=== PATIENT | male | born 1955 | race Hispanic/Latino ===

== ENCOUNTER 2018-07-16 19:56 | Inpatient (IN) | payer OTHER ==
[2018-07-16 19:57] VITALS: BMI 22.8
[2018-07-16 22:39] LABS: BASO # 0.1 K/uL (0.0-0.2); BASO % 0.5 % (0.0-2.0); EOS % 0.1 % (0.0-4.0); LYMPH # 1.5 K/uL (1.0-4.3); LYMPH % 8.7 % (20.0-40.0); MEAN CORPUSCULAR HEMOGLOBIN 27.9 pg (27.0-31.0); MEAN CORPUSCULAR HGB CONC 32.5 g/dL (33.0-37.0); MEAN PLATELET VOLUME 6.1 fl (7.2-11.7); MONO # 1.6 K/uL (0.0-0.8); MONO % 9.3 % (0.0-10.0); NEUT # 13.8 K/uL (1.8-7.0); NEUT % 81.4 % (50.0-75.0); NRBC % 0.1 % (0.0-0.0); RBC 4.09 Mil/uL (4.40-5.90); RED CELL DISTRIBUTION WIDTH 14.2 % (11.5-14.5)
[2018-07-16 22:42] LABS: ALB/GLOB RATIO 1.2 (1.0-2.1); ALBUMIN 3.6 g/dL (3.5-5.0); ALT/SGPT 87 U/L (21-72); AST/SGOT 50 U/L (17-59); BLOOD UREA NITROGEN 16 mg/dl (9-20); CALCIUM 8.9 mg/dL (8.4-10.2); GFR NON-AFRICAN AMERICAN > 60
[2018-07-16 22:46] LABS: WHITE BLOOD COUNT 16.9 K/uL (4.8-10.8)
[2018-07-16 22:47] LABS: HEMOGLOBIN 11.4 g/dL (12.0-18.0); MEAN CELL VOLUME 85.9 fl (80.0-94.0)
[2018-07-16 22:54] LABS: B-TYPE NATRIURETIC PEPTIDE 747 pg/ml (0-900)
--- NOTE | 2018-07-16 22:54 | ED PDOC ---
HPI: SOB/CHF/COPD Time Seen by Provider: 07/16/18 21:00 Chief Complaint (Nursing): Shortness Of Breath Chief Complaint (Provider): Shortness Of Breath History Per: Patient History/Exam Limitations: no limitations Additional Complaint(s): 62 year old male with a past medical history of HTN, GI bleed, alcohol abuse, and pleural effusion presents to the emergency department complaining of shortness of breath and abdominal swelling. Patient states that last Tuesday morning he woke up and thought he was having a heart attack. He called 911 and went to [facility] [place]. They did a catheter, EKG and echocardiogram on him and ruled out any cardiac issue. They found fluid in the thoracic cavity and was diagnosed with severe PNA. Around 1 L of fluid was drained form abdomen. Patient was put on antibiotics and was given a x7 day strip. He took his last pill yesterday but was not able to take it today. He tries to eat food but is unable to. He states he did have a fever when he was admitted but not now. Today, mahesh ent was at [facility] when he called 911 for shortness of breath and abdominal swelling. He denies any cough. PMD: Ramón Ennis Past Medical History Reviewed: Historical Data, Nursing Documentation, Vital Signs Vital Signs: Last Vital Signs Temp 99.1 F 07/16/18 20:08 Pulse 108 H 07/16/18 21:46 Resp 20 07/16/18 21:46 BP 125/80 07/16/18 21:46 Pulse Ox 95 07/16/18 21:46 - Medical History PMH: Anemia, HTN Denies: HIV, Chronic Kidney Disease, TIA - Surgical History Surgical History: Appendectomy, Endoscopy - Family History Family History: States: Unknown Family Hx - Social History Current smoker - smoking cessation education provided: No Ex-Smoker (has not smoked in the last 12 months): Yes Alcohol: None - Immunization History Hx Tetanus Toxoid Vaccination: No Hx Influenza Vaccination: Yes Hx Pneumococcal Vaccination: Yes - Home Medications Home Medications: Ambulatory Orders Medication Instructions Recorded Pantoprazole [Protonix EC Tab] 1 tab PO DAILY 07/23/17 amLODIPine [Norvasc] 1 tab PO DAILY 07/23/17 Losartan [Cozaar] 100 mg PO DAILY 07/08/18 levoFLOXacin [Levaquin] 500 mg PO DAILY #7 tab 07/14/18 Furosemide [Lasix] 20 mg PO DAILY #30 tablet 07/15/18 - Allergies Allergies/Adverse Reactions: Allergies Allergy/AdvReac Type Severity Reaction Status Date / Time No Known Allergies Allergy Verified 07/08/18 07:55 Review of Systems ROS Statement: Except As Marked, All Systems Reviewed And Found Negative Constitutional: Negative for: Fever Respiratory: Positive for: Shortness of Breath. Negative for: Cough Gastrointestinal: Positive for: Other (abdominal swelling) Physical Exam - Reviewed Nursing Documentation Reviewed: Yes Vital Signs Reviewed: Yes - Physical Exam Appears: Positive for: Non-toxic, No Acute Distress Head Exam: Positive for: ATRAUMATIC, NORMOCEPHALIC Skin: Positive for: Normal Color, Warm, Dry Eye Exam: Positive for: Normal appearance, EOMI, PERRL ENT: Positive for: Normal ENT Inspection Cardiovascular/Chest: Positive for: Regular Rate, Rhythm. Negative for: Murmur Respiratory: Positive for: Normal Breath Sounds, Other (tachypnic ). Negative for: Respiratory Distress Gastrointestinal/Abdominal: Positive for: Normal Exam, Soft. Negative for: Tenderness Extremity: Positive for: Pedal Edema (2+ bilaterally swelling on lower extremities ) Neurological/Psych: Positive for: Alert, Oriented - Laboratory Results Result Diagrams: 07/16/18 22:23 07/16/18 22:23 Lab Results: Total Bilirubin 0.5 mg/dl (0.2-1.3) 07/16/18 22:23 AST 50 U/L (17-59) 07/16/18 22:23 ALT 87 U/L (21-72) H D 07/16/18 22:23 Alkaline Phosphatase 102 U/L (38-126) 07/16/18 22:23 Total Protein 6.7 G/DL (6.3-8.2) 07/16/18 22:23 Albumin 3.6 g/dL (3.5-5.0) 07/16/18 22:23 Globulin 3.1 gm/dL (2.2-3.9) 07/16/18 22:23 Albumin/Globulin Ratio 1.2 (1.0-2.1) 07/16/18 22:23 - ECG O2 Sat by Pulse Oximetry: 95 (RA) Pulse Ox Interpretation: Normal Medical Decision Making Medical Decision Making: Time: 2222 Plan: --EKG --BMP --BNP --Troponin I --CBC with differential --Chest xray 2 views Time: 2246 --Alerted Dr. Dubose, who will admit to telemetry. --Looked at patient's xray today and it looks like worsened left pleural effusion with low sodium levels. 00:50 CT Chest FINDINGS: Mild right pleural effusion. Moderate left pleural effusion. Passive atelectatic airspace disease of the lower lobes. Mildly enlarged unenhanced main pulmonary artery and right and left pulmonary arteries. Normal bilateral peripheral pulmonary arteries. Normal thoracic aorta and visualized great vessels. There is no demonstrated aortic aneurysm. Moderately enlarged heart and small pericardial effusion. Mildly enlarged lymph nodes in the mediastinum and ed[place] with the largest measuring 1.3 cm. Normal visualized trachea and bronchi. Normal chest wall structures. Mild diffuse spondylosis. Normal visualized upper abdomen. IMPRESSION: Mild right pleural effusion. Moderate left pleural effusion. Passive atelectatic airspace disease in the lower lobes. Moderate cardiomegaly. Mild pericardial effusion. pt aware of results of xray and need for CT chest. pt agree w plan for admission. Delfin shay aware and agreeable to admisson Scribe Attestation: Documented by Bandar Zamora, acting as a scribe forSumi Lang MD. Provider Scribe Attestation: All medical record entries made by the Scribe were at my direction and personally dictated by me. I have reviewed the chart and agree that the record accurately reflects my personal performance of the history, physical exam, medical decision making, and the department course for this patient. I have also personally directed, reviewed, and agree with the discharge instructions and disposition Disposition - Clinical Impression Clinical Impression: Pleural effusion associated with pulmonary infection - Patient ED Disposition Is Patient to be Admitted: Yes Counseled Patient/Family Regarding: Studies Performed, Diagnosis - Disposition Disposition Time: 00:55 Condition: STABLE
[2018-07-17] MEDS ORDERED: Azithromycin 500 MG in Sodium Chloride 0.9% 250 ML IVPB STA (01:51)
[2018-07-17] MEDS ORDERED: Sodium Chloride 0.9% 1,000 ML IV STA (01:55)
[2018-07-17 06:26] LABS: BASO # 0.1 K/uL (0.0-0.2); BASO % 0.5 % (0.0-2.0); EOS # 0.1 K/uL (0.0-0.7); EOS % 0.5 % (0.0-4.0); HEMOGLOBIN 10.9 g/dL (12.0-18.0); LYMPH # 1.1 K/uL (1.0-4.3); LYMPH % 6.9 % (20.0-40.0); MEAN CORPUSCULAR HEMOGLOBIN 28.7 pg (27.0-31.0); MEAN CORPUSCULAR HGB CONC 33.8 g/dL (33.0-37.0); MONO # 1.7 K/uL (0.0-0.8); MONO % 10.8 % (0.0-10.0); NEUT # 12.5 K/uL (1.8-7.0); NEUT % 81.3 % (50.0-75.0); RBC 3.79 Mil/uL (4.40-5.90); RED CELL DISTRIBUTION WIDTH 14.2 % (11.5-14.5); WHITE BLOOD COUNT 15.4 K/uL (4.8-10.8)
[2018-07-17 06:29] LABS: ALB/GLOB RATIO 1.1 (1.0-2.1); ALBUMIN 3.2 g/dL (3.5-5.0); ALT/SGPT 77 U/L (21-72); AST/SGOT 38 U/L (17-59); BLOOD UREA NITROGEN 12 mg/dl (9-20); CALCIUM 8.6 mg/dL (8.4-10.2); GFR NON-AFRICAN AMERICAN > 60
[2018-07-17] MEDS: guaiFENesin 600 mg ER Tab PO SCH ×2 (08:12→21:29)
[2018-07-17] MEDS: Pantoprazole 40 mg EC Tab PO SCH (08:13)
[2018-07-17] MEDS: Azithromycin 500 MG in Sodium Chloride 0.9% 250 ML IVPB SCH (08:14)
--- NOTE | 2018-07-17 08:24 | CARD ---
APPROVED REPORT Date of service: 07/16/2018 EKG Measurement Heart [id number] <Conclusion> Sinus tachycardia T wave abnormality, consider lateral ischemia Abnormal ECG
--- NOTE | 2018-07-17 08:49 | RAD ---
Date of service: 07/16/2018 HISTORY: sob COMPARISON: No prior. TECHNIQUE: Chest PA and lateral views FINDINGS: LUNGS: Underlying infiltrate not excluded at the left base. None appreciated at the right. PLEURA: No pneumothorax bilaterally. There is a moderate or large left pleural effusion occupying the mid to inferior left lung zone with trace right pleural effusion questioned. CARDIOVASCULAR: Calcific atherosclerotic changes are seen related to the thoracic aorta. Normal cardiac size. No pulmonary vascular congestion. OSSEOUS STRUCTURES: No significant abnormalities. VISUALIZED UPPER ABDOMEN: Normal. OTHER FINDINGS: None. IMPRESSION: Moderately large left pleural effusion with underlying airspace disease not excluded. Trace right pleural effusion question. No pulmonary vascular congestion evident.
--- NOTE | 2018-07-17 09:49 | CP.PCM.CON ---
History of Present Illness - History of Present Illness History of Present Illness: 62 YR OLD MALE REFERRED FOR PULMONARY EVALUATION BECAUSE OF SHORTNESS OF BREATH AND LEFT PLEURAL EFFUSION.HE WAS RECENTLY D/[facility]NE[facility] FROM [facility] AFTER THERAPY FOR CHEST DISCOMFORT,SOB,PLEURAL EFFUSION/ASCITES AND ?PNEUMONIA.HE IS S /P CARDIAC CATH WHICH WAS NON-REVEALING,HAS A HISTORY OF HYPERTENSION,CHRONIC ALCOHOLISM ANDGI BLEED. HE UNDERWENT?THORACENTESES/ABDOMINAL PARACENTESES WITH DRAINAGE OF 1L OF FLUID WITH SYMPTOM RELIEF BUT HAS BECOME MORE SOB WITH ABDOMINAL DISTENSION AND PEDAL EDEMA OVER THE PAST SEVERAL DAYS. NO HX OF DRUG USE OR SMOKING OF CIGARETTES/WORKS IN IT AND IS SINGLE Past Patient History - Past Medical History & Family History Past Medical History?: Yes - Past Social History Alcohol: None - CARDIAC Hx Hypertension: Yes - PULMONARY Hx Respiratory Disorders: Yes Other/Comment: Pleural effusion - NEUROLOGICAL Hx Transient Ischemic Attacks (TIA): No - HEENT Hx HEENT Problems: No - RENAL Hx Chronic Kidney Disease: No - ENDOCRINE/METABOLIC Hx Endocrine Disorders: No - HEMATOLOGICAL/ONCOLOGICAL Hx Anemia: Yes Hx Human Immunodeficiency Virus (HIV): No - INTEGUMENTARY Hx Dermatological Problems: No - MUSCULOSKELETAL/RHEUMATOLOGICAL Hx Falls: No - GASTROINTESTINAL Hx Gastrointestinal Disorders: Yes Hx Gastroesophageal Reflux: Yes Other/Comment: Hx Esophagitis. GIB - GENITOURINARY/GYNECOLOGICAL Hx Genitourinary Disorders: No - PSYCHIATRIC Hx Psychophysiologic Disorder: Yes (alcohol abuse) Hx Substance Use: No - SURGICAL HISTORY Hx Appendectomy: Yes - ANESTHESIA Hx Anesthesia: Yes Hx Anesthesia Reactions: No Hx Malignant Hyperthermia: No Has any member of the family had a problem w/ anesthesia?: No Meds Allergies/Adverse Reactions: Allergies Allergy/AdvReac Type Severity Reaction Status Date / Time No Known Allergies Allergy Verified 07/08/18 07:55 - Medications Medications: Current Medications Albuterol/Ipratropium (Duoneb 3 Mg/0.5 Mg (3 Ml) Ud) 3 ml INH RQ4 PRN PRN Reason: Shortness of Breath Amlodipine Besylate (Norvasc) 10 mg PO DAILY [facility] Last Admin: 07/17/18 08:12 Dose: 10 mg Furosemide (Lasix) 20 mg PO DAILY [facility] Last Admin: 07/17/18 08:12 Dose: 20 mg Guaifenesin (Mucinex La) 1,200 mg PO Q12 [facility] Last Admin: 07/17/18 08:12 Dose: 1,200 mg Ceftriaxone Sodium 1 gm/ (Sodium Chloride) 100 mls @ 100 mls/hr IVPB DAILY [facility]; Protocol Azithromycin 500 mg/ Sodium (Chloride) 250 mls @ 250 mls/hr IVPB DAILY [facility]; Protocol Last Admin: 07/17/18 08:14 Dose: 250 mls/hr Losartan Potassium (Cozaar) 100 mg PO DAILY [facility] Last Admin: 07/17/18 08:12 Dose: 100 mg Pantoprazole Sodium (Protonix Ec Tab) 40 mg PO DAILY [facility] Last Admin: 07/17/18 08:13 Dose: 40 mg Physical Exam - Constitutional Appears: Well, In Acute Distress, Older Than Stated Age, Chronically Ill - Head Exam Head Exam: ATRAUMATIC, NORMAL INSPECTION, NORMOCEPHALIC - Eye Exam Eye Exam: EOMI, Normal appearance, PERRL Pupil Exam: NORMAL ACCOMODATION, PERRL - ENT Exam ENT Exam: Mucous Membranes Moist, Normal Exam - Neck Exam Neck exam: Positive for: Normal Inspection - Respiratory Exam Respiratory Exam: Decreased Breath Sounds, Prolonged Expiratory Phase, Rales, Respiratory Distress Additional comments: ON O2 DULLNESS OVER L LUNG FIELD - Cardiovascular Exam Cardiovascular Exam: REGULAR RHYTHM - GI/Abdominal Exam GI & Abdominal Exam: Distended, Normal Bowel Sounds, Soft. absent: Tenderness - Rectal Exam Rectal Exam: NORMAL INSPECTION - Extremities Exam Extremities exam: Positive for: pedal edema - Back Exam Back exam: NORMAL INSPECTION - Neurological Exam Neurological exam: Alert, CN II-XII Intact, Normal Gait, Oriented x3, Reflexes Normal - Psychiatric Exam Psychiatric exam: Normal Affect, Normal Mood - Skin Skin Exam: Dry, Intact, Normal Color, Warm Results - Vital Signs Recent Vital Signs: Last Vital Signs Temp 98.4 F 07/17/18 08:11 Pulse 102 H 07/17/18 08:12 Resp 19 07/17/18 08:11 BP 135/80 07/17/18 08:12 Pulse Ox 98 07/17/18 08:11 - Labs Result Diagrams: 07/17/18 06:00 07/17/18 06:00 Labs: Laboratory Results - last 24 hr 07/16/18 07/16/18 07/17/18 22:23 22:23 06:00 WBC 16.9 H D 15.4 H RBC 4.09 L 3.79 L Hgb 11.4 L D 10.9 L Hct 35.1 32.2 L MCV 85.9 D 85.0 MCH 27.9 28.7 MCHC 32.5 L 33.8 RDW 14.2 14.2 Plt Count 834 H D 765 H MPV 6.1 L 6.0 L Neut % (Auto) 81.4 H 81.3 H Lymph % (Auto) 8.7 L 6.9 L [place] % (Auto) 9.3 10.8 H Eos % (Auto) 0.1 0.5 Baso % (Auto) 0.5 0.5 Neut # (Auto) 13.8 H 12.5 H Lymph # (Auto) 1.5 1.1 [place] # (Auto) 1.6 H 1.7 H Eos # (Auto) 0.0 0.1 Baso # (Auto) 0.1 0.1 Sodium 127 L Potassium 4.1 Chloride 91 L Carbon Dioxide 26 Anion Gap 14 BUN 16 Creatinine 0.5 L Est GFR ( Amer) > 60 Est GFR (Non-Af Amer) > 60 Random Glucose 131 H Calcium 8.9 Phosphorus Magnesium Total Bilirubin 0.5 AST 50 ALT 87 H D Alkaline Phosphatase 102 Troponin I < 0.0120 NT-Pro-B Natriuret Pep 747 Total Protein 6.7 Albumin 3.6 Globulin 3.1 Albumin/Globulin Ratio 1.2 07/17/18 06:00 WBC RBC Hgb Hct MCV MCH MCHC RDW Plt Count MPV Neut % (Auto) Lymph % (Auto) [place] % (Auto) Eos % (Auto) Baso % (Auto) Neut # (Auto) Lymph # (Auto) [place] # (Auto) Eos # (Auto) Baso # (Auto) Sodium 129 L Potassium 4.4 Chloride 92 L Carbon Dioxide 27 Anion Gap 14 BUN 12 Creatinine 0.5 L Est GFR ( Amer) > 60 Est GFR (Non-Af Amer) > 60 Random Glucose 110 Calcium 8.6 Phosphorus 3.4 Magnesium 1.9 Total Bilirubin 0.4 AST 38 ALT 77 H Alkaline Phosphatase 90 Troponin I < 0.0120 NT-Pro-B Natriuret Pep Total Protein 6.1 L Albumin 3.2 L Globulin 3.0 Albumin/Globulin Ratio 1.1 Assessment & Plan - Assessment and Plan (Free Text) Assessment: PLEURAL EFFUSION?ASCITES WITH SHORTNESS OF BREATH--R/O CIRRHOSIS/INFECTIOUS ETIOLOGY DOUBT MALIGNANCY CHRONIC ALCOHOLISM HX OF HTN HX OF GI BLEED Plan: IR FOR THORACENTESES/PARACENTESES SEND FLUID FOR ANALYSIS GI EVALUATION IV ANTIBIOTICS OXYGEN WILL CONTINUE TO FOLLOW WITH YOU - Date & Time Date: 07/17/18 Time: 09:55
--- NOTE | 2018-07-17 10:38 | CP.PCM.HP ---
History of Present Illness - History of Present Illness History of Present Illness: pt was admitted for pna/pleural effusion. was recently in [facility] for same and had thoracentesis at htat time. at present w/o pain/ sob/ f/c, n/v/d. [facility] [place] chart reviewed case dw/ dr gardiner/[facility] pulm note reviewed. Present on Admission - Present on Admission Any Indicators Present on Admission: No Review of Systems - Respiratory Respiratory: As Per HPI, Dyspnea on Exertion Past Patient History - Past Medical History & Family History Past Medical History?: Yes - Past Social History Alcohol: None - CARDIAC Hx Hypertension: Yes - PULMONARY Hx Respiratory Disorders: Yes Other/Comment: Pleural effusion - NEUROLOGICAL Hx Transient Ischemic Attacks (TIA): No - HEENT Hx HEENT Problems: No - RENAL Hx Chronic Kidney Disease: No - ENDOCRINE/METABOLIC Hx Endocrine Disorders: No - HEMATOLOGICAL/ONCOLOGICAL Hx Anemia: Yes Hx Human Immunodeficiency Virus (HIV): No - INTEGUMENTARY Hx Dermatological Problems: No - MUSCULOSKELETAL/RHEUMATOLOGICAL Hx Falls: No - GASTROINTESTINAL Hx Gastrointestinal Disorders: Yes Hx Gastroesophageal Reflux: Yes Other/Comment: Hx Esophagitis. GIB - GENITOURINARY/GYNECOLOGICAL Hx Genitourinary Disorders: No - PSYCHIATRIC Hx Psychophysiologic Disorder: Yes (alcohol abuse) Hx Substance Use: No - SURGICAL HISTORY Hx Appendectomy: Yes - ANESTHESIA Hx Anesthesia: Yes Hx Anesthesia Reactions: No Hx Malignant Hyperthermia: No Has any member of the family had a problem w/ anesthesia?: No Meds Allergies/Adverse Reactions: Allergies Allergy/AdvReac Type Severity Reaction Status Date / Time No Known Allergies Allergy Verified 07/08/18 07:55 Physical Exam - Constitutional Appears: Well, Non-toxic, No Acute Distress - Head Exam Head Exam: ATRAUMATIC, NORMAL INSPECTION, NORMOCEPHALIC - Eye Exam Eye Exam: EOMI, Normal appearance, PERRL Pupil Exam: NORMAL ACCOMODATION, PERRL - ENT Exam ENT Exam: Mucous Membranes Moist, Normal Exam - Neck Exam Neck exam: Positive for: Normal Inspection - Respiratory Exam Respiratory Exam: Clear to Auscultation Bilateral, NORMAL BREATHING PATTERN - Cardiovascular Exam Cardiovascular Exam: REGULAR RHYTHM, RRR, +S1, +S2 - GI/Abdominal Exam GI & Abdominal Exam: Normal Bowel Sounds, Soft. absent: Tenderness - Exam Bimanual exam: NORMAL BIMANUAL EXAM - Extremities Exam Extremities exam: Positive for: full ROM, normal capillary refill, normal inspection, pedal pulses present - Back Exam Back exam: NORMAL INSPECTION - Neurological Exam Neurological exam: Alert, CN II-XII Intact, Normal Gait, Oriented x3, Reflexes Normal - Psychiatric Exam Psychiatric exam: Normal Affect, Normal Mood - Skin Skin Exam: Dry, Intact, Normal Color, Warm Results - Vital Signs Recent Vital Signs: Last Vital Signs Temp 98.4 F 07/17/18 08:11 Pulse 102 H 07/17/18 08:12 Resp 19 07/17/18 08:11 BP 135/80 07/17/18 08:12 Pulse Ox 98 07/17/18 08:11 - Labs Result Diagrams: 07/17/18 06:00 07/17/18 06:00 Labs: Laboratory Results - last 24 hr 07/16/18 07/16/18 07/17/18 22:23 22:23 06:00 WBC 16.9 H D 15.4 H RBC 4.09 L 3.79 L Hgb 11.4 L D 10.9 L Hct 35.1 32.2 L MCV 85.9 D 85.0 MCH 27.9 28.7 MCHC 32.5 L 33.8 RDW 14.2 14.2 Plt Count 834 H D 765 H MPV 6.1 L 6.0 L Neut % (Auto) 81.4 H 81.3 H Lymph % (Auto) 8.7 L 6.9 L [place] % (Auto) 9.3 10.8 H Eos % (Auto) 0.1 0.5 Baso % (Auto) 0.5 0.5 Neut # (Auto) 13.8 H 12.5 H Lymph # (Auto) 1.5 1.1 [place] # (Auto) 1.6 H 1.7 H Eos # (Auto) 0.0 0.1 Baso # (Auto) 0.1 0.1 Sodium 127 L Potassium 4.1 Chloride 91 L Carbon Dioxide 26 Anion Gap 14 BUN 16 Creatinine 0.5 L Est GFR ( Amer) > 60 Est GFR (Non-Af Amer) > 60 Random Glucose 131 H Calcium 8.9 Phosphorus Magnesium Total Bilirubin 0.5 AST 50 ALT 87 H D Alkaline Phosphatase 102 Troponin I < 0.0120 NT-Pro-B Natriuret Pep 747 Total Protein 6.7 Albumin 3.6 Globulin 3.1 Albumin/Globulin Ratio 1.2 07/17/18 06:00 WBC RBC Hgb Hct MCV MCH MCHC RDW Plt Count MPV Neut % (Auto) Lymph % (Auto) [place] % (Auto) Eos % (Auto) Baso % (Auto) Neut # (Auto) Lymph # (Auto) [place] # (Auto) Eos # (Auto) Baso # (Auto) Sodium 129 L Potassium 4.4 Chloride 92 L Carbon Dioxide 27 Anion Gap 14 BUN 12 Creatinine 0.5 L Est GFR ( Amer) > 60 Est GFR (Non-Af Amer) > 60 Random Glucose 110 Calcium 8.6 Phosphorus 3.4 Magnesium 1.9 Total Bilirubin 0.4 AST 38 ALT 77 H Alkaline Phosphatase 90 Troponin I < 0.0120 NT-Pro-B Natriuret Pep Total Protein 6.1 L Albumin 3.2 L Globulin 3.0 Albumin/Globulin Ratio 1.1 Assessment & Plan (1) Pleural effusion associated with pulmonary infection Assessment and Plan: cardio, pulm, gi thoracentessi and per pulm rocpehin/zithromax/phenergen f/u bw and c/s o2 prn Status: Acute Priority: High (2) DVT prophylaxis Assessment and Plan: scd and ae hose hold anticoag for thoracentesis ambulation Status: Acute - Assessment and Plan (Free Text) Assessment: gi [id number] Decision To Admit - Pt Status Changed To: Hospital Disposition Of: Inpatient - Admit Certification Admit to Inpatient:: After my assessment, the patient will require hospitalizat ion for at least two midnights. This is because of the severity of symptoms shown, intensity of services needed, and/or the medical risk in this patient being treated as an outpatient. - . Bed Request Type: Telemetry Admitting Physician: Anders Cruz
--- NOTE | 2018-07-17 13:59 | CP.PCM.CON ---
Past Patient History - Past Medical History & Family History Past Medical History?: Yes - Past Social History Alcohol: None - CARDIAC Hx Hypertension: Yes - PULMONARY Hx Respiratory Disorders: Yes Other/Comment: Pleural effusion - NEUROLOGICAL Hx Transient Ischemic Attacks (TIA): No - HEENT Hx HEENT Problems: No - RENAL Hx Chronic Kidney Disease: No - ENDOCRINE/METABOLIC Hx Endocrine Disorders: No - HEMATOLOGICAL/ONCOLOGICAL Hx Anemia: Yes Hx Human Immunodeficiency Virus (HIV): No - INTEGUMENTARY Hx Dermatological Problems: No - MUSCULOSKELETAL/RHEUMATOLOGICAL Hx Falls: No - GASTROINTESTINAL Hx Gastrointestinal Disorders: Yes Hx Gastroesophageal Reflux: Yes Other/Comment: Hx Esophagitis. GIB - GENITOURINARY/GYNECOLOGICAL Hx Genitourinary Disorders: No - PSYCHIATRIC Hx Psychophysiologic Disorder: Yes (alcohol abuse) Hx Substance Use: No - SURGICAL HISTORY Hx Appendectomy: Yes - ANESTHESIA Hx Anesthesia: Yes Hx Anesthesia Reactions: No Hx Malignant Hyperthermia: No Has any member of the family had a problem w/ anesthesia?: No Meds Allergies/Adverse Reactions: Allergies Allergy/AdvReac Type Severity Reaction Status Date / Time No Known Allergies Allergy Verified 07/08/18 07:55 - Medications Medications: Current Medications Albuterol/Ipratropium (Duoneb 3 Mg/0.5 Mg (3 Ml) Ud) 3 ml INH RQ4 PRN PRN Reason: Shortness of Breath Amlodipine Besylate (Norvasc) 10 mg PO DAILY [facility] Last Admin: 07/17/18 08:12 Dose: 10 mg Furosemide (Lasix) 20 mg PO DAILY [facility] Last Admin: 07/17/18 08:12 Dose: 20 mg Furosemide (Lasix) 40 mg IVP DAILY [facility] Last Admin: 07/17/18 10:43 Dose: 40 mg Guaifenesin (Mucinex La) 1,200 mg PO Q12 [facility] Last Admin: 07/17/18 08:12 Dose: 1,200 mg Ceftriaxone Sodium 1 gm/ (Sodium Chloride) 100 mls @ 100 mls/hr IVPB DAILY [facility]; Protocol Last Admin: 07/17/18 10:38 Dose: 100 mls/hr Azithromycin 500 mg/ Sodium (Chloride) 250 mls @ 250 mls/hr IVPB DAILY [facility]; Protocol Last Admin: 07/17/18 08:14 Dose: 250 mls/hr Losartan Potassium (Cozaar) 100 mg PO DAILY [facility] Last Admin: 07/17/18 08:12 Dose: 100 mg Pantoprazole Sodium (Protonix Ec Tab) 40 mg PO DAILY [facility] Last Admin: 07/17/18 08:13 Dose: 40 mg Results - Vital Signs Recent Vital Signs: Last Vital Signs Temp 98.4 F 07/17/18 08:11 Pulse 110 H 07/17/18 09:00 Resp 19 07/17/18 08:11 BP 135/80 07/17/18 10:43 Pulse Ox 98 07/17/18 08:11 - Labs Result Diagrams: 07/17/18 06:00 07/17/18 06:00 Labs: Laboratory Results - last 24 hr 07/16/18 07/16/18 07/17/18 22:23 22:23 06:00 WBC 16.9 H D 15.4 H RBC 4.09 L 3.79 L Hgb 11.4 L D 10.9 L Hct 35.1 32.2 L MCV 85.9 D 85.0 MCH 27.9 28.7 MCHC 32.5 L 33.8 RDW 14.2 14.2 Plt Count 834 H D 765 H MPV 6.1 L 6.0 L Neut % (Auto) 81.4 H 81.3 H Lymph % (Auto) 8.7 L 6.9 L [place] % (Auto) 9.3 10.8 H Eos % (Auto) 0.1 0.5 Baso % (Auto) 0.5 0.5 Neut # (Auto) 13.8 H 12.5 H Lymph # (Auto) 1.5 1.1 [place] # (Auto) 1.6 H 1.7 H Eos # (Auto) 0.0 0.1 Baso # (Auto) 0.1 0.1 Sodium 127 L Potassium 4.1 Chloride 91 L Carbon Dioxide 26 Anion Gap 14 BUN 16 Creatinine 0.5 L Est GFR ( Amer) > 60 Est GFR (Non-Af Amer) > 60 Random Glucose 131 H Calcium 8.9 Phosphorus Magnesium Total Bilirubin 0.5 AST 50 ALT 87 H D Alkaline Phosphatase 102 Troponin I < 0.0120 NT-Pro-B Natriuret Pep 747 Total Protein 6.7 Albumin 3.6 Globulin 3.1 Albumin/Globulin Ratio 1.2 07/17/18 06:00 WBC RBC Hgb Hct MCV MCH MCHC RDW Plt Count MPV Neut % (Auto) Lymph % (Auto) [place] % (Auto) Eos % (Auto) Baso % (Auto) Neut # (Auto) Lymph # (Auto) [place] # (Auto) Eos # (Auto) Baso # (Auto) Sodium 129 L Potassium 4.4 Chloride 92 L Carbon Dioxide 27 Anion Gap 14 BUN 12 Creatinine 0.5 L Est GFR ( Amer) > 60 Est GFR (Non-Af Amer) > 60 Random Glucose 110 Calcium 8.6 Phosphorus 3.4 Magnesium 1.9 Total Bilirubin 0.4 AST 38 ALT 77 H Alkaline Phosphatase 90 Troponin I < 0.0120 NT-Pro-B Natriuret Pep Total Protein 6.1 L Albumin 3.2 L Globulin 3.0 Albumin/Globulin Ratio 1.1 Assessment & Plan (1) Pleural effusion exudative Status: Acute (2) ETOH abuse Status: Acute (3) Ascites Status: Acute (4) Edema extremities Status: Acute (5) Thrombocytosis Status: Acute (6) Leukocytosis Status: Acute - Assessment and Plan (Free Text) Plan: i reviewed the pts echo and left heart cath images. nml ef. no cad. pts lab values from last admission point to exudative process. would check tsh, esr, crp, consider id and rheum eval. consider onc eval. pt also hyponatremic. would be cautious with diuretic use and consider nephro consult. this does not appear to be cardiac in etiology.
[2018-07-17] MEDS ORDERED: Iohexol 240 (50 ml) PO ONE (15:00)
[2018-07-17] MEDS: Albuterol-Ipratrop 3 mg / 0.5 (3 ml) UD INH PRN ×2 (17:06→21:52)
[2018-07-17] MEDS ORDERED: Iohexol 300 100 ML IJ ONE (17:14)
[2018-07-17] MEDS ORDERED: Sodium Chloride 0.9% 50 ML IV ONE (17:14)
--- NOTE | 2018-07-17 18:59 | CT ---
Date of service: 07/17/2018 PROCEDURE: CT Abdomen and Pelvis with contrast HISTORY: ascites etoh pleural effusion leukocytosis COMPARISON: None. TECHNIQUE: Intravenous contrast dose: 95 cc Omnipaque 300. Radiation dose: Total exam DLP = 399.25 mGy-cm. This CT exam was performed using one or more of the following dose reduction techniques: Automated exposure control, adjustment of the mA and/or kV according to patient size, and/or use of iterative reconstruction technique. FINDINGS: LOWER THORAX: Bilateral pleural effusions left larger than right. Associated compressive atelectasis. Trace pericardial effusion. LIVER: Unremarkable. No gross lesion or ductal dilatation. GALLBLADDER AND BILE DUCTS: Unremarkable. PANCREAS: Unremarkable. No gross lesion or ductal dilatation. SPLEEN: Unremarkable. ADRENALS: Unremarkable. No mass. KIDNEYS AND URETERS: Unremarkable. No hydronephrosis. No solid mass. VASCULATURE: Unremarkable. No aortic aneurysm. No atherosclerotic calcification or mural plaque present. BOWEL: Fluid-filled mildly distended colon without mechanical obstruction. APPENDIX: No abnormalities to suggest acute appendicitis. No right lower quadrant inflammatory processes identified. PERITONEUM: Unremarkable. No free fluid. No free air. LYMPH NODES: Unremarkable. No enlarged lymph nodes. BLADDER: Diffuse bladder wall thickening likely cystitis. No focal bladder wall abnormalities detected. REPRODUCTIVE: Unremarkable. BONES: No acute fracture. OTHER FINDINGS: None. IMPRESSION: No acute findings in the abdomen retroperitoneum or pelvis. Diffuse bladder wall thickening likely cystitis. Redemonstration of bilateral pleural effusions and compressive atelectasis left greater than right. Incidental trace pericardial effusion.
[2018-07-18 05:44] LABS: ALB/GLOB RATIO 1.1 (1.0-2.1); ALBUMIN 3.3 g/dL (3.5-5.0); ALT/SGPT 81 U/L (21-72); AST/SGOT 47 U/L (17-59); BLOOD UREA NITROGEN 16 mg/dl (9-20); CALCIUM 8.6 mg/dL (8.4-10.2); GFR NON-AFRICAN AMERICAN > 60
[2018-07-18 05:51] LABS: BASO # 0.1 K/uL (0.0-0.2); BASO % 0.4 % (0.0-2.0); EOS % 0.2 % (0.0-4.0); HEMOGLOBIN 11.2 g/dL (12.0-18.0); LYMPH # 1.5 K/uL (1.0-4.3); LYMPH % 7.4 % (20.0-40.0); MEAN CELL VOLUME 84.6 fl (80.0-94.0); MEAN CORPUSCULAR HEMOGLOBIN 28.5 pg (27.0-31.0); MEAN CORPUSCULAR HGB CONC 33.7 g/dL (33.0-37.0); MEAN PLATELET VOLUME 6.2 fl (7.2-11.7); MONO # 2.1 K/uL (0.0-0.8); MONO % 10.1 % (0.0-10.0); NEUT # 16.9 K/uL (1.8-7.0); NEUT % 81.9 % (50.0-75.0); RBC 3.92 Mil/uL (4.40-5.90); RED CELL DISTRIBUTION WIDTH 14.3 % (11.5-14.5); WHITE BLOOD COUNT 20.6 K/uL (4.8-10.8)
[2018-07-18 06:08] LABS: T3 0.583 nmol/L (1.49-2.60)
[2018-07-18 06:12] LABS: PLATELET COUNT 915 K/uL (130-400)
[2018-07-18 06:35] LABS: ERYTHROCYTE SEDIMENTATION RATE 48 mm/hr (0-20)
[2018-07-18] MEDS: guaiFENesin 600 mg ER Tab PO SCH ×2 (08:06→21:19)
[2018-07-18] MEDS: Pantoprazole 40 mg EC Tab PO SCH (08:06)
[2018-07-18] MEDS: Albuterol-Ipratrop 3 mg / 0.5 (3 ml) UD INH PRN ×3 (08:19→19:46)
--- NOTE | 2018-07-18 08:32 | CP.PCM.PN ---
Subjective - Date & Time of Evaluation Date of Evaluation: 07/18/18 Time of Evaluation: 08:32 - Subjective Subjective: OOB TO CHAIR STILL DYSPNEIC BUT LESS NO CHEST PAINS HAS A DRY COUGH Objective - Vital Signs/Intake and Output Vital Signs (last 24 hours): Temp Pulse Resp BP Pulse Ox 98.9 F 111 H 22 128/84 97 07/18/18 08:07 07/18/18 08:07 07/18/18 08:07 07/18/18 08:13 07/18/18 08:07 - Medications Medications: Current Medications Albuterol/Ipratropium (Duoneb 3 Mg/0.5 Mg (3 Ml) Ud) 3 ml INH RQ4 PRN PRN Reason: Shortness of Breath Last Admin: 07/18/18 08:19 Dose: 3 ml Amlodipine Besylate (Norvasc) 10 mg PO DAILY [facility] Last Admin: 07/18/18 08:06 Dose: Not Given Furosemide (Lasix) 20 mg PO DAILY [facility] Last Admin: 07/18/18 08:05 Dose: Not Given Guaifenesin (Mucinex La) 1,200 mg PO Q12 [facility] Last Admin: 07/18/18 08:06 Dose: Not Given Ceftriaxone Sodium 1 gm/ (Sodium Chloride) 100 mls @ 100 mls/hr IVPB DAILY [facility]; Protocol Last Admin: 07/18/18 08:12 Dose: 100 mls/hr Azithromycin 500 mg/ Sodium (Chloride) 250 mls @ 250 mls/hr IVPB DAILY [facility]; Protocol Last Admin: 07/17/18 08:14 Dose: 250 mls/hr Losartan Potassium (Cozaar) 100 mg PO DAILY [facility] Last Admin: 07/18/18 08:05 Dose: Not Given Pantoprazole Sodium (Protonix Ec Tab) 40 mg PO DAILY [facility] Last Admin: 07/18/18 08:06 Dose: Not Given - Labs Labs: 07/18/18 05:12 07/18/18 05:12 - Constitutional Appears: Chronically Ill - Head Exam Head Exam: ATRAUMATIC, NORMAL INSPECTION, NORMOCEPHALIC - Eye Exam Eye Exam: EOMI, Normal appearance, PERRL Pupil Exam: NORMAL ACCOMODATION, PERRL - ENT Exam ENT Exam: Mucous Membranes Moist, Normal Exam - Neck Exam Neck Exam: Full ROM, Normal Inspection. absent: Lymphadenopathy - Respiratory Exam Respiratory Exam: Decreased Breath Sounds, Rales, NORMAL BREATHING PATTERN Additional comments: DULLNESS AT LUNG BASES - Cardiovascular Exam Cardiovascular Exam: REGULAR RHYTHM, +S1, +S2. absent: Murmur - GI/Abdominal Exam GI & Abdominal Exam: Soft, Normal Bowel Sounds. absent: Tenderness - Rectal Exam Rectal Exam: NORMAL INSPECTION - Extremities Exam Extremities Exam: Full ROM, Normal Capillary Refill, Pedal Edema. absent: Joint Swelling - Back Exam Back Exam: NORMAL INSPECTION - Neurological Exam Neurological Exam: Alert, Awake, CN II-XII Intact, Normal Gait, Oriented x3 - Psychiatric Exam Psychiatric exam: Normal Affect, Normal Mood - Skin Skin Exam: Dry, Intact, Normal Color, Warm Assessment and Plan - Assessment and Plan (Free Text) Assessment: PLEURAL EFFUSIONS?ETIOLOGY Plan: FOR THORACENTESIS AND FLUID ANALYSIS CONTINUE CURRENT RX
[2018-07-18 09:41] LABS: INR 1.6; PROTHROMBIN TIME 17.7 Seconds (9.8-13.1)
[2018-07-18] MEDS: Azithromycin 500 MG in Sodium Chloride 0.9% 250 ML IVPB SCH (09:47)
[2018-07-18 09:52] LABS: BASOPHIL 1 % (0-2); LYMPHOCYTE 5 % (20-50); MONOCYTE 12 % (0-10); NEUTROPHIL 82 % (42-75); TOTAL CELLS COUNTED 100
[2018-07-18 09:53] LABS: PLATELET ESTIMATE MARKEDLY INCREASED (NORMAL)
--- NOTE | 2018-07-18 11:04 | CP.PCM.PN ---
Subjective - Date & Time of Evaluation Date of Evaluation: 07/18/18 Time of Evaluation: 11:03 - Subjective Subjective: pt doing well. no f/c, n/v/d. bw noted and case d/c w/ all consults. seen in ir s/p thoracentesis no dyspnea, cp Objective - Vital Signs/Intake and Output Vital Signs (last 24 hours): Temp Pulse Resp BP Pulse Ox 98.9 F 111 H 22 128/84 97 07/18/18 08:07 07/18/18 08:07 07/18/18 08:07 07/18/18 08:13 07/18/18 08:07 - Medications Medications: Current Medications Albuterol/Ipratropium (Duoneb 3 Mg/0.5 Mg (3 Ml) Ud) 3 ml INH RQ4 PRN PRN Reason: Shortness of Breath Last Admin: 07/18/18 08:19 Dose: 3 ml Amlodipine Besylate (Norvasc) 10 mg PO DAILY [facility] Last Admin: 07/18/18 08:06 Dose: Not Given Furosemide (Lasix) 20 mg PO DAILY [facility] Last Admin: 07/18/18 08:05 Dose: Not Given Guaifenesin (Mucinex La) 1,200 mg PO Q12 [facility] Last Admin: 07/18/18 08:06 Dose: Not Given Ceftriaxone Sodium 1 gm/ (Sodium Chloride) 100 mls @ 100 mls/hr IVPB DAILY [facility]; Protocol Last Admin: 07/18/18 08:12 Dose: 100 mls/hr Azithromycin 500 mg/ Sodium (Chloride) 250 mls @ 250 mls/hr IVPB DAILY [facility]; Protocol Last Admin: 07/18/18 09:47 Dose: 250 mls/hr Losartan Potassium (Cozaar) 100 mg PO DAILY [facility] Last Admin: 07/18/18 08:05 Dose: Not Given Pantoprazole Sodium (Protonix Ec Tab) 40 mg PO DAILY [facility] Last Admin: 07/18/18 08:06 Dose: Not Given - Labs Labs: 07/18/18 05:12 07/18/18 05:12 PT 17.7 Seconds (9.8-13.1) H 07/18/18 09:00 INR 1.6 07/18/18 09:00 - Constitutional Appears: Well, Non-toxic, No Acute Distress - Head Exam Head Exam: ATRAUMATIC, NORMAL INSPECTION, NORMOCEPHALIC - Eye Exam Eye Exam: EOMI, Normal appearance, PERRL Pupil Exam: NORMAL ACCOMODATION, PERRL - ENT Exam ENT Exam: Mucous Membranes Moist, Normal Exam - Neck Exam Neck Exam: Full ROM, Normal Inspection. absent: Lymphadenopathy - Respiratory Exam Respiratory Exam: Clear to Ausculation Bilateral, NORMAL BREATHING PATTERN - Cardiovascular Exam Cardiovascular Exam: REGULAR RHYTHM, RRR, +S1, +S2. absent: Murmur - GI/Abdominal Exam GI & Abdominal Exam: Soft, Normal Bowel Sounds. absent: Tenderness - Extremities Exam Extremities Exam: Full ROM, Normal Capillary Refill, Normal Inspection. absent: Joint Swelling, Pedal Edema - Back Exam Back Exam: NORMAL INSPECTION - Neurological Exam Neurological Exam: Alert, Awake, CN II-XII Intact, Normal Gait, Oriented x3 - Psychiatric Exam Psychiatric exam: Normal Affect, Normal Mood - Skin Skin Exam: Dry, Intact, Normal Color, Warm Assessment and Plan (1) Pleural effusion associated with pulmonary infection Assessment & Plan: gi, heme/onc, pulm and cardio consults appriciated pain control o2 prn s/p thoracentesis today f/u all studies as resulted Status: Acute (2) DVT prophylaxis Assessment & Plan: scd and aehose Status: Acute - Assessment and Plan (Free Text) Assessment: elev plt count-heme/onc, hydration ?? acute phase reactant
[2018-07-18] MEDS ORDERED: Lidocaine Hydrochloride 1% 10 ML ONE (11:25)
--- NOTE | 2018-07-18 11:53 | PCM.SURG1 ---
Surgeon's Initial Post Op Note - Surgeon's Notes Surgeon: Harry CLAIRE md Supervisor [employer] Maintenance: none Type of Anesthesia: Local Pre-Operative Diagnosis: Right and left pleural effusion Operative Findings: US showed small right effusion, large left effusion. Post-Operative Diagnosis: Right and left pleural effusion Operation Performed: Right and left thoracentesis Specimen/Specimens Removed: 1.5 liters of straw colored fluid left, 100 ccc right. Estimated Blood Loss: EBL {In ML}: 2 Blood Products Given: N/A Drains Used: No Drains Post-Op Condition: Fair Date of Surgery/Procedure: 07/18/18 Time of Surgery/Procedure: 11:40
[2018-07-18 12:19] LABS: AMYLASE,BODY FLUID < 30 mg/dL (NONE ESTABLISHED); GLUCOSE,BODY FLUID 132 mg/dL (NONE ESTABLISHED)
--- NOTE | 2018-07-18 13:20 | RAD ---
Date of service: 07/18/2018 PROCEDURE: CHEST RADIOGRAPH, 1 VIEW HISTORY: status post thoracentesis COMPARISON: Preprocedural examination 07/16/2018. FINDINGS: LUNGS: Marked improvement with respect aeration of the left lung status post left thoracentesis. Stable right lower lobe infiltrate likely compressive atelectasis. PLEURA: Substantial decrease in left pleural effusion. Small right pleural effusion. CARDIOVASCULAR: Atherosclerotic calcifications identified primarily aortic arch. No radiographic findings to suggest acute or significant cardiovascular disease. OSSEOUS STRUCTURES: No significant abnormalities. VISUALIZED UPPER ABDOMEN: Normal. OTHER FINDINGS: None. IMPRESSION: Status post thoracentesis, substantial decrease in left pleural effusion. No pneumothorax identified. Re-expansion left lower lobe and lingula.
--- NOTE | 2018-07-18 14:13 | CP.PCM.CON ---
History of Present Illness - History of Present Illness History of Present Illness: 62 year old male with a history of HTN, ?alcohol abuse, presenting with recurrent shortness of breath and chest discomfort, found to have a pleural effusion s/p thoracentesis with leukocytosis and thrombocytosis. The patient reports to recent thoracentesis at [facility]. He is unaware of blood problems in the past. He denies abnormal bleeding, bruising, and clotting in the past. Past medical history: HTN, ?alcohol abuse, recurent pleural effusion. Past surgical history: Denies Family history: Denies hematologic and oncologic problems Social history: 3-4 beers daily, denies tobacco Allergies: NKA Review of systems: All remaining review of systems including HEENT, cardiovascular, respiratory, gastrointestinal, genitourinary, musculoskeletal, dermatologic, neurologic, and psychiatric are negative unless mentioned in the HPI. Past Patient History - Past Medical History & Family History Past Medical History?: Yes - Past Social History Alcohol: None - CARDIAC Hx Hypertension: Yes - PULMONARY Hx Respiratory Disorders: Yes Other/Comment: Pleural effusion - NEUROLOGICAL Hx Transient Ischemic Attacks (TIA): No - HEENT Hx HEENT Problems: No - RENAL Hx Chronic Kidney Disease: No - ENDOCRINE/METABOLIC Hx Endocrine Disorders: No - HEMATOLOGICAL/ONCOLOGICAL Hx Anemia: Yes Hx Human Immunodeficiency Virus (HIV): No - INTEGUMENTARY Hx Dermatological Problems: No - MUSCULOSKELETAL/RHEUMATOLOGICAL Hx Falls: No - GASTROINTESTINAL Hx Gastrointestinal Disorders: Yes Hx Gastroesophageal Reflux: Yes Other/Comment: Hx Esophagitis. GIB - GENITOURINARY/GYNECOLOGICAL Hx Genitourinary Disorders: No - PSYCHIATRIC Hx Psychophysiologic Disorder: Yes (alcohol abuse) Hx Substance Use: No - SURGICAL HISTORY Hx Appendectomy: Yes - ANESTHESIA Hx Anesthesia: Yes Hx Anesthesia Reactions: No Hx Malignant Hyperthermia: No Has any member of the family had a problem w/ anesthesia?: No Meds Allergies/Adverse Reactions: Allergies Allergy/AdvReac Type Severity Reaction Status Date / Time No Known Allergies Allergy Verified 07/08/18 07:55 - Medications Medications: Current Medications Albuterol/Ipratropium (Duoneb 3 Mg/0.5 Mg (3 Ml) Ud) 3 ml INH RQ4 PRN PRN Reason: Shortness of Breath Last Admin: 07/18/18 08:19 Dose: 3 ml Amlodipine Besylate (Norvasc) 10 mg PO DAILY [facility] Last Admin: 07/18/18 08:06 Dose: Not Given Furosemide (Lasix) 20 mg PO DAILY [facility] Last Admin: 07/18/18 08:05 Dose: Not Given Guaifenesin (Mucinex La) 1,200 mg PO Q12 [facility] Last Admin: 07/18/18 08:06 Dose: Not Given Ceftriaxone Sodium 1 gm/ (Sodium Chloride) 100 mls @ 100 mls/hr IVPB DAILY [facility]; Protocol Last Admin: 07/18/18 08:12 Dose: 100 mls/hr Azithromycin 500 mg/ Sodium (Chloride) 250 mls @ 250 mls/hr IVPB DAILY [facility]; Protocol Last Admin: 07/18/18 09:47 Dose: 250 mls/hr Losartan Potassium (Cozaar) 100 mg PO DAILY [facility] Last Admin: 07/18/18 08:05 Dose: Not Given Pantoprazole Sodium (Protonix Ec Tab) 40 mg PO DAILY [facility] Last Admin: 07/18/18 08:06 Dose: Not Given Physical Exam - Head Exam Head Exam: ATRAUMATIC - Eye Exam Eye Exam: Normal appearance - ENT Exam ENT Exam: Mucous Membranes Dry - Respiratory Exam Respiratory Exam: Decreased Breath Sounds - Cardiovascular Exam Cardiovascular Exam: +S1, +S2 - GI/Abdominal Exam GI & Abdominal Exam: Normal Bowel Sounds Results - Vital Signs Recent Vital Signs: Last Vital Signs Temp 99.4 F 07/18/18 11:00 Pulse 92 H 07/18/18 11:40 Resp 22 07/18/18 11:40 BP 114/69 07/18/18 11:40 Pulse Ox 98 07/18/18 11:40 - Labs Result Diagrams: 07/18/18 05:12 07/18/18 05:12 Labs: Laboratory Results - last 24 hr 07/18/18 07/18/18 07/18/18 05:12 05:12 05:12 WBC 20.6 H RBC 3.92 L Hgb 11.2 L Hct 33.1 L MCV 84.6 MCH 28.5 MCHC 33.7 RDW 14.3 Plt Count 915 H* MPV 6.2 L Neut % (Auto) 81.9 H Lymph % (Auto) 7.4 L [place] % (Auto) 10.1 H Eos % (Auto) 0.2 Baso % (Auto) 0.4 Neut # (Auto) 16.9 H Lymph # (Auto) 1.5 [place] # (Auto) 2.1 H Eos # (Auto) 0.0 Baso # (Auto) 0.1 Neutrophils % (Manual) 82 H Lymphocytes % (Manual) 5 L Monocytes % (Manual) 12 H Basophils % (Manual) 1 Platelet Estimate Markedly increased H RBC Morphology Normal ESR 48 H PT INR Sodium 124 L Potassium 4.0 Chloride 89 L Carbon Dioxide 23 Anion Gap 16 BUN 16 Creatinine 0.5 L Est GFR ( Amer) > 60 Est GFR (Non-Af Amer) > 60 POC Glucose (mg/dL) Random Glucose 150 H Calcium 8.6 Phosphorus 3.7 Magnesium 2.0 Total Bilirubin 0.4 AST 47 ALT 81 H Alkaline Phosphatase 120 Total Protein 6.1 L Albumin 3.3 L Globulin 2.9 Albumin/Globulin Ratio 1.1 Free T4 1.23 Total T3 0.583 L TSH 3rd Generation 3.39 Fluid Glucose Fluid Total Protein Fluid LDH Fluid Amylase Fluid Triglycerides 07/18/18 07/18/18 07/18/18 05:22 09:00 11:50 WBC RBC Hgb Hct MCV MCH MCHC RDW Plt Count MPV Neut % (Auto) Lymph % (Auto) [place] % (Auto) Eos % (Auto) Baso % (Auto) Neut # (Auto) Lymph # (Auto) [place] # (Auto) Eos # (Auto) Baso # (Auto) Neutrophils % (Manual) Lymphocytes % (Manual) Monocytes % (Manual) Basophils % (Manual) Platelet Estimate RBC Morphology ESR PT 17.7 H INR 1.6 Sodium Potassium Chloride Carbon Dioxide Anion Gap BUN Creatinine Est GFR ( Amer) Est GFR (Non-Af Amer) POC Glucose (mg/dL) 150 H Random Glucose Calcium Phosphorus Magnesium Total Bilirubin AST ALT Alkaline Phosphatase Total Protein Albumin Globulin Albumin/Globulin Ratio Free T4 Total T3 TSH 3rd Generation Fluid Glucose 132 Fluid Total Protein Fluid LDH Fluid Amylase < 30 Fluid Triglycerides 07/18/18 11:50 WBC RBC Hgb Hct MCV MCH MCHC RDW Plt Count MPV Neut % (Auto) Lymph % (Auto) [place] % (Auto) Eos % (Auto) Baso % (Auto) Neut # (Auto) Lymph # (Auto) [place] # (Auto) Eos # (Auto) Baso # (Auto) Neutrophils % (Manual) Lymphocytes % (Manual) Monocytes % (Manual) Basophils % (Manual) Platelet Estimate RBC Morphology ESR PT INR Sodium Potassium Chloride Carbon Dioxide Anion Gap BUN Creatinine Est GFR ( Amer) Est GFR (Non-Af Amer) POC Glucose (mg/dL) Random Glucose Calcium Phosphorus Magnesium Total Bilirubin AST ALT Alkaline Phosphatase Total Protein Albumin Globulin Albumin/Globulin Ratio Free T4 Total T3 TSH 3rd Generation Fluid Glucose Fluid Total Protein 4.0 Fluid LDH 358 Fluid Amylase Fluid Triglycerides 27 Assessment & Plan (1) Thrombocytosis Assessment and Plan: will check JAK2 mutation to rule out clonal process may be reactive, rule out iron deficiency related thrombocytosis Status: Acute (2) Leukocytosis Assessment and Plan: predominant neutrophilia on abx may be reactive Status: Acute (3) Anemia Assessment and Plan: retic count, b12, folate, ferritin, FOBT to further characterize Thank you for this interesting consult. Status: Acute
--- NOTE | 2018-07-18 14:27 | CT ---
Date of service: 07/17/2018 PROCEDURE: CT Chest without contrast HISTORY: Shortness of breath. Worsening left pleural effusion. Relevant interventional procedure(s): July 18, 2018. Left thoracentesis. COMPARISON: 07/16/2018. Two-view chest. July 18, 2018. Single-view chest. TECHNIQUE: Contiguous axial images were obtained through the chest without intravenous contrast enhancement. Sagittal and coronal reconstructions were performed. Radiation dose: Total exam DLP = 265.07 mGy-cm. This CT exam was performed using one or more of the following dose reduction techniques: Automated exposure control, adjustment of the mA and/or kV according to patient size, and/or use of iterative reconstruction technique. FINDINGS: LUNGS: Compressive atelectasis affecting primarily lower lobes left greater than right. MEDIASTINUM: Unremarkable thoracic aorta. No aneurysm. Top-normal size heart. Small pericardial effusion. Main pulmonary artery unremarkable. No vascular congestion. Small, less than 1.3 cm mediastinal lymph nodes. No aortic atherosclerotic calcification. PLEURA: Bilateral pleural effusions, left larger than right. BONES: No fracture. No destructive lesion. UPPER ABDOMEN: Grossly unremarkable. OTHER FINDINGS: None. IMPRESSION: Bilateral pleural effusions left larger than right. Compressive atelectasis affecting the left lung to a greater extent than the right. Small pericardial effusion. Concordant results (preliminary interpretation) provided by [employer]. Procedure Completed: 00:02. Preliminary Report: Interpreted and electronically signed: 00:50. Final Interpretation: 14:24.
[2018-07-19] MEDS: Azithromycin 500 MG in Sodium Chloride 0.9% 250 ML IVPB SCH (09:36)
[2018-07-19] MEDS: guaiFENesin 600 mg ER Tab PO SCH ×2 (09:37→21:07)
[2018-07-19] MEDS: Pantoprazole 40 mg EC Tab PO SCH (09:37)
--- NOTE | 2018-07-19 10:36 | CP.PCM.PN ---
Subjective - Date & Time of Evaluation Date of Evaluation: 07/19/18 Time of Evaluation: 10:36 - Subjective Subjective: SOB IMPROVED POST-THORACENTESIS NO CHEST PAIN/COUGH OOB TO CHAIR Objective - Vital Signs/Intake and Output Vital Signs (last 24 hours): Temp Pulse Resp BP Pulse Ox 99.6 F 99 H 20 115/81 99 07/19/18 08:24 07/19/18 08:24 07/19/18 08:24 07/19/18 09:37 07/19/18 08:24 - Medications Medications: Current Medications Albuterol/Ipratropium (Duoneb 3 Mg/0.5 Mg (3 Ml) Ud) 3 ml INH RQ4 PRN PRN Reason: Shortness of Breath Last Admin: 07/18/18 19:46 Dose: 3 ml Amlodipine Besylate (Norvasc) 10 mg PO DAILY [facility] Last Admin: 07/19/18 09:37 Dose: 10 mg Furosemide (Lasix) 20 mg PO DAILY [facility] Last Admin: 07/19/18 09:37 Dose: 20 mg Guaifenesin (Mucinex La) 1,200 mg PO Q12 [facility] Last Admin: 07/19/18 09:37 Dose: 1,200 mg Ceftriaxone Sodium 1 gm/ (Sodium Chloride) 100 mls @ 100 mls/hr IVPB DAILY [facility]; Protocol Last Admin: 07/19/18 09:35 Dose: 100 mls/hr Azithromycin 500 mg/ Sodium (Chloride) 250 mls @ 250 mls/hr IVPB DAILY [facility]; Protocol Last Admin: 07/19/18 09:36 Dose: 250 mls/hr Losartan Potassium (Cozaar) 100 mg PO DAILY [facility] Last Admin: 07/19/18 09:37 Dose: 100 mg Pantoprazole Sodium (Protonix Ec Tab) 40 mg PO DAILY [facility] Last Admin: 07/19/18 09:37 Dose: 40 mg - Labs Labs: 07/18/18 05:12 07/18/18 05:12 PT 17.7 Seconds (9.8-13.1) H 07/18/18 09:00 INR 1.6 07/18/18 09:00 - Constitutional Appears: No Acute Distress - Head Exam Head Exam: ATRAUMATIC, NORMAL INSPECTION, NORMOCEPHALIC - Eye Exam Eye Exam: EOMI, Normal appearance, PERRL Pupil Exam: NORMAL ACCOMODATION, PERRL - ENT Exam ENT Exam: Mucous Membranes Moist, Normal Exam - Neck Exam Neck Exam: Full ROM, Normal Inspection. absent: Lymphadenopathy - Respiratory Exam Respiratory Exam: Clear to Ausculation Bilateral, NORMAL BREATHING PATTERN - Cardiovascular Exam Cardiovascular Exam: REGULAR RHYTHM, +S1, +S2. absent: Murmur - GI/Abdominal Exam GI & Abdominal Exam: Soft, Normal Bowel Sounds. absent: Tenderness - Rectal Exam Rectal Exam: NORMAL INSPECTION - Extremities Exam Extremities Exam: Full ROM, Normal Capillary Refill, Normal Inspection. absent: Joint Swelling, Pedal Edema - Back Exam Back Exam: NORMAL INSPECTION - Neurological Exam Neurological Exam: Alert, Awake, CN II-XII Intact, Normal Gait, Oriented x3 - Psychiatric Exam Psychiatric exam: Normal Affect, Normal Mood - Skin Skin Exam: Dry, Intact, Normal Color, Warm Assessment and Plan - Assessment and Plan (Free Text) Assessment: PLEURAL EFFUSION-?ETIOLOGY[EXUDATIVE] Plan: AWAIT CULTURE AND PATHOLOGY REPORT CONTINUE IV ANTIBIOTIC RX
--- NOTE | 2018-07-19 10:49 | CP.PCM.PN ---
Subjective - Date & Time of Evaluation Date of Evaluation: 07/19/18 Time of Evaluation: 10:00 - Subjective Subjective: No complaints. started aspirin today Objective - Vital Signs/Intake and Output Vital Signs (last 24 hours): Temp Pulse Resp BP Pulse Ox 99.6 F 99 H 20 115/81 99 07/19/18 08:24 07/19/18 08:24 07/19/18 08:24 07/19/18 09:37 07/19/18 08:24 - Medications Medications: Current Medications Albuterol/Ipratropium (Duoneb 3 Mg/0.5 Mg (3 Ml) Ud) 3 ml INH RQ4 PRN PRN Reason: Shortness of Breath Last Admin: 07/18/18 19:46 Dose: 3 ml Amlodipine Besylate (Norvasc) 10 mg PO DAILY [facility] Last Admin: 07/19/18 09:37 Dose: 10 mg Aspirin (Ecotrin) 81 mg PO DAILY [facility] Furosemide (Lasix) 20 mg PO DAILY [facility] Last Admin: 07/19/18 09:37 Dose: 20 mg Guaifenesin (Mucinex La) 1,200 mg PO Q12 [facility] Last Admin: 07/19/18 09:37 Dose: 1,200 mg Ceftriaxone Sodium 1 gm/ (Sodium Chloride) 100 mls @ 100 mls/hr IVPB DAILY [facility]; Protocol Last Admin: 07/19/18 09:35 Dose: 100 mls/hr Azithromycin 500 mg/ Sodium (Chloride) 250 mls @ 250 mls/hr IVPB DAILY [facility]; Protocol Last Admin: 07/19/18 09:36 Dose: 250 mls/hr Losartan Potassium (Cozaar) 100 mg PO DAILY [facility] Last Admin: 07/19/18 09:37 Dose: 100 mg Pantoprazole Sodium (Protonix Ec Tab) 40 mg PO DAILY [facility] Last Admin: 07/19/18 09:37 Dose: 40 mg - Labs Labs: 07/18/18 05:12 07/18/18 05:12 PT 17.7 Seconds (9.8-13.1) H 07/18/18 09:00 INR 1.6 07/18/18 09:00 - Head Exam Head Exam: ATRAUMATIC - Eye Exam Eye Exam: Normal appearance - ENT Exam ENT Exam: Mucous Membranes Dry - Respiratory Exam Respiratory Exam: NORMAL BREATHING PATTERN - Cardiovascular Exam Cardiovascular Exam: +S1, +S2 - GI/Abdominal Exam GI & Abdominal Exam: Normal Bowel Sounds Assessment and Plan (1) Thrombocytosis Assessment & Plan: ? reactive f/u JAK2 to start aspirin 81mg daily today Status: Acute (2) Leukocytosis Assessment & Plan: ? reactive on antibiotics Status: Acute (3) Anemia Assessment & Plan: mild anemia of chronic disease Status: Acute
--- NOTE | 2018-07-19 11:17 | CP.PCM.PN ---
Subjective - Date & Time of Evaluation Date of Evaluation: 07/19/18 Time of Evaluation: 11:16 - Subjective Subjective: pt doing well. no f/c, n/v/d. less sob and no cp s/p thoracentesis. all consults appriciated. labs reviewed. c/s noted. Objective - Vital Signs/Intake and Output Vital Signs (last 24 hours): Temp Pulse Resp BP Pulse Ox 99.6 F 99 H 20 115/81 99 07/19/18 08:24 07/19/18 08:24 07/19/18 08:24 07/19/18 09:37 07/19/18 08:24 - Medications Medications: Current Medications Albuterol/Ipratropium (Duoneb 3 Mg/0.5 Mg (3 Ml) Ud) 3 ml INH RQ4 PRN PRN Reason: Shortness of Breath Last Admin: 07/18/18 19:46 Dose: 3 ml Amlodipine Besylate (Norvasc) 10 mg PO DAILY [facility] Last Admin: 07/19/18 09:37 Dose: 10 mg Aspirin (Ecotrin) 81 mg PO DAILY [facility] Furosemide (Lasix) 20 mg PO DAILY [facility] Last Admin: 07/19/18 09:37 Dose: 20 mg Guaifenesin (Mucinex La) 1,200 mg PO Q12 [facility] Last Admin: 07/19/18 09:37 Dose: 1,200 mg Ceftriaxone Sodium 1 gm/ (Sodium Chloride) 100 mls @ 100 mls/hr IVPB DAILY [facility]; Protocol Last Admin: 07/19/18 09:35 Dose: 100 mls/hr Azithromycin 500 mg/ Sodium (Chloride) 250 mls @ 250 mls/hr IVPB DAILY [facility]; Protocol Last Admin: 07/19/18 09:36 Dose: 250 mls/hr Losartan Potassium (Cozaar) 100 mg PO DAILY [facility] Last Admin: 07/19/18 09:37 Dose: 100 mg Pantoprazole Sodium (Protonix Ec Tab) 40 mg PO DAILY [facility] Last Admin: 07/19/18 09:37 Dose: 40 mg - Labs Labs: 07/18/18 05:12 07/18/18 05:12 PT 17.7 Seconds (9.8-13.1) H 07/18/18 09:00 INR 1.6 07/18/18 09:00 - Constitutional Appears: Well, Non-toxic, No Acute Distress - Head Exam Head Exam: ATRAUMATIC, NORMAL INSPECTION, NORMOCEPHALIC - Eye Exam Eye Exam: EOMI, Normal appearance, PERRL Pupil Exam: NORMAL ACCOMODATION, PERRL - ENT Exam ENT Exam: Mucous Membranes Moist, Normal Exam - Neck Exam Neck Exam: Full ROM, Normal Inspection. absent: Lymphadenopathy - Respiratory Exam Respiratory Exam: Clear to Ausculation Bilateral, NORMAL BREATHING PATTERN - Cardiovascular Exam Cardiovascular Exam: REGULAR RHYTHM, RRR, +S1, +S2. absent: Murmur - GI/Abdominal Exam GI & Abdominal Exam: Soft, Normal Bowel Sounds. absent: Tenderness - Extremities Exam Extremities Exam: Full ROM, Normal Capillary Refill, Normal Inspection. absent: Joint Swelling, Pedal Edema - Back Exam Back Exam: NORMAL INSPECTION - Neurological Exam Neurological Exam: Alert, Awake, CN II-XII Intact, Normal Gait, Oriented x3 - Psychiatric Exam Psychiatric exam: Normal Affect, Normal Mood - Skin Skin Exam: Dry, Intact, Normal Color, Warm Assessment and Plan (1) Pleural effusion associated with pulmonary infection Assessment & Plan: cont anbd, consjlts f/u c/s Status: Acute (2) DVT prophylaxis Assessment & Plan: scd and ae hose, ambulation Status: Acute - Assessment and Plan (Free Text) Assessment: cont current plan dc as per specialists and pts condition
[2018-07-19 12:30] LABS: BASO # 0.1 K/uL (0.0-0.2); BASO % 0.3 % (0.0-2.0); EOS % 0.2 % (0.0-4.0); HEMOGLOBIN 11.4 g/dL (12.0-18.0); LYMPH % 5.7 % (20.0-40.0); MEAN CELL VOLUME 84.4 fl (80.0-94.0); MEAN CORPUSCULAR HEMOGLOBIN 28.2 pg (27.0-31.0); MEAN CORPUSCULAR HGB CONC 33.4 g/dL (33.0-37.0); MEAN PLATELET VOLUME 6.2 fl (7.2-11.7); MONO # 1.8 K/uL (0.0-0.8); NEUT # 15.4 K/uL (1.8-7.0); NEUT % 83.8 % (50.0-75.0); RBC 4.02 Mil/uL (4.40-5.90); RED CELL DISTRIBUTION WIDTH 14.2 % (11.5-14.5); WHITE BLOOD COUNT 18.4 K/uL (4.8-10.8)
[2018-07-19 12:47] LABS: ALB/GLOB RATIO 1.1 (1.0-2.1); ALBUMIN 3.3 g/dL (3.5-5.0); ALT/SGPT 117 U/L (21-72); AST/SGOT 95 U/L (17-59); BLOOD UREA NITROGEN 20 mg/dl (9-20); CALCIUM 8.8 mg/dL (8.4-10.2); GFR NON-AFRICAN AMERICAN > 60
--- NOTE | 2018-07-19 14:10 | US ---
PROCEDURE: Date of procedure: 07/18/2018 Procedure: 1. Ultrasound-guided left thoracentesis, 2. Ultrasound-guided right thoracentesis Medications: 6cc 1% Lidocaine HISTORY: Right and left pleural effusion, shortness of breath TECHNIQUE: Following informed consent, the patient's right and left chest were marked and prepped in the usual sterile fashion. Ultrasound showed a large left pleural effusion and a very small right pleural effusion. After the left back was anesthetized with 1 percent lidocaine, a drainage catheter was advanced under ultrasound guidance into the left pleural space. Ultrasound-guided left thoracentesis was performed with removal 180 cubic centimeters of clear yellow fluid. After the patient's right back was incised with 2 percent lidocaine, a drainage catheter was advanced into the right pleural space. Only 60 cubic centimeters of fluid was aspirated. The catheter was removed and a Xeroform dressing was applied. IMPRESSION: Ultrasound guided left thoracentesis. Ultrasound-guided right thoracentesis. 1.8 liters of fluid removed from left pleural space. 60 cubic centimeter of fluid removed from the right pleural space.
[2018-07-19 17:09] LABS: FOLATE 16.2 ng/mL
[2018-07-20 05:10] LABS: BASO # 0.1 K/uL (0.0-0.2); BASO % 0.5 % (0.0-2.0); HEMOGLOBIN 10.7 g/dL (12.0-18.0); LYMPH # 1.2 K/uL (1.0-4.3); MEAN CELL VOLUME 84.4 fl (80.0-94.0); MEAN CORPUSCULAR HEMOGLOBIN 27.7 pg (27.0-31.0); MEAN CORPUSCULAR HGB CONC 32.9 g/dL (33.0-37.0); MEAN PLATELET VOLUME 6.3 fl (7.2-11.7); MONO # 2.2 K/uL (0.0-0.8); MONO % 9.2 % (0.0-10.0); NEUT # 20.5 K/uL (1.8-7.0); NEUT % 85.3 % (50.0-75.0); NRBC % 0.1 % (0.0-0.0); RBC 3.85 Mil/uL (4.40-5.90); RED CELL DISTRIBUTION WIDTH 14.7 % (11.5-14.5)
[2018-07-20 05:18] LABS: ALB/GLOB RATIO 1.1 (1.0-2.1); ALBUMIN 2.9 g/dL (3.5-5.0); ALT/SGPT 119 U/L (21-72); AST/SGOT 72 U/L (17-59); BLOOD UREA NITROGEN 23 mg/dl (9-20); CALCIUM 8.2 mg/dL (8.4-10.2); GFR NON-AFRICAN AMERICAN > 60
[2018-07-20] MEDS ORDERED: Sodium Chloride 0.9% 1,000 ML IV SCH (08:15)
--- NOTE | 2018-07-20 08:18 | CON ---
DATE: 07/17/2018 REFERRING DOCTOR: RASHAD Nesbitt. REASON FOR CONSULTATION: Possible ascites. HISTORY OF PRESENT ILLNESS: This is a 62-year-old gentleman, essentially had return of pleural effusion, which was tapped, now accompanied with shortness of breath, possible ascites in the abdomen. The patient has no abdominal pain or discomfort. No nausea or vomiting whatsoever. The shortness of breath is improving, but still present. Currently lying in the bed in mild respiratory distress. PAST MEDICAL HISTORY: As above. PAST SURGICAL HISTORY: As above. MEDICATIONS: Have been reviewed. REVIEW OF SYSTEMS: All other systems have been reviewed and negative apart from the HPI. PHYSICAL EXAMINATION: VITAL SIGNS: Here in the hospital are grossly unremarkable. GENERAL: A pleasant middle-aged male lying in bed comfortably, in no apparent distress. HEENT: Head: Normocephalic and atraumatic. Eyes: Pupils are equal and reactive to light bilaterally. No conjunctival pallor or icterus. NECK: Supple. Normal range of motion. No lymph nodes appreciated. LUNGS: Coarse breath sounds bilaterally. Crackles on both side. ABDOMEN: No rebound. No guarding. RECTAL: Deferred. EXTREMITIES: Pulses felt bilaterally. SKIN: Warm, dry, and intact. NEUROLOGIC: Alert and oriented x3. LABORATORY DATA: Labs and radiology have been reviewed. WBC is 15.4, hemoglobin 10.9, hematocrit 32.2, platelet count 755. INR is pending. LFTs are mildly elevated. ALT is 72. ASSESSMENT AND PLAN: This is a 62-year-old male with recurrent pleural effusion. Suggest recommended CAT scan to see if this is ascites, possible . CAT scan is ordered and performed. Pulmonary will follow up the patient. Thank you for the consult. Emanuel New MD/ PhD
--- NOTE | 2018-07-20 08:25 | CP.PCM.PN ---
Subjective - Date & Time of Evaluation Date of Evaluation: 07/20/18 Time of Evaluation: 08:28 - Subjective Subjective: SHORTNESS OF BREATH IMPROVED COUGH LESS NO CHEST PAINS ABLE TO AMBULATE WITHOUT ASSISTANCE Objective - Vital Signs/Intake and Output Vital Signs (last 24 hours): Temp Pulse Resp BP Pulse Ox 99.1 F 107 H 20 102/62 96 07/20/18 08:21 07/20/18 08:21 07/20/18 08:21 07/20/18 08:21 07/20/18 08:21 - Medications Medications: Current Medications Albuterol/Ipratropium (Duoneb 3 Mg/0.5 Mg (3 Ml) Ud) 3 ml INH RQ4 PRN PRN Reason: Shortness of Breath Last Admin: 07/18/18 19:46 Dose: 3 ml Amlodipine Besylate (Norvasc) 10 mg PO DAILY [facility] Last Admin: 07/19/18 09:37 Dose: 10 mg Aspirin (Ecotrin) 81 mg PO DAILY [facility] Last Admin: 07/19/18 12:34 Dose: 81 mg Furosemide (Lasix) 20 mg PO DAILY [facility] Last Admin: 07/19/18 09:37 Dose: 20 mg Guaifenesin (Mucinex La) 1,200 mg PO Q12 [facility] Last Admin: 07/19/18 21:07 Dose: 1,200 mg Ceftriaxone Sodium 1 gm/ (Sodium Chloride) 100 mls @ 100 mls/hr IVPB DAILY [facility]; Protocol Last Admin: 07/19/18 09:35 Dose: 100 mls/hr Azithromycin 500 mg/ Sodium (Chloride) 250 mls @ 250 mls/hr IVPB DAILY [facility]; Protocol Last Admin: 07/19/18 09:36 Dose: 250 mls/hr Sodium Chloride (Sodium Chloride 0.9%) 1,000 mls @ 100 mls/hr IV .Q10H [facility] Stop: 07/21/18 08:06 Losartan Potassium (Cozaar) 100 mg PO DAILY [facility] Last Admin: 07/19/18 09:37 Dose: 100 mg Pantoprazole Sodium (Protonix Ec Tab) 40 mg PO DAILY [facility] Last Admin: 07/19/18 09:37 Dose: 40 mg - Labs Labs: 07/20/18 04:55 07/20/18 04:55 PT 17.7 Seconds (9.8-13.1) H 07/18/18 09:00 INR 1.6 07/18/18 09:00 - Constitutional Appears: No Acute Distress - Head Exam Head Exam: ATRAUMATIC, NORMAL INSPECTION, NORMOCEPHALIC - Eye Exam Eye Exam: EOMI, Normal appearance, PERRL Pupil Exam: NORMAL ACCOMODATION, PERRL - ENT Exam ENT Exam: Mucous Membranes Moist, Normal Exam - Neck Exam Neck Exam: Full ROM, Normal Inspection. absent: Lymphadenopathy - Respiratory Exam Respiratory Exam: Rales, NORMAL BREATHING PATTERN Additional comments: FEW BASAL RALES - Cardiovascular Exam Cardiovascular Exam: REGULAR RHYTHM, +S1, +S2. absent: Murmur - GI/Abdominal Exam GI & Abdominal Exam: Soft, Normal Bowel Sounds. absent: Tenderness - Rectal Exam Rectal Exam: NORMAL INSPECTION - Extremities Exam Extremities Exam: Full ROM, Normal Capillary Refill, Normal Inspection. absent: Joint Swelling, Pedal Edema - Back Exam Back Exam: NORMAL INSPECTION - Neurological Exam Neurological Exam: Alert, Awake, CN II-XII Intact, Normal Gait, Oriented x3 - Psychiatric Exam Psychiatric exam: Normal Affect, Normal Mood - Skin Skin Exam: Dry, Intact, Normal Color, Warm Assessment and Plan - Assessment and Plan (Free Text) Assessment: PLEURAL EFFUSIONS PROBABLY DUE TO INFECTIOUS ETIOLOGY LEUKOCYTOSIS AND THROMBOCYTOSIS HX OF CHRONIC ALCOHOLISM WITH ABNORMAL LFTS Plan: AGREE WITH ID CONSULT AND IV ANTIBIOTIC THERAPY AWAIT PLEURAL FLUID CYTOLOGY REPORT ALL CULTURES NEGATIVE SO FAR
[2018-07-20] MEDS: guaiFENesin 600 mg ER Tab PO SCH ×2 (09:26→21:43)
[2018-07-20] MEDS: Pantoprazole 40 mg EC Tab PO SCH (09:26)
[2018-07-20] MEDS: Azithromycin 500 MG in Sodium Chloride 0.9% 250 ML IVPB SCH (09:28)
--- NOTE | 2018-07-20 12:10 | PN ---
DATE: 07/20/2018 SUBJECTIVE: The patient is seen sitting in chair at bedside. Denies any complaints of shortness of breath. No chest pain. No fevers at present but had a fever overnight. Blood work is noted, wbc gone back up to about 20. Platelets remain in the low 900. All consults have been appreciated. Case discussed with all consultants. Has been off oxygen about 24 hours. Cultures and cytology is pending. REVIEW OF SYSTEMS: Negative. PHYSICAL EXAMINATION: CONSTITUTIONAL: Awake, alert, and oriented. HEENT: Normal. HEART: Regular, rate and rhythm. No murmurs, rubs, or gallops. LUNGS: Clear to auscultation bilaterally. ABDOMEN: Soft, nontender. Bowel sounds x4. EXTREMITIES: Distal PMS intact. Capillary refill is brisk. DIAGNOSES AND PLAN: Pleural effusion with infection as the patient had a fever after 4 days of Rocephin and Zithromax, we will consult ID. Cultures have been thus far negative pending the results of pleural effusion, liquid cultures. Deep vein thrombosis prophylaxis, sequential compression devices with Ae-hose, chronic conditions, continue all meds. We will continue to follow laboratory results. Continue work with specialist on this patient's care. RASHAD Nesbitt MTDAliyah
--- NOTE | 2018-07-20 17:40 | CP.PCM.CON ---
History of Present Illness - History of Present Illness History of Present Illness: 62 year old male with Hx of HTN is admitted to [facility] with increased SOB and chest pain He was recently treated at where he had cardiac cath done for possible ACS and had thoracentesis for pleural effusion Now admitted to [place] with similar presentation ID consulted for persistent fever and leukocytosis s/p thoracentesis Thus far all cultures are negative Past medical history: HTN, , recurent pleural effusion, GI bleed in past Past surgical history: Denies Family history: CAD negative for TB Social history: 4 beers daily, non smoker [place] Spent 6 years in the [employer] during Possible 12/13 exposure at ground zero ( [facility] ) Allergies: NKA Review of Systems - Review of Systems All systems: reviewed and no additional remarkable complaints except - Constitutional Constitutional: As Per HPI - EENT Eyes: absent: As Per HPI, Blind Spots, Blurred Vision, Change in Vision, Decreased Night Vision, Diplopia, Discharge, Dry Eye, Exophthalmos, Floaters, Irritation, Itchy Eyes, Loss of Peripheral Vision, Pain, Photophobia, Requires Corrective Lenses, Sees Flashes, Spots in Vision, Tunnel Vision, Other Visual Disturbances, Loss of Vision, Other Ears: absent: As Per HPI, Decreased Hearing, Ear Discharge, Ear Pain, Tinnitus, Abnormal Hearing, Disequilibrium, Dizziness, Other Nose/Mouth/Throat: absent: As Per HPI, Epistaxis, Nasal Congestion, Nasal Discharge, Nasal Obstruction, Nasal Trauma, Nose Pain, Post Nasal Drip, Sinus Pain, Sinus Pressure, Bleeding Gums, Change in Voice, Dental Pain, Dry Mouth, Dysphagia, Halitosis, Hoarsness, Lip Swelling, Mouth Lesions, Mouth Pain, Odynop hagia, Sore Throat, Throat Swelling, Tongue Swelling, Facial Pain, Neck Pain, Neck Mass, Other - Cardiovascular Cardiovascular: As Per HPI - Respiratory Respiratory: As Per HPI, Cough, Dyspnea, Dyspnea on Exertion. absent: Hemoptysis - Gastrointestinal Gastrointestinal: As Per HPI - Genitourinary Genitourinary: absent: As Per HPI, Change in Urinary Stream, Difficulty Urinating, Dysuria, Flank Pain, Hematuria, Pyuria, Nocturia, Urinary Inco ntinence, Urinary Frequency, Urinary Hesitance, Urinary Urgency, Voiding Freq/Small Amts, Freq UTI, Hx Renal/Bladder Calculi, Hx /Renal Surgery, Bladder Distension, Other - Musculoskeletal Musculoskeletal: As Per HPI - Integumentary Integumentary: As Per HPI - Neurological Neurological: absent: As Per HPI, Abnormal Gait, Abnormal Hearing, Abnormal Movements, Abnormal Speech, Behavioral Changes, Burning Sensations, Confusion, Convulsions, Disequilibrium, Dizziness, Numbness, Focal Weakness, Frequent Falls, Headaches, Lack of Coordination, Loss of Vision, Memory Loss, Paresthe rach, Radicular Pain, Restless Legs, Sensory Deficit, Syncope, Tingling, Tremor, Vertigo, Weakness, Other Visual Disturbances, Other - Psychiatric Psychiatric: absent: As Per HPI, Abnormal Sleep Pattern, Anhedonia, Anxiety, Auditory Hallucinations, Behavioral Changes, Change in Appetite, Change in Libido, Confusion, Depression, Difficulty Concentrating, Hallucinations, Homicidal Ideation, Hopelessness, Irritability, Memory Loss, Mood Swings, Panic Attacks, Paranoia, Suicidal Ideation, Visual Hallucinations, Tactile Hallucinations, Other - Endocrine Endocrine: absent: As Per HPI, Change in Body Appearance, Change in Libido, Cold Intolorance, Deepening of Voice, Excessive Sweating, Fatigue, Flushing, Heat Intolorance, Increase in Ring/Shoe/Hat Size, Palpitations, Polydipsia, Polyphagia, Polyuria, Other - Hematologic/Lymphatic Hematologic: As Per HPI Additional comments: Leg edema + Past Patient History - Past Medical History & Family History Past Medical History?: Yes - Past Social History Alcohol: None - CARDIAC Hx Hypertension: Yes - PULMONARY Hx Respiratory Disorders: Yes Other/Comment: Pleural effusion - NEUROLOGICAL Hx Transient Ischemic Attacks (TIA): No - HEENT Hx HEENT Problems: No - RENAL Hx Chronic Kidney Disease: No - ENDOCRINE/METABOLIC Hx Endocrine Disorders: No - HEMATOLOGICAL/ONCOLOGICAL Hx Anemia: Yes Hx Human Immunodeficiency Virus (HIV): No - INTEGUMENTARY Hx Dermatological Problems: No - MUSCULOSKELETAL/RHEUMATOLOGICAL Hx Falls: No - GASTROINTESTINAL Hx Gastrointestinal Disorders: Yes Hx Gastroesophageal Reflux: Yes Other/Comment: Hx Esophagitis. GIB - GENITOURINARY/GYNECOLOGICAL Hx Genitourinary Disorders: No - PSYCHIATRIC Hx Psychophysiologic Disorder: Yes (alcohol abuse) Hx Substance Use: No - SURGICAL HISTORY Hx Appendectomy: Yes - ANESTHESIA Hx Anesthesia: Yes Hx Anesthesia Reactions: No Hx Malignant Hyperthermia: No Has any member of the family had a problem w/ anesthesia?: No Meds Allergies/Adverse Reactions: Allergies Allergy/AdvReac Type Severity Reaction Status Date / Time No Known Allergies Allergy Verified 07/08/18 07:55 - Medications Medications: Current Medications Albuterol/Ipratropium (Duoneb 3 Mg/0.5 Mg (3 Ml) Ud) 3 ml INH RQ4 PRN PRN Reason: Shortness of Breath Last Admin: 07/18/18 19:46 Dose: 3 ml Amlodipine Besylate (Norvasc) 10 mg PO DAILY [facility] Last Admin: 07/20/18 09:26 Dose: Not Given Aspirin (Ecotrin) 81 mg PO DAILY [facility] Last Admin: 07/20/18 09:25 Dose: 81 mg Furosemide (Lasix) 20 mg PO DAILY [facility] Last Admin: 07/20/18 09:25 Dose: 20 mg Guaifenesin (Mucinex La) 1,200 mg PO Q12 [facility] Last Admin: 07/20/18 09:26 Dose: 1,200 mg Ceftriaxone Sodium 1 gm/ (Sodium Chloride) 100 mls @ 100 mls/hr IVPB DAILY [facility]; Protocol Last Admin: 07/20/18 09:27 Dose: 100 mls/hr Azithromycin 500 mg/ Sodium (Chloride) 250 mls @ 250 mls/hr IVPB DAILY [facility]; Protocol Last Admin: 07/20/18 09:28 Dose: 250 mls/hr Losartan Potassium (Cozaar) 100 mg PO DAILY [facility] Last Admin: 07/20/18 09:24 Dose: 100 mg Pantoprazole Sodium (Protonix Ec Tab) 40 mg PO DAILY [facility] Last Admin: 07/20/18 09:26 Dose: 40 mg Physical Exam - Constitutional Appears: Non-toxic, No Acute Distress, Chronically Ill - Head Exam Head Exam: ATRAUMATIC, NORMAL INSPECTION, NORMOCEPHALIC - Eye Exam Eye Exam: PERRL. absent: Scleral icterus Pupil Exam: NORMAL ACCOMODATION - ENT Exam ENT Exam: Mucous Membranes Dry, Normal External Ear Exam, Normal Oropharynx - Neck Exam Neck exam: Negative for: Lymphadenopathy - Respiratory Exam Respiratory Exam: Decreased Breath Sounds, Prolonged Expiratory Phase, Rales - Cardiovascular Exam Cardiovascular Exam: REGULAR RHYTHM, +S1, +S2 - GI/Abdominal Exam GI & Abdominal Exam: Diminished Bowel Sounds, Distended (x), Soft. absent: Rigid, Tenderness - Rectal Exam Rectal Exam: Deferred - Exam Exam: NORMAL INSPECTION - Extremities Exam Extremities exam: Positive for: pedal edema, pedal pulses present. Negative for: calf tenderness, tenderness - Back Exam Back exam: absent: CVA tenderness (L), CVA tenderness (R), paraspinal tenderness - Neurological Exam Neurological exam: Alert, CN II-XII Intact, Oriented x3, Reflexes Normal - Psychiatric Exam Psychiatric exam: Depressed - Skin Skin Exam: Dry, Intact Results - Vital Signs Recent Vital Signs: Last Vital Signs Temp 99.2 F 07/20/18 15:54 Pulse 97 H 07/20/18 15:54 Resp 18 07/20/18 15:54 BP 124/73 07/20/18 15:54 Pulse Ox 94 L 07/20/18 15:54 - Labs Result Diagrams: 07/20/18 04:55 07/20/18 04:55 Labs: Laboratory Results - last 24 hr 07/19/18 07/19/18 07/20/18 08:15 21:27 04:55 WBC 24.0 H RBC 3.85 L Hgb 10.7 L Hct 32.5 L MCV 84.4 MCH 27.7 MCHC 32.9 L RDW 14.7 H Plt Count 907 H* MPV 6.3 L Neut % (Auto) 85.3 H Lymph % (Auto) 5.0 L [place] % (Auto) 9.2 Eos % (Auto) 0.0 Baso % (Auto) 0.5 Neut # (Auto) 20.5 H Lymph # (Auto) 1.2 [place] # (Auto) 2.2 H Eos # (Auto) 0.0 Baso # (Auto) 0.1 Sodium Potassium Chloride Carbon Dioxide Anion Gap BUN Creatinine Est GFR ( Amer) Est GFR (Non-Af Amer) POC Glucose (mg/dL) 205 H Random Glucose Calcium Total Bilirubin AST ALT Alkaline Phosphatase Total Protein Albumin Globulin Albumin/Globulin Ratio GRAYSON Screen Negative 07/20/18 07/20/18 07/20/18 04:55 05:29 10:57 WBC RBC Hgb Hct MCV MCH MCHC RDW Plt Count MPV Neut % (Auto) Lymph % (Auto) [place] % (Auto) Eos % (Auto) Baso % (Auto) Neut # (Auto) Lymph # (Auto) [place] # (Auto) Eos # (Auto) Baso # (Auto) Sodium 122 L Potassium 4.3 Chloride 88 L Carbon Dioxide 24 Anion Gap 14 BUN 23 H Creatinine 0.8 Est GFR ( Amer) > 60 Est GFR (Non-Af Amer) > 60 POC Glucose (mg/dL) 154 H 207 H Random Glucose 136 H Calcium 8.2 L Total Bilirubin 0.4 AST 72 H D ALT 119 H Alkaline Phosphatase 156 H Total Protein 5.6 L Albumin 2.9 L Globulin 2.7 Albumin/Globulin Ratio 1.1 GRAYSON Screen 07/20/18 15:48 WBC RBC Hgb Hct MCV MCH MCHC RDW Plt Count MPV Neut % (Auto) Lymph % (Auto) [place] % (Auto) Eos % (Auto) Baso % (Auto) Neut # (Auto) Lymph # (Auto) [place] # (Auto) Eos # (Auto) Baso # (Auto) Sodium Potassium Chloride Carbon Dioxide Anion Gap BUN Creatinine Est GFR ( Amer) Est GFR (Non-Af Amer) POC Glucose (mg/dL) 166 H Random Glucose Calcium Total Bilirubin AST ALT Alkaline Phosphatase Total Protein Albumin Globulin Albumin/Globulin Ratio GRAYS[place] Screen Assessment & Plan (1) Ascites Status: Acute (2) ETOH abuse Status: Acute (3) Edema extremities Status: Acute (4) Leukocytosis Status: Acute (5) Pleural effusion associated with pulmonary infection Status: Acute Priority: High (6) Pleural effusion exudative Status: Acute (7) Thrombocytosis Status: Acute - Assessment and Plan (Free Text) Assessment: recurrent pleural effusion in a 62 yo male with hx of alcohol use and HTN Differential includes infections as well as malignancies In view of possible asbestos exposure would consider mesothelioma in differential as well as primary hematologic malignancies Doubt pulmonary TB but still need to consider this in context of recurrent ex udative effusions Ultimately may need VATS with chest tube and possibly Bone Marrow Bx
--- NOTE | 2018-07-20 21:26 | CP.PCM.PN ---
Subjective - Date & Time of Evaluation Date of Evaluation: 07/20/18 Time of Evaluation: 12:00 - Subjective Subjective: Feeling better, breathing better. Objective - Vital Signs/Intake and Output Vital Signs (last 24 hours): Temp Pulse Resp BP Pulse Ox 99.0 F 79 18 98/66 L 96 07/20/18 20:14 07/20/18 20:14 07/20/18 20:14 07/20/18 20:14 07/20/18 20:14 Intake and Output: 07/20/18 07/21/18 18:59 06:59 Intake Total 950 Balance 950 - Medications Medications: Current Medications Albuterol/Ipratropium (Duoneb 3 Mg/0.5 Mg (3 Ml) Ud) 3 ml INH RQ4 PRN PRN Reason: Shortness of Breath Last Admin: 07/18/18 19:46 Dose: 3 ml Amlodipine Besylate (Norvasc) 10 mg PO DAILY [facility] Last Admin: 07/20/18 09:26 Dose: Not Given Aspirin (Ecotrin) 81 mg PO DAILY [facility] Last Admin: 07/20/18 09:25 Dose: 81 mg Furosemide (Lasix) 20 mg PO DAILY [facility] Last Admin: 07/20/18 09:25 Dose: 20 mg Guaifenesin (Mucinex La) 1,200 mg PO Q12 [facility] Last Admin: 07/20/18 09:26 Dose: 1,200 mg Ceftriaxone Sodium 1 gm/ (Sodium Chloride) 100 mls @ 100 mls/hr IVPB DAILY [facility]; Protocol Last Admin: 07/20/18 09:27 Dose: 100 mls/hr Azithromycin 500 mg/ Sodium (Chloride) 250 mls @ 250 mls/hr IVPB DAILY [facility]; P rotocol Last Admin: 07/20/18 09:28 Dose: 250 mls/hr Losartan Potassium (Cozaar) 100 mg PO DAILY [facility] Last Admin: 07/20/18 09:24 Dose: 100 mg Pantoprazole Sodium (Protonix Ec Tab) 40 mg PO DAILY [facility] Last Admin: 07/20/18 09:26 Dose: 40 mg - Labs Labs: 07/20/18 04:55 07/20/18 04:55 PT 17.7 Seconds (9.8-13.1) H 07/18/18 09:00 INR 1.6 07/18/18 09:00 - Head Exam Head Exam: ATRAUMATIC - Eye Exam Eye Exam: Normal appearance - ENT Exam ENT Exam: Mucous Membranes Dry - Respiratory Exam Respiratory Exam: Decreased Breath Sounds - Cardiovascular Exam Cardiovascular Exam: +S1, +S2 - GI/Abdominal Exam GI & Abdominal Exam: Normal Bowel Sounds Assessment and Plan (1) Thrombocytosis Assessment & Plan: ? reactive f/u JAK2 on aspirin Status: Acute (2) Leukocytosis Assessment & Plan: ? reactive on antibiotics Status: Acute (3) Anemia Assessment & Plan: anemia of chronic disease Status: Acute
[2018-07-21 05:09] LABS: BASO # 0.1 K/uL (0.0-0.2); BASO % 0.4 % (0.0-2.0); EOS # 0.1 K/uL (0.0-0.7); EOS % 0.4 % (0.0-4.0); HEMOGLOBIN 10.7 g/dL (12.0-18.0); LYMPH # 1.6 K/uL (1.0-4.3); LYMPH % 7.7 % (20.0-40.0); MEAN CELL VOLUME 84.2 fl (80.0-94.0); MEAN CORPUSCULAR HEMOGLOBIN 27.6 pg (27.0-31.0); MEAN CORPUSCULAR HGB CONC 32.8 g/dL (33.0-37.0); MEAN PLATELET VOLUME 6.2 fl (7.2-11.7); MONO # 2.1 K/uL (0.0-0.8); MONO % 10.2 % (0.0-10.0); NEUT # 16.7 K/uL (1.8-7.0); NEUT % 81.3 % (50.0-75.0); RBC 3.88 Mil/uL (4.40-5.90); RED CELL DISTRIBUTION WIDTH 14.6 % (11.5-14.5); WHITE BLOOD COUNT 20.5 K/uL (4.8-10.8)
[2018-07-21 05:19] LABS: BLOOD UREA NITROGEN 26 mg/dl (9-20); CALCIUM 8.4 mg/dL (8.4-10.2); GFR NON-AFRICAN AMERICAN > 60
--- NOTE | 2018-07-21 07:59 | CP.PCM.PN ---
Subjective - Date & Time of Evaluation Date of Evaluation: 07/21/18 Time of Evaluation: 07:40 - Subjective Subjective: no new complaints. febrile yesterday. called due to accelerated junctional rhythm. no chest pain or dyspnea Objective - Vital Signs/Intake and Output Vital Signs (last 24 hours): Temp Pulse Resp BP Pulse Ox 98.2 F 80 20 99/65 L 96 07/21/18 05:04 07/21/18 05:04 07/21/18 05:04 07/21/18 05:04 07/21/18 05:04 - Medications Medications: Current Medications Albuterol/Ipratropium (Duoneb 3 Mg/0.5 Mg (3 Ml) Ud) 3 ml INH RQ4 PRN PRN Reason: Shortness of Breath Last Admin: 07/18/18 19:46 Dose: 3 ml Amlodipine Besylate (Norvasc) 10 mg PO DAILY [facility] Last Admin: 07/20/18 09:26 Dose: Not Given Aspirin (Ecotrin) 81 mg PO DAILY [facility] Last Admin: 07/20/18 09:25 Dose: 81 mg Furosemide (Lasix) 20 mg PO DAILY [facility] Last Admin: 07/20/18 09:25 Dose: 20 mg Guaifenesin (Mucinex La) 1,200 mg PO Q12 [facility] Last Admin: 07/20/18 21:43 Dose: 1,200 mg Ceftriaxone Sodium 1 gm/ (Sodium Chloride) 100 mls @ 100 mls/hr IVPB DAILY [facility]; Protocol Last Admin: 07/20/18 09:27 Dose: 100 mls/hr Azithromycin 500 mg/ Sodium (Chloride) 250 mls @ 250 mls/hr IVPB DAILY [facility]; Protocol Last Admin: 07/20/18 09:28 Dose: 250 mls/hr Losartan Potassium (Cozaar) 100 mg PO DAILY [facility] Last Admin: 07/20/18 09:24 Dose: 100 mg Pantoprazole Sodium (Protonix Ec Tab) 40 mg PO DAILY [facility] Last Admin: 07/20/18 09:26 Dose: 40 mg - Labs Labs: 07/21/18 04:58 07/21/18 04:58 PT 17.7 Seconds (9.8-13.1) H 07/18/18 09:00 INR 1.6 07/18/18 09:00 - Constitutional Appears: Non-toxic - Head Exam Head Exam: NORMAL INSPECTION - Eye Exam Eye Exam: Normal appearance - ENT Exam ENT Exam: Mucous Membranes Moist - Neck Exam Neck Exam: Full ROM - Respiratory Exam Respiratory Exam: NORMAL BREATHING PATTERN - Cardiovascular Exam Cardiovascular Exam: REGULAR RHYTHM - GI/Abdominal Exam GI & Abdominal Exam: Normal Bowel Sounds - Rectal Exam Rectal Exam: Deferred - Extremities Exam Extremities Exam: Pedal Edema - Back Exam Back Exam: NORMAL INSPECTION - Neurological Exam Neurological Exam: Alert - Psychiatric Exam Psychiatric exam: Normal Affect - Skin Skin Exam: Normal Color Assessment and Plan (1) Accelerated junctional rhythm Assessment & Plan: likely due to sepsis and febrile state. hemodynamcially stable. will monitor for now. consider repeat blood cultures. if positive, may need repeat echo to assess for abscess formation Status: Acute
[2018-07-21] MEDS ORDERED: Tolvaptan 15 MG TAB PO ONE (09:15)
--- NOTE | 2018-07-21 09:24 | CP.PCM.CON ---
History of Present Illness - History of Present Illness History of Present Illness: This patient who is 62 years of age male I was called to see him for hyponatremia. Patient was admitted with pleural effusion shortness of breath difficulty breathing and noted to have significant leukocytosis. Patient was in [facility] where he has similar problem and required to have cardiac catheterization. I do not see his ejection fraction report somewhere? Patient presenting with significant leg edema and bilateral pleural effusion and started on antibiotics as well and he has been seen by pulmonary hematology and cardiology. Also he require thoracocentesis this admission as well Past medical history: HTN, ?alcohol abuse, recurent pleural effusion. With the recurrent thoracocentesis at least twice within this month Past surgical history: Denies Family history: Denies hematologic and oncologic problems Social history: 3-4 beers daily, denies tobacco Review of Systems - Constitutional Constitutional: Malaise. absent: Anorexia, Chills - EENT Eyes: absent: Exophthalmos Nose/Mouth/Throat: absent: Epistaxis - Cardiovascular Cardiovascular: Dyspnea, Edema, Leg Edema, Orthopnea. absent: Acrocyanosis - Respiratory Respiratory: Cough, Dyspnea, Chest Congestion. absent: Hemoptysis - Gastrointestinal Gastrointestinal: absent: Abdominal Pain, Coffee Ground Emesis, Vomiting - Genitourinary Genitourinary: Nocturia. absent: Hematuria - Musculoskeletal Musculoskeletal: Muscle Weakness. absent: Arthralgias, Back Pain - Integumentary Integumentary: absent: Dry Skin, Furuncle - Neurological Neurological: absent: Abnormal Gait, Focal Weakness, Lack of Coordination, Syncope - Psychiatric Psychiatric: absent: Confusion, Irritability - Endocrine Endocrine: absent: Fatigue - Hematologic/Lymphatic Hematologic: absent: Easy Bleeding Past Patient History - Past Medical History & Family History Past Medical History?: Yes - Past Social History Alcohol: None - CARDIAC Hx Hypertension: Yes - PULMONARY Hx Respiratory Disorders: Yes Other/Comment: Pleural effusion - NEUROLOGICAL Hx Transient Ischemic Attacks (TIA): No - HEENT Hx HEENT Problems: No - RENAL Hx Chronic Kidney Disease: No - ENDOCRINE/METABOLIC Hx Endocrine Disorders: No - HEMATOLOGICAL/ONCOLOGICAL Hx Anemia: Yes Hx Human Immunodeficiency Virus (HIV): No - INTEGUMENTARY Hx Dermatological Problems: No - MUSCULOSKELETAL/RHEUMATOLOGICAL Hx Falls: No - GASTROINTESTINAL Hx Gastrointestinal Disorders: Yes Hx Gastroesophageal Reflux: Yes Other/Comment: Hx Esophagitis. GIB - GENITOURINARY/GYNECOLOGICAL Hx Genitourinary Disorders: No - PSYCHIATRIC Hx Psychophysiologic Disorder: Yes (alcohol abuse) Hx Substance Use: No - SURGICAL HISTORY Hx Appendectomy: Yes - ANESTHESIA Hx Anesthesia: Yes Hx Anesthesia Reactions: No Hx Malignant Hyperthermia: No Has any member of the family had a problem w/ anesthesia?: No Meds Allergies/Adverse Reactions: Allergies Allergy/AdvReac Type Severity Reaction Status Date / Time No Known Allergies Allergy Verified 07/08/18 07:55 - Medications Medications: Current Medications Albuterol/Ipratropium (Duoneb 3 Mg/0.5 Mg (3 Ml) Ud) 3 ml INH RQ4 PRN PRN Reason: Shortness of Breath Last Admin: 07/18/18 19:46 Dose: 3 ml Amlodipine Besylate (Norvasc) 10 mg PO DAILY [facility] Last Admin: 07/20/18 09:26 Dose: Not Given Aspirin (Ecotrin) 81 mg PO DAILY [facility] Last Admin: 07/20/18 09:25 Dose: 81 mg Furosemide (Lasix) 20 mg PO DAILY [facility] Last Admin: 07/20/18 09:25 Dose: 20 mg Guaifenesin (Mucinex La) 1,200 mg PO Q12 [facility] Last Admin: 07/20/18 21:43 Dose: 1,200 mg Ceftriaxone Sodium 1 gm/ (Sodium Chloride) 100 mls @ 100 mls/hr IVPB DAILY [facility]; Protocol Last Admin: 07/20/18 09:27 Dose: 100 mls/hr Azithromycin 500 mg/ Sodium (Chloride) 250 mls @ 250 mls/hr IVPB DAILY [facility]; Protocol Last Admin: 07/20/18 09:28 Dose: 250 mls/hr Losartan Potassium (Cozaar) 100 mg PO DAILY [facility] Last Admin: 07/20/18 09:24 Dose: 100 mg Pantoprazole Sodium (Protonix Ec Tab) 40 mg PO DAILY [facility] Last Admin: 07/20/18 09:26 Dose: 40 mg Physical Exam - Constitutional Appears: No Acute Distress - Eye Exam Eye Exam: Conjunctival injection - ENT Exam ENT Exam: Mucous Membranes Moist - Neck Exam Neck exam: Negative for: Lymphadenopathy - Respiratory Exam Respiratory Exam: Rhonchi, NORMAL BREATHING PATTERN. absent: Chest Wall T enderness - Cardiovascular Exam Cardiovascular Exam: JVD. absent: Gallop, Rubs - GI/Abdominal Exam GI & Abdominal Exam: absent: Guarding, Normal Bowel Sounds - Extremities Exam Extremities exam: Positive for: pedal edema. Negative for: calf tenderness - Back Exam Back exam: absent: CVA tenderness (L), CVA tenderness (R) - Neurological Exam Neurological exam: Alert - Psychiatric Exam Psychiatric exam: Normal Affect Results - Vital Signs Recent Vital Signs: Last Vital Signs Temp 98.0 F 07/21/18 07:57 Pulse 95 H 07/21/18 07:57 Resp 20 07/21/18 07:57 BP 108/69 07/21/18 07:57 Pulse Ox 92 L 07/21/18 07:57 - Labs Result Diagrams: 07/21/18 04:58 07/21/18 04:58 Labs: Laboratory Results - last 24 hr 07/19/18 07/20/18 07/20/18 08:15 10:57 15:48 WBC RBC Hgb Hct MCV MCH MCHC RDW Plt Count MPV Neut % (Auto) Lymph % (Auto) [place] % (Auto) Eos % (Auto) Baso % (Auto) Neut # (Auto) Lymph # (Auto) [place] # (Auto) Eos # (Auto) Baso # (Auto) Sodium Potassium Chloride Carbon Dioxide Anion Gap BUN Creatinine Est GFR ( Amer) Est GFR (Non-Af Amer) POC Glucose (mg/dL) 207 H 166 H Random Glucose Calcium GRAYSON Screen Negative 07/20/18 07/21/18 07/21/18 21:12 04:58 04:58 WBC 20.5 H RBC 3.88 L Hgb 10.7 L Hct 32.7 L MCV 84.2 MCH 27.6 MCHC 32.8 L RDW 14.6 H Plt Count 887 H MPV 6.2 L Neut % (Auto) 81.3 H Lymph % (Auto) 7.7 L [place] % (Auto) 10.2 H Eos % (Auto) 0.4 Baso % (Auto) 0.4 Neut # (Auto) 16.7 H Lymph # (Auto) 1.6 [place] # (Auto) 2.1 H Eos # (Auto) 0.1 Baso # (Auto) 0.1 Sodium 124 L Potassium 4.2 Chloride 90 L Carbon Dioxide 25 Anion Gap 13 BUN 26 H Creatinine 0.9 Est GFR ( Amer) > 60 Est GFR (Non-Af Amer) > 60 POC Glucose (mg/dL) 213 H Random Glucose 122 H Calcium 8.4 GRAYSON Screen 07/21/18 05:18 WBC RBC Hgb Hct MCV MCH MCHC RDW Plt Count MPV Neut % (Auto) Lymph % (Auto) [place] % (Auto) Eos % (Auto) Baso % (Auto) Neut # (Auto) Lymph # (Auto) [place] # (Auto) Eos # (Auto) Baso # (Auto) Sodium Potassium Chloride Carbon Dioxide Anion Gap BUN Creatinine Est GFR ( Amer) Est GFR (Non-Af Amer) POC Glucose (mg/dL) 145 H Random Glucose Calcium G[place] Screen Assessment & Plan (1) Accelerated junctional rhythm Status: Acute (2) Ascites Status: Acute (3) Edema extremities Status: Acute (4) Leukocytosis Status: Acute (5) Pleural effusion exudative Status: Acute (6) Thrombocytosis Status: Acute (7) Hyponatremia syndrome Assessment and Plan: Hyponatremia with hypervolemia syndrome, severe dilutional probably related to liver disease? Nearly anasarca including massive leg edema ascites and bilateral pleural effusion Status post thoracocentesis twice in the couple weeks Abnormal liver enzyme Leukocytosis My recommendation That urinalysis Patient has persistent hyponatremia from the previous admission in [facility] hypervolemic type we will give Samsca now monitor his sodium every 8 hours not to rise more than around 10 mEq in the next 24 hours Continue Lasix IV fluid But urine for protein to creatinine ratio GRAYSON Patient should be evaluated to rule out amyloidosis? If his massive edema not explained by his cardiac status because I did not see ejection fraction at this point DC IV fluid Fluid restriction Status: Acute
--- NOTE | 2018-07-21 09:38 | CP.PCM.PN ---
Subjective - Date & Time of Evaluation Date of Evaluation: 07/21/18 Time of Evaluation: 09:37 - Subjective Subjective: no overnight events Objective - Vital Signs/Intake and Output Vital Signs (last 24 hours): Temp Pulse Resp BP Pulse Ox 98.0 F 95 H 20 108/69 92 L 07/21/18 07:57 07/21/18 07:57 07/21/18 07:57 07/21/18 07:57 07/21/18 07:57 - Medications Medications: Current Medications Albuterol/Ipratropium (Duoneb 3 Mg/0.5 Mg (3 Ml) Ud) 3 ml INH RQ4 PRN PRN Reason: Shortness of Breath Last Admin: 07/18/18 19:46 Dose: 3 ml Amlodipine Besylate (Norvasc) 10 mg PO DAILY [facility] Last Admin: 07/20/18 09:26 Dose: Not Given Aspirin (Ecotrin) 81 mg PO DAILY [facility] Last Admin: 07/20/18 09:25 Dose: 81 mg Furosemide (Lasix) 20 mg PO DAILY [facility] Last Admin: 07/20/18 09:25 Dose: 20 mg Guaifenesin (Mucinex La) 1,200 mg PO Q12 [facility] Last Admin: 07/20/18 21:43 Dose: 1,200 mg Ceftriaxone Sodium 1 gm/ (Sodium Chloride) 100 mls @ 100 mls/hr IVPB DAILY [facility]; Protocol Last Admin: 07/20/18 09:27 Dose: 100 mls/hr Azithromycin 500 mg/ Sodium (Chloride) 250 mls @ 250 mls/hr IVPB DAILY [facility]; Protocol Last Admin: 07/20/18 09:28 Dose: 250 mls/hr Losartan Potassium (Cozaar) 100 mg PO DAILY [facility] Last Admin: 07/20/18 09:24 Dose: 100 mg Pantoprazole Sodium (Protonix Ec Tab) 40 mg PO DAILY [facility] Last Admin: 07/20/18 09:26 Dose: 40 mg - Labs Labs: 07/21/18 04:58 07/21/18 04:58 PT 17.7 Seconds (9.8-13.1) H 07/18/18 09:00 INR 1.6 07/18/18 09:00 - Neck Exam Neck Exam: Normal Inspection - Respiratory Exam Respiratory Exam: Clear to Ausculation Bilateral, NORMAL BREATHING PATTERN - Cardiovascular Exam Cardiovascular Exam: REGULAR RHYTHM - GI/Abdominal Exam GI & Abdominal Exam: Soft, Normal Bowel Sounds Assessment and Plan - Assessment and Plan (Free Text) Assessment: 62 yo mal with pleural effusion no evidence of cirrhosis likely primary pulmonary versus cardio process r/o malignancy
--- NOTE | 2018-07-21 09:47 | CARD ---
APPROVED REPORT Date of service: 07/20/2018 EKG Measurement Heart [id number] <Conclusion> Accelerated Junctional rhythm T wave abnormality, consider inferolateral ischemia Abnormal ECG
[2018-07-21] MEDS: guaiFENesin 600 mg ER Tab PO SCH ×2 (09:52→21:44)
[2018-07-21] MEDS: Pantoprazole 40 mg EC Tab PO SCH (09:53)
[2018-07-21] MEDS: Azithromycin 500 MG in Sodium Chloride 0.9% 250 ML IVPB SCH (09:54)
--- NOTE | 2018-07-21 12:32 | CP.PCM.PN ---
Subjective - Date & Time of Evaluation Date of Evaluation: 07/21/18 Time of Evaluation: 09:00 - Subjective Subjective: recurrent pleural effusion in a 62 yo male with hx of alcohol use and HTN Fever persists despite IV antibiotics- Cardio on board may need HARVEY no new complaints except sleep problems seen by renal for severe hyponatremia- dilutional vs SIADH ? Objective - Vital Signs/Intake and Output Vital Signs (last 24 hours): Temp Pulse Resp BP Pulse Ox 98.4 F 86 20 100/65 99 07/21/18 11:39 07/21/18 11:39 07/21/18 11:39 07/21/18 11:39 07/21/18 11:39 - Medications Medications: Current Medications Albuterol/Ipratropium (Duoneb 3 Mg/0.5 Mg (3 Ml) Ud) 3 ml INH RQ4 PRN PRN Reason: Shortness of Breath Last Admin: 07/18/18 19:46 Dose: 3 ml Amlodipine Besylate (Norvasc) 10 mg PO DAILY [facility] Last Admin: 07/21/18 11:38 Dose: Not Given Aspirin (Ecotrin) 81 mg PO DAILY [facility] Last Admin: 07/21/18 09:52 Dose: 81 mg Furosemide (Lasix) 20 mg PO DAILY [facility] Last Admin: 07/21/18 11:38 Dose: Not Given Guaifenesin (Mucinex La) 1,200 mg PO Q12 [facility] Last Admin: 07/21/18 09:52 Dose: 1,200 mg Ceftriaxone Sodium 1 gm/ (Sodium Chloride) 100 mls @ 100 mls/hr IVPB DAILY [facility]; Protocol Last Admin: 07/21/18 09:53 Dose: 100 mls/hr Azithromycin 500 mg/ Sodium (Chloride) 250 mls @ 250 mls/hr IVPB DAILY [facility]; P rotocol Last Admin: 07/21/18 09:54 Dose: 250 mls/hr Losartan Potassium (Cozaar) 100 mg PO DAILY [facility] Last Admin: 07/21/18 11:38 Dose: Not Given Pantoprazole Sodium (Protonix Ec Tab) 40 mg PO DAILY [facility] Last Admin: 07/21/18 09:53 Dose: 40 mg - Labs Labs: 07/21/18 04:58 07/21/18 04:58 PT 17.7 Seconds (9.8-13.1) H 07/18/18 09:00 INR 1.6 07/18/18 09:00 - Constitutional Appears: Non-toxic, No Acute Distress, Chronically Ill - Head Exam Head Exam: ATRAUMATIC, NORMAL INSPECTION, NORMOCEPHALIC - Eye Exam Eye Exam: PERRL. absent: Scleral icterus Pupil Exam: NORMAL ACCOMODATION - ENT Exam ENT Exam: Mucous Membranes Dry, Normal External Ear Exam - Neck Exam Neck Exam: absent: Lymphadenopathy - Respiratory Exam Respiratory Exam: Decreased Breath Sounds, Prolonged Expiratory Phase, Rales, Rhonchi Additional comments: dullness left base - Cardiovascular Exam Cardiovascular Exam: REGULAR RHYTHM, +S1, +S2 - GI/Abdominal Exam GI & Abdominal Exam: Distended, Soft, Diminished Bowel Sounds. absent: Tenderness - Rectal Exam Rectal Exam: Deferred - Exam Exam: NORMAL INSPECTION - Extremities Exam Extremities Exam: Pedal Edema. absent: Calf Tenderness, Tenderness - Back Exam Back Exam: absent: CVA tenderness (L), CVA tenderness (R), paraspinal tenderness - Neurological Exam Neurological Exam: Alert, Awake, CN II-XII Intact, Oriented x3 Neuro motor strength exam: Left Upper Extremity: 4, Right Upper Extremity: 4, Left Lower Extremity: 4, Right Lower Extremity: 4 - Psychiatric Exam Psychiatric exam: Depressed - Skin Skin Exam: Dry Assessment and Plan (1) Ascites Status: Acute (2) ETOH abuse Status: Acute (3) Edema extremities Status: Acute (4) Leukocytosis Status: Acute (5) Pleural effusion associated with pulmonary infection Status: Acute (6) Pleural effusion exudative Status: Acute (7) Thrombocytosis Status: Acute (8) Hyponatremia Status: Acute (9) Fever Status: Acute - Assessment and Plan (Free Text) Assessment: recurrent pleural effusion in a 62 yo male with hx of alcohol use and HTN Had cardiac cath in last week - LVEF was 57% Has persistent leg edema and hyponatremia will order venous doppler Fever 101 today despite IV antibiotics with WBC 20 K + and thrombocytosis Differential includes infections as well as malignancies In view of possible asbestos exposure would consider mesothelioma in differential as well as primary hematologic malignancies Doubt pulmonary TB but still need to consider this in context of recurrent exudative effusions Ultimately may need VATS with chest tube and possibly Bone Marrow Bx - consider CT surgery eval if Dr Riddle agrees
[2018-07-21] MEDS ORDERED: Sodium Chloride 3% for Inhalation 4 ML VIAL.NEB IH PRN (12:39)
--- NOTE | 2018-07-21 12:44 | PN ---
DATE: 07/21/2018 SUBJECTIVE: The patient is seen sitting in chair. No complaints. No distress. No fever, chills, nausea, vomiting, diarrhea. No chest pain or shortness of breath. Meds are all reviewed. Case discussed with consultants. All notes have been reviewed as well. The patient's sodium still remains low, in the low 120s. White blood cell count remains elevated. REVIEW OF SYSTEMS: Negative. PHYSICAL EXAMINATION: CONSTITUTIONAL: Awake, alert, oriented. HEENT: Normal. HEART: Regular rate and rhythm. No murmur, rubs or gallops. LUNGS: Clear in all rodas bilaterally. ABDOMEN: Soft, nontender, bowel sounds x4. EXTREMITIES: Distal pulses and motor sensation intact. Capillary refill is brisk. There is some swelling in the bilateral ankles. DIAGNOSIS AND PLAN: Hyponatremia. Nephrology consult, pleural effusiona nd infection continue antibiotics. Continue Cardiology, Pulmonary, Hematology-Oncology and Infectious Disease consult. Follow up cultures and fluid psychology. Leukocytosis, elevated platelet count cont heme/onc consult, monitor, hydration. Continue Hem/Onc. Deep venous thrombosis prophylaxis, sequential compression devices, and A-hose ambulation. We will continue to follow the patient closely. RASHAD Nesbitt MTDAliyah
[2018-07-21 16:54] LABS: SQUAMOUS EPITHIAL < 1 /hpf (0-5); URINE BILIRUBIN NEGATIVE (NEGATIVE); URINE BLOOD NEGATIVE (NEGATIVE); URINE CLARITY SLIGHTY-CLOUDY (Clear); URINE COLOR YELLOW (YELLOW); URINE GLUCOSE (UA) NEG (NEGATIVE); URINE LEUKOCYTE ESTERASE NEG Leu/uL (Negative); URINE PROTEIN NEGATIVE (NEGATIVE); URINE UROBILINOGEN 0.2-1.0 mg/dL (0.2-1.0)
[2018-07-21 17:24] LABS: HEPATITIS B SURFACE AG Negative (NEGATIVE)
[2018-07-21 17:30] LABS: HEPATITIS A IGM NEGATIVE (NEGATIVE); HEPATITIS B CORE AB NEGATIVE (NEGATIVE)
[2018-07-21 17:41] LABS: HEPATITIS C ANTIBODY NEGATIVE (NEGATIVE)
[2018-07-21 18:19] LABS: OSMOLALITY,URINE 648 mosm/kg (300-1000)
[2018-07-21 18:20] LABS: URINE BILIRUBIN NEGATIVE (NEGATIVE); URINE BLOOD NEGATIVE (NEGATIVE); URINE CLARITY CLEAR (Clear); URINE COLOR YELLOW (YELLOW); URINE GLUCOSE (UA) NEG (NEGATIVE); URINE LEUKOCYTE ESTERASE NEG Leu/uL (Negative); URINE PROTEIN NEGATIVE (NEGATIVE); URINE UROBILINOGEN 0.2-1.0 mg/dL (0.2-1.0)
[2018-07-21 18:39] LABS: CREATININE, RANDOM URINE 138.6 mg/dL
[2018-07-21 20:55] LABS: BLOOD UREA NITROGEN 22 mg/dl (9-20); CALCIUM 8.1 mg/dL (8.4-10.2); GFR NON-AFRICAN AMERICAN > 60
[2018-07-22 06:27] LABS: ALB/GLOB RATIO 1.1 (1.0-2.1); ALBUMIN 3.1 g/dL (3.5-5.0); ALT/SGPT 141 U/L (21-72); AST/SGOT 74 U/L (17-59); BLOOD UREA NITROGEN 20 mg/dl (9-20); CALCIUM 8.4 mg/dL (8.4-10.2); GFR NON-AFRICAN AMERICAN > 60
[2018-07-22 06:43] LABS: BASO # 0.1 K/uL (0.0-0.2); BASO % 0.6 % (0.0-2.0); EOS # 0.1 K/uL (0.0-0.7); EOS % 0.4 % (0.0-4.0); HEMOGLOBIN 11.2 g/dL (12.0-18.0); LYMPH # 1.6 K/uL (1.0-4.3); LYMPH % 7.7 % (20.0-40.0); MEAN CORPUSCULAR HEMOGLOBIN 28.2 pg (27.0-31.0); MEAN CORPUSCULAR HGB CONC 33.2 g/dL (33.0-37.0); MEAN PLATELET VOLUME 6.4 fl (7.2-11.7); MONO # 1.4 K/uL (0.0-0.8); MONO % 7.1 % (0.0-10.0); NEUT # 17.1 K/uL (1.8-7.0); NEUT % 84.2 % (50.0-75.0); RBC 3.96 Mil/uL (4.40-5.90); RED CELL DISTRIBUTION WIDTH 14.8 % (11.5-14.5); WHITE BLOOD COUNT 20.3 K/uL (4.8-10.8)
[2018-07-22 07:13] LABS: PLATELET COUNT 1031 K/uL (130-400)
[2018-07-22 08:27] LABS: BASOPHIL 1 % (0-2); LYMPHOCYTE 7 % (20-50); MONOCYTE 3 % (0-10); NEUTROPHIL 88 % (42-75); REACTIVE LYMPHOCYTES 1 % (0-0); TOTAL CELLS COUNTED 100
[2018-07-22 08:34] LABS: PLATELET ESTIMATE MARKEDLY INCREASED (NORMAL)
[2018-07-22 08:35] LABS: ANISOCYTOSIS SLIGHT; BURR CELLS SLIGHT; GIANT PLATELETS PRESENT; LARGE PLATELETS PRESENT; POIKILOCYTOSIS SLIGHT; SPHEROCYTES SLIGHT
[2018-07-22] MEDS: Pantoprazole 40 mg EC Tab PO SCH (08:54)
[2018-07-22] MEDS: guaiFENesin 600 mg ER Tab PO SCH ×2 (08:54→20:27)
[2018-07-22] MEDS: Azithromycin 500 MG in Sodium Chloride 0.9% 250 ML IVPB SCH (08:55)
--- NOTE | 2018-07-22 09:00 | US ---
Date of service: 07/21/2018 PROCEDURE: Bilateral lower extremity venous duplex Doppler. HISTORY: leg swelling pleurisy normal LVEF COMPARISON: None available. TECHNIQUE: Bilateral common femoral, superficial femoral, popliteal and posterior tibial veins were evaluated. Flow was assessed with color Doppler, compressibility, assessment of phasic flow and augmentation response. FINDINGS: COMMON FEMORAL VEIN: Right CFV: Unremarkable. Left CFV: Unremarkable. SUPERFICIAL FEMORAL VEIN: Right SFV: Unremarkable. Left SFV: Unremarkable. POPLITEAL VEIN: Right Popliteal: Unremarkable. Left Popliteal: Unremarkable. POSTERIOR TIBIAL VEIN: Right PTV: Unremarkable. Left PTV: Unremarkable. OTHER FINDINGS: Leg edema is appreciated. IMPRESSION: No evidence of deep venous thrombosis.
--- NOTE | 2018-07-22 12:28 | CP.PCM.PN ---
Subjective - Date & Time of Evaluation Date of Evaluation: 07/22/18 Time of Evaluation: 12:33 - Subjective Subjective: FEELING BETTER SHORTNESS OF BREATH IMPROVED NO CHEST PAINS OR COUGH NO FEVER Objective - Vital Signs/Intake and Output Vital Signs (last 24 hours): Temp Pulse Resp BP Pulse Ox 98.3 F 72 20 119/78 95 07/22/18 08:49 07/22/18 08:49 07/22/18 08:49 07/22/18 09:13 07/22/18 08:49 - Medications Medications: Current Medications Albuterol/Ipratropium (Duoneb 3 Mg/0.5 Mg (3 Ml) Ud) 3 ml INH RQ4 PRN PRN Reason: Shortness of Breath Last Admin: 07/18/18 19:46 Dose: 3 ml Aspirin (Ecotrin) 81 mg PO DAILY [facility] Last Admin: 07/22/18 08:53 Dose: 81 mg Furosemide (Lasix) 20 mg PO DAILY [facility] Last Admin: 07/22/18 09:13 Dose: 20 mg Guaifenesin (Mucinex La) 1,200 mg PO Q12 [facility] Last Admin: 07/22/18 08:54 Dose: 1,200 mg Ceftriaxone Sodium 1 gm/ (Sodium Chloride) 100 mls @ 100 mls/hr IVPB DAILY [facility]; Protocol Last Admin: 07/22/18 08:55 Dose: 100 mls/hr Azithromycin 500 mg/ Sodium (Chloride) 250 mls @ 250 mls/hr IVPB DAILY [facility]; Protocol Last Admin: 07/22/18 08:55 Dose: 250 mls/hr Vancomycin HCl 1 gm/ Sodium (Chloride) 250 mls @ 250 mls/hr IVPB Q12H [facility]; Protocol Last Admin: 07/22/18 12:16 Dose: 250 mls/hr Pantoprazole Sodium (Protonix Ec Tab) 40 mg PO DAILY [facility] Last Admin: 07/22/18 08:54 Dose: 40 mg - Labs Labs: 07/22/18 04:25 07/22/18 04:25 PT 17.7 Seconds (9.8-13.1) H 07/18/18 09:00 INR 1.6 07/18/18 09:00 - Constitutional Appears: No Acute Distress - Head Exam Head Exam: ATRAUMATIC, NORMAL INSPECTION, NORMOCEPHALIC - Eye Exam Eye Exam: EOMI, Normal appearance, PERRL Pupil Exam: NORMAL ACCOMODATION, PERRL - ENT Exam ENT Exam: Mucous Membranes Moist, Normal Exam - Neck Exam Neck Exam: Full ROM, Normal Inspection. absent: Lymphadenopathy - Respiratory Exam Respiratory Exam: Decreased Breath Sounds, Rales, NORMAL BREATHING PATTERN - Cardiovascular Exam Cardiovascular Exam: REGULAR RHYTHM, +S1, +S2. absent: Murmur - GI/Abdominal Exam GI & Abdominal Exam: Soft, Normal Bowel Sounds. absent: Tenderness - Rectal Exam Rectal Exam: NORMAL INSPECTION - Extremities Exam Extremities Exam: Full ROM, Normal Capillary Refill, Pedal Edema. absent: Joint Swelling - Back Exam Back Exam: NORMAL INSPECTION - Neurological Exam Neurological Exam: Alert, Awake, CN II-XII Intact, Normal Gait, Oriented x3 - Psychiatric Exam Psychiatric exam: Normal Affect, Normal Mood - Skin Skin Exam: Dry, Intact, Normal Color, Warm Assessment and Plan - Assessment and Plan (Free Text) Assessment: PLEURAL EFFUSIONS--S/P THORACENTESES--ETIOLOGY SO FAR UNDETERMINED R/O INFECTION/MALIGNANCY? THROMBOCYTOSIS HX OF CHRONIC ALCOHOLISM--NO EVIDENCE OF ASCITES/CIRRHOSIS HYPONATREMIA--PROBABLY DUE TO SIADH/DILUTIONAL Plan: WILL REPEAT CXR TO RE-EVALUATE RECURRENCE OF PLEURAL EFFUSIONS WILL ONLY NEED THORACIC SURGERY INTERVENTION FOR POSSIBLE VATS IF PLEURAL EFFUSION RE ACCUMULATES WILL CONTINUE CURRENT RX WILL FOLLOW WITH YOU
--- NOTE | 2018-07-22 12:52 | CP.PCM.PN ---
Subjective - Date & Time of Evaluation Date of Evaluation: 07/22/18 Time of Evaluation: 09:00 - Subjective Subjective: tmax down less sob awake and alert Objective - Vital Signs/Intake and Output Vital Signs (last 24 hours): Temp Pulse Resp BP Pulse Ox 98.3 F 72 20 119/78 95 07/22/18 08:49 07/22/18 08:49 07/22/18 08:49 07/22/18 09:13 07/22/18 08:49 - Medications Medications: Current Medications Albuterol/Ipratropium (Duoneb 3 Mg/0.5 Mg (3 Ml) Ud) 3 ml INH RQ4 PRN PRN Reason: Shortness of Breath Last Admin: 07/18/18 19:46 Dose: 3 ml Aspirin (Ecotrin) 81 mg PO DAILY LETICIA Last Admin: 07/22/18 08:53 Dose: 81 mg Furosemide (Lasix) 20 mg PO DAILY LETICIA Last Admin: 07/22/18 09:13 Dose: 20 mg Guaifenesin (Mucinex La) 1,200 mg PO Q12 LETICIA Last Admin: 07/22/18 08:54 Dose: 1,200 mg Ceftriaxone Sodium 1 gm/ (Sodium Chloride) 100 mls @ 100 mls/hr IVPB DAILY LETICIA; Protocol Last Admin: 07/22/18 08:55 Dose: 100 mls/hr Azithromycin 500 mg/ Sodium (Chloride) 250 mls @ 250 mls/hr IVPB DAILY LETICIA; Protocol Last Admin: 07/22/18 08:55 Dose: 250 mls/hr Vancomycin HCl 1 gm/ Sodium (Chloride) 250 mls @ 250 mls/hr IVPB Q12H LETICIA; Protocol Last Admin: 07/22/18 12:16 Dose: 250 mls/hr Pantoprazole Sodium (Protonix Ec Tab) 40 mg PO DAILY LETICIA Last Admin: 07/22/18 08:54 Dose: 40 mg - Labs Labs: 07/22/18 04:25 07/22/18 04:25 PT 17.7 Seconds (9.8-13.1) H 07/18/18 09:00 INR 1.6 07/18/18 09:00 - Constitutional Appears: Non-toxic, Chronically Ill - Head Exam Head Exam: NORMOCEPHALIC - Eye Exam Eye Exam: absent: Scleral icterus Pupil Exam: NORMAL ACCOMODATION - ENT Exam ENT Exam: Mucous Membranes Dry - Neck Exam Neck Exam: absent: Lymphadenopathy - Respiratory Exam Respiratory Exam: Decreased Breath Sounds, Clear to Ausculation Bilateral - Cardiovascular Exam Cardiovascular Exam: REGULAR RHYTHM, +S1, +S2 - GI/Abdominal Exam GI & Abdominal Exam: Distended, Soft - Rectal Exam Rectal Exam: Deferred - Exam Exam: NORMAL INSPECTION - Extremities Exam Extremities Exam: Pedal Edema - Back Exam Back Exam: absent: CVA tenderness (L), CVA tenderness (R) - Neurological Exam Neurological Exam: Alert, Awake, CN II-XII Intact, Normal Gait, Oriented x3 Neuro motor strength exam: Left Upper Extremity: 5, Right Upper Extremity: 5, Left Lower Extremity: 5, Right Lower Extremity: 5 - Psychiatric Exam Psychiatric exam: Depressed - Skin Skin Exam: Dry Assessment and Plan (1) Ascites Status: Acute (2) ETOH abuse Status: Acute (3) Edema extremities Status: Acute (4) Leukocytosis Status: Acute (5) Pleural effusion associated with pulmonary infection Status: Acute (6) Pleural effusion exudative Status: Acute (7) Thrombocytosis Status: Acute (8) Hyponatremia Status: Acute (9) Fever Status: Acute - Assessment and Plan (Free Text) Assessment: recurrent pleural effusion in a 62 yo male with hx of alcohol use and HTN Differential includes infections as well as malignancies In view of possible asbestos exposure would consider mesothelioma in differential as well as primary hematologic malignancies Vanco added discussed with pulm- CXR to be repeated Echo ordered to r/o endocarditis Dr Antony on board for Heme/Onc
--- NOTE | 2018-07-22 13:07 | CP.PCM.PN ---
Subjective - Date & Time of Evaluation Date of Evaluation: 07/22/18 Time of Evaluation: 10:00 - Subjective Subjective: Nephrology Consultation Note Assessment: critical hypervolemic hyponatremia recurrent pleural effusion hx of Etoh/HTN sepsis anemia, leykocytosis and thrombocytosis Plan No acute need for renal replacement therapy at this time. Hypertension control with meds as ordered. Maintain hemodynamics stable. Avoid hypotension. hold BP meds as BP on low side. d/c norvasc and losartan Monitor Input/Output, daily weights and renal function with basic metabolic panel diurese with lasix 20 mg iv bid, as tolerated by BP no need for samsca today. avoid correction in serum na >6-8 meq/24 hrs. no need for hypertonic saline at present oral fluid restriction 1200 mL/day heme, ID following Dose meds/antibiotics for GFR >60 Glycemic control Further work up for as per primary team Thanks for allowing me to participate in care of your patient. Will follow patient with you. Please call if any Qs Dr Mika Gonzalez Office: [phone] Subjective: Noted events overnight. Patients feels okay. Denies chest pain, palpitation, improved shortness of breath, leg swelling. All other negative Physical Examination: General Appearance: Comfortable, in no acute respiratory distress, co-operative . Vitals reviewed and noted as below Head; Atraumatic, normocephalic ENT: no ulcers no thrush. Tongue is midline. Oropharynx: no rash or ulcers. EYES: Pupils are equal, round and reactive to light accommodation. Eye muscles and extraocular movement intact. Sclera is anicteric. Neck; supple no lymphadenopathy, no thyromegaly or bruit Lungs: Normal respiratory rate/effort. Breath sounds bilateral reduced at bases Heart: Normal rate. s1s2 normal. No rub or gallop. Extremities: 2-3+ edema. No varicose veins Neurological: Patient is alert, awake and oriented to person, place and time. No focal deficit. Strength bilateral appropriate and equal Skin: Warm and dry. Normal turgor. No rash. Palpitation: Normal elasticity for age Abdomen: Abdomen is soft. Bowel sounds +. There is no abdominal tenderness, no guarding/rigidity no organomegaly Psych: normal insight and normal affect/mood MSK: no joint tenderness or swelling. Digits and nails normal, no deformity : kidney or bladder not palpable Labs/imaging reviewed. Past medical history, past surgical history, family history, social history, allergy reviewed and noted as below Family hx: no hx of CKD. Rest non-contributory hep B/C neg urine Na <5 and osmol 648 24 hr urine 250 mg LVEf normal Objective - Vital Signs/Intake and Output Vital Signs (last 24 hours): Temp Pulse Resp BP Pulse Ox 98.3 F 72 20 119/78 95 07/22/18 08:49 07/22/18 08:49 07/22/18 08:49 07/22/18 09:13 07/22/18 08:49 - Medications Medications: Current Medications Albuterol/Ipratropium (Duoneb 3 Mg/0.5 Mg (3 Ml) Ud) 3 ml INH RQ4 PRN PRN Reason: Shortness of Breath Last Admin: 07/18/18 19:46 Dose: 3 ml Aspirin (Ecotrin) 81 mg PO DAILY LETICIA Last Admin: 07/22/18 08:53 Dose: 81 mg Furosemide (Lasix) 20 mg IVP BID LETICIA Stop: 07/27/18 13:11 Guaifenesin (Mucinex La) 1,200 mg PO Q12 LETICIA Last Admin: 07/22/18 08:54 Dose: 1,200 mg Ceftriaxone Sodium 1 gm/ (Sodium Chloride) 100 mls @ 100 mls/hr IVPB DAILY LETICIA; Protocol Last Admin: 07/22/18 08:55 Dose: 100 mls/hr Azithromycin 500 mg/ Sodium (Chloride) 250 mls @ 250 mls/hr IVPB DAILY LETICIA; Protocol Last Admin: 07/22/18 08:55 Dose: 250 mls/hr Vancomycin HCl 1 gm/ Sodium (Chloride) 250 mls @ 250 mls/hr IVPB Q12H LETICIA; Protocol Last Admin: 07/22/18 12:16 Dose: 250 mls/hr Pantoprazole Sodium (Protonix Ec Tab) 40 mg PO DAILY LETICIA Last Admin: 07/22/18 08:54 Dose: 40 mg Potassium Chloride (K-Dur 20 Meq Er Tab) 20 meq PO DAILY LETICIA Stop: 07/26/18 09:01 - Labs Labs: 07/22/18 04:25 07/22/18 04:25 PT 17.7 Seconds (9.8-13.1) H 07/18/18 09:00 INR 1.6 07/18/18 09:00
--- NOTE | 2018-07-22 14:16 | CP.PCM.PN ---
Subjective - Date & Time of Evaluation Date of Evaluation: 07/22/18 Time of Evaluation: 14:15 - Subjective Subjective: no overnight events Objective - Vital Signs/Intake and Output Vital Signs (last 24 hours): Temp Pulse Resp BP Pulse Ox 98.1 F 76 20 96/59 L 98 07/22/18 12:00 07/22/18 12:00 07/22/18 12:00 07/22/18 12:00 07/22/18 12:00 - Medications Medications: Current Medications Albuterol/Ipratropium (Duoneb 3 Mg/0.5 Mg (3 Ml) Ud) 3 ml INH RQ4 PRN PRN Reason: Shortness of Breath Last Admin: 07/18/18 19:46 Dose: 3 ml Aspirin (Ecotrin) 81 mg PO DAILY LETICIA Last Admin: 07/22/18 08:53 Dose: 81 mg Furosemide (Lasix) 20 mg IVP BID LETICIA Stop: 07/27/18 13:11 Guaifenesin (Mucinex La) 1,200 mg PO Q12 LETICIA Last Admin: 07/22/18 08:54 Dose: 1,200 mg Ceftriaxone Sodium 1 gm/ (Sodium Chloride) 100 mls @ 100 mls/hr IVPB DAILY LETICIA; Protocol Last Admin: 07/22/18 08:55 Dose: 100 mls/hr Azithromycin 500 mg/ Sodium (Chloride) 250 mls @ 250 mls/hr IVPB DAILY LETICIA; Protocol Last Admin: 07/22/18 08:55 Dose: 250 mls/hr Vancomycin HCl 1 gm/ Sodium (Chloride) 250 mls @ 250 mls/hr IVPB Q12H LETICIA; Protocol Last Admin: 07/22/18 12:16 Dose: 250 mls/hr Pantoprazole Sodium (Protonix Ec Tab) 40 mg PO DAILY LETICIA Last Admin: 07/22/18 08:54 Dose: 40 mg Potassium Chloride (K-Dur 20 Meq Er Tab) 20 meq PO DAILY LETICIA Stop: 07/26/18 09:01 - Labs Labs: 07/22/18 04:25 07/22/18 04:25 PT 17.7 Seconds (9.8-13.1) H 07/18/18 09:00 INR 1.6 07/18/18 09:00 - Neck Exam Neck Exam: Normal Inspection - Respiratory Exam Respiratory Exam: Clear to Ausculation Bilateral, NORMAL BREATHING PATTERN - Cardiovascular Exam Cardiovascular Exam: REGULAR RHYTHM - GI/Abdominal Exam GI & Abdominal Exam: Soft, Normal Bowel Sounds Assessment and Plan - Assessment and Plan (Free Text) Assessment: 62 yo male with pleural effusion no new events doing better
--- NOTE | 2018-07-22 16:01 | RAD ---
Date of service: 07/22/2018 HISTORY: PLEURAL EFFUSIONS COMPARISON: 07/18/2018 TECHNIQUE: Chest PA and lateral views FINDINGS: LUNGS: There is evidence of increased density at the left lung base when compared to the prior study. Finding appears to represent combination of increased pleural fluid and atelectasis. There is also small pleural effusion and atelectasis seen at the right lung base, unchanged from prior study. PLEURA: No pneumothorax is seen. Trachea is midline. CARDIOVASCULAR: No aortic atherosclerotic calcification present. Stable cardiac size. No pulmonary vascular congestion. OSSEOUS STRUCTURES: No significant abnormalities. VISUALIZED UPPER ABDOMEN: Normal. OTHER FINDINGS: None. IMPRESSION: Increased density at the left lung base representing increased pleural effusion and atelectasis. Probable stable right pleural effusion and atelectasis.
[2018-07-22] MEDS: Potassium Chloride 20 mEq ER Tab PO SCH (16:40)
--- NOTE | 2018-07-22 20:56 | CP.PCM.PN ---
Subjective - Date & Time of Evaluation Date of Evaluation: 07/22/18 Time of Evaluation: 20:56 - Subjective Subjective: pt doing well no fcnvd no sob or cp all consult snd bw approciated ca thus far negative Objective - Vital Signs/Intake and Output Vital Signs (last 24 hours): Temp Pulse Resp BP Pulse Ox 98.3 F 81 18 124/69 96 07/22/18 20:22 07/22/18 20:22 07/22/18 20:22 07/22/18 20:22 07/22/18 20:22 - Medications Medications: Current Medications Albuterol/Ipratropium (Duoneb 3 Mg/0.5 Mg (3 Ml) Ud) 3 ml INH RQ4 PRN PRN Reason: Shortness of Breath Last Admin: 07/18/18 19:46 Dose: 3 ml Aspirin (Ecotrin) 81 mg PO DAILY LETICIA Last Admin: 07/22/18 08:53 Dose: 81 mg Furosemide (Lasix) 20 mg IVP BID LETICIA Stop: 07/27/18 13:11 Last Admin: 07/22/18 16:41 Dose: 20 mg Guaifenesin (Mucinex La) 1,200 mg PO Q12 LETICIA Last Admin: 07/22/18 20:27 Dose: 1,200 mg Ceftriaxone Sodium 1 gm/ (Sodium Chloride) 100 mls @ 100 mls/hr IVPB DAILY LETICIA; Protocol Last Admin: 07/22/18 08:55 Dose: 100 mls/hr Azithromycin 500 mg/ Sodium (Chloride) 250 mls @ 250 mls/hr IVPB DAILY LETICIA; Protocol Last Admin: 07/22/18 08:55 Dose: 250 mls/hr Vancomycin HCl 1 gm/ Sodium (Chloride) 250 mls @ 250 mls/hr IVPB Q12H LETICIA; Protocol Last Admin: 07/22/18 12:16 Dose: 250 mls/hr Pantoprazole Sodium (Protonix Ec Tab) 40 mg PO DAILY LETICIA Last Admin: 07/22/18 08:54 Dose: 40 mg Potassium Chloride (K-Dur 20 Meq Er Tab) 20 meq PO DAILY LETICIA Stop: 07/26/18 09:01 Last Admin: 07/22/18 16:40 Dose: 20 meq - Labs Labs: 07/22/18 04:25 07/22/18 04:25 PT 17.7 Seconds (9.8-13.1) H 07/18/18 09:00 INR 1.6 07/18/18 09:00
[2018-07-22 21:11] LABS: URINE BILIRUBIN NEGATIVE (NEGATIVE); URINE BLOOD NEGATIVE (NEGATIVE); URINE CLARITY CLEAR (Clear); URINE COLOR YELLOW (YELLOW); URINE GLUCOSE (UA) NEG (NEGATIVE); URINE LEUKOCYTE ESTERASE NEG Leu/uL (Negative); URINE PROTEIN NEGATIVE (NEGATIVE); URINE UROBILINOGEN 0.2-1.0 mg/dL (0.2-1.0)
--- NOTE | 2018-07-22 21:34 | CARD ---
APPROVED REPORT Date of service: 07/22/2018 EXAM: Two-dimensional and M-mode echocardiogram with Doppler and color Doppler. Other Information Quality : GoodRhythm : Atrial Fibrillation INDICATION 2D DIMENSIONS IVSd1.41 (0.7-1.1cm)LVDd4.18 (3.9-5.9cm) PWd0.92 (0.7-1.1cm)IVSs1.57 (0.8-1.2cm) LA Mwterd68 (18-58mL)LVDs3.13 (2.5-4.0cm) FS (%) 25.2 %PWs1.13 (0.8-1.2cm) M-Mode DIMENSIONS Left Atrium (MM)5.02 (2.5-4.0cm)Aortic Root3.02 (2.2-3.7cm) Aortic Cusp Exc.1.85 (1.5-2.0cm) Aortic Valve AoV Peak Mhkyagsm938.6cm/sAoV VTI24.6cmAO Peak GR.9mmHg LVOT Peak Koilqvyj982.9cm/sLVOT VTI20.99cmAO Mean GR.5mmHg Mitral Valve MV E Dvxuvmoi73.0cm/sMV E Peak Gr.49mmHgE/A ratio0.0 TDI E/Lateral E'0.0E/Medial E'0.0 Pulmonary Valve PV Peak Knlplpwz60.8cm/s Tricuspid Valve TR Peak Zywixqeb732ur/sRAP VPWBGQOC40vdSgEZ Peak Gr.10mmHg [id number] LEFT VENTRICLE The left ventricle is normal size. There is normal left ventricular wall thickness. The left ventricular systolic function is low normal. The estimated ejection fraction is 50-55% No regional wall motion abnormalities noted.. The left ventricular diastolic function cannot be assessed due to underlying rhythm. No left ventricle thrombus noted on this study. There is no ventricular septal defect visualized. There is no left ventricular aneurysm. There is no mass noted in the left ventricle. RIGHT VENTRICLE The right ventricle is mildly dilated. There is normal right ventricular wall thickness. The right ventricular systolic function is mildly reduced. ATRIA The left atrium is mildly dilated. The right atrium size is normal. The interatrial septum is intact with no evidence for an atrial septal defect. AORTIC VALVE The aortic valve is normal in structure. No aortic regurgitation is present. There is no aortic valvular stenosis. There is no aortic valvular vegetation. MITRAL VALVE The mitral valve is normal in structure. There is no evidence of mitral valve prolapse. There is no mitral valve stenosis. There is mild mitral valve regurgitation noted. TRICUSPID VALVE The tricuspid valve is normal in structure. There is mild tricuspid valve regurgitation noted. RVSP is calculated at less than 20 mm Hg. There is no tricuspid valve prolapse or vegetation. There is no tricuspid valve stenosis. PULMONIC VALVE The pulmonary valve is normal in structure. There is trace pulmonic valvular regurgitation. There is no pulmonic valvular stenosis. GREAT VESSELS The aortic root is normal in size. The ascending aorta is normal in size. The pulmonary artery is normal. The IVC is normal in size and collapses >50% with inspiration. PERICARDIAL EFFUSION There is large left sided pericardial effusion. There is no pleural effusion. <Conclusion> The left ventricular systolic function is low normal. The estimated ejection fraction is 50-55% The left ventricular diastolic function cannot be assessed due to underlying rhythm. The right ventricular systolic function is mildly reduced. The left atrium is mildly dilated. There is mild mitral valve regurgitation noted. There is mild tricuspid valve regurgitation noted. RVSP is calculated at less than 20 mm Hg.
[2018-07-22] MEDS: Albuterol-Ipratrop 3 mg / 0.5 (3 ml) UD INH PRN (22:36)
[2018-07-23 06:42] LABS: BLOOD UREA NITROGEN 17 mg/dl (9-20); CALCIUM 8.3 mg/dL (8.4-10.2); GFR NON-AFRICAN AMERICAN > 60
[2018-07-23 06:43] LABS: BASO # 0.1 K/uL (0.0-0.2); BASO % 0.4 % (0.0-2.0); EOS # 0.1 K/uL (0.0-0.7); EOS % 0.8 % (0.0-4.0); HEMOGLOBIN 10.3 g/dL (12.0-18.0); LYMPH # 1.2 K/uL (1.0-4.3); MEAN CELL VOLUME 84.7 fl (80.0-94.0); MEAN CORPUSCULAR HGB CONC 33.1 g/dL (33.0-37.0); MEAN PLATELET VOLUME 6.7 fl (7.2-11.7); MONO # 1.2 K/uL (0.0-0.8); NEUT # 12.6 K/uL (1.8-7.0); NEUT % 82.8 % (50.0-75.0); RBC 3.67 Mil/uL (4.40-5.90); RED CELL DISTRIBUTION WIDTH 14.6 % (11.5-14.5); WHITE BLOOD COUNT 15.2 K/uL (4.8-10.8)
[2018-07-23] MEDS: Potassium Chloride 20 mEq ER Tab PO SCH (08:26)
[2018-07-23] MEDS: guaiFENesin 600 mg ER Tab PO SCH ×2 (08:27→21:23)
[2018-07-23] MEDS: Pantoprazole 40 mg EC Tab PO SCH (08:27)
[2018-07-23] MEDS: Azithromycin 500 MG in Sodium Chloride 0.9% 250 ML IVPB SCH (08:28)
--- NOTE | 2018-07-23 11:37 | CP.PCM.PN ---
Subjective - Date & Time of Evaluation Date of Evaluation: 07/23/18 Time of Evaluation: 11:37 - Subjective Subjective: clinically improving denies chest pains/sob no cough able to ambulate with physical therapist Objective - Vital Signs/Intake and Output Vital Signs (last 24 hours): Temp Pulse Resp BP Pulse Ox 98.4 F 78 20 107/68 97 07/23/18 08:21 07/23/18 08:21 07/23/18 08:21 07/23/18 08:31 07/23/18 08:21 - Medications Medications: Current Medications Albuterol/Ipratropium (Duoneb 3 Mg/0.5 Mg (3 Ml) Ud) 3 ml INH RQ4 PRN PRN Reason: Shortness of Breath Last Admin: 07/22/18 22:36 Dose: 3 ml Aspirin (Ecotrin) 81 mg PO DAILY LETICIA Last Admin: 07/23/18 08:26 Dose: 81 mg Furosemide (Lasix) 20 mg IVP BID LETICIA Stop: 07/27/18 13:11 Last Admin: 07/23/18 08:31 Dose: 20 mg Guaifenesin (Mucinex La) 1,200 mg PO Q12 LETICIA Last Admin: 07/23/18 08:27 Dose: 1,200 mg Ceftriaxone Sodium 1 gm/ (Sodium Chloride) 100 mls @ 100 mls/hr IVPB DAILY LETICIA; Protocol Last Admin: 07/23/18 08:27 Dose: 100 mls/hr Azithromycin 500 mg/ Sodium (Chloride) 250 mls @ 250 mls/hr IVPB DAILY LETICIA; Protocol Last Admin: 07/23/18 08:28 Dose: 250 mls/hr Vancomycin HCl 1 gm/ Sodium (Chloride) 250 mls @ 250 mls/hr IVPB Q12H LETICIA; Protocol Last Admin: 07/23/18 00:29 Dose: 250 mls/hr Pantoprazole Sodium (Protonix Ec Tab) 40 mg PO DAILY LETICIA Last Admin: 07/23/18 08:27 Dose: 40 mg Potassium Chloride (K-Dur 20 Meq Er Tab) 20 meq PO DAILY LETICIA Stop: 07/26/18 09:01 Last Admin: 07/23/18 08:26 Dose: 20 meq - Labs Labs: 07/23/18 04:30 07/23/18 04:30 PT 17.7 Seconds (9.8-13.1) H 07/18/18 09:00 INR 1.6 07/18/18 09:00 - Constitutional Appears: No Acute Distress - Head Exam Head Exam: ATRAUMATIC, NORMAL INSPECTION, NORMOCEPHALIC - Eye Exam Eye Exam: EOMI, Normal appearance, PERRL Pupil Exam: NORMAL ACCOMODATION, PERRL - ENT Exam ENT Exam: Mucous Membranes Moist, Normal Exam - Neck Exam Neck Exam: Full ROM, Normal Inspection. absent: Lymphadenopathy - Respiratory Exam Respiratory Exam: Clear to Ausculation Bilateral, NORMAL BREATHING PATTERN - Cardiovascular Exam Cardiovascular Exam: REGULAR RHYTHM, +S1, +S2. absent: Murmur - GI/Abdominal Exam GI & Abdominal Exam: Soft, Normal Bowel Sounds. absent: Tenderness - Rectal Exam Rectal Exam: NORMAL INSPECTION - Extremities Exam Extremities Exam: Full ROM, Normal Capillary Refill, Pedal Edema. absent: Joint Swelling - Back Exam Back Exam: NORMAL INSPECTION - Neurological Exam Neurological Exam: Alert, Awake, CN II-XII Intact, Normal Gait, Oriented x3 - Psychiatric Exam Psychiatric exam: Normal Affect, Normal Mood - Skin Skin Exam: Dry, Intact, Normal Color, Warm Assessment and Plan - Assessment and Plan (Free Text) Assessment: pleural effusions--unchanged on cxr Plan: continue current therapy will follow with you
--- NOTE | 2018-07-23 12:07 | CP.PCM.PN ---
Subjective - Date & Time of Evaluation Date of Evaluation: 07/23/18 Time of Evaluation: 12:02 - Subjective Subjective: Nephrology Consultation Note Assessment: stable hypervolemic hyponatremia recurrent pleural effusion hx of Etoh/HTN sepsis anemia, leykocytosis and thrombocytosis Plan No acute need for renal replacement therapy at this time. Hypertension control with meds as ordered. Maintain hemodynamics stable. Avoid hypotension. hold BP meds as BP on low side. d/c norvasc and losartan Monitor Input/Output, daily weights (d/w RN) and renal function with basic metabolic panel diurese with lasix 20 mg iv bid, as tolerated by BP. further dose adjustment based upon response no need for samsca today. avoid correction in serum na >6-8 meq/24 hrs. no need for hypertonic saline at present oral fluid restriction 1200 mL/day heme, ID following supplement lytes as needed monthyl Vit D Dose meds/antibiotics for GFR >60 Glycemic control Further work up for as per primary team Thanks for allowing me to participate in care of your patient. Will follow patient with you. Please call if any Qs Dr Mika Gonzalez Office: [phone] Subjective: Noted events overnight. Patients feels okay. Denies chest pain, palpitation, improved shortness of breath, leg swelling. All other negative Physical Examination: General Appearance: Comfortable, in no acute respiratory distress, co-operative . Vitals reviewed and noted as below Head; Atraumatic, normocephalic ENT: no ulcers no thrush. Tongue is midline. Oropharynx: no rash or ulcers. EYES: Pupils are equal, round and reactive to light accommodation. Eye muscles and extraocular movement intact. Sclera is anicteric. Neck; supple no lymphadenopathy, no thyromegaly or bruit Lungs: Normal respiratory rate/effort. Breath sounds bilateral reduced at bases Heart: Normal rate. s1s2 normal. No rub or gallop. Extremities: 2+ edema. No varicose veins Neurological: Patient is alert, awake and oriented to person, place and time. No focal deficit. Strength bilateral appropriate and equal Skin: Warm and dry. Normal turgor. No rash. Palpitation: Normal elasticity for age Abdomen: Abdomen is soft. Bowel sounds +. There is no abdominal tenderness, no guarding/rigidity no organomegaly Psych: normal insight and normal affect/mood MSK: no joint tenderness or swelling. Digits and nails normal, no deformity : kidney or bladder not palpable Labs/imaging reviewed. Past medical history, past surgical history, family history, social history, allergy reviewed and noted as below Family hx: no hx of CKD. Rest non-contributory hep B/C neg urine Na <5 and osmol 648 24 hr urine 250 mg LVEf normal Objective - Vital Signs/Intake and Output Vital Signs (last 24 hours): Temp Pulse Resp BP Pulse Ox 98.4 F 78 20 107/68 97 07/23/18 08:21 07/23/18 08:21 07/23/18 08:21 07/23/18 08:31 07/23/18 08:21 - Medications Medications: Current Medications Albuterol/Ipratropium (Duoneb 3 Mg/0.5 Mg (3 Ml) Ud) 3 ml INH RQ4 PRN PRN Reason: Shortness of Breath Last Admin: 07/22/18 22:36 Dose: 3 ml Aspirin (Ecotrin) 81 mg PO DAILY LETICIA Last Admin: 07/23/18 08:26 Dose: 81 mg Ergocalciferol (Drisdol 50,000 Intl Units Cap) 1 cap PO ONCE ONE Stop: 07/23/18 12:11 Furosemide (Lasix) 20 mg IVP BID LETICIA Stop: 07/27/18 13:11 Last Admin: 07/23/18 08:31 Dose: 20 mg Guaifenesin (Mucinex La) 1,200 mg PO Q12 LETICIA Last Admin: 07/23/18 08:27 Dose: 1,200 mg Ceftriaxone Sodium 1 gm/ (Sodium Chloride) 100 mls @ 100 mls/hr IVPB DAILY LETICIA; Protocol Last Admin: 07/23/18 08:27 Dose: 100 mls/hr Azithromycin 500 mg/ Sodium (Chloride) 250 mls @ 250 mls/hr IVPB DAILY LETICIA; Protocol Last Admin: 07/23/18 08:28 Dose: 250 mls/hr Vancomycin HCl 1 gm/ Sodium (Chloride) 250 mls @ 250 mls/hr IVPB Q12H LETICIA; Protocol Last Admin: 07/23/18 00:29 Dose: 250 mls/hr Pantoprazole Sodium (Protonix Ec Tab) 40 mg PO DAILY LETICIA Last Admin: 07/23/18 08:27 Dose: 40 mg Potassium Chloride (K-Dur 20 Meq Er Tab) 20 meq PO DAILY LETICIA Stop: 07/26/18 09:01 Last Admin: 07/23/18 08:26 Dose: 20 meq - Labs Labs: 07/23/18 04:30 07/23/18 04:30 PT 17.7 Seconds (9.8-13.1) H 07/18/18 09:00 INR 1.6 07/18/18 09:00
[2018-07-23] MEDS ORDERED: Ergocalciferol 50,000 Intl Units Cap PO ONE (12:10)
[2018-07-23] MEDS: Albuterol-Ipratrop 3 mg / 0.5 (3 ml) UD INH PRN (15:41)
[2018-07-24 05:43] LABS: BASO # 0.2 K/uL (0.0-0.2); BASO % 1.1 % (0.0-2.0); EOS # 0.4 K/uL (0.0-0.7); EOS % 2.5 % (0.0-4.0); HEMOGLOBIN 9.6 g/dL (12.0-18.0); LYMPH # 1.3 K/uL (1.0-4.3); LYMPH % 8.3 % (20.0-40.0); MEAN CELL VOLUME 84.3 fl (80.0-94.0); MEAN CORPUSCULAR HEMOGLOBIN 28.5 pg (27.0-31.0); MEAN CORPUSCULAR HGB CONC 33.8 g/dL (33.0-37.0); MEAN PLATELET VOLUME 6.1 fl (7.2-11.7); MONO # 1.2 K/uL (0.0-0.8); MONO % 7.6 % (0.0-10.0); NEUT # 12.3 K/uL (1.8-7.0); NEUT % 80.5 % (50.0-75.0); RBC 3.37 Mil/uL (4.40-5.90); RED CELL DISTRIBUTION WIDTH 14.7 % (11.5-14.5); WHITE BLOOD COUNT 15.3 K/uL (4.8-10.8)
[2018-07-24 06:09] LABS: ALBUMIN 2.7 g/dL (3.5-5.0); ALT/SGPT 185 U/L (21-72); AST/SGOT 109 U/L (17-59); BLOOD UREA NITROGEN 14 mg/dl (9-20); CALCIUM 8.1 mg/dL (8.4-10.2); GFR NON-AFRICAN AMERICAN > 60
--- NOTE | 2018-07-24 08:37 | CP.PCM.PN ---
Subjective - Date & Time of Evaluation Date of Evaluation: 07/24/18 Time of Evaluation: 08:40 - Subjective Subjective: NO APPARENT DISTRESS CLINICALLY IMPROVED LABS REVIEWED Objective - Vital Signs/Intake and Output Vital Signs (last 24 hours): Temp Pulse Resp BP Pulse Ox 98.6 F 82 18 129/83 95 07/24/18 08:02 07/24/18 08:02 07/24/18 08:02 07/24/18 08:02 07/24/18 08:02 Intake and Output: 07/24/18 07/24/18 06:59 18:59 Intake Total 1250 Output Total 1300 Balance -50 - Medications Medications: Current Medications Albuterol/Ipratropium (Duoneb 3 Mg/0.5 Mg (3 Ml) Ud) 3 ml INH RQ4 PRN PRN Reason: Shortness of Breath Last Admin: 07/23/18 15:41 Dose: 3 ml Aspirin (Ecotrin) 81 mg PO DAILY [facility] Last Admin: 07/23/18 08:26 Dose: 81 mg Furosemide (Lasix) 20 mg IVP BID [facility] Stop: 07/27/18 13:11 Last Admin: 07/23/18 16:41 Dose: 20 mg Guaifenesin (Mucinex La) 1,200 mg PO Q12 [facility] Last Admin: 07/23/18 21:23 Dose: 1,200 mg Ceftriaxone Sodium 1 gm/ (Sodium Chloride) 100 mls @ 100 mls/hr IVPB DAILY [facility]; Protocol Last Admin: 07/23/18 08:27 Dose: 100 mls/hr Azithromycin 500 mg/ Sodium (Chloride) 250 mls @ 250 mls/hr IVPB DAILY [facility]; Protocol Last Admin: 07/23/18 08:28 Dose: 250 mls/hr Vancomycin HCl 1 gm/ Sodium (Chloride) 250 mls @ 250 mls/hr IVPB Q12H [facility]; P rotocol Last Admin: 07/24/18 00:01 Dose: 250 mls/hr Pantoprazole Sodium (Protonix Ec Tab) 40 mg PO DAILY [facility] Last Admin: 07/23/18 08:27 Dose: 40 mg Potassium Chloride (K-Dur 20 Meq Er Tab) 20 meq PO DAILY [facility] Stop: 07/26/18 09:01 Last Admin: 07/23/18 08:26 Dose: 20 meq - Labs Labs: 07/24/18 05:18 07/24/18 05:18 PT 17.7 Seconds (9.8-13.1) H 07/18/18 09:00 INR 1.6 07/18/18 09:00 - Constitutional Appears: No Acute Distress - Head Exam Head Exam: ATRAUMATIC, NORMAL INSPECTION, NORMOCEPHALIC - Eye Exam Eye Exam: EOMI, Normal appearance, PERRL Pupil Exam: NORMAL ACCOMODATION, PERRL - ENT Exam ENT Exam: Mucous Membranes Moist, Normal Exam - Neck Exam Neck Exam: Full ROM, Normal Inspection. absent: Lymphadenopathy - Respiratory Exam Respiratory Exam: Prolonged Expiratory Phase, NORMAL BREATHING PATTERN - Cardiovascular Exam Cardiovascular Exam: REGULAR RHYTHM, +S1, +S2. absent: Murmur - GI/Abdominal Exam GI & Abdominal Exam: Soft, Normal Bowel Sounds. absent: Tenderness - Rectal Exam Rectal Exam: NORMAL INSPECTION - Extremities Exam Extremities Exam: Full ROM, Normal Capillary Refill, Pedal Edema. absent: Joint Swelling - Back Exam Back Exam: NORMAL INSPECTION - Neurological Exam Neurological Exam: Alert, Awake, CN II-XII Intact, Normal Gait, Oriented x3 - Psychiatric Exam Psychiatric exam: Normal Affect, Normal Mood - Skin Skin Exam: Dry, Intact, Normal Color, Warm Assessment and Plan - Assessment and Plan (Free Text) Assessment: PLEURAL EFFUSION PROBABLY DUE TO INFECTIOUS ETIOLOGY WITH SUPERIMPOSED LIVER DZ Plan: MAY BENEFIT FROM SUBACUTE CARE/TCU PRIOR TO D/C HOME
[2018-07-24] MEDS: Potassium Chloride 20 mEq ER Tab PO SCH (09:52)
[2018-07-24] MEDS: Pantoprazole 40 mg EC Tab PO SCH (09:52)
[2018-07-24] MEDS: guaiFENesin 600 mg ER Tab PO SCH ×2 (09:53→21:29)
[2018-07-24] MEDS: Azithromycin 500 MG in Sodium Chloride 0.9% 250 ML IVPB SCH (09:57)
--- NOTE | 2018-07-24 09:58 | CP.PCM.PN ---
Subjective - Date & Time of Evaluation Date of Evaluation: 07/24/18 Time of Evaluation: 10:00 - Subjective Subjective: seen on rounds lungs sound improved Objective - Vital Signs/Intake and Output Vital Signs (last 24 hours): Temp Pulse Resp BP Pulse Ox 98.6 F 82 18 129/83 95 07/24/18 08:02 07/24/18 08:02 07/24/18 08:02 07/24/18 09:56 07/24/18 08:02 Intake and Output: 07/24/18 07/24/18 06:59 18:59 Intake Total 1250 Output Total 1300 Balance -50 - Medications Medications: Current Medications Albuterol/Ipratropium (Duoneb 3 Mg/0.5 Mg (3 Ml) Ud) 3 ml INH RQ4 PRN PRN Reason: Shortness of Breath Last Admin: 07/23/18 15:41 Dose: 3 ml Aspirin (Ecotrin) 81 mg PO DAILY [facility] Last Admin: 07/24/18 09:52 Dose: 81 mg Furosemide (Lasix) 20 mg IVP BID [facility] Stop: 07/27/18 13:11 Last Admin: 07/24/18 09:56 Dose: 20 mg Guaifenesin (Mucinex La) 1,200 mg PO Q12 [facility] Last Admin: 07/24/18 09:53 Dose: 1,200 mg Ceftriaxone Sodium 1 gm/ (Sodium Chloride) 100 mls @ 100 mls/hr IVPB DAILY [facility]; Protocol Last Admin: 07/24/18 09:51 Dose: 100 mls/hr Azithromycin 500 mg/ Sodium (Chloride) 250 mls @ 250 mls/hr IVPB DAILY [facility]; Protocol Last Admin: 07/24/18 09:57 Dose: 250 mls/hr Vancomycin HCl 1 gm/ Sodium (Chloride) 250 mls @ 250 mls/hr IVPB Q12H [facility]; Protocol Last Admin: 07/24/18 00:01 Dose: 250 mls/hr Pantoprazole Sodium (Protonix Ec Tab) 40 mg PO DAILY [facility] Last Admin: 07/24/18 09:52 Dose: 40 mg Potassium Chloride (K-Dur 20 Meq Er Tab) 20 meq PO DAILY [facility] Stop: 07/26/18 09:01 Last Admin: 07/24/18 09:52 Dose: 20 meq - Labs Labs: 07/24/18 05:18 07/24/18 05:18 PT 17.7 Seconds (9.8-13.1) H 07/18/18 09:00 INR 1.6 07/18/18 09:00 - Constitutional Appears: Well - Head Exam Head Exam: ATRAUMATIC, NORMAL INSPECTION, NORMOCEPHALIC - Eye Exam Eye Exam: EOMI, Normal appearance, PERRL Pupil Exam: NORMAL ACCOMODATION, PERRL - ENT Exam ENT Exam: Mucous Membranes Moist, Normal Exam - Neck Exam Neck Exam: Full ROM, Normal Inspection. absent: Lymphadenopathy - Respiratory Exam Respiratory Exam: Clear to Ausculation Bilateral, NORMAL BREATHING PATTERN - Cardiovascular Exam Cardiovascular Exam: REGULAR RHYTHM, +S1, +S2. absent: Murmur - GI/Abdominal Exam GI & Abdominal Exam: Distended. absent: Tenderness - Rectal Exam Rectal Exam: Deferred - Exam Exam: NORMAL INSPECTION - Extremities Exam Extremities Exam: Full ROM, Normal Capillary Refill, Normal Inspection. absent: Joint Swelling, Pedal Edema - Back Exam Back Exam: NORMAL INSPECTION - Neurological Exam Neurological Exam: Alert, Awake, CN II-XII Intact, Normal Gait, Oriented x3 - Psychiatric Exam Psychiatric exam: Normal Affect, Normal Mood - Skin Skin Exam: Dry, Intact, Normal Color, Warm Assessment and Plan (1) Ascites Status: Acute (2) ETOH abuse Status: Acute (3) Edema extremities Status: Acute (4) Leukocytosis Status: Acute (5) Pleural effusion associated with pulmonary infection Status: Acute (6) Pleural effusion exudative Status: Acute (7) Thrombocytosis Status: Acute (8) Hyponatremia Status: Acute (9) Fever Status: Acute - Assessment and Plan (Free Text) Assessment: cont Vanco/rocephin repeat CXR
--- NOTE | 2018-07-24 10:03 | CP.PCM.PN ---
Subjective - Date & Time of Evaluation Date of Evaluation: 07/24/18 Time of Evaluation: 10:03 - Subjective Subjective: Patient sitting up and doing much better Vital signs stable Bilateral leg edema persisted but improving Objective - Vital Signs/Intake and Output Vital Signs (last 24 hours): Temp Pulse Resp BP Pulse Ox 98.6 F 82 18 129/83 95 07/24/18 08:02 07/24/18 08:02 07/24/18 08:02 07/24/18 09:56 07/24/18 08:02 Intake and Output: 07/24/18 07/24/18 06:59 18:59 Intake Total 1250 Output Total 1300 Balance -50 - Medications Medications: Current Medications Albuterol/Ipratropium (Duoneb 3 Mg/0.5 Mg (3 Ml) Ud) 3 ml INH RQ4 PRN PRN Reason: Shortness of Breath Last Admin: 07/23/18 15:41 Dose: 3 ml Aspirin (Ecotrin) 81 mg PO DAILY [facility] Last Admin: 07/24/18 09:52 Dose: 81 mg Furosemide (Lasix) 20 mg IVP BID [facility] Stop: 07/27/18 13:11 Last Admin: 07/24/18 09:56 Dose: 20 mg Guaifenesin (Mucinex La) 1,200 mg PO Q12 [facility] Last Admin: 07/24/18 09:53 Dose: 1,200 mg Ceftriaxone Sodium 1 gm/ (Sodium Chloride) 100 mls @ 100 mls/hr IVPB DAILY [facility]; Protocol Last Admin: 07/24/18 09:51 Dose: 100 mls/hr Azithromycin 500 mg/ Sodium (Chloride) 250 mls @ 250 mls/hr IVPB DAILY [facility]; Protocol Last Admin: 07/24/18 09:57 Dose: 250 mls/hr Vancomycin HCl 1 gm/ Sodium (Chloride) 250 mls @ 250 mls/hr IVPB Q12H [facility]; Protocol Last Admin: 07/24/18 00:01 Dose: 250 mls/hr Pantoprazole Sodium (Protonix Ec Tab) 40 mg PO DAILY [facility] Last Admin: 07/24/18 09:52 Dose: 40 mg Potassium Chloride (K-Dur 20 Meq Er Tab) 20 meq PO DAILY [facility] Stop: 07/26/18 09:01 Last Admin: 07/24/18 09:52 Dose: 20 meq - Labs Labs: 07/24/18 05:18 07/24/18 05:18 PT 17.7 Seconds (9.8-13.1) H 07/18/18 09:00 INR 1.6 07/18/18 09:00 - Constitutional Appears: No Acute Distress - Eye Exam Eye Exam: Conjunctival injection - ENT Exam ENT Exam: Mucous Membranes Moist - Neck Exam Neck Exam: absent: Lymphadenopathy - Respiratory Exam Respiratory Exam: Rhonchi, NORMAL BREATHING PATTERN. absent: Chest Wall Tenderness - Cardiovascular Exam Cardiovascular Exam: absent: Gallop, JVD, Rubs - GI/Abdominal Exam GI & Abdominal Exam: Soft, Normal Bowel Sounds - Extremities Exam Extremities Exam: absent: Calf Tenderness - Back Exam Back Exam: absent: CVA tenderness (L), CVA tenderness (R) - Neurological Exam Neurological Exam: Alert - Psychiatric Exam Psychiatric exam: Normal Affect - Skin Skin Exam: absent: Cyanosis Assessment and Plan (1) Accelerated junctional rhythm Status: Acute (2) Ascites Status: Acute (3) Edema extremities Status: Acute (4) Leukocytosis Status: Acute (5) Pleural effusion exudative Status: Acute (6) Thrombocytosis Status: Acute (7) Hyponatremia syndrome Assessment & Plan: Assessment: stable hypervolemic hyponatremia Serum sodium trending down again 130 recurrent pleural effusion hx of Etoh/HTN sepsis anemia, leykocytosis and thrombocytosis Bilateral leg edema Recommendation Samsca 15mg again today because sodium trending down again and previous hospitalization has persistent hyponatremia hypervolemia Monitor serum sodium not to rise more than about 8 mEq in 24 hours Status: Acute
[2018-07-24] MEDS ORDERED: Tolvaptan 15 MG TAB PO ONE (10:05)
--- NOTE | 2018-07-24 11:47 | CP.PCM.PN ---
Subjective - Date & Time of Evaluation Date of Evaluation: 07/24/18 Time of Evaluation: 08:00 - Subjective Subjective: looks better however CXR shows worsening LLL effusion may need thoracentesis / may need chest tube IV rx renewed Objective - Vital Signs/Intake and Output Vital Signs (last 24 hours): Temp Pulse Resp BP Pulse Ox 98.6 F 82 18 129/83 95 07/24/18 08:02 07/24/18 08:02 07/24/18 08:02 07/24/18 09:56 07/24/18 08:02 Intake and Output: 07/24/18 07/24/18 06:59 18:59 Intake Total 1250 Output Total 1300 Balance -50 - Medications Medications: Current Medications Albuterol/Ipratropium (Duoneb 3 Mg/0.5 Mg (3 Ml) Ud) 3 ml INH RQ4 PRN PRN Reason: Shortness of Breath Last Admin: 07/23/18 15:41 Dose: 3 ml Aspirin (Ecotrin) 81 mg PO DAILY [facility] Last Admin: 07/24/18 09:52 Dose: 81 mg Furosemide (Lasix) 20 mg IVP BID [facility] Stop: 07/27/18 13:11 Last Admin: 07/24/18 09:56 Dose: 20 mg Guaifenesin (Mucinex La) 1,200 mg PO Q12 [facility] Last Admin: 07/24/18 09:53 Dose: 1,200 mg Ceftriaxone Sodium 1 gm/ (Sodium Chloride) 100 mls @ 100 mls/hr IVPB DAILY [facility]; Protocol Last Admin: 07/24/18 09:51 Dose: 100 mls/hr Azithromycin 500 mg/ Sodium (Chloride) 250 mls @ 250 mls/hr IVPB DAILY [facility]; Protocol Last Admin: 07/24/18 09:57 Dose: 250 mls/hr Vancomycin HCl 1 gm/ Sodium (Chloride) 250 mls @ 250 mls/hr IVPB Q12H [facility]; Protocol Last Admin: 07/24/18 00:01 Dose: 250 mls/hr Pantoprazole Sodium (Protonix Ec Tab) 40 mg PO DAILY [facility] Last Admin: 07/24/18 09:52 Dose: 40 mg Potassium Chloride (K-Dur 20 Meq Er Tab) 20 meq PO DAILY [facility] Stop: 07/26/18 09:01 Last Admin: 07/24/18 09:52 Dose: 20 meq - Labs Labs: 07/24/18 05:18 07/24/18 05:18 PT 17.7 Seconds (9.8-13.1) H 07/18/18 09:00 INR 1.6 07/18/18 09:00 - Constitutional Appears: Non-toxic, Chronically Ill - Head Exam Head Exam: ATRAUMATIC, NORMAL INSPECTION, NORMOCEPHALIC - Eye Exam Eye Exam: EOMI, Normal appearance, PERRL Pupil Exam: NORMAL ACCOMODATION, PERRL - ENT Exam ENT Exam: Mucous Membranes Moist, Normal Exam - Neck Exam Neck Exam: Full ROM, Normal Inspection. absent: Lymphadenopathy - Respiratory Exam Respiratory Exam: Clear to Ausculation Bilateral, NORMAL BREATHING PATTERN - Cardiovascular Exam Cardiovascular Exam: REGULAR RHYTHM, +S1, +S2. absent: Murmur - GI/Abdominal Exam GI & Abdominal Exam: Soft, Normal Bowel Sounds. absent: Tenderness - Rectal Exam Rectal Exam: Deferred - Exam Exam: NORMAL INSPECTION - Extremities Exam Extremities Exam: Full ROM, Normal Capillary Refill, Normal Inspection. absent: Joint Swelling, Pedal Edema - Back Exam Back Exam: NORMAL INSPECTION - Neurological Exam Neurological Exam: Alert, Awake, CN II-XII Intact, Normal Gait, Oriented x3 - Psychiatric Exam Psychiatric exam: Normal Affect, Normal Mood - Skin Skin Exam: Dry, Intact, Normal Color, Warm Assessment and Plan (1) Ascites Status: Acute (2) ETOH abuse Status: Acute (3) Edema extremities Status: Acute (4) Leukocytosis Status: Acute (5) Pleural effusion associated with pulmonary infection Status: Acute (6) Pleural effusion exudative Status: Acute (7) Thrombocytosis Status: Acute (8) Hyponatremia Status: Acute (9) Fever Status: Acute - Assessment and Plan (Free Text) Assessment: recurrent effusion LLL pneumonia Improving on Vanco Rocephin 'may need repeat drainage
--- NOTE | 2018-07-24 15:05 | RAD ---
Date of service: 07/24/2018 HISTORY: pleural effusions COMPARISON: 07/22/2018. TECHNIQUE: Chest PA and lateral views FINDINGS: LUNGS: Consolidative changes both lower lobes left greater than right. PLEURA: Increasing left pleural effusion, stable right pleural effusion. CARDIOVASCULAR: No aortic atherosclerotic calcification present. Normal cardiac size. No pulmonary vascular congestion. OSSEOUS STRUCTURES: No significant abnormalities. VISUALIZED UPPER ABDOMEN: Normal. OTHER FINDINGS: None. IMPRESSION: Increasing left pleural effusion, progressive presumed compressive atelectasis left lower lobe.
--- NOTE | 2018-07-24 17:40 | CP.PCM.PN ---
Subjective - Date & Time of Evaluation Date of Evaluation: 07/24/18 Time of Evaluation: 17:39 - Subjective Subjective: full note dictated case d/c w/ all specialists. for KIANA kline will require 1 wk more of vanco as per dr montenegro and saji no further surgical intervention planned at present. no f/c, n/v/d. feeling better. 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 Objective - Vital Signs/Intake and Output Vital Signs (last 24 hours): Temp Pulse Resp BP Pulse Ox 98.2 F 63 20 109/66 95 07/24/18 15:39 07/24/18 15:39 07/24/18 15:39 07/24/18 16:11 07/24/18 15:39 Intake and Output: 07/24/18 07/24/18 06:59 18:59 Intake Total 1250 Output Total 1300 Balance -50 - Medications Medications: Current Medications Albuterol/Ipratropium (Duoneb 3 Mg/0.5 Mg (3 Ml) Ud) 3 ml INH RQ4 PRN PRN Reason: Shortness of Breath Last Admin: 07/23/18 15:41 Dose: 3 ml Aspirin (Ecotrin) 81 mg PO DAILY [facility] Last Admin: 07/24/18 09:52 Dose: 81 mg Furosemide (Lasix) 20 mg IVP BID [facility] Stop: 07/27/18 13:11 Last Admin: 07/24/18 16:11 Dose: 20 mg Guaifenesin (Mucinex La) 1,200 mg PO Q12 [facility] Last Admin: 07/24/18 09:53 Dose: 1,200 mg Ceftriaxone Sodium 1 gm/ (Sodium Chloride) 100 mls @ 100 mls/hr IVPB DAILY [facility]; Protocol Last Admin: 07/24/18 09:51 Dose: 100 mls/hr Azithromycin 500 mg/ Sodium (Chloride) 250 mls @ 250 mls/hr IVPB DAILY [facility]; Protocol Last Admin: 07/24/18 09:57 Dose: 250 mls/hr Vancomycin HCl 1 gm/ Sodium (Chloride) 250 mls @ 250 mls/hr IVPB Q12H [facility]; Protocol Last Admin: 07/24/18 12:12 Dose: 250 mls/hr Pantoprazole Sodium (Protonix Ec Tab) 40 mg PO DAILY [facility] Last Admin: 07/24/18 09:52 Dose: 40 mg Potassium Chloride (K-Dur 20 Meq Er Tab) 20 meq PO DAILY [facility] Stop: 07/26/18 09:01 Last Admin: 07/24/18 09:52 Dose: 20 meq - Labs Labs: 07/24/18 05:18 07/24/18 05:18 PT 17.7 Seconds (9.8-13.1) H 07/18/18 09:00 INR 1.6 07/18/18 09:00 Assessment and Plan (1) Pleural effusion associated with pulmonary infection Status: Acute (2) DVT prophylaxis Status: Acute
[2018-07-24 19:50] LABS: SOURCE Blood
[2018-07-24 21:03] LABS: BLOOD UREA NITROGEN 16 mg/dl (9-20); CALCIUM 8.4 mg/dL (8.4-10.2); GFR NON-AFRICAN AMERICAN > 60
[2018-07-25 06:02] LABS: ALBUMIN 3.1 g/dL (3.5-5.0); ALT/SGPT 215 U/L (21-72); AST/SGOT 102 U/L (17-59); BLOOD UREA NITROGEN 13 mg/dl (9-20); CALCIUM 8.7 mg/dL (8.4-10.2); GFR NON-AFRICAN AMERICAN > 60
[2018-07-25 06:04] LABS: BASO # 0.1 K/uL (0.0-0.2); BASO % 1.3 % (0.0-2.0); EOS # 0.7 K/uL (0.0-0.7); EOS % 6.5 % (0.0-4.0); LYMPH # 1.7 K/uL (1.0-4.3); LYMPH % 14.9 % (20.0-40.0); MEAN CELL VOLUME 84.8 fl (80.0-94.0); MEAN CORPUSCULAR HEMOGLOBIN 28.6 pg (27.0-31.0); MEAN CORPUSCULAR HGB CONC 33.7 g/dL (33.0-37.0); MEAN PLATELET VOLUME 6.1 fl (7.2-11.7); MONO # 0.7 K/uL (0.0-0.8); MONO % 6.3 % (0.0-10.0); NEUT # 7.9 K/uL (1.8-7.0); NRBC % 0.1 % (0.0-0.0); RBC 3.87 Mil/uL (4.40-5.90); RED CELL DISTRIBUTION WIDTH 14.8 % (11.5-14.5); WHITE BLOOD COUNT 11.1 K/uL (4.8-10.8)
--- NOTE | 2018-07-25 08:05 | PN ---
DATE: 07/24/2018 SUBJECTIVE: The patient is seen sitting in chair at bedside. Denies any complaints of shortness of breath, chest pain, fever. All labs are noted and those are appreciated. Case discussed with . Hematology/Oncology this morning. Continue outpatient therapy as needed. REVIEW OF SYSTEMS: Negative. PHYSICAL EXAMINATION: CONSTITUTIONAL: Awake, alert, oriented. HEENT: Normal. HEART: Regular rate and rhythm. No murmur, rubs or gallops. LUNGS: Clear in all rodas bilaterally. ABDOMEN: Soft, nontender, bowel sounds x4. EXTREMITIES: Distal pulses and motor sensation intact. Capillary refill is brisk. DIAGNOSIS AND PLAN: Continue antibiotics. Nephrology is recommending titration of the vancomycin. will d/c w/ ID. Continue supportive care. Abnormal CBC, elevated WBC count, elevated platelet count, could be related to infection, could be reaction or other etiology. According to dr bourgeois and prior laboratory analysis. We will try baby aspirin daily. The patient is doing very well with ambulation. will likely send the [facility] to [facility] when cleared. The patient will need pt/ot and iv anbx at subacute related to prolonged hospital stay, also on IV antibiotics. We will discuss with Infectious Disease, Dr. Mcgee, how long, but might be 7 to 10 days. RASHAD Nesbitt DAVID
[2018-07-25] MEDS: guaiFENesin 600 mg ER Tab PO SCH ×2 (08:44→21:29)
[2018-07-25] MEDS: Pantoprazole 40 mg EC Tab PO SCH (08:44)
[2018-07-25] MEDS: Potassium Chloride 20 mEq ER Tab PO SCH (08:44)
--- NOTE | 2018-07-25 08:45 | CP.PCM.PN ---
Subjective - Date & Time of Evaluation Date of Evaluation: 07/25/18 Time of Evaluation: 08:46 - Subjective Subjective: NO NEW CLINICAL FINDINGS SCHEDULED FOR D/C TO SUBACUTE CARE TODAY CASE DISCUSSED WITH LYLA COE--WILL NEED CONTINUED ANTIBIOTIC RX AND SERIALCXRS THORACIC SURGERY INTERVENTION FOR VATS IF PLEURAL EFFUSION WORSENS WILL SIGN OFF CASE AND SEE AQGAIN AT YOUR REQUEST Objective - Vital Signs/Intake and Output Vital Signs (last 24 hours): Temp Pulse Resp BP Pulse Ox 97.9 F 94 H 18 131/83 96 07/25/18 08:04 07/25/18 08:04 07/25/18 08:04 07/25/18 08:04 07/25/18 08:04 Intake and Output: 07/25/18 07/25/18 06:59 18:59 Intake Total 510 Output Total 1600 Balance -1090 - Medications Medications: Current Medications Albuterol/Ipratropium (Duoneb 3 Mg/0.5 Mg (3 Ml) Ud) 3 ml INH RQ4 PRN PRN Reason: Shortness of Breath Last Admin: 07/23/18 15:41 Dose: 3 ml Aspirin (Ecotrin) 81 mg PO DAILY [facility] Last Admin: 07/24/18 09:52 Dose: 81 mg Furosemide (Lasix) 20 mg IVP BID [facility] Stop: 07/27/18 13:11 Last Admin: 07/24/18 16:11 Dose: 20 mg Guaifenesin (Mucinex La) 1,200 mg PO Q12 [facility] Last Admin: 07/24/18 21:29 Dose: 1,200 mg Ceftriaxone Sodium 1 gm/ (Sodium Chloride) 100 mls @ 100 mls/hr IVPB DAILY [facility]; Protocol Last Admin: 07/24/18 09:51 Dose: 100 mls/hr Vancomycin HCl 1 gm/ Sodium (Chloride) 250 mls @ 250 mls/hr IVPB Q12H [facility]; Protocol Last Admin: 07/25/18 00:37 Dose: 250 mls/hr Pantoprazole Sodium (Protonix Ec Tab) 40 mg PO DAILY [facility] Last Admin: 07/24/18 09:52 Dose: 40 mg Potassium Chloride (K-Dur 20 Meq Er Tab) 20 meq PO DAILY [facility] Stop: 07/26/18 09:01 Last Admin: 07/24/18 09:52 Dose: 20 meq - Labs Labs: 07/25/18 04:30 07/25/18 04:30 PT 17.7 Seconds (9.8-13.1) H 07/18/18 09:00 INR 1.6 07/18/18 09:00
--- NOTE | 2018-07-25 10:51 | CP.PCM.PN ---
Subjective - Date & Time of Evaluation Date of Evaluation: 07/25/18 Time of Evaluation: 10:50 - Subjective Subjective: pt doing well. no f/c, n/v/d. no sob/cp. case d/c w/all specialists. cleraed for anu pending insurance auth will require anu r/t anbx, and reconditioining after prolonged hospital stay. bw noted. case d/c w/ consultants and sw. at present cont anbx, cont supportive care, cont o2 prn, f/u send outlabs and c/s Objective - Vital Signs/Intake and Output Vital Signs (last 24 hours): Temp Pulse Resp BP Pulse Ox 97.9 F 94 H 18 131/83 96 07/25/18 08:04 07/25/18 08:04 07/25/18 08:04 07/25/18 08:44 07/25/18 08:04 Intake and Output: 07/25/18 07/25/18 06:59 18:59 Intake Total 510 Output Total 1600 Balance -1090 - Medications Medications: Current Medications Albuterol/Ipratropium (Duoneb 3 Mg/0.5 Mg (3 Ml) Ud) 3 ml INH RQ4 PRN PRN Reason: Shortness of Breath Last Admin: 07/23/18 15:41 Dose: 3 ml Aspirin (Ecotrin) 81 mg PO DAILY [facility] Last Admin: 07/25/18 08:44 Dose: 81 mg Furosemide (Lasix) 20 mg IVP BID [facility] Stop: 07/27/18 13:11 Last Admin: 07/25/18 08:44 Dose: 20 mg Guaifenesin (Mucinex La) 1,200 mg PO Q12 [facility] Last Admin: 07/25/18 08:44 Dose: 1,200 mg Ceftriaxone Sodium 1 gm/ (Sodium Chloride) 100 mls @ 100 mls/hr IVPB DAILY [facility]; Protocol Last Admin: 07/25/18 08:45 Dose: 100 mls/hr Vancomycin HCl 1 gm/ Sodium (Chloride) 250 mls @ 250 mls/hr IVPB Q12H [facility]; Protocol Last Admin: 07/25/18 00:37 Dose: 250 mls/hr Pantoprazole Sodium (Protonix Ec Tab) 40 mg PO DAILY [facility] Last Admin: 07/25/18 08:44 Dose: 40 mg Potassium Chloride (K-Dur 20 Meq Er Tab) 20 meq PO DAILY [facility] Stop: 07/26/18 09:01 Last Admin: 07/25/18 08:44 Dose: 20 meq - Labs Labs: 07/25/18 04:30 07/25/18 04:30 PT 17.7 Seconds (9.8-13.1) H 07/18/18 09:00 INR 1.6 07/18/18 09:00 - Constitutional Appears: Well, Non-toxic, No Acute Distress - Head Exam Head Exam: ATRAUMATIC, NORMAL INSPECTION, NORMOCEPHALIC - Eye Exam Eye Exam: EOMI, Normal appearance, PERRL Pupil Exam: NORMAL ACCOMODATION, PERRL - ENT Exam ENT Exam: Mucous Membranes Moist, Normal Exam - Neck Exam Neck Exam: Full ROM, Normal Inspection. absent: Lymphadenopathy - Respiratory Exam Respiratory Exam: Clear to Ausculation Bilateral, NORMAL BREATHING PATTERN - Cardiovascular Exam Cardiovascular Exam: REGULAR RHYTHM, RRR, +S1, +S2. absent: Murmur - GI/Abdominal Exam GI & Abdominal Exam: Soft, Normal Bowel Sounds. absent: Tenderness - Extremities Exam Extremities Exam: Full ROM, Normal Capillary Refill, Normal Inspection. absent: Joint Swelling, Pedal Edema - Back Exam Back Exam: NORMAL INSPECTION - Neurological Exam Neurological Exam: Alert, Awake, CN II-XII Intact, Normal Gait, Oriented x3 - Psychiatric Exam Psychiatric exam: Normal Affect, Normal Mood - Skin Skin Exam: Dry, Intact, Normal Color, Warm Assessment and Plan (1) Pleural effusion associated with pulmonary infection Assessment & Plan: cont anbx as per id pulm appriciated bw noted. heme/onc awarea nd further tx 2 wks post dc Status: Acute (2) DVT prophylaxis Assessment & Plan: scd and aehose ambulation heparin Status: Acute
--- NOTE | 2018-07-25 12:00 | CP.PCM.PN ---
Subjective - Date & Time of Evaluation Date of Evaluation: 07/23/18 Time of Evaluation: 11:59 - Subjective Subjective: pt doing well. no complaints. no f/c, n/v/d. bw noted. consults appriciated. Objective - Vital Signs/Intake and Output Vital Signs (last 24 hours): Temp Pulse Resp BP Pulse Ox 98.0 F 92 H 18 128/81 99 07/25/18 11:47 07/25/18 11:47 07/25/18 11:47 07/25/18 11:47 07/25/18 11:47 Intake and Output: 07/25/18 07/25/18 06:59 18:59 Intake Total 510 Output Total 1600 Balance -1090 - Medications Medications: Current Medications Albuterol/Ipratropium (Duoneb 3 Mg/0.5 Mg (3 Ml) Ud) 3 ml INH RQ4 PRN PRN Reason: Shortness of Breath Last Admin: 07/23/18 15:41 Dose: 3 ml Aspirin (Ecotrin) 81 mg PO DAILY [facility] Last Admin: 07/25/18 08:44 Dose: 81 mg Furosemide (Lasix) 20 mg IVP BID [facility] Stop: 07/27/18 13:11 Last Admin: 07/25/18 08:44 Dose: 20 mg Guaifenesin (Mucinex La) 1,200 mg PO Q12 [facility] Last Admin: 07/25/18 08:44 Dose: 1,200 mg Ceftriaxone Sodium 1 gm/ (Sodium Chloride) 100 mls @ 100 mls/hr IVPB DAILY [facility]; Protocol Last Admin: 07/25/18 08:45 Dose: 100 mls/hr Vancomycin HCl 1 gm/ Sodium (Chloride) 250 mls @ 250 mls/hr IVPB Q12H [facility]; Protocol Last Admin: 07/25/18 00:37 Dose: 250 mls/hr Pantoprazole Sodium (Protonix Ec Tab) 40 mg PO DAILY [facility] Last Admin: 07/25/18 08:44 Dose: 40 mg Potassium Chloride (K-Dur 20 Meq Er Tab) 20 meq PO DAILY [facility] Stop: 07/26/18 09:01 Last Admin: 07/25/18 08:44 Dose: 20 meq - Labs Labs: 07/25/18 04:30 07/25/18 04:30 PT 17.7 Seconds (9.8-13.1) H 07/18/18 09:00 INR 1.6 07/18/18 09:00 - Constitutional Appears: Well, Non-toxic, No Acute Distress - Head Exam Head Exam: ATRAUMATIC, NORMAL INSPECTION, NORMOCEPHALIC - Eye Exam Eye Exam: EOMI, Normal appearance, PERRL Pupil Exam: NORMAL ACCOMODATION, PERRL - ENT Exam ENT Exam: Mucous Membranes Moist, Normal Exam - Neck Exam Neck Exam: Full ROM, Normal Inspection. absent: Lymphadenopathy - Respiratory Exam Respiratory Exam: Clear to Ausculation Bilateral, NORMAL BREATHING PATTERN - Cardiovascular Exam Cardiovascular Exam: REGULAR RHYTHM, RRR, +S1, +S2. absent: Murmur - GI/Abdominal Exam GI & Abdominal Exam: Soft, Normal Bowel Sounds. absent: Tenderness - Extremities Exam Extremities Exam: Full ROM, Normal Capillary Refill, Normal Inspection, Pedal Edema. absent: Joint Swelling - Back Exam Back Exam: NORMAL INSPECTION - Neurological Exam Neurological Exam: Alert, Awake, CN II-XII Intact, Normal Gait, Oriented x3 - Psychiatric Exam Psychiatric exam: Normal Affect, Normal Mood - Skin Skin Exam: Dry, Intact, Normal Color, Warm
--- NOTE | 2018-07-25 12:48 | CP.PCM.PN ---
Subjective - Date & Time of Evaluation Date of Evaluation: 07/25/18 Time of Evaluation: 12:48 - Subjective Subjective: Awake conscious feeling much better Vital signs stable Objective - Vital Signs/Intake and Output Vital Signs (last 24 hours): Temp Pulse Resp BP Pulse Ox 98.0 F 92 H 18 128/81 99 07/25/18 11:47 07/25/18 11:47 07/25/18 11:47 07/25/18 11:47 07/25/18 11:47 Intake and Output: 07/25/18 07/25/18 06:59 18:59 Intake Total 510 Output Total 1600 Balance -1090 - Medications Medications: Current Medications Albuterol/Ipratropium (Duoneb 3 Mg/0.5 Mg (3 Ml) Ud) 3 ml INH RQ4 PRN PRN Reason: Shortness of Breath Last Admin: 07/23/18 15:41 Dose: 3 ml Aspirin (Ecotrin) 81 mg PO DAILY [facility] Last Admin: 07/25/18 08:44 Dose: 81 mg Furosemide (Lasix) 20 mg IVP BID [facility] Stop: 07/27/18 13:11 Last Admin: 07/25/18 08:44 Dose: 20 mg Guaifenesin (Mucinex La) 1,200 mg PO Q12 [facility] Last Admin: 07/25/18 08:44 Dose: 1,200 mg Ceftriaxone Sodium 1 gm/ (Sodium Chloride) 100 mls @ 100 mls/hr IVPB DAILY [facility]; Protocol Last Admin: 07/25/18 08:45 Dose: 100 mls/hr Vancomycin HCl 1 gm/ Sodium (Chloride) 250 mls @ 250 mls/hr IVPB Q12H [facility]; Protocol Last Admin: 07/25/18 00:37 Dose: 250 mls/hr Pantoprazole Sodium (Protonix Ec Tab) 40 mg PO DAILY [facility] Last Admin: 07/25/18 08:44 Dose: 40 mg Potassium Chloride (K-Dur 20 Meq Er Tab) 20 meq PO DAILY [facility] Stop: 07/26/18 09:01 Last Admin: 07/25/18 08:44 Dose: 20 meq - Labs Labs: 07/25/18 04:30 07/25/18 04:30 PT 17.7 Seconds (9.8-13.1) H 07/18/18 09:00 INR 1.6 07/18/18 09:00 - Constitutional Appears: No Acute Distress - Eye Exam Eye Exam: Conjunctival injection - ENT Exam ENT Exam: Mucous Membranes Moist - Neck Exam Neck Exam: absent: Lymphadenopathy - Respiratory Exam Respiratory Exam: Rhonchi, NORMAL BREATHING PATTERN - Cardiovascular Exam Cardiovascular Exam: absent: Gallop, JVD, Rubs - GI/Abdominal Exam GI & Abdominal Exam: Soft, Normal Bowel Sounds - Extremities Exam Extremities Exam: absent: Calf Tenderness - Back Exam Back Exam: absent: CVA tenderness (L), CVA tenderness (R) - Neurological Exam Neurological Exam: Alert - Psychiatric Exam Psychiatric exam: Anxious - Skin Skin Exam: absent: Cyanosis Assessment and Plan (1) Accelerated junctional rhythm Status: Acute (2) Ascites Status: Acute (3) Edema extremities Status: Acute (4) Leukocytosis Status: Acute (5) Pleural effusion exudative Status: Acute (6) Thrombocytosis Status: Acute (7) Hyponatremia syndrome Assessment & Plan: Assessment: stable hypervolemic hyponatremia hyponatremia corrected this morning serum sodium 137 recurrent pleural effusion hx of Etoh/HTN sepsis anemia, leykocytosis and thrombocytosis Bilateral leg edema Recommendation Serum sodium corrected fluid restriction about thousand cc in 24 hours Status: Acute
--- NOTE | 2018-07-25 13:03 | CP.PCM.PN ---
Subjective - Date & Time of Evaluation Date of Evaluation: 07/25/18 Time of Evaluation: 10:00 - Subjective Subjective: events noted iv rx to cont at [facility] Objective - Vital Signs/Intake and Output Vital Signs (last 24 hours): Temp Pulse Resp BP Pulse Ox 98.0 F 92 H 18 128/81 99 07/25/18 11:47 07/25/18 11:47 07/25/18 11:47 07/25/18 11:47 07/25/18 11:47 Intake and Output: 07/25/18 07/25/18 06:59 18:59 Intake Total 510 Output Total 1600 Balance -1090 - Medications Medications: Current Medications Albuterol/Ipratropium (Duoneb 3 Mg/0.5 Mg (3 Ml) Ud) 3 ml INH RQ4 PRN PRN Reason: Shortness of Breath Last Admin: 07/23/18 15:41 Dose: 3 ml Aspirin (Ecotrin) 81 mg PO DAILY [facility] Last Admin: 07/25/18 08:44 Dose: 81 mg Furosemide (Lasix) 20 mg IVP BID [facility] Stop: 07/27/18 13:11 Last Admin: 07/25/18 08:44 Dose: 20 mg Guaifenesin (Mucinex La) 1,200 mg PO Q12 [facility] Last Admin: 07/25/18 08:44 Dose: 1,200 mg Ceftriaxone Sodium 1 gm/ (Sodium Chloride) 100 mls @ 100 mls/hr IVPB DAILY [facility]; Protocol Last Admin: 07/25/18 08:45 Dose: 100 mls/hr Vancomycin HCl 1 gm/ Sodium (Chloride) 250 mls @ 250 mls/hr IVPB Q12H [facility]; Protocol Last Admin: 07/25/18 00:37 Dose: 250 mls/hr Pantoprazole Sodium (Protonix Ec Tab) 40 mg PO DAILY [facility] Last Admin: 07/25/18 08:44 Dose: 40 mg Potassium Chloride (K-Dur 20 Meq Er Tab) 20 meq PO DAILY [facility] Stop: 07/26/18 09:01 Last Admin: 07/25/18 08:44 Dose: 20 meq - Labs Labs: 07/25/18 04:30 07/25/18 04:30 PT 17.7 Seconds (9.8-13.1) H 07/18/18 09:00 INR 1.6 07/18/18 09:00 - Constitutional Appears: Non-toxic, No Acute Distress, Chronically Ill - Head Exam Head Exam: ATRAUMATIC, NORMAL INSPECTION, NORMOCEPHALIC - Eye Exam Eye Exam: EOMI, Normal appearance, PERRL Pupil Exam: NORMAL ACCOMODATION, PERRL - ENT Exam ENT Exam: Mucous Membranes Moist, Normal Exam - Neck Exam Neck Exam: Full ROM, Normal Inspection. absent: Lymphadenopathy - Respiratory Exam Respiratory Exam: Decreased Breath Sounds, Prolonged Expiratory Phase - Cardiovascular Exam Cardiovascular Exam: REGULAR RHYTHM, +S1, +S2. absent: Murmur - GI/Abdominal Exam GI & Abdominal Exam: Soft, Normal Bowel Sounds. absent: Tenderness - Rectal Exam Rectal Exam: Deferred - Exam Exam: NORMAL INSPECTION - Extremities Exam Extremities Exam: Full ROM, Normal Capillary Refill, Pedal Edema. absent: Joint Swelling, Normal Inspection - Back Exam Back Exam: NORMAL INSPECTION - Neurological Exam Neurological Exam: Alert, Awake, CN II-XII Intact, Normal Gait, Oriented x3 - Psychiatric Exam Psychiatric exam: Normal Affect, Normal Mood - Skin Skin Exam: Dry, Intact, Normal Color, Warm Assessment and Plan (1) Ascites Status: Acute (2) ETOH abuse Status: Acute (3) Edema extremities Status: Acute (4) Leukocytosis Status: Acute (5) Pleural effusion associated with pulmonary infection Status: Acute (6) Pleural effusion exudative Status: Acute (7) Thrombocytosis Status: Acute (8) Hyponatremia Status: Acute (9) Fever Status: Acute - Assessment and Plan (Free Text) Assessment: cont IV Vanco and Rocephin for 14-21 days with pulmonary follow up by Dr Riddle
--- NOTE | 2018-07-25 22:12 | CP.PCM.PN ---
Subjective - Date & Time of Evaluation Date of Evaluation: 07/21/18 Time of Evaluation: 12:00 - Subjective Subjective: Feeling better Objective - Vital Signs/Intake and Output Vital Signs (last 24 hours): Temp Pulse Resp BP Pulse Ox 97.4 F L 79 18 134/73 100 07/25/18 20:31 07/25/18 20:31 07/25/18 20:31 07/25/18 20:31 07/25/18 20:31 Intake and Output: 07/25/18 07/26/18 18:59 06:59 Intake Total 730 Balance 730 - Medications Medications: Current Medications Albuterol/Ipratropium (Duoneb 3 Mg/0.5 Mg (3 Ml) Ud) 3 ml INH RQ4 PRN PRN Reason: Shortness of Breath Last Admin: 07/23/18 15:41 Dose: 3 ml Aspirin (Ecotrin) 81 mg PO DAILY [facility] Last Admin: 07/25/18 08:44 Dose: 81 mg Furosemide (Lasix) 20 mg IVP BID [facility] Stop: 07/27/18 13:11 Last Admin: 07/25/18 17:11 Dose: 20 mg Guaifenesin (Mucinex La) 1,200 mg PO Q12 [facility] Last Admin: 07/25/18 21:29 Dose: 1,200 mg Ceftriaxone Sodium 1 gm/ (Sodium Chloride) 100 mls @ 100 mls/hr IVPB DAILY [facility]; Protocol Last Admin: 07/25/18 08:45 Dose: 100 mls/hr Vancomycin HCl 1 gm/ Sodium (Chloride) 250 mls @ 250 mls/hr IVPB Q12H [facility]; Protocol Last Admin: 07/25/18 14:04 Dose: 250 mls/hr Pantoprazole Sodium (Protonix Ec Tab) 40 mg PO DAILY [facility] Last Admin: 07/25/18 08:44 Dose: 40 mg Potassium Chloride (K-Dur 20 Meq Er Tab) 20 meq PO DAILY [facility] Stop: 07/26/18 09:01 Last Admin: 07/25/18 08:44 Dose: 20 meq - Labs Labs: 07/25/18 04:30 07/25/18 04:30 PT 17.7 Seconds (9.8-13.1) H 07/18/18 09:00 INR 1.6 07/18/18 09:00 - Head Exam Head Exam: ATRAUMATIC - Eye Exam Eye Exam: Normal appearance - ENT Exam ENT Exam: Mucous Membranes Dry - Respiratory Exam Respiratory Exam: NORMAL BREATHING PATTERN - Cardiovascular Exam Cardiovascular Exam: +S1, +S2 - GI/Abdominal Exam GI & Abdominal Exam: Normal Bowel Sounds Assessment and Plan (1) Thrombocytosis Assessment & Plan: ? reactive f/u JAK2 on aspirin Status: Acute (2) Leukocytosis Assessment & Plan: improving with abx Status: Acute (3) Anemia Assessment & Plan: anemia of chronic disease Status: Acute
--- NOTE | 2018-07-25 22:16 | CP.PCM.PN ---
Subjective - Date & Time of Evaluation Date of Evaluation: 07/25/18 Time of Evaluation: 20:00 - Subjective Subjective: Seen ambulating, feeling better Objective - Vital Signs/Intake and Output Vital Signs (last 24 hours): Temp Pulse Resp BP Pulse Ox 97.4 F L 79 18 134/73 100 07/25/18 20:31 07/25/18 20:31 07/25/18 20:31 07/25/18 20:31 07/25/18 20:31 Intake and Output: 07/25/18 07/26/18 18:59 06:59 Intake Total 730 Balance 730 - Medications Medications: Current Medications Albuterol/Ipratropium (Duoneb 3 Mg/0.5 Mg (3 Ml) Ud) 3 ml INH RQ4 PRN PRN Reason: Shortness of Breath Last Admin: 07/23/18 15:41 Dose: 3 ml Aspirin (Ecotrin) 81 mg PO DAILY [facility]ICIA Last Admin: 07/25/18 08:44 Dose: 81 mg Furosemide (Lasix) 20 mg IVP BID [facility] Stop: 07/27/18 13:11 Last Admin: 07/25/18 17:11 Dose: 20 mg Guaifenesin (Mucinex La) 1,200 mg PO Q12 [facility] Last Admin: 07/25/18 21:29 Dose: 1,200 mg Ceftriaxone Sodium 1 gm/ (Sodium Chloride) 100 mls @ 100 mls/hr IVPB DAILY [facility]; Protocol Last Admin: 07/25/18 08:45 Dose: 100 mls/hr Vancomycin HCl 1 gm/ Sodium (Chloride) 250 mls @ 250 mls/hr IVPB Q12H [facility]; Protocol Last Admin: 07/25/18 14:04 Dose: 250 mls/hr Pantoprazole Sodium (Protonix Ec Tab) 40 mg PO DAILY [facility] Last Admin: 07/25/18 08:44 Dose: 40 mg Potassium Chloride (K-Dur 20 Meq Er Tab) 20 meq PO DAILY [facility] Stop: 07/26/18 09:01 Last Admin: 07/25/18 08:44 Dose: 20 meq - Labs Labs: 07/25/18 04:30 07/25/18 04:30 PT 17.7 Seconds (9.8-13.1) H 07/18/18 09:00 INR 1.6 07/18/18 09:00 - Head Exam Head Exam: ATRAUMATIC - Eye Exam Eye Exam: Normal appearance - ENT Exam ENT Exam: Mucous Membranes Dry - Respiratory Exam Respiratory Exam: NORMAL BREATHING PATTERN - Cardiovascular Exam Cardiovascular Exam: +S1, +S2 - GI/Abdominal Exam GI & Abdominal Exam: Normal Bowel Sounds Assessment and Plan (1) Thrombocytosis Assessment & Plan: JAK2 mutation negative ? reactive continue aspirin 81mg daily outpatient f/u in 1-2 weeks Status: Acute (2) Leukocytosis Assessment & Plan: improved with antbiotics Status: Acute (3) Anemia Assessment & Plan: anemia of chronic disease Status: Acute
[2018-07-26] MEDS: guaiFENesin 600 mg ER Tab PO SCH ×2 (08:19→21:14)
[2018-07-26] MEDS: Pantoprazole 40 mg EC Tab PO SCH (08:19)
[2018-07-26] MEDS: Potassium Chloride 20 mEq ER Tab PO SCH (08:20)
[2018-07-26 09:00] LABS: BASO # 0.1 K/uL (0.0-0.2); EOS # 0.8 K/uL (0.0-0.7); EOS % 7.1 % (0.0-4.0); HEMOGLOBIN 11.1 g/dL (12.0-18.0); LYMPH # 1.4 K/uL (1.0-4.3); LYMPH % 11.3 % (20.0-40.0); MEAN CELL VOLUME 84.4 fl (80.0-94.0); MEAN CORPUSCULAR HGB CONC 33.2 g/dL (33.0-37.0); MEAN PLATELET VOLUME 5.9 fl (7.2-11.7); MONO # 0.7 K/uL (0.0-0.8); MONO % 5.9 % (0.0-10.0); NEUT % 74.7 % (50.0-75.0); NRBC % 0.1 % (0.0-0.0); RBC 3.95 Mil/uL (4.40-5.90); RED CELL DISTRIBUTION WIDTH 14.8 % (11.5-14.5)
[2018-07-26 09:23] LABS: ALB/GLOB RATIO 1.1 (1.0-2.1); ALT/SGPT 180 U/L (21-72); AST/SGOT 74 U/L (17-59); BLOOD UREA NITROGEN 13 mg/dl (9-20); CALCIUM 8.7 mg/dL (8.4-10.2); GFR NON-AFRICAN AMERICAN > 60
--- NOTE | 2018-07-26 10:21 | PN ---
DATE: 07/26/2018 SUBJECTIVE: The patient is seen sitting in chair, no complaints, no distress. No fever, chills, nausea, vomiting, or diarrhea; a.m. labs are pending. case discussed with the home performance consultant. REVIEW OF SYSTEMS: Negative. PHYSICAL EXAMINATION: CONSTITUTIONAL: Awake, alert, and oriented. HEENT: Normal. CARDIAC: Regular rate and rhythm. No murmurs, rubs, or gallops. Normal S1 and S2. LUNGS: Clear in all rodas bilaterally. ABDOMEN: Soft and nontender. Bowel sounds x4. EXTREMITIES: Distal pulses, motor sensation intact. Capillary refill is brisk. DIAGNOSES AND PLAN: Pleural effusion with infection, cleared for discharge as per Pulmonary. DC on antibiotics as per Infectious Disease. We will continue attempting subacute, but if they declined, we will send to home with close outpatient followup with home health services. Also, we will discuss with Infectious Disease about other anti-infective options. Deep venous thrombosis prophylaxis, sequential compression devices, A-hose, ambulation. Continue on home medications. We will continue to follow the patient. RASHAD Nesbitt MTDAliyah
--- NOTE | 2018-07-26 11:34 | CP.PCM.PN ---
Subjective - Date & Time of Evaluation Date of Evaluation: 07/26/18 Time of Evaluation: 11:34 - Subjective Subjective: Patient is out of bed Doing much better Ambulating and walking around Bilateral leg edema persisted but improving No proteinuria in the urine Objective - Vital Signs/Intake and Output Vital Signs (last 24 hours): Temp Pulse Resp BP Pulse Ox 98.3 F 99 H 18 139/91 H 96 07/26/18 07:50 07/26/18 09:00 07/26/18 07:50 07/26/18 08:20 07/26/18 07:50 Intake and Output: 07/26/18 07/26/18 06:59 18:59 Intake Total 1450 Output Total 2900 Balance -1450 - Medications Medications: Current Medications Albuterol/Ipratropium (Duoneb 3 Mg/0.5 Mg (3 Ml) Ud) 3 ml INH RQ4 PRN PRN Reason: Shortness of Breath Last Admin: 07/23/18 15:41 Dose: 3 ml Aspirin (Ecotrin) 81 mg PO DAILY [facility] Last Admin: 07/26/18 08:20 Dose: 81 mg Furosemide (Lasix) 20 mg IVP BID [facility] Stop: 07/27/18 13:11 Last Admin: 07/26/18 08:20 Dose: 20 mg Guaifenesin (Mucinex La) 1,200 mg PO Q12 [facility] Last Admin: 07/26/18 08:19 Dose: 1,200 mg Ceftriaxone Sodium 1 gm/ (Sodium Chloride) 100 mls @ 100 mls/hr IVPB DAILY [facility]; Protocol Last Admin: 07/26/18 08:22 Dose: 100 mls/hr Vancomycin HCl 1 gm/ Sodium (Chloride) 250 mls @ 250 mls/hr IVPB Q12H [facility]; Protocol Last Admin: 07/25/18 23:56 Dose: 250 mls/hr Pantoprazole Sodium (Protonix Ec Tab) 40 mg PO DAILY [facility] Last Admin: 07/26/18 08:19 Dose: 40 mg - Labs Labs: 07/26/18 08:30 07/26/18 08:30 PT 17.7 Seconds (9.8-13.1) H 07/18/18 09:00 INR 1.6 07/18/18 09:00 - Constitutional Appears: No Acute Distress - Eye Exam Eye Exam: Conjunctival injection - ENT Exam ENT Exam: Mucous Membranes Moist - Neck Exam Neck Exam: absent: Lymphadenopathy - Respiratory Exam Respiratory Exam: NORMAL BREATHING PATTERN. absent: Chest Wall Tenderness, Rhonchi - Cardiovascular Exam Cardiovascular Exam: absent: Gallop, JVD, Rubs - GI/Abdominal Exam GI & Abdominal Exam: Soft, Normal Bowel Sounds - Extremities Exam Extremities Exam: absent: Calf Tenderness - Back Exam Back Exam: absent: CVA tenderness (L), CVA tenderness (R) - Neurological Exam Neurological Exam: Alert - Psychiatric Exam Psychiatric exam: Normal Affect - Skin Skin Exam: absent: Cyanosis Assessment and Plan (1) Accelerated junctional rhythm Status: Acute (2) Ascites Status: Acute (3) Edema extremities Status: Acute (4) Leukocytosis Status: Acute (5) Pleural effusion exudative Status: Acute (6) Thrombocytosis Status: Acute (7) Hyponatremia syndrome Assessment & Plan: Assessment: stable hypervolemic hyponatremia hyponatremia corrected recurrent pleural effusion hx of Etoh/HTN sepsis anemia, leykocytosis and thrombocytosis Bilateral leg edema Recommendation Fluid restriction thousand cc in 24 hours approximately Continue diuretics Daily weight Antibiotics as per primary team Status: Acute
--- NOTE | 2018-07-26 13:47 | CP.PCM.PN ---
Subjective - Date & Time of Evaluation Date of Evaluation: 07/26/18 Time of Evaluation: 09:00 - Subjective Subjective: NAD NO NEW COMPLAINTS SEEN ON ROUNDS LABS REVIEWED ORDERS SIGNED Objective - Vital Signs/Intake and Output Vital Signs (last 24 hours): Temp Pulse Resp BP Pulse Ox 98.7 F 88 18 127/78 97 07/26/18 11:48 07/26/18 11:48 07/26/18 11:48 07/26/18 11:48 07/26/18 11:48 Intake and Output: 07/26/18 07/26/18 06:59 18:59 Intake Total 1450 Output Total 2900 Balance -1450 - Medications Medications: Current Medications Albuterol/Ipratropium (Duoneb 3 Mg/0.5 Mg (3 Ml) Ud) 3 ml INH RQ4 PRN PRN Reason: Shortness of Breath Last Admin: 07/23/18 15:41 Dose: 3 ml Aspirin (Ecotrin) 81 mg PO DAILY [facility] Last Admin: 07/26/18 08:20 Dose: 81 mg Furosemide (Lasix) 20 mg IVP BID [facility] Stop: 07/27/18 13:11 Last Admin: 07/26/18 08:20 Dose: 20 mg Guaifenesin (Mucinex La) 1,200 mg PO Q12 [facility] Last Admin: 07/26/18 08:19 Dose: 1,200 mg Ceftriaxone Sodium 1 gm/ (Sodium Chloride) 100 mls @ 100 mls/hr IVPB DAILY [facility]; Protocol Last Admin: 07/26/18 08:22 Dose: 100 mls/hr Vancomycin HCl 1 gm/ Sodium (Chloride) 250 mls @ 250 mls/hr IVPB Q12H [facility]; Protocol Last Admin: 07/26/18 13:25 Dose: 250 mls/hr Pantoprazole Sodium (Protonix Ec Tab) 40 mg PO DAILY [facility] Last Admin: 07/26/18 08:19 Dose: 40 mg - Labs Labs: 07/26/18 08:30 07/26/18 08:30 PT 17.7 Seconds (9.8-13.1) H 07/18/18 09:00 INR 1.6 07/18/18 09:00 - Constitutional Appears: Non-toxic, No Acute Distress, Chronically Ill - Head Exam Head Exam: ATRAUMATIC, NORMAL INSPECTION, NORMOCEPHALIC - Eye Exam Eye Exam: EOMI, Normal appearance, PERRL Pupil Exam: NORMAL ACCOMODATION, PERRL - ENT Exam ENT Exam: Mucous Membranes Moist, Normal Exam - Neck Exam Neck Exam: Full ROM, Normal Inspection. absent: Lymphadenopathy - Respiratory Exam Respiratory Exam: Decreased Breath Sounds, Clear to Ausculation Bilateral, Prolo nged Expiratory Phase - Cardiovascular Exam Cardiovascular Exam: REGULAR RHYTHM, +S1, +S2. absent: Murmur - GI/Abdominal Exam GI & Abdominal Exam: Soft, Normal Bowel Sounds. absent: Tenderness - Rectal Exam Rectal Exam: Deferred - Exam Exam: NORMAL INSPECTION - Extremities Exam Extremities Exam: Full ROM, Normal Capillary Refill, Normal Inspection. absent: Joint Swelling, Pedal Edema - Back Exam Back Exam: NORMAL INSPECTION - Neurological Exam Neurological Exam: Alert, Awake, CN II-XII Intact, Normal Gait, Oriented x3 - Psychiatric Exam Psychiatric exam: Normal Affect, Normal Mood - Skin Skin Exam: Dry, Intact, Normal Color, Warm Assessment and Plan (1) Ascites Status: Acute (2) ETOH abuse Status: Acute (3) Edema extremities Status: Acute (4) Leukocytosis Status: Acute (5) Pleural effusion associated with pulmonary infection Status: Acute (6) Pleural effusion exudative Status: Acute (7) Thrombocytosis Status: Acute (8) Hyponatremia Status: Acute (9) Fever Status: Acute - Assessment and Plan (Free Text) Assessment: LUCIA GIRARD/ NICOLAS WILL DISCUSS WITH DR DE LEON FOLLOW UP WITH DR MYERS
--- NOTE | 2018-07-26 23:22 | CP.PCM.PN ---
Subjective - Date & Time of Evaluation Date of Evaluation: 07/26/18 Time of Evaluation: 17:00 - Subjective Subjective: Feeling better daily. Objective - Vital Signs/Intake and Output Vital Signs (last 24 hours): Temp Pulse Resp BP Pulse Ox 98.4 F 85 18 124/80 100 07/26/18 20:26 07/26/18 21:00 07/26/18 20:26 07/26/18 20:26 07/26/18 20:26 - Medications Medications: Current Medications Albuterol/Ipratropium (Duoneb 3 Mg/0.5 Mg (3 Ml) Ud) 3 ml INH RQ4 PRN PRN Reason: Shortness of Breath Last Admin: 07/23/18 15:41 Dose: 3 ml Aspirin (Ecotrin) 81 mg PO DAILY [facility] Last Admin: 07/26/18 08:20 Dose: 81 mg Furosemide (Lasix) 20 mg IVP BID [facility] Stop: 07/27/18 13:11 Last Admin: 07/26/18 17:55 Dose: 20 mg Guaifenesin (Mucinex La) 1,200 mg PO Q12 [facility] Last Admin: 07/26/18 21:14 Dose: 1,200 mg Ceftriaxone Sodium 1 gm/ (Sodium Chloride) 100 mls @ 100 mls/hr IVPB DAILY [facility]; Protocol Last Admin: 07/26/18 08:22 Dose: 100 mls/hr Vancomycin HCl 1 gm/ Sodium (Chloride) 250 mls @ 250 mls/hr IVPB Q12H [facility]; Protocol Last Admin: 07/26/18 13:25 Dose: 250 mls/hr Pantoprazole Sodium (Protonix Ec Tab) 40 mg PO DAILY [facility] Last Admin: 07/26/18 08:19 Dose: 40 mg - Labs Labs: 07/26/18 08:30 07/26/18 08:30 PT 17.7 Seconds (9.8-13.1) H 07/18/18 09:00 INR 1.6 07/18/18 09:00 - Head Exam Head Exam: ATRAUMATIC - Eye Exam Eye Exam: Normal appearance - ENT Exam ENT Exam: Mucous Membranes Dry - Respiratory Exam Respiratory Exam: Decreased Breath Sounds - Cardiovascular Exam Cardiovascular Exam: +S1, +S2 - GI/Abdominal Exam GI & Abdominal Exam: Normal Bowel Sounds Assessment and Plan (1) Thrombocytosis Assessment & Plan: JAK2 mutation negative ? reactive continue aspirin 81mg daily outpatient f/u in 1-2 weeks may need bone marrow evaluation if plt remains elevated as outpatient Status: Acute (2) Leukocytosis Assessment & Plan: improved with antbiotics Status: Acute (3) Anemia Assessment & Plan: anemia of chronic disease Status: Acute
[2018-07-27 06:09] LABS: BASO # 0.1 K/uL (0.0-0.2); BASO % 0.9 % (0.0-2.0); EOS # 0.7 K/uL (0.0-0.7); EOS % 5.3 % (0.0-4.0); HEMOGLOBIN 10.3 g/dL (12.0-18.0); LYMPH % 7.2 % (20.0-40.0); MEAN CELL VOLUME 84.7 fl (80.0-94.0); MEAN CORPUSCULAR HEMOGLOBIN 27.8 pg (27.0-31.0); MEAN CORPUSCULAR HGB CONC 32.9 g/dL (33.0-37.0); MEAN PLATELET VOLUME 6.1 fl (7.2-11.7); MONO # 0.7 K/uL (0.0-0.8); MONO % 4.9 % (0.0-10.0); NEUT # 11.6 K/uL (1.8-7.0); NEUT % 81.7 % (50.0-75.0); RBC 3.69 Mil/uL (4.40-5.90); RED CELL DISTRIBUTION WIDTH 14.9 % (11.5-14.5); WHITE BLOOD COUNT 14.2 K/uL (4.8-10.8)
[2018-07-27 06:25] LABS: PLATELET COUNT 948 K/uL (130-400)
[2018-07-27 06:30] LABS: ALBUMIN 2.9 g/dL (3.5-5.0); ALT/SGPT 155 U/L (21-72); AST/SGOT 69 U/L (17-59); BLOOD UREA NITROGEN 19 mg/dl (9-20); CALCIUM 8.8 mg/dL (8.4-10.2); GFR NON-AFRICAN AMERICAN > 60
[2018-07-27] MEDS: guaiFENesin 600 mg ER Tab PO SCH (08:17)
[2018-07-27] MEDS: Pantoprazole 40 mg EC Tab PO SCH (08:18)
--- NOTE | 2018-07-27 10:39 | CP.PCM.PN ---
Subjective - Date & Time of Evaluation Date of Evaluation: 07/27/18 Time of Evaluation: 10:38 - Subjective Subjective: Patient awake and conscious out of bed feeling good. Vital signs stable Objective - Vital Signs/Intake and Output Vital Signs (last 24 hours): Temp Pulse Resp BP Pulse Ox 98.5 F 82 18 117/73 95 07/27/18 09:00 07/27/18 09:00 07/27/18 09:00 07/27/18 09:00 07/27/18 09:00 Intake and Output: 07/27/18 07/27/18 06:59 18:59 Intake Total 1450 Output Total 1800 500 Balance -350 -500 - Medications Medications: Current Medications Albuterol/Ipratropium (Duoneb 3 Mg/0.5 Mg (3 Ml) Ud) 3 ml INH RQ4 PRN PRN Reason: Shortness of Breath Last Admin: 07/23/18 15:41 Dose: 3 ml Aspirin (Ecotrin) 81 mg PO DAILY LETICIA Last Admin: 07/27/18 08:17 Dose: 81 mg Furosemide (Lasix) 20 mg IVP BID LETICIA Stop: 07/27/18 13:11 Last Admin: 07/27/18 08:18 Dose: 20 mg Guaifenesin (Mucinex La) 1,200 mg PO Q12 LETICIA Last Admin: 07/27/18 08:17 Dose: 1,200 mg Ceftriaxone Sodium 1 gm/ (Sodium Chloride) 100 mls @ 100 mls/hr IVPB DAILY LETICIA; Protocol Last Admin: 07/27/18 08:18 Dose: 100 mls/hr Vancomycin HCl 1 gm/ Sodium (Chloride) 250 mls @ 250 mls/hr IVPB Q12H LETICIA; Protocol Last Admin: 07/27/18 01:02 Dose: 250 mls/hr Pantoprazole Sodium (Protonix Ec Tab) 40 mg PO DAILY LETICIA Last Admin: 07/27/18 08:18 Dose: 40 mg - Labs Labs: 07/27/18 05:45 07/27/18 05:45 PT 17.7 Seconds (9.8-13.1) H 07/18/18 09:00 INR 1.6 07/18/18 09:00 - Constitutional Appears: No Acute Distress - Eye Exam Eye Exam: Conjunctival injection - ENT Exam ENT Exam: Mucous Membranes Moist - Neck Exam Neck Exam: absent: Lymphadenopathy - Respiratory Exam Respiratory Exam: NORMAL BREATHING PATTERN. absent: Chest Wall Tenderness, Rhonchi - Cardiovascular Exam Cardiovascular Exam: absent: Gallop, Rubs - GI/Abdominal Exam GI & Abdominal Exam: Soft, Normal Bowel Sounds - Extremities Exam Extremities Exam: absent: Calf Tenderness - Back Exam Back Exam: absent: CVA tenderness (L), CVA tenderness (R) - Neurological Exam Neurological Exam: Alert - Psychiatric Exam Psychiatric exam: Normal Affect - Skin Skin Exam: Intact Assessment and Plan (1) Accelerated junctional rhythm Status: Acute (2) Ascites Status: Acute (3) Edema extremities Status: Acute (4) Leukocytosis Status: Acute (5) Pleural effusion exudative Status: Acute (6) Thrombocytosis Status: Acute (7) Hyponatremia syndrome Assessment & Plan: Assessment: stable hypervolemic hyponatremia hyponatremia corrected then*trending down again today sodium 133 recurrent pleural effusion hx of Etoh/HTN sepsis anemia, leykocytosis and thrombocytosis Bilateral leg edema Recommendation Fluid restriction thousand cc in 24 hours approximately Continue diuretics Daily weight Antibiotics as per primary team Status: Acute
[2018-07-27 12:36] LABS: ANISOCYTOSIS SLIGHT; EOSINOPHIL 5 % (0-7); HYPOCHROMIC SLIGHT; LYMPHOCYTE 8 % (20-50); MONOCYTE 7 % (0-10); NEUTROPHIL 79 % (42-75); PLATELET ESTIMATE MARKEDLY INCREASED (NORMAL); REACTIVE LYMPHOCYTES 1 % (0-0); TOTAL CELLS COUNTED 100
[2018-07-27 16:05] VITALS: BP 137/83; PULSE 84; RESP 20; TEMP 97.9; O2SAT 97
--- NOTE | 2018-07-27 16:26 | CP.PCM.DIS ---
Provider - Provider Date of Admission: 07/16/18 22:47 Attending physician: Anders Cruz MD Consults: 07/17/18 05:25 Cardiology Consult Routine Comment: Consulting Provider: Hernandez Jackson Consulting Physician: Hernandez Jackson Reason for Consult: pulm effusion, recent dx of stemi 07/17/18 05:26 Pulmonology Consult Routine Comment: Consulting Provider: Walter Riddle I Consulting Physician: Walter Riddle I Reason for Consult: pulm effusion 07/17/18 12:05 Gastroenterology Consult Routine Comment: Consulting Provider: Emanuel New Consulting Physician: Emanuel New Reason for Consult: pleural effusion, h/op alcohol abuse 07/18/18 06:52 Hematology Oncology Consult Routine Comment: Consulting Provider: Pato Antony Consulting Physician: Pato Antony Reason for Consult: abn cbc 07/20/18 08:06 Infectious Disease Consult Routine Comment: Consulting Provider: Lj Mcgee Consulting Physician: Lj Mcgee Reason for Consult: fever, pleural effusion, 4 days iv anbx 07/21/18 08:57 Nephrology Consult Routine Comment: Consulting Provider: Maulik Winkler Consulting Physician: Maulik Winkler Reason for Consult: hyponatremia withhx of pna and recurrent pleural effusions Time Spent in preparation of Discharge (in minutes): 30 Diagnosis - Discharge Diagnosis (1) Pleural effusion associated with pulmonary infection Status: Acute Priority: High (2) DVT prophylaxis Status: Acute Hospital Course - Lab Results Lab Results: Micro Results 07/21/18 10:20 Blood-Venous Blood Culture - Final NO GROWTH AFTER 5 DAYS 07/21/18 10:20 Blood-Venous Gram Stain - Final TEST NOT PERFORMED 07/21/18 10:15 Blood-Venous Blood Culture - Final NO GROWTH AFTER 5 DAYS 07/21/18 10:15 Blood-Venous Gram Stain - Final TEST NOT PERFORMED 07/21/18 12:55 Sputum Gram Stain - Final 07/21/18 12:55 Sputum Sputum Culture - Final Yeast Species 07/21/18 16:45 Urine,Clean Catch Urine Culture - Final No Growth (<1,000 CFU/ML) 07/18/18 11:50 Body Fluid - Abdominal Gram Stain - Final 07/18/18 11:50 Body Fluid - Abdominal Body Fluid Culture - Final No growth. 07/17/18 06:55 Blood Blood Culture - Final NO GROWTH AFTER 5 DAYS 07/17/18 06:55 Blood Gram Stain - Final TEST NOT PERFORMED 07/17/18 06:50 Blood Blood Culture - Final NO GROWTH AFTER 5 DAYS 07/17/18 06:50 Blood Gram Stain - Final TEST NOT PERFORMED Most Recent Lab Values WBC 14.2 K/uL (4.8-10.8) H 07/27/18 05:45 RBC 3.69 Mil/uL (4.40-5.90) L 07/27/18 05:45 Hgb 10.3 g/dL (12.0-18.0) L 07/27/18 05:45 Hct 31.2 % (35.0-51.0) L 07/27/18 05:45 MCV 84.7 fl (80.0-94.0) 07/27/18 05:45 MCH 27.8 pg (27.0-31.0) 07/27/18 05:45 MCHC 32.9 g/dL (33.0-37.0) L 07/27/18 05:45 RDW 14.9 % (11.5-14.5) H 07/27/18 05:45 Plt Count 948 K/uL (130-400) H* 07/27/18 05:45 MPV 6.1 fl (7.2-11.7) L 07/27/18 05:45 Neut % (Auto) 81.7 % (50.0-75.0) H 07/27/18 05:45 Lymph % (Auto) 7.2 % (20.0-40.0) L 07/27/18 05:45 [place] % (Auto) 4.9 % (0.0-10.0) 07/27/18 05:45 Eos % (Auto) 5.3 % (0.0-4.0) H 07/27/18 05:45 Baso % (Auto) 0.9 % (0.0-2.0) 07/27/18 05:45 Neut # (Auto) 11.6 K/uL (1.8-7.0) H 07/27/18 05:45 Lymph # (Auto) 1.0 K/uL (1.0-4.3) 07/27/18 05:45 [place] # (Auto) 0.7 K/uL (0.0-0.8) 07/27/18 05:45 Eos # (Auto) 0.7 K/uL (0.0-0.7) 07/27/18 05:45 Baso # (Auto) 0.1 K/uL (0.0-0.2) 07/27/18 05:45 Neutrophils % (Manual) 79 % (42-75) H 07/27/18 05:45 Lymphocytes % (Manual) 8 % (20-50) L 07/27/18 05:45 Reactive Lymphs % 1 % (0-0) H 07/27/18 05:45 Monocytes % (Manual) 7 % (0-10) 07/27/18 05:45 Eosinophils % (Manual) 5 % (0-7) 07/27/18 05:45 Basophils % (Manual) 1 % (0-2) 07/22/18 04:25 Platelet Estimate Markedly increased (NORMAL) H 07/27/18 05:45 Large Platelets Present 07/22/18 04:25 Giant Platelets Present 07/22/18 04:25 RBC Morphology Normal (NORMAL) 07/18/18 05:12 Hypochromasia (manual) Slight 07/27/18 05:45 Poikilocytosis (manual Slight 07/22/18 04:25 Anisocytosis (manual) Slight 07/27/18 05:45 Spherocytes Slight 07/22/18 04:25 [place] Cells Slight 07/22/18 04:25 ESR 64 mm/hr (0-20) H 07/21/18 10:40 Retic Count 0.0 % (0.5-1.5) L D 07/19/18 05:15 PT 17.7 Seconds (9.8-13.1) H 07/18/18 09:00 INR 1.6 07/18/18 09:00 Sodium 133 mmol/l (132-148) 07/27/18 05:45 Potassium 4.0 MMOL/L (3.6-5.0) 07/27/18 05:45 Chloride 98 mmol/L (98-107) 07/27/18 05:45 Carbon Dioxide 27 mmol/L (22-30) 07/27/18 05:45 Anion Gap 12 (10-20) 07/27/18 05:45 BUN 19 mg/dl (9-20) 07/27/18 05:45 Creatinine 0.5 mg/dl (0.8-1.5) L 07/27/18 05:45 Est GFR ( Amer) > 60 07/27/18 05:45 Est GFR (Non-Af Amer) > 60 07/27/18 05:45 POC Glucose (mg/dL) 134 mg/dL (65-110) H 07/27/18 16:12 Random Glucose 111 mg/dL (75-110) H 07/27/18 05:45 Hemoglobin A1c 6.4 % (4.2-6.5) 07/21/18 10:40 Serum Osmolality 277 mosm/kg (272-300) 07/23/18 04:30 Calcium 8.8 mg/dL (8.4-10.2) 07/27/18 05:45 Phosphorus 3.1 mg/dl (2.5-4.5) 07/23/18 04:30 Magnesium 2.2 MG/DL (1.6-2.3) 07/23/18 04:30 Ferritin 796.0 ng/Ml (17.9-464) H 07/19/18 05:15 Total Bilirubin 0.2 mg/dl (0.2-1.3) 07/27/18 05:45 AST 69 U/L (17-59) H 07/27/18 05:45 ALT 155 U/L (21-72) H 07/27/18 05:45 Alkaline Phosphatase 139 U/L (38-126) H 07/27/18 05:45 Troponin I < 0.0120 ng/mL (0.00-0.120) 07/17/18 06:00 C-Reactive Protein 202.30 mg/L (0.0-9.9) H 07/18/18 05:12 NT-Pro-B Natriuret Pep 747 pg/ml (0-900) 07/16/18 22:23 Total Protein 5.7 G/DL (6.3-8.2) L 07/27/18 05:45 Albumin 2.9 g/dL (3.5-5.0) L 07/27/18 05:45 Globulin 2.8 gm/dL (2.2-3.9) 07/27/18 05:45 Albumin/Globulin Ratio 1.0 (1.0-2.1) 07/27/18 05:45 Vitamin B12 739 pg/mL (239-931) 07/19/18 05:15 25-OH Vitamin D Total 23.8 NG/ML (30.0-100.0) L 07/23/18 04:30 Folate 16.2 ng/mL 07/19/18 05:15 Procalcitonin 0.39 NG/ML (0.19-0.49) 07/21/18 13:21 Free T4 1.23 ng/dL (0.78-2.19) 07/18/18 05:12 Total T3 0.583 nmol/L (1.49-2.60) L 07/18/18 05:12 TSH 3rd Generation 3.39 mIU/ML (0.46-4.68) 07/18/18 05:12 Urine Color Yellow (YELLOW) 07/22/18 20:30 Urine Clarity Clear (Clear) 07/22/18 20:30 Urine pH 6.0 (5.0-8.0) 07/22/18 20:30 Ur Specific [place] 1.010 (1.003-1.030) 07/22/18 20:30 Urine Protein Negative mg/dL (NEGATIVE) 07/22/18 20:30 Urine Glucose (UA) Neg mg/dL (NEGATIVE) 07/22/18 20:30 Urine Ketones Negative mg/dL (NEGATIVE) 07/22/18 20:30 Urine Blood Negative (NEGATIVE) 07/22/18 20:30 Urine Nitrate Negative (NEGATIVE) 07/22/18 20:30 Urine Bilirubin Negative (NEGATIVE) 07/22/18 20:30 Urine Urobilinogen 0.2-1.0 mg/dL (0.2-1.0) 07/22/18 20:30 Ur Leukocyte Esterase Neg Sage/uL (Negative) 07/22/18 20:30 Urine RBC (Auto) < 1 /hpf (0-3) 07/21/18 18:00 Urine Microscopic WBC 1 /hpf (0-5) 07/22/18 20:30 Ur Squamous Epith Cells < 1 /hpf (0-5) 07/21/18 16:45 Urine Osmolality 350 mosm/kg (300-1000) 07/22/18 20:30 Ur Random Creatinine 138.6 mg/dL 07/21/18 18:00 U Random Total Protein 10.0 mg/dL (0.0-12.0) 07/21/18 18:00 Ur Random Sodium 34 mmol/L 07/22/18 20:30 Fluid Glucose 132 mg/dL (NONE ESTABLISHED) 07/18/18 11:50 Fluid Total Protein 4.0 g/dL (NONE ESTABLISHED) 07/18/18 11:50 Fluid LDH 358 IU (NONE ESTABLISHED) 07/18/18 11:50 Fluid Amylase < 30 mg/dL (NONE ESTABLISHED) 07/18/18 11:50 Fluid Triglycerides 27 mg/dL (NONE ESTABLISHED) 07/18/18 11:50 Stool Occult Blood Negative (NEGATIVE) 07/21/18 01:57 Vancomycin Trough 9.3 ug/mL (5.0-10.0) 07/23/18 10:20 GRAYSON Screen Negative (Negative) 07/21/18 10:40 Hepatitis A IgM Ab Negative (NEGATIVE) 07/21/18 04:58 Hep Bs Antigen Negative (NEGATIVE) 07/21/18 04:58 Hep B Core IgM Ab Negative (NEGATIVE) 07/21/18 04:58 Hepatitis C Antibody Negative (NEGATIVE) 07/21/18 04:58 HIV 1&2 Antibody Screen Negative (NEGATIVE) 07/21/18 04:58 Ur L.pneumophila Ag Negative (NEGATIVE) 07/21/18 16:45 TB Test (QFT) Nil 0.01 IU/mL 07/21/18 04:58 TB Test Mitogen - Nil 0.04 IU/mL 07/21/18 04:58 TB Test Antigen - Nil 0.00 IU/mL 07/21/18 04:58 TB Test TB - Nil 0.00 IU/mL 07/21/18 04:58 TB Test (QFT) Indeterminate (Negative) H 07/21/18 04:58 JAK2 Accession Number Not given 07/19/18 05:15 JAK2 [id number] Specimen Blood 07/19/18 05:15 JAK2 V617F Method see note 07/19/18 05:15 JAK2 V617F Mut Indic Not given 07/19/18 05:15 JAK2 V617F Mutation Not detected (Not Detected) 07/19/18 05:15 JAK2 Interpret/Report see note 07/19/18 05:15 - Hospital Course Hospital Course: pt rec'd iv anbx, thoracentesis, heme/onc, gi, pulm, id and nephro consults bw noted, c/s noted anbx x 16 more days, outpt heme/onc workup Discharge Exam - Head Exam Head Exam: ATRAUMATIC, NORMAL INSPECTION, NORMOCEPHALIC - Eye Exam Eye Exam: EOMI, Normal appearance, PERRL Pupil Exam: NORMAL ACCOMODATION, PERRL - Respiratory Exam Respiratory Exam: Clear to PA & Lateral, NORMAL BREATHING PATTERN, UNREMARKABLE - Cardiovascular Exam Cardiovascular Exam: REGULAR RHYTHM, RRR, +S1, +S2 - GI/Abdominal Exam GI & Abdominal Exam: Normal Bowel Sounds, Soft, Unremarkable - Extremities Exam Extremities exam: full ROM, normal capillary refill, normal inspection, pedal pulses present - Back Exam Back exam: FULL ROM - Neurological Exam Neurological exam: Alert, CN II-XII Intact, Normal Gait, Oriented x3, Reflexes Normal - Psychiatric Exam Psychiatric exam: Normal Affect, Normal Mood - Skin Skin Exam: Dry, Intact, Normal Color, Warm Discharge Plan - Discharge Medications Prescriptions: Vancomycin/0.9 % Sod Chloride [Vanco 1 Gram/250 ml-0.9% NaCl] 1 gm IV Q12 #32 plast..bag - Follow Up Plan Condition: STABLE Disposition: HOME/ ROUTINE Instructions: Pleural Effusion (DC) Additional Instructions: final dx- pleural effusion w/ infection, thrombocytopenia cont anbx x 16 more days as per id. outpt heme/onc f/u 2 wks. asa daily no complaints/distress. bw noted. dc to [facility], [place] today Referrals: Ramón Ennis MD [Family Provider] - Hernandez Jackson MD [Staff Provider] -
--- NOTE | 2018-07-27 17:18 | CP.PCM.PN ---
Subjective - Date & Time of Evaluation Date of Evaluation: 07/27/18 Time of Evaluation: 08:00 - Subjective Subjective: discussed on rounds IV rx to cont at [facility] [place] Objective - Vital Signs/Intake and Output Vital Signs (last 24 hours): Temp Pulse Resp BP Pulse Ox 97.9 F 84 20 137/83 97 07/27/18 16:04 07/27/18 16:04 07/27/18 16:04 07/27/18 16:04 07/27/18 16:04 Intake and Output: 07/27/18 07/27/18 06:59 18:59 Intake Total 1450 Output Total 1800 500 Balance -350 -500 - Medications Medications: Current Medications Albuterol/Ipratropium (Duoneb 3 Mg/0.5 Mg (3 Ml) Ud) 3 ml INH RQ4 PRN PRN Reason: Shortness of Breath Last Admin: 07/23/18 15:41 Dose: 3 ml Aspirin (Ecotrin) 81 mg PO DAILY LETICIA Last Admin: 07/27/18 08:17 Dose: 81 mg Guaifenesin (Mucinex La) 1,200 mg PO Q12 LETICIA Last Admin: 07/27/18 08:17 Dose: 1,200 mg Ceftriaxone Sodium 1 gm/ (Sodium Chloride) 100 mls @ 100 mls/hr IVPB DAILY LETICIA; Protocol Last Admin: 07/27/18 08:18 Dose: 100 mls/hr Vancomycin HCl 1 gm/ Sodium (Chloride) 250 mls @ 250 mls/hr IVPB Q12H LETICIA; Protocol Last Admin: 07/27/18 13:24 Dose: 250 mls/hr Pantoprazole Sodium (Protonix Ec Tab) 40 mg PO DAILY LETICIA Last Admin: 07/27/18 08:18 Dose: 40 mg - Labs Labs: 07/27/18 05:45 07/27/18 05:45 PT 17.7 Seconds (9.8-13.1) H 07/18/18 09:00 INR 1.6 07/18/18 09:00 Assessment and Plan (1) Ascites Status: Acute (2) ETOH abuse Status: Acute (3) Edema extremities Status: Acute (4) Leukocytosis Status: Acute (5) Pleural effusion associated with pulmonary infection Status: Acute (6) Pleural effusion exudative Status: Acute (7) Thrombocytosis Status: Acute (8) Hyponatremia Status: Acute (9) Fever Status: Acute
--- NOTE | 2018-07-27 20:38 | CP.PCM.PN ---
Subjective - Date & Time of Evaluation Date of Evaluation: 07/27/18 Time of Evaluation: 13:05 - Subjective Subjective: no overnight events Objective - Vital Signs/Intake and Output Vital Signs (last 24 hours): Temp Pulse Resp BP Pulse Ox 97.9 F 84 20 137/83 97 07/27/18 16:04 07/27/18 16:04 07/27/18 16:04 07/27/18 16:04 07/27/18 16:04 Intake and Output: 07/27/18 07/28/18 18:59 06:59 Output Total 500 Balance -500 - Labs Labs: 07/27/18 05:45 07/27/18 05:45 PT 17.7 Seconds (9.8-13.1) H 07/18/18 09:00 INR 1.6 07/18/18 09:00 - Respiratory Exam Respiratory Exam: Clear to Ausculation Bilateral, NORMAL BREATHING PATTERN - Cardiovascular Exam Cardiovascular Exam: REGULAR RHYTHM - GI/Abdominal Exam GI & Abdominal Exam: Normal Bowel Sounds Assessment and Plan - Assessment and Plan (Free Text) Assessment: 62 yo male with pleural effusions doing well dc planning
== END 2018-07-27 18:25 | DRG 871 ==
LOC: H.ER 19:56 → H.ERHOLD 22:47 → H.TEL 07-17 00:41
PROVIDERS: ADMIT Family Medicine; ATTEND Family Medicine
PROC: 0W9B30Z Drainage of Left Pleural Cavity with Drainage Device, Percutaneous Approach (ICD-10-PCS; principal; 2018-07-18)
PROC: 0W9930Z Drainage of Right Pleural Cavity with Drainage Device, Percutaneous Approach (ICD-10-PCS; 2018-07-18)
DX: A41.9 Sepsis, unspecified organism (principal); J18.1 Lobar pneumonia, unspecified organism; I31.3 Pericardial effusion (noninflammatory); J91.8 Pleural effusion in other conditions classified elsewhere; E87.1 Hypo-osmolality and hyponatremia; R18.8 Other ascites; D47.3 Essential (hemorrhagic) thrombocythemia; I11.9 Hypertensive heart disease without heart failure; F10.20 Alcohol dependence, uncomplicated; D63.8 Anemia in other chronic diseases classified elsewhere; K21.9 Gastro-esophageal reflux disease without esophagitis; Z79.82 Long term (current) use of aspirin; Z87.891 Personal history of nicotine dependence

== ENCOUNTER 2018-08-02 20:01 | Inpatient (IN) | payer OTHER ==
[2018-08-02 20:01] VITALS: BMI 22.8
[2018-08-02] MEDS ORDERED: Sodium Chloride 0.9% 1,000 ML IV STA ×2 (20:18→21:16)
[2018-08-02] MEDS ORDERED: Piperacillin/Tazobact 3.375 GM in Sodium Chloride 0.9% 100 ML IVPB STA (20:27)
[2018-08-02] MEDS: Albuterol 0.083% Inhal Sol (2.5 mg/3 mL) UD INH STA ×2 (20:51→20:52)
[2018-08-02 20:54] LABS: VENOUS BLOOD GAS BASE EXCESS 2.2 mmol/L (0.0-2.0); VENOUS BLOOD GAS PCO2 43 mmHg (40-60); VENOUS BLOOD GAS PO2 30 mm/Hg (30-55); VENOUS BLOOD PH 7.41 (7.32-7.43)
[2018-08-02 21:05] LABS: BASO # 0.1 K/uL (0.0-0.2); BASO % 0.6 % (0.0-2.0); EOS # 0.1 K/uL (0.0-0.7); EOS % 0.2 % (0.0-4.0); HEMOGLOBIN 10.2 g/dL (12.0-18.0); LYMPH # 1.6 K/uL (1.0-4.3); LYMPH % 6.6 % (20.0-40.0); MEAN CELL VOLUME 83.6 fl (80.0-94.0); MEAN CORPUSCULAR HEMOGLOBIN 28.1 pg (27.0-31.0); MEAN CORPUSCULAR HGB CONC 33.6 g/dL (33.0-37.0); MEAN PLATELET VOLUME 6.2 fl (7.2-11.7); MONO # 1.8 K/uL (0.0-0.8); MONO % 7.3 % (0.0-10.0); NEUT # 21.2 K/uL (1.8-7.0); NEUT % 85.3 % (50.0-75.0); PLATELET COUNT 610 K/uL (130-400); RBC 3.63 Mil/uL (4.40-5.90); RED CELL DISTRIBUTION WIDTH 16.1 % (11.5-14.5); WHITE BLOOD COUNT 24.8 K/uL (4.8-10.8)
[2018-08-02] MEDS ORDERED: Piperacillin/Tazobact 3.375 gm Inj IVPB ONE (21:07)
[2018-08-02 21:21] LABS: INR 1.5; PROTHROMBIN TIME 16.9 Seconds (9.8-13.1)
--- NOTE | 2018-08-02 21:22 | ED PDOC ---
HPI: SOB/CHF/COPD Time Seen by Provider: 08/02/18 20:17 Chief Complaint (Nursing): Shortness Of Breath Chief Complaint (Provider): Fever, Shortness of Breath History Per: Patient History/Exam Limitations: no limitations Onset/Duration Of Symptoms: Days (x1) Current Symptoms Are (Timing): Still Present Additional Complaint(s): 62 year old male with history of htn and recent pleural effusion, who is status post thoracentesis on IV Vancomycin at a rehab facility, presents to the ED for evaluation of fever and shortness of breath beginning yesterday. Patient also states his legs are swollen, but this is chronic. Otherwise, denies chest pain. PMD: Ramón Ennis Past Medical History Reviewed: Historical Data, Nursing Documentation, Vital Signs Vital Signs: Last Vital Signs Temp 97.9 F 08/02/18 20:55 Pulse 107 H 08/02/18 20:04 Resp 16 08/02/18 20:04 BP 142/77 08/02/18 20:04 Pulse Ox 100 08/02/18 20:04 Primary Care Provider: Ramón Ennis - Medical History PMH: Anemia, HTN Denies: HIV, Chronic Kidney Disease, TIA Other PMH: pleural effusion - Surgical History Surgical History: Appendectomy, Endoscopy Other surgeries: thoracentesis - Family History Family History: States: Unknown Family Hx - Social History Current smoker - smoking cessation education provided: No - Immunization History Hx Tetanus Toxoid Vaccination: No Hx Influenza Vaccination: Yes Hx Pneumococcal Vaccination: Yes - Home Medications Home Medications: Ambulatory Orders Medication Instructions Recorded Pantoprazole [Protonix EC Tab] 20 mg PO DAILY 07/23/17 amLODIPine [Norvasc] 5 mg PO DAILY 07/23/17 Losartan [Cozaar] 100 mg PO DAILY 07/08/18 Furosemide [Lasix] 20 mg PO DAILY #30 tablet 07/15/18 Albuterol/Ipratropium [Duoneb 3 3 ml INH RQ4 PRN neb 07/27/18 mg/0.5 mg (3 ml) UD] Aspirin [Ecotrin] 81 mg PO DAILY tabec 07/27/18 Vancomycin/0.9 % Sod Chloride 1 gm IV Q12 #32 plast..bag 07/27/18 [Vanco 1 Gram/250 ml-0.9% NaCl] Acetaminophen [Tylenol 325mg tab] 650 mg PO Q4 PRN 08/02/18 Acetaminophen [Tylenol 325mg tab] 650 mg PO Q4 PRN 08/02/18 Magnesium Hydroxide [Milk Of 30 ml PO ASDIR PRN 08/02/18 Magnesia] - Allergies Allergies/Adverse Reactions: Allergies Allergy/AdvReac Type Severity Reaction Status Date / Time No Known Allergies Allergy Verified 08/02/18 20:12 Review of Systems ROS Statement: Except As Marked, All Systems Reviewed And Found Negative Constitutional: Positive for: Fever Cardiovascular: Negative for: Chest Pain Respiratory: Positive for: Shortness of Breath Musculoskeletal: Positive for: Other (bilateral leg swelling, which patient states is chronic) Physical Exam - Reviewed Nursing Documentation Reviewed: Yes Vital Signs Reviewed: Yes - Physical Exam Head Exam: Positive for: ATRAUMATIC, NORMAL INSPECTION, NORMOCEPHALIC Skin: Positive for: Normal Color, Warm Eye Exam: Positive for: Normal appearance ENT: Positive for: Normal ENT Inspection Neck: Positive for: Normal, Painless ROM, Supple Cardiovascular/Chest: Positive for: Regular Rate, Rhythm Respiratory: Positive for: Decreased Breath Sounds (diminished breath sounds at bases of lungs), Wheezing (scattered and audible), Respiratory Distress (mild), Other (tachypnea) Gastrointestinal/Abdominal: Positive for: Normal Exam, Soft. Negative for: Tenderness Extremity: Positive for: Normal ROM, Swelling (2+ pitting edema to bilateral kn ees) Neurological/Psych: Positive for: Awake, Alert, Oriented (x3) - Laboratory Results Result Diagrams: 08/02/18 21:01 08/02/18 21:01 Lab Results: pO2 30 mm/Hg (30-55) 08/02/18 20:40 VBG pH 7.41 (7.32-7.43) 08/02/18 20:40 VBG pCO2 43 mmHg (40-60) 08/02/18 20:40 VBG HCO3 25.6 mmol/L 08/02/18 20:40 VBG Total CO2 28.6 mmol/L (22-28) H 08/02/18 20:40 VBG O2 Sat (Calc) 63.7 % (40-65) 08/02/18 20:40 VBG Base Excess 2.2 mmol/L (0.0-2.0) H 08/02/18 20:40 VBG Potassium 4.1 mmol/L (3.6-5.2) 08/02/18 20:40 Sodium 126.0 mmol/L (132-148) L 08/02/18 20:40 Chloride 94.0 mmol/L (98-107) L 08/02/18 20:40 Glucose 140 mg/dL (75-110) H 08/02/18 20:40 Lactate 1.1 mmol/L (0.7-2.1) 08/02/18 20:40 FiO2 21.0 % 08/02/18 20:40 - ECG O2 Sat by Pulse Oximetry: 100 (RA) Pulse Ox Interpretation: Normal - Critical Care Total Time (In Min): 60 Documented Critical Care: Time excludes all time spent performint seperately billable procedures Medical Decision Making Medical Decision Making: A/P: 62 year old male with history of recent pleural effusion and s/p thoracentesis on IV vancomycin presenting with worsening pleural effusion --will require another thoracentesis --Will give zosyn and 500mg of vanc (patient had first half in rehab this evening) --will consult pulmonology and admit pt to telemetry unit Time: 2017 Orders: --VBG x2 --EKG --BNP --CMP --Magnesium and phosphorus chemistries --CBC with differential --D dimer --PT / PTT --CXR --Albuterol 2.5mg INH --Normal saline IV --Zosyn 3.375gm NS 100ml IVPB --Blood culture --Urine culture --Placed on shelter monitor --Peak flow pre/post --Urinalysis --Reevaluation DR. Riddle and Delfin Rose aware 10PM --Placed on trial of bipap given that patient was still wheezing and tachypneic, however is speaking full sentences, not hypoxic. 1045PM --Patient tolerated BIPAP very well, no longer pursed lip breathing, put on nasal cannula 11PM --Pursed lip breathing returned, placed back on bipap with good response. Will keep on BIPAP overnight for re-evaluation by inpatient team in morning. Scribe Attestation: Documented by Pita Shaw, acting as a scribe for Abhijeet Bill MD. Provider Scribe Attestation: All medical record entries made by the Scribe were at my direction and personally dictated by me. I have reviewed the chart and agree that the record accurately reflects my personal performance of the history, physical exam, medical decision making, and the department course for this patient. I have also personally directed, reviewed, and agree with the discharge instructions and disposition. Disposition - Clinical Impression Clinical Impression: Hyponatremia, Pleural effusion, Sepsis Discussed With DrRobbie: Walter Riddle Doctor Will See Patient In The: Hospital Counseled Patient/Family Regarding: Studies Performed, Diagnosis - Disposition Disposition Time: 21:00 Condition: GUARDED
[2018-08-02 21:31] LABS: ALB/GLOB RATIO 1.1 (1.0-2.1); ALBUMIN 3.3 g/dL (3.5-5.0); ALT/SGPT 60 U/L (21-72); AST/SGOT 35 U/L (17-59); BLOOD UREA NITROGEN 17 mg/dl (9-20); CALCIUM 8.7 mg/dL (8.4-10.2); GFR NON-AFRICAN AMERICAN > 60
[2018-08-02 21:55] LABS: B-TYPE NATRIURETIC PEPTIDE 1200 pg/ml (0-900)
[2018-08-02] MEDS ORDERED: Albuterol-Ipratrop 3 mg / 0.5 (3 ml) UD INH STA (21:57)
[2018-08-02 21:58] LABS: BANDS 1 % (0-2); EOSINOPHIL 1 % (0-7); LYMPHOCYTE 9 % (20-50); MONOCYTE 9 % (0-10); NEUTROPHIL 80 % (42-75); PLATELET ESTIMATE INCREASED (NORMAL); TOTAL CELLS COUNTED 100
[2018-08-02] MEDS ORDERED: Albuterol 0.042% Inhal Sol (1.25 mg/3 mL) UD ONE (22:00)
[2018-08-02 22:01] LABS: ANISOCYTOSIS MODERATE; HYPOCHROMIC SLIGHT; LARGE PLATELETS PRESENT; MICROCYTOSIS SLIGHT; OVALOCYTES SLIGHT; POIKILOCYTOSIS SLIGHT; POLYCHROMIC SLIGHT
[2018-08-02] MEDS ORDERED: Albuterol-Ipratrop 3 mg / 0.5 (3 ml) UD ONE (22:01)
[2018-08-02] MEDS: Albuterol-Ipratrop 3 mg / 0.5 (3 ml) UD INH PRN (22:02)
[2018-08-02 22:48] LABS: SQUAMOUS EPITHIAL < 1 /hpf (0-5); URINE BILIRUBIN NEGATIVE (NEGATIVE); URINE BLOOD SMALL (NEGATIVE); URINE CLARITY CLEAR (Clear); URINE COLOR YELLOW (YELLOW); URINE GLUCOSE (UA) NEG (NEGATIVE); URINE LEUKOCYTE ESTERASE NEG Leu/uL (Negative); URINE PROTEIN 30 mg/dL (NEGATIVE); URINE UROBILINOGEN 0.2-1.0 mg/dL (0.2-1.0)
[2018-08-02] MEDS ORDERED: Albuterol 0.083% Inhal Sol (2.5 mg/3 mL) UD INH STA (23:11)
[2018-08-03 06:08] LABS: BASO # 0.1 K/uL (0.0-0.2); BASO % 0.5 % (0.0-2.0); EOS # 0.1 K/uL (0.0-0.7); EOS % 0.4 % (0.0-4.0); HEMOGLOBIN 9.4 g/dL (12.0-18.0); LYMPH % 4.4 % (20.0-40.0); MEAN CELL VOLUME 84.3 fl (80.0-94.0); MEAN CORPUSCULAR HEMOGLOBIN 27.6 pg (27.0-31.0); MEAN CORPUSCULAR HGB CONC 32.8 g/dL (33.0-37.0); MEAN PLATELET VOLUME 6.4 fl (7.2-11.7); MONO # 1.4 K/uL (0.0-0.8); MONO % 6.4 % (0.0-10.0); NEUT # 19.8 K/uL (1.8-7.0); NEUT % 88.3 % (50.0-75.0); RBC 3.41 Mil/uL (4.40-5.90); RED CELL DISTRIBUTION WIDTH 15.9 % (11.5-14.5); WHITE BLOOD COUNT 22.4 K/uL (4.8-10.8)
[2018-08-03 06:13] LABS: BLOOD UREA NITROGEN 14 mg/dl (9-20); CALCIUM 8.2 mg/dL (8.4-10.2); GFR NON-AFRICAN AMERICAN > 60
[2018-08-03 06:14] LABS: ALB/GLOB RATIO 1.1 (1.0-2.1); ALT/SGPT 54 U/L (21-72); AST/SGOT 29 U/L (17-59)
--- NOTE | 2018-08-03 08:32 | RAD ---
Date of service: 08/02/2018 HISTORY: fever, cough COMPARISON: Chest radiographs 07/24/2018. TECHNIQUE: 1 view obtained. FINDINGS: Left PICC identified inserted terminating a cavoatrial junction or possibly right atrium. It is not clearly identified due to obscuring the right heart by increased effusion/airspace disease at the right base. Similar opacity obscures the inferior margins of the left hemithorax as well. Cardiac size cannot be evaluated. No obvious pulmonary vascular congestion. No pneumothorax appreciable. OSSEOUS STRUCTURES: No significant abnormalities. VISUALIZED UPPER ABDOMEN: Normal. OTHER FINDINGS: None. IMPRESSION: Potential increased in pleural effusions bilaterally as well as potential underlying airspace disease, left greater than right chest, although this could be a function of apical lordotic type image capture. Repeat PA and lateral radiography recommended for better characterization of the bases. Left PICC inserted via left upper extremity with tip not clearly identified possibly at the right atrium.
--- NOTE | 2018-08-03 08:42 | CP.PCM.HP ---
History of Present Illness - History of Present Illness History of Present Illness: pt admitted for pleural effusion and sepsis. pt was recently dx to [facility] for the same complaint. at present comfortable on bipap. no f/c, n/v/d. bw and imaging noted. pulm consult pending. Present on Admission - Present on Admission Any Indicators Present on Admission: No Review of Systems - Respiratory Respiratory: As Per HPI, Cough, Dyspnea on Exertion, Pain on Inspiration Past Patient History - Past Medical History & Family History Past Medical History?: Yes - Past Social History Smoking Status: Never Smoked - CARDIAC Hx Hypertension: Yes - PULMONARY Hx Respiratory Disorders: Yes - NEUROLOGICAL Hx Transient Ischemic Attacks (TIA): No - HEENT Hx HEENT Problems: No - RENAL Hx Chronic Kidney Disease: No - ENDOCRINE/METABOLIC Hx Endocrine Disorders: No - HEMATOLOGICAL/ONCOLOGICAL Hx Anemia: Yes Hx Human Immunodeficiency Virus (HIV): No - INTEGUMENTARY Hx Dermatological Problems: No - MUSCULOSKELETAL/RHEUMATOLOGICAL Hx Musculoskeletal Disorders: No Hx Falls: No - GASTROINTESTINAL Hx Gastrointestinal Disorders: Yes Hx Gastroesophageal Reflux: Yes Other/Comment: Hx Esophagitis. GIB - GENITOURINARY/GYNECOLOGICAL Hx Genitourinary Disorders: No - PSYCHIATRIC Hx Psychophysiologic Disorder: Yes (alcohol abuse) Hx Substance Use: No - SURGICAL HISTORY Hx Appendectomy: Yes - ANESTHESIA Hx Anesthesia: Yes Hx Anesthesia Reactions: No Hx Malignant Hyperthermia: No Meds Allergies/Adverse Reactions: Allergies Allergy/AdvReac Type Severity Reaction Status Date / Time No Known Allergies Allergy Verified 08/02/18 20:12 Physical Exam - Constitutional Appears: Well, Non-toxic, No Acute Distress - Head Exam Head Exam: ATRAUMATIC, NORMAL INSPECTION, NORMOCEPHALIC - Eye Exam Eye Exam: EOMI, Normal appearance, PERRL Pupil Exam: NORMAL ACCOMODATION, PERRL - ENT Exam ENT Exam: Mucous Membranes Moist, Normal Exam - Neck Exam Neck exam: Positive for: Normal Inspection - Respiratory Exam Respiratory Exam: Decreased Breath Sounds, Clear to Auscultation Bilateral, NORMAL BREATHING PATTERN Additional comments: diminsiehd in bases - Cardiovascular Exam Cardiovascular Exam: REGULAR RHYTHM, RRR, +S1, +S2 - GI/Abdominal Exam GI & Abdominal Exam: Normal Bowel Sounds, Soft. absent: Tenderness - Extremities Exam Extremities exam: Positive for: full ROM, normal capillary refill, normal inspection, pedal pulses present - Back Exam Back exam: FULL ROM, NORMAL INSPECTION - Neurological Exam Neurological exam: Alert, CN II-XII Intact, Normal Gait, Oriented x3, Reflexes Normal - Psychiatric Exam Psychiatric exam: Normal Affect, Normal Mood - Skin Skin Exam: Dry, Intact, Normal Color, Warm Results - Vital Signs Recent Vital Signs: Last Vital Signs Temp 99.7 F H 08/03/18 07:54 Pulse 101 H 08/03/18 07:54 Resp 20 08/03/18 07:54 BP 110/78 08/03/18 07:54 Pulse Ox 100 08/03/18 07:54 - Labs Result Diagrams: 08/03/18 04:25 08/03/18 04:25 Labs: Laboratory Results - last 24 hr 08/02/18 08/02/18 08/02/18 20:40 21:01 21:01 WBC 24.8 H D RBC 3.63 L Hgb 10.2 L Hct 30.3 L MCV 83.6 MCH 28.1 MCHC 33.6 RDW 16.1 H Plt Count 610 H D MPV 6.2 L Neut % (Auto) 85.3 H Lymph % (Auto) 6.6 L [place] % (Auto) 7.3 Eos % (Auto) 0.2 Baso % (Auto) 0.6 Neut # (Auto) 21.2 H Lymph # (Auto) 1.6 [place] # (Auto) 1.8 H Eos # (Auto) 0.1 Baso # (Auto) 0.1 Neutrophils % (Manual) 80 H Band Neutrophils % 1 Lymphocytes % (Manual) 9 L Monocytes % (Manual) 9 Eosinophils % (Manual) 1 Platelet Estimate Increased H Large Platelets Present Polychromasia Slight Hypochromasia (manual) Slight Poikilocytosis (manual Slight Anisocytosis (manual) Moderate Microcytosis (manual) Slight Ovalocytes Slight PT INR APTT pO2 30 VBG pH 7.41 VBG pCO2 43 VBG HCO3 25.6 VBG Total CO2 28.6 H VBG O2 Sat (Calc) 63.7 VBG Base Excess 2.2 H VBG Potassium 4.1 Sodium 126.0 L 128 L Chloride 94.0 L 91 L Glucose 140 H Lactate 1.1 FiO2 21.0 Potassium 4.3 Carbon Dioxide 26 Anion Gap 15 BUN 17 Creatinine 0.6 L Est GFR ( Amer) > 60 Est GFR (Non-Af Amer) > 60 Random Glucose 139 H Calcium 8.7 Phosphorus 3.3 Magnesium 2.0 Total Bilirubin 0.6 AST 35 ALT 60 Alkaline Phosphatase 120 NT-Pro-B Natriuret Pep 1200 H Total Protein 6.3 Albumin 3.3 L Globulin 3.0 Albumin/Globulin Ratio 1.1 Venous Blood Potassium 4.1 Urine Color Urine Clarity Urine pH Ur Specific [place] Urine Protein Urine Glucose (UA) Urine Ketones Urine Blood Urine Nitrate Urine Bilirubin Urine Urobilinogen Ur Leukocyte Esterase Urine RBC (Auto) Urine Microscopic WBC Ur Squamous Epith Cells 08/02/18 08/02/18 08/03/18 21:01 22:00 04:25 WBC 22.4 H RBC 3.41 L Hgb 9.4 L Hct 28.8 L MCV 84.3 MCH 27.6 MCHC 32.8 L RDW 15.9 H Plt Count 597 H MPV 6.4 L Neut % (Auto) 88.3 H Lymph % (Auto) 4.4 L [place] % (Auto) 6.4 Eos % (Auto) 0.4 Baso % (Auto) 0.5 Neut # (Auto) 19.8 H Lymph # (Auto) 1.0 [place] # (Auto) 1.4 H Eos # (Auto) 0.1 Baso # (Auto) 0.1 Neutrophils % (Manual) Band Neutrophils % Lymphocytes % (Manual) Monocytes % (Manual) Eosinophils % (Manual) Platelet Estimate Large Platelets Polychromasia Hypochromasia (manual) Poikilocytosis (manual Anisocytosis (manual) Microcytosis (manual) Ovalocytes PT 16.9 H INR 1.5 APTT 40.0 H pO2 VBG pH VBG pCO2 VBG HCO3 VBG Total CO2 VBG O2 Sat (Calc) VBG Base Excess VBG Potassium Sodium Chloride Glucose Lactate FiO2 Potassium Carbon Dioxide Anion Gap BUN Creatinine Est GFR ( Amer) Est GFR (Non-Af Amer) Random Glucose Calcium Phosphorus Magnesium Total Bilirubin AST ALT Alkaline Phosphatase NT-Pro-B Natriuret Pep Total Protein Albumin Globulin Albumin/Globulin Ratio Venous Blood Potassium Urine Color Yellow Urine Clarity Clear Urine pH 6.0 Ur Specific [place] 1.017 Urine Protein 30 Urine Glucose (UA) Neg Urine Ketones Negative Urine Blood Small Urine Nitrate Negative Urine Bilirubin Negative Urine Urobilinogen 0.2-1.0 Ur Leukocyte Esterase Neg Urine RBC (Auto) 4 H Urine Microscopic WBC 1 Ur Squamous Epith Cells < 1 05/02/19 04:25 WBC RBC Hgb Hct MCV MCH MCHC RDW Plt Count MPV Neut % (Auto) Lymph % (Auto) [place] % (Auto) Eos % (Auto) Baso % (Auto) Neut # (Auto) Lymph # (Auto) [place] # (Auto) Eos # (Auto) Baso # (Auto) Neutrophils % (Manual) Band Neutrophils % Lymphocytes % (Manual) Monocytes % (Manual) Eosinophils % (Manual) Platelet Estimate Large Platelets Polychromasia Hypochromasia (manual) Poikilocytosis (manual Anisocytosis (manual) Microcytosis (manual) Ovalocytes PT INR APTT pO2 VBG pH VBG pCO2 VBG HCO3 VBG Total CO2 VBG O2 Sat (Calc) VBG Base Excess VBG Potassium Sodium 131 L Chloride 96 L Glucose Lactate FiO2 Potassium 4.1 Carbon Dioxide 25 Anion Gap 14 BUN 14 Creatinine 0.5 L Est GFR ( Amer) > 60 Est GFR (Non-Af Amer) > 60 Random Glucose 119 H Calcium 8.2 L Phosphorus Magnesium Total Bilirubin 0.7 AST 29 ALT 54 Alkaline Phosphatase 126 NT-Pro-B Natriuret Pep Total Protein 5.9 L Albumin 3.0 L Globulin 2.9 Albumin/Globulin Ratio 1.1 Venous Blood Potassium Urine Color Urine Clarity Urine pH Ur Specific [place] Urine Protein Urine Glucose (UA) Urine Ketones Urine Blood Urine Nitrate Urine Bilirubin Urine Urobilinogen Ur Leukocyte Esterase Urine RBC (Auto) Urine Microscopic WBC Ur Squamous Epith Cells Assessment & Plan (1) Hyponatremia Assessment and Plan: ivf, monitor, reconsult nephro prn Status: Acute (2) Pleural effusion Assessment and Plan: pulm, ct surgery, iv anbx supportive care ct chest cardio Status: Acute (3) Sepsis Assessment and Plan: iv anbx-vanco id Status: Acute (4) DVT prophylaxis Status: Acute Decision To Admit - Pt Status Changed To: Hospital Disposition Of: Inpatient - Admit Certification Admit to Inpatient:: After my assessment, the patient will require hospitalization for at least two midnights. This is because of the severity of symptoms shown, intensity of services needed, and/or the medical risk in this patient being treated as an outpatient. - . Bed Request Type: Telemetry Admitting Physician: Anders Cruz
[2018-08-03] MEDS ORDERED: Sodium Chloride 3% for Inhalation 4 ML VIAL.NEB IH PRN ×2 (08:51→16:55)
[2018-08-03] MEDS: Pantoprazole 40 mg EC Tab PO SCH (08:58)
--- NOTE | 2018-08-03 08:58 | CARD ---
APPROVED REPORT Date of service: 08/02/2018 EKG Measurement Heart [id number] <Conclusion> Sinus tachycardia Possible Left atrial enlargement Nonspecific T wave abnormality Abnormal ECG
[2018-08-03] MEDS ORDERED: Patient's Own Med (Vancomycin/0.9 % Sod Chloride [Vanco 1 Gram/250 Ml-0.9% Nacl] 1 GM) IV SCH (09:00)
--- NOTE | 2018-08-03 11:19 | CP.PCM.CON ---
History of Present Illness - History of Present Illness History of Present Illness: Thoracic Surgery Consult Note- Dr. Escoto Reason for Consult: Recurrent Pleural Effusion 62M pmhx significant for HTN, recurrent Pleural effusion, pneumonia presents to [facility] with increased shortness of breath for 2 days. Prior to admission patient was admitted for similar symptoms and underwent thoracentesis bilateral L > R 1.5L straw colored fluid. Pathology showed no malignancy. During encounter patient resting comfortably on 4L NC 98%. Currently on Abx Vanc. Subjective fevers prior to arrival. CXR showed possible increase in Left sided pleural effusion PMH: stated above PSH: Appendectomy ALL: NKDA SocialHx: drinks 1-2 beers daily, denies tobacco use, recreational drug use FH: father w/ prostate Ca Review of Systems - Review of Systems All systems: reviewed and no additional remarkable complaints except - Constitutional Constitutional: As Per HPI Past Patient History - Past Medical History & Family History Past Medical History?: Yes - Past Social History Smoking Status: Never Smoked - CARDIAC Hx Hypertension: Yes - PULMONARY Hx Respiratory Disorders: Yes - NEUROLOGICAL Hx Transient Ischemic Attacks (TIA): No - HEENT Hx HEENT Problems: No - RENAL Hx Chronic Kidney Disease: No - ENDOCRINE/METABOLIC Hx Endocrine Disorders: No - HEMATOLOGICAL/ONCOLOGICAL Hx Anemia: Yes Hx Human Immunodeficiency Virus (HIV): No - INTEGUMENTARY Hx Dermatological Problems: No - MUSCULOSKELETAL/RHEUMATOLOGICAL Hx Musculoskeletal Disorders: No Hx Falls: No - GASTROINTESTINAL Hx Gastrointestinal Disorders: Yes Hx Gastroesophageal Reflux: Yes Other/Comment: Hx Esophagitis. GIB - GENITOURINARY/GYNECOLOGICAL Hx Genitourinary Disorders: No - PSYCHIATRIC Hx Psychophysiologic Disorder: Yes (alcohol abuse) Hx Substance Use: No - SURGICAL HISTORY Hx Appendectomy: Yes - ANESTHESIA Hx Anesthesia: Yes Hx Anesthesia Reactions: No Hx Malignant Hyperthermia: No Meds Allergies/Adverse Reactions: Allergies Allergy/AdvReac Type Severity Reaction Status Date / Time No Known Allergies Allergy Verified 08/02/18 20:12 - Medications Medications: Current Medications Albuterol/Ipratropium (Duoneb 3 Mg/0.5 Mg (3 Ml) Ud) 3 ml INH RQ4 PRN PRN Reason: Shortness of Breath Last Admin: 08/02/18 22:02 Dose: 3 ml Amlodipine Besylate (Norvasc) 10 mg PO DAILY [facility] Last Admin: 08/03/18 08:59 Dose: 10 mg Aspirin (Ecotrin) [address] [facility] Last Admin: 08/03/18 08:59 Dose: 81 mg Furosemide (Lasix) [address] [facility] Last Admin: 08/03/18 08:59 Dose: 20 mg Vancomycin HCl 1 gm/ Sodium (Chloride) 250 mls @ 166.667 mls/hr IVPB Q12 [facility] Last Admin: 08/03/18 10:52 Dose: 166.667 mls/hr Losartan Potassium (Cozaar) [address] [facility] Last Admin: 08/03/18 08:59 Dose: 100 mg Pantoprazole Sodium (Protonix Ec Tab) [address] [facility] Last Admin: 08/03/18 08:58 Dose: 40 mg Physical Exam - Constitutional Appears: Non-toxic, No Acute Distress - Head Exam Head Exam: ATRAUMATIC - Eye Exam Eye Exam: EOMI. absent: Scleral icterus - ENT Exam ENT Exam: Mucous Membranes Moist - Respiratory Exam Respiratory Exam: Decreased Breath Sounds (bilateral basal decreased breath sounds), NORMAL BREATHING PATTERN. absent: Accessory Muscle Use, Respiratory Distress - Cardiovascular Exam Cardiovascular Exam: REGULAR RHYTHM. absent: Bradycardia, Tachycardia - GI/Abdominal Exam GI & Abdominal Exam: absent: Firm, Guarding, Hernia, Soft, Tenderness Additional comments: old surgical incision healed well - Extremities Exam Extremities exam: Negative for: calf tenderness - Back Exam Back exam: absent: CVA tenderness (L), CVA tenderness (R) - Neurological Exam Neurological exam: Alert, Oriented x3 - Psychiatric Exam Psychiatric exam: Normal Affect - Skin Skin Exam: Intact, Warm Results - Vital Signs Recent Vital Signs: Last Vital Signs Temp 99.7 F H 08/03/18 07:54 Pulse 110 H 08/03/18 09:00 Resp 20 08/03/18 07:54 BP 110/78 08/03/18 08:59 Pulse Ox 100 08/03/18 07:54 - Labs Result Diagrams: 08/03/18 04:25 08/03/18 04:25 Labs: Laboratory Results - last 24 hr 08/02/18 08/02/18 08/02/18 20:40 21:01 21:01 WBC 24.8 H D RBC 3.63 L Hgb 10.2 L Hct 30.3 L MCV 83.6 MCH 28.1 MCHC 33.6 RDW 16.1 H Plt Count 610 H D MPV 6.2 L Neut % (Auto) 85.3 H Lymph % (Auto) 6.6 L [place] % (Auto) 7.3 Eos % (Auto) 0.2 Baso % (Auto) 0.6 Neut # (Auto) 21.2 H Lymph # (Auto) 1.6 [place] # (Auto) 1.8 H Eos # (Auto) 0.1 Baso # (Auto) 0.1 Neutrophils % (Manual) 80 H Band Neutrophils % 1 Lymphocytes % (Manual) 9 L Monocytes % (Manual) 9 Eosinophils % (Manual) 1 Platelet Estimate Increased H Large Platelets Present Polychromasia Slight Hypochromasia (manual) Slight Poikilocytosis (manual Slight Anisocytosis (manual) Moderate Microcytosis (manual) Slight Ovalocytes Slight PT INR APTT pO2 30 VBG pH 7.41 VBG pCO2 43 VBG HCO3 25.6 VBG Total CO2 28.6 H VBG O2 Sat (Calc) 63.7 VBG Base Excess 2.2 H VBG Potassium 4.1 Sodium 126.0 L 128 L Chloride 94.0 L 91 L Glucose 140 H Lactate 1.1 FiO2 21.0 Potassium 4.3 Carbon Dioxide 26 Anion Gap 15 BUN 17 Creatinine 0.6 L Est GFR ( Amer) > 60 Est GFR (Non-Af Amer) > 60 Random Glucose 139 H Calcium 8.7 Phosphorus 3.3 Magnesium 2.0 Total Bilirubin 0.6 AST 35 ALT 60 Alkaline Phosphatase 120 NT-Pro-B Natriuret Pep 1200 H Total Protein 6.3 Albumin 3.3 L Globulin 3.0 Albumin/Globulin Ratio 1.1 Venous Blood Potassium 4.1 Urine Color Urine Clarity Urine pH Ur Specific [place] Urine Protein Urine Glucose (UA) Urine Ketones Urine Blood Urine Nitrate Urine Bilirubin Urine Urobilinogen Ur Leukocyte Esterase Urine RBC (Auto) Urine Microscopic WBC Ur Squamous Epith Cells 08/02/18 08/02/18 08/03/18 21:01 22:00 04:25 WBC 22.4 H RBC 3.41 L Hgb 9.4 L Hct 28.8 L MCV 84.3 MCH 27.6 MCHC 32.8 L RDW 15.9 H Plt Count 597 H MPV 6.4 L Neut % (Auto) 88.3 H Lymph % (Auto) 4.4 L [place] % (Auto) 6.4 Eos % (Auto) 0.4 Baso % (Auto) 0.5 Neut # (Auto) 19.8 H Lymph # (Auto) 1.0 [place] # (Auto) 1.4 H Eos # (Auto) 0.1 Baso # (Auto) 0.1 Neutrophils % (Manual) Band Neutrophils % Lymphocytes % (Manual) Monocytes % (Manual) Eosinophils % (Manual) Platelet Estimate Large Platelets Polychromasia Hypochromasia (manual) Poikilocytosis (manual Anisocytosis (manual) Microcytosis (manual) Ovalocytes PT 16.9 H INR 1.5 APTT 40.0 H pO2 VBG pH VBG pCO2 VBG HCO3 VBG Total CO2 VBG O2 Sat (Calc) VBG Base Excess VBG Potassium Sodium Chloride Glucose Lactate FiO2 Potassium Carbon Dioxide Anion Gap BUN Creatinine Est GFR ( Amer) Est GFR (Non-Af Amer) Random Glucose Calcium Phosphorus Magnesium Total Bilirubin AST ALT Alkaline Phosphatase NT-Pro-B Natriuret Pep Total Protein Albumin Globulin Albumin/Globulin Ratio Venous Blood Potassium Urine Color Yellow Urine Clarity Clear Urine pH 6.0 Ur Specific [place] 1.017 Urine Protein 30 Urine Glucose (UA) Neg Urine Ketones Negative Urine Blood Small Urine Nitrate Negative Urine Bilirubin Negative Urine Urobilinogen 0.2-1.0 Ur Leukocyte Esterase Neg Urine RBC (Auto) 4 H Urine Microscopic WBC 1 Ur Squamous Epith Cells < 1 08/03/18 04:25 WBC RBC Hgb Hct MCV MCH MCHC RDW Plt Count MPV Neut % (Auto) Lymph % (Auto) [place] % (Auto) Eos % (Auto) Baso % (Auto) Neut # (Auto) Lymph # (Auto) [place] # (Auto) Eos # (Auto) Baso # (Auto) Neutrophils % (Manual) Band Neutrophils % Lymphocytes % (Manual) Monocytes % (Manual) Eosinophils % (Manual) Platelet Estimate Large Platelets Polychromasia Hypochromasia (manual) Poikilocytosis (manual Anisocytosis (manual) Microcytosis (manual) Ovalocytes PT INR APTT pO2 VBG pH VBG pCO2 VBG HCO3 VBG Total CO2 VBG O2 Sat (Calc) VBG Base Excess VBG Potassium Sodium 131 L Chloride 96 L Glucose Lactate FiO2 Potassium 4.1 Carbon Dioxide 25 Anion Gap 14 BUN 14 Creatinine 0.5 L Est GFR ( Amer) > 60 Est GFR (Non-Af Amer) > 60 Random Glucose 119 H Calcium 8.2 L Phosphorus Magnesium Total Bilirubin 0.7 AST 29 ALT 54 Alkaline Phosphatase 126 NT-Pro-B Natriuret Pep Total Protein 5.9 L Albumin 3.0 L Globulin 2.9 Albumin/Globulin Ratio 1.1 Venous Blood Potassium Urine Color Urine Clarity Urine pH Ur Specific [place] Urine Protein Urine Glucose (UA) Urine Ketones Urine Blood Urine Nitrate Urine Bilirubin Urine Urobilinogen Ur Leukocyte Esterase Urine RBC (Auto) Urine Microscopic WBC Ur Squamous Epith Cells Assessment & Plan - Assessment and Plan (Free Text) Assessment: 62M w/ recurrent pleural effusions Plan: - Obtain CT scan of Chest w/ Contrast - Pulm function tests - Recommend Pulm Consult - Recommend ID consult - plan for VATS early next week - will need medical optimzation and clearance - discussed w/ Dr. Escoto Thoracic Surgery Attending PGY2
[2018-08-03] MEDS ORDERED: Magnesium Hydroxide Susp 30 ml UD PO PRN (11:29)
[2018-08-03] MEDS ORDERED: Sodium Chloride 0.9% 50 ML IV ONE (13:14)
[2018-08-03] MEDS ORDERED: Iohexol 300 100 ML IJ ONE (13:14)
--- NOTE | 2018-08-03 13:48 | CT ---
Date of service: 08/03/2018 PROCEDURE: CT Chest with contrast HISTORY: Recurrent Pleural Effusion Relevant interventional procedure(s): Bilateral thoracentesis. 1.8 L of fluid removed from left pleural space. 80 mL removed from the right pleural space. COMPARISON: 07/17/2018 CT thorax TECHNIQUE: Contiguous axial images were obtained through the chest with intravenous contrast enhancement. Sagittal and coronal reconstructions were performed. IV contrast: 95 cc Omnipaque 300. Radiation dose: Total exam DLP = 249.18 mGy-cm. This CT exam was performed using one or more of the following dose reduction techniques: Automated exposure control, adjustment of the mA and/or kV according to patient size, and/or use of iterative reconstruction technique. FINDINGS: LUNGS: Progressive compressive atelectasis related to bilateral pleural effusions. MEDIASTINUM: Unremarkable thoracic aorta. No aneurysm or dissection. Normal sized heart. Main pulmonary artery unremarkable. No vascular congestion. No lymphadenopathy. No aortic atherosclerotic calcification or mural plaque present. PLEURA: Modest interval increase in left pleural effusion. Substantial interval increase in right pleural effusion. BONES: No fracture. No destructive lesion. UPPER ABDOMEN: No significant interval change compared to the prior examination(s). OTHER FINDINGS: None. IMPRESSION: Increasing bilateral pleural effusions. Commensurate increase in compressive atelectasis primarily affecting both lower lobes. Stable small pericardial effusion.
--- NOTE | 2018-08-03 15:32 | CP.PCM.PN ---
Subjective - Date & Time of Evaluation Date of Evaluation: 08/03/18 Time of Evaluation: 15:13 - Subjective Subjective: Reason for consultation: bilateral recurrent plural effusions/ Requested by Dr. Riddle. Pt s/e, progress notes reviewed as well as imaging studies. 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 assoc with sob. Previous pleural fluid analysis is non- diagnostic. CT of chest today: large bilat pleural effusions and compressive atelectasis. Dr. Riddle and I formulalted the following treatment pathway: 1. Thoracentesis ,. both chest to dry and fluids for pH, glucose, albumin, protein, LDH . amylase, triglycerudes, cholesterol, and cytology and diff cell counts, Gram stain, roultine c and s, and afb and fungus.2. Bronchoscopy by Dr. Riddle, and 3. VATS bx lung and pleura + pleurodesis. I have dicussed the treatment plan with the pt who agreed to udergo above procedures. d/w ADULT MINISTRIES DIRECTOR who will coordinate overall treatment plan. a/P: Recurrent bilateral pleural effusions, and sob. Compressive atelectsis of both lung. IR for thoracenteses to dry, and send the fluid out for annalysis Bronchoscopy by Dr Riddle. VATS bx pleura and lung and pleurodesis next week. Objective - Vital Signs/Intake and Output Vital Signs (last 24 hours): Temp Pulse Resp BP Pulse Ox 100.5 F H 104 H 20 115/76 98 08/03/18 12:10 08/03/18 11:50 08/03/18 11:50 08/03/18 11:50 08/03/18 11:50 - Medications Medications: Current Medications Acetaminophen (Tylenol 325mg Tab) 650 mg PO Q4 PRN PRN Reason: Pain, moderate (4-7) Acetaminophen (Tylenol 325mg Tab) 650 mg PO Q4 PRN PRN Reason: Fever >100.4 F Last Admin: 08/03/18 12:10 Dose: 650 mg Acetaminophen (Tylenol 325mg Tab) 650 mg PO Q6 PRN PRN Reason: Fever >100.4 F Albuterol/Ipratropium (Duoneb 3 Mg/0.5 Mg (3 Ml) Ud) 3 ml INH RQ4 PRN PRN Reason: Shortness of Breath Last Admin: 08/02/18 22:02 Dose: 3 ml Amlodipine Besylate (Norvasc) 10 mg PO DAILY [facility] Last Admin: 08/03/18 08:59 Dose: 10 mg Aspirin (Ecotrin) 81 mg PO DAILY [facility] Last Admin: 08/03/18 08:59 Dose: 81 mg Furosemide (Lasix) 20 mg PO DAILY [facility] Last Admin: 08/03/18 08:59 Dose: 20 mg Vancomycin HCl 1 gm/ Sodium (Chloride) 250 mls @ 166.667 mls/hr IVPB Q12 [facility] Last Admin: 08/03/18 10:52 Dose: 166.667 mls/hr Losartan Potassium (Cozaar) 100 mg PO DAILY [facility] Last Admin: 08/03/18 08:59 Dose: 100 mg Magnesium Hydroxide (Milk Of Magnesia) 30 ml PO Q72H PRN PRN Reason: Constipation Pantoprazole Sodium (Protonix Ec Tab) 40 mg PO DAILY [facility] Last Admin: 08/03/18 08:58 Dose: 40 mg - Labs Labs: 08/03/18 04:25 08/03/18 04:25 PT 16.9 Seconds (9.8-13.1) H 08/02/18 21:01 INR 1.5 08/02/18 21:01 APTT 40.0 Seconds (25.6-37.1) H 08/02/18 21:01
--- NOTE | 2018-08-03 15:44 | CON ---
DATE: 08/03/2018 HISTORY OF PRESENT ILLNESS: Mr. King is a 62-year-old male, who was admitted via the emergency room because of shortness of breath and recurrent pleural effusion. He is status post thoracentesis x2 in the past several weeks and then was discharged to Subacute Care, but indicates that for the past 48 hours he had swelling of legs, shortness of breath, exercise intolerance and he was brought back to the hospital for evaluation and therapy. He was noted to have recurrent pleural effusion and white count was elevated. He was therefore admitted for workup and therapy. PAST MEDICAL HISTORY: Remarkable for anemia, hypertension, chest pain that required cardiac evaluation, which included cardiac catheterization, which was nonrevealing. He also has had 2 episodes of thoracentesis with exudative pleural effusion, but all cultures and cytology were negative. He also has a history of chronic alcoholism. FAMILY HISTORY: Nonrevealing. SOCIAL HISTORY: He indicates that he drinks heavily, does not smoke, does not use drugs. REVIEW OF SYSTEMS: Essentially remarkable for recurrent shortness of breath and exercise intolerance. PHYSICAL EXAMINATION: GENERAL: The patient is alert and oriented, appears to be in some distress because of shortness of breath. VITAL SIGNS: Stable. HEENT: Mouth shows fair hygiene. LUNGS: Dullness bilaterally over both lung bases, left worse than right. HEART: Regular. ABDOMEN: Soft, nontender. No organomegaly. EXTREMITIES: There is 2+ pitting pedal edema. CENTRAL NERVOUS SYSTEM: Grossly intact. LABORATORY DATA: Reviewed shows leukocytosis with a WBC of 24.8, hemoglobin 10.2, and platelet count 610,000. Sodium 128, potassium 4.3, BUN 17, creatinine 0.6, and serum glucose 139. Chest x-ray shows bilateral pleural effusions, left greater than right. IMPRESSION: Progressively worsening shortness of breath secondary to pleural effusion. Etiology of pleural effusion is still to be determined. History of chronic alcoholism, hyponatremia, leukocytosis probably indicating infection in the pleural cavity. PLAN: The plan would be instead of interventional radiology for repeating thoracentesis, we will request thoracic surgery intervention for possible VATS procedure and pleural biopsy to attempt to determine etiology of recurrent pleural effusion. We will use BiPAP at night and oxygen via nasal cannula during the day. We will also give the patient low-dose diuretics. It would be prudent to obtain endocrine or nephrology intervention regarding hyponatremia. We will continue to follow with you. We will discuss the case with . Walter Riddle MD
--- NOTE | 2018-08-03 16:44 | CP.PCM.CON ---
History of Present Illness - History of Present Illness History of Present Illness: 62 year old male with Hx of HTN is admitted to [facility] with increased SOB and fever with recurrent bilateral effusions and wtelectasis He was originally admitted to for chest pain whre ACS was ruled out and cardiac cath was negative He was later re-admitted to 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 ( [employer] ) Allergies: NKA Review of Systems - Review of Systems All systems: reviewed and no additional remarkable complaints except - Constitutional Constitutional: As Per HPI - EENT Eyes: absent: As Per HPI, Blind Spots, Blurred Vision, Change in Vision, Decreased Night Vision, Diplopia, Discharge, Dry Eye, Exophthalmos, Floaters, Irritation, Itchy Eyes, Loss of Peripheral Vision, Pain, Photophobia, Requires Corrective Lenses, Sees Flashes, Spots in Vision, Tunnel Vision, Other Visual Disturbances, Loss of Vision, Other Ears: absent: As Per HPI, Decreased Hearing, Ear Discharge, Ear Pain, Tinnitus, Abnormal Hearing, Disequilibrium, Dizziness, Other Nose/Mouth/Throat: absent: As Per HPI, Epistaxis, Nasal Congestion, Nasal Discharge, Nasal Obstruction, Nasal Trauma, Nose Pain, Post Nasal Drip, Sinus Pain, Sinus Pressure, Bleeding Gums, Change in Voice, Dental Pain, Dry Mouth, Dysphagia, Halitosis, Hoarsness, Lip Swelling, Mouth Lesions, Mouth Pain, Odynophagia, Sore Throat, Throat Swelling, Tongue Swelling, Facial Pain, Neck Pain, Neck Mass, Other - Cardiovascular Cardiovascular: As Per HPI - Respiratory Respiratory: As Per HPI, Cough, Dyspnea, Dyspnea on Exertion. absent: Hemoptysis - Gastrointestinal Gastrointestinal: As Per HPI - Genitourinary Genitourinary: absent: As Per HPI, Change in Urinary Stream, Difficulty U rinating, Dysuria, Flank Pain, Hematuria, Pyuria, Nocturia, Urinary Incontinence, Urinary Frequency, Urinary Hesitance, Urinary Urgency, Voiding Freq/Small Amts, Freq UTI, Hx Renal/Bladder Calculi, Hx /Renal Surgery, Bladder Distension, Other - Musculoskeletal Musculoskeletal: As Per HPI - Integumentary Integumentary: As Per HPI - Neurological Neurological: absent: As Per HPI, Abnormal Gait, Abnormal Hearing, Abnormal Movements, Abnormal Speech, Behavioral Changes, Burning Sensations, Confusion, Convulsions, Disequilibrium, Dizziness, Numbness, Focal Weakness, Frequent Falls , Headaches, Lack of Coordination, Loss of Vision, Memory Loss, Paresthesias, Radicular Pain, Restless Legs, Sensory Deficit, Syncope, Tingling, Tremor, Vertigo, Weakness, Other Visual Disturbances, Other - Psychiatric Psychiatric: absent: As Per HPI, Abnormal Sleep Pattern, Anhedonia, Anxiety, Auditory Hallucinations, Behavioral Changes, Change in Appetite, Change in Libido, Confusion, Depression, Difficulty Concentrating, Hallucinations, Homicidal Ideation, Hopelessness, Irritability, Memory Loss, Mood Swings, Panic Attacks, Paranoia, Suicidal Ideation, Visual Hallucinations, Tactile Hallucinations, Other - Endocrine Endocrine: absent: As Per HPI, Change in Body Appearance, Change in Libido, Cold Intolorance, Deepening of Voice, Excessive Sweating, Fatigue, Flushing, Heat Intolorance, Increase in Ring/Shoe/Hat Size, Palpitations, Polydipsia, Polyphagia, Polyuria, Other - Hematologic/Lymphatic Hematologic: As Per HPI Additional comments: Leg edema + Past Patient History - Past Medical History & Family History Past Medical History?: Yes - Past Social History Smoking Status: Never Smoked - CARDIAC Hx Hypertension: Yes - PULMONARY Hx Respiratory Disorders: Yes - NEUROLOGICAL Hx Transient Ischemic Attacks (TIA): No - HEENT Hx HEENT Problems: No - RENAL Hx Chronic Kidney Disease: No - ENDOCRINE/METABOLIC Hx Endocrine Disorders: No - HEMATOLOGICAL/ONCOLOGICAL Hx Anemia: Yes Hx Human Immunodeficiency Virus (HIV): No - INTEGUMENTARY Hx Dermatological Problems: No - MUSCULOSKELETAL/RHEUMATOLOGICAL Hx Musculoskeletal Disorders: No Hx Falls: No - GASTROINTESTINAL Hx Gastrointestinal Disorders: Yes Hx Gastroesophageal Reflux: Yes Other/Comment: Hx Esophagitis. GIB - GENITOURINARY/GYNECOLOGICAL Hx Genitourinary Disorders: No - PSYCHIATRIC Hx Psychophysiologic Disorder: Yes (alcohol abuse) Hx Substance Use: No - SURGICAL HISTORY Hx Appendectomy: Yes - ANESTHESIA Hx Anesthesia: Yes Hx Anesthesia Reactions: No Hx Malignant Hyperthermia: No Meds Allergies/Adverse Reactions: Allergies Allergy/AdvReac Type Severity Reaction Status Date / Time No Known Allergies Allergy Verified 08/02/18 20:12 - Medications Medications: Current Medications Acetaminophen (Tylenol 325mg Tab) 650 mg PO Q4 PRN PRN Reason: Pain, moderate (4-7) Acetaminophen (Tylenol 325mg Tab) 650 mg PO Q6 PRN PRN Reason: Fever >100.4 F Albuterol/Ipratropium (Duoneb 3 Mg/0.5 Mg (3 Ml) Ud) 3 ml INH RQ4 PRN PRN Reason: Shortness of Breath Last Admin: 08/02/18 22:02 Dose: 3 ml Amlodipine Besylate (Norvasc) 10 mg PO DAILY [facility] Last Admin: 08/03/18 08:59 Dose: 10 mg Aspirin (Ecotrin) 81 mg PO DAILY [facility] Last Admin: 08/03/18 08:59 Dose: 81 mg Furosemide (Lasix) 20 mg PO DAILY [facility] Last Admin: 08/03/18 08:59 Dose: 20 mg Vancomycin HCl 1 gm/ Sodium (Chloride) 250 mls @ 166.667 mls/hr IVPB Q12 [facility] Last Admin: 08/03/18 10:52 Dose: 166.667 mls/hr Losartan Potassium (Cozaar) 100 mg PO DAILY [facility] Last Admin: 08/03/18 08:59 Dose: 100 mg Magnesium Hydroxide (Milk Of Magnesia) 30 ml PO Q72H PRN PRN Reason: Constipation Pantoprazole Sodium (Protonix Ec Tab) 40 mg PO DAILY [facility] Last Admin: 08/03/18 08:58 Dose: 40 mg Physical Exam - Constitutional Appears: No Acute Distress, Chronically Ill - Head Exam Head Exam: ATRAUMATIC, NORMOCEPHALIC - Eye Exam Eye Exam: absent: Scleral icterus - ENT Exam ENT Exam: Mucous Membranes Dry, Normal External Ear Exam, Normal Oropharynx - Neck Exam Neck exam: Negative for: Lymphadenopathy - Respiratory Exam Respiratory Exam: Decreased Breath Sounds, Prolonged Expiratory Phase Additional comments: Bronchial Breath sounds right base and dullness Left base - Cardiovascular Exam Cardiovascular Exam: REGULAR RHYTHM, +S1, +S2 - GI/Abdominal Exam GI & Abdominal Exam: Diminished Bowel Sounds, Soft. absent: Tenderness - Rectal Exam Rectal Exam: Deferred - Exam Exam: NORMAL INSPECTION - Extremities Exam Extremities exam: Positive for: pedal edema, pedal pulses present. Negative for: calf tenderness, tenderness - Back Exam Back exam: absent: CVA tenderness (L), CVA tenderness (R) - Neurological Exam Neurological exam: Alert, CN II-XII Intact, Oriented x3, Reflexes Normal - Psychiatric Exam Psychiatric exam: Normal Mood - Skin Skin Exam: Dry Results - Vital Signs Recent Vital Signs: Last Vital Signs Temp 97.6 F 08/03/18 15:46 Pulse 105 H 08/03/18 15:46 Resp 18 08/03/18 15:46 BP 124/67 08/03/18 15:46 Pulse Ox 98 08/03/18 15:46 - Labs Result Diagrams: 08/03/18 04:25 08/03/18 04:25 Labs: Laboratory Results - last 24 hr 08/02/18 08/02/18 08/02/18 20:40 21:01 21:01 WBC 24.8 H D RBC 3.63 L Hgb 10.2 L Hct 30.3 L MCV 83.6 MCH 28.1 MCHC 33.6 RDW 16.1 H Plt Count 610 H D MPV 6.2 L Neut % (Auto) 85.3 H Lymph % (Auto) 6.6 L [place] % (Auto) 7.3 Eos % (Auto) 0.2 Baso % (Auto) 0.6 Neut # (Auto) 21.2 H Lymph # (Auto) 1.6 [place] # (Auto) 1.8 H Eos # (Auto) 0.1 Baso # (Auto) 0.1 Neutrophils % (Manual) 80 H Band Neutrophils % 1 Lymphocytes % (Manual) 9 L Monocytes % (Manual) 9 Eosinophils % (Manual) 1 Platelet Estimate Increased H Large Platelets Present Polychromasia Slight Hypochromasia (manual) Slight Poikilocytosis (manual Slight Anisocytosis (manual) Moderate Microcytosis (manual) Slight Ovalocytes Slight PT INR APTT pO2 30 VBG pH 7.41 VBG pCO2 43 VBG HCO3 25.6 VBG Total CO2 28.6 H VBG O2 Sat (Calc) 63.7 VBG Base Excess 2.2 H VBG Potassium 4.1 Sodium 126.0 L 128 L Chloride 94.0 L 91 L Glucose 140 H Lactate 1.1 FiO2 21.0 Potassium 4.3 Carbon Dioxide 26 Anion Gap 15 BUN 17 Creatinine 0.6 L Est GFR ( Amer) > 60 Est GFR (Non-Af Amer) > 60 Random Glucose 139 H Calcium 8.7 Phosphorus 3.3 Magnesium 2.0 Total Bilirubin 0.6 AST 35 ALT 60 Alkaline Phosphatase 120 NT-Pro-B Natriuret Pep 1200 H Total Protein 6.3 Albumin 3.3 L Globulin 3.0 Albumin/Globulin Ratio 1.1 Venous Blood Potassium 4.1 Urine Color Urine Clarity Urine pH Ur Specific [place] Urine Protein Urine Glucose (UA) Urine Ketones Urine Blood Urine Nitrate Urine Bilirubin Urine Urobilinogen Ur Leukocyte Esterase Urine RBC (Auto) Urine Microscopic WBC Ur Squamous Epith Cells 08/02/18 08/02/18 08/03/18 21:01 22:00 04:25 WBC 22.4 H RBC 3.41 L Hgb 9.4 L Hct 28.8 L MCV 84.3 MCH 27.6 MCHC 32.8 L RDW 15.9 H Plt Count 597 H MPV 6.4 L Neut % (Auto) 88.3 H Lymph % (Auto) 4.4 L [place] % (Auto) 6.4 Eos % (Auto) 0.4 Baso % (Auto) 0.5 Neut # (Auto) 19.8 H Lymph # (Auto) 1.0 [place] # (Auto) 1.4 H Eos # (Auto) 0.1 Baso # (Auto) 0.1 Neutrophils % (Manual) Band Neutrophils % Lymphocytes % (Manual) Monocytes % (Manual) Eosinophils % (Manual) Platelet Estimate Large Platelets Polychromasia Hypochromasia (manual) Poikilocytosis (manual Anisocytosis (manual) Microcytosis (manual) Ovalocytes PT 16.9 H INR 1.5 APTT 40.0 H pO2 VBG pH VBG pCO2 VBG HCO3 VBG Total CO2 VBG O2 Sat (Calc) VBG Base Excess VBG Potassium Sodium Chloride Glucose Lactate FiO2 Potassium Carbon Dioxide Anion Gap BUN Creatinine Est GFR ( Amer) Est GFR (Non-Af Amer) Random Glucose Calcium Phosphorus Magnesium Total Bilirubin AST ALT Alkaline Phosphatase NT-Pro-B Natriuret Pep Total Protein Albumin Globulin Albumin/Globulin Ratio Venous Blood Potassium Urine Color Yellow Urine Clarity Clear Urine pH 6.0 Ur Specific [place] 1.017 Urine Protein 30 Urine Glucose (UA) Neg Urine Ketones Negative Urine Blood Small Urine Nitrate Negative Urine Bilirubin Negative Urine Urobilinogen 0.2-1.0 Ur Leukocyte Esterase Neg Urine RBC (Auto) 4 H Urine Microscopic WBC 1 Ur Squamous Epith Cells < 1 08/03/18 04:25 WBC RBC Hgb Hct MCV MCH MCHC RDW Plt Count MPV Neut % (Auto) Lymph % (Auto) [place] % (Auto) Eos % (Auto) Baso % (Auto) Neut # (Auto) Lymph # (Auto) [place] # (Auto) Eos # (Auto) Baso # (Auto) Neutrophils % (Manual) Band Neutrophils % Lymphocytes % (Manual) Monocytes % (Manual) Eosinophils % (Manual) Platelet Estimate Large Platelets Polychromasia Hypochromasia (manual) Poikilocytosis (manual Anisocytosis (manual) Microcytosis (manual) Ovalocytes PT INR APTT pO2 VBG pH VBG pCO2 VBG HCO3 VBG Total CO2 VBG O2 Sat (Calc) VBG Base Excess VBG Potassium Sodium 131 L Chloride 96 L Glucose Lactate FiO2 Potassium 4.1 Carbon Dioxide 25 Anion Gap 14 BUN 14 Creatinine 0.5 L Est GFR ( Amer) > 60 Est GFR (Non-Af Amer) > 60 Random Glucose 119 H Calcium 8.2 L Phosphorus Magnesium Total Bilirubin 0.7 AST 29 ALT 54 Alkaline Phosphatase 126 NT-Pro-B Natriuret Pep Total Protein 5.9 L Albumin 3.0 L Globulin 2.9 Albumin/Globulin Ratio 1.1 Venous Blood Potassium Urine Color Urine Clarity Urine pH Ur Specific [place] Urine Protein Urine Glucose (UA) Urine Ketones Urine Blood Urine Nitrate Urine Bilirubin Urine Urobilinogen Ur Leukocyte Esterase Urine RBC (Auto) Urine Microscopic WBC Ur Squamous Epith Cells Assessment & Plan (1) Hyponatremia Status: Acute (2) Pleural effusion Status: Acute (3) Sepsis Status: Acute (4) Ascites Status: Acute (5) Chest pain Status: Acute (6) ETOH abuse Status: Acute (7) Leukocytosis Status: Acute (8) Pleural effusion associated with pulmonary infection Status: Acute Priority: High - Assessment and Plan (Free Text) Assessment: 62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 assoc with sob. Previous pleural fluid analysis is non-diagnostic. CT of chest today: large bilat pleural effusions and compressive atelectasis. Plan is for thoracentesis, Bronchoscopy, VATS - r/o malignancy vs infection cont IV antibiotics
--- NOTE | 2018-08-03 17:00 | CP.PCM.PCO ---
Physician Communication Note - Physician Communication Note Physician Communication Note: please send ADA from pleural cavity as well as AFB
[2018-08-03] MEDS ORDERED: Tuberculin 5 Units/0.1 ml Inj ID ONE (18:00)
[2018-08-03] MEDS: Albuterol-Ipratrop 3 mg / 0.5 (3 ml) UD INH PRN (23:35)
[2018-08-04 05:31] LABS: MEAN CELL VOLUME 84.1 fl (80.0-94.0); MEAN CORPUSCULAR HEMOGLOBIN 27.5 pg (27.0-31.0); MEAN CORPUSCULAR HGB CONC 32.7 g/dL (33.0-37.0); RBC 3.29 Mil/uL (4.40-5.90); RED CELL DISTRIBUTION WIDTH 15.9 % (11.5-14.5); WHITE BLOOD COUNT 21.3 K/uL (4.8-10.8)
[2018-08-04 05:51] LABS: ALBUMIN 2.9 g/dL (3.5-5.0); ALT/SGPT 58 U/L (21-72); AST/SGOT 45 U/L (17-59); BLOOD UREA NITROGEN 17 mg/dl (9-20); CALCIUM 8.3 mg/dL (8.4-10.2); GFR NON-AFRICAN AMERICAN > 60
--- NOTE | 2018-08-04 07:40 | CP.PCM.PN ---
Subjective - Date & Time of Evaluation Date of Evaluation: 08/04/18 Time of Evaluation: 07:38 - Subjective Subjective: Thoracic Surgery Progress Note- Dr. Escoto Patient on BiPAP overnight. this AM 4L nasal canula. Audible wheezing saturating 97%. Changed back to BiPAP for comfort. NPO for IR Thoracentesis today. Denies nausea, vomiting, fevers, chills. Objective - Vital Signs/Intake and Output Vital Signs (last 24 hours): Temp Pulse Resp BP Pulse Ox 98.4 F 103 H 20 121/89 96 08/04/18 05:09 08/04/18 06:00 08/04/18 05:09 08/04/18 05:09 08/04/18 05:09 - Medications Medications: Current Medications Acetaminophen (Tylenol 325mg Tab) 650 mg PO Q4 PRN PRN Reason: Pain, moderate (4-7) Acetaminophen (Tylenol 325mg Tab) 650 mg PO Q6 PRN PRN Reason: Fever >100.4 F Last Admin: 08/04/18 02:08 Dose: 650 mg Albuterol/Ipratropium (Duoneb 3 Mg/0.5 Mg (3 Ml) Ud) 3 ml INH RQ4 PRN PRN Reason: Shortness of Breath Last Admin: 08/03/18 23:35 Dose: 3 ml Amlodipine Besylate (Norvasc) 10 mg PO DAILY [facility] Last Admin: 08/03/18 08:59 Dose: 10 mg Aspirin (Ecotrin) 81 mg PO DAILY [facility] Last Admin: 08/03/18 08:59 Dose: 81 mg Furosemide (Lasix) 20 mg PO DAILY [facility] Last Admin: 08/03/18 08:59 Dose: 20 mg Vancomycin HCl 1 gm/ Sodium (Chloride) 250 mls @ 166.667 mls/hr IVPB Q12 [facility] Last Admin: 08/03/18 21:36 Dose: 166.667 mls/hr Losartan Potassium (Cozaar) 100 mg PO DAILY [facility] Last Admin: 08/03/18 08:59 Dose: 100 mg Magnesium Hydroxide (Milk Of Magnesia) 30 ml PO Q72H PRN PRN Reason: Constipation Pantoprazole Sodium (Protonix Ec Tab) 40 mg PO DAILY [facility] Last Admin: 08/03/18 08:58 Dose: 40 mg - Labs Labs: 08/04/18 05:05 08/04/18 05:05 PT 16.9 Seconds (9.8-13.1) H 08/02/18 21:01 INR 1.5 08/02/18 21:01 APTT 40.0 Seconds (25.6-37.1) H 08/02/18 21:01 - Constitutional Appears: Non-toxic, No Acute Distress - Head Exam Head Exam: ATRAUMATIC - Eye Exam Eye Exam: EOMI. absent: Scleral icterus - ENT Exam ENT Exam: Mucous Membranes Moist - Respiratory Exam Respiratory Exam: Decreased Breath Sounds (LLL), Wheezes, Respiratory Distress. absent: Accessory Muscle Use, Chest Wall Tenderness - Cardiovascular Exam Cardiovascular Exam: REGULAR RHYTHM. absent: Bradycardia, Tachycardia - GI/Abdominal Exam GI & Abdominal Exam: Soft. absent: Distended, Firm, Guarding, Rigid, Tenderness - Neurological Exam Neurological Exam: Alert, Awake, Oriented x3 - Skin Skin Exam: Intact, Warm Assessment and Plan - Assessment and Plan (Free Text) Assessment: 62M w/ Bilateral Pleural Effusions Plan: - Thoracentesis today w/ IR; cultures and cytology - maintain O2 Saturation > 88% - f/u Pulm Consult - c/w Abx - further recs per Dr. Escoto Thoracic Surgery Attending PGY2
[2018-08-04] MEDS: Pantoprazole 40 mg EC Tab PO SCH (08:56)
[2018-08-04] MEDS: Albuterol-Ipratrop 3 mg / 0.5 (3 ml) UD INH PRN ×2 (09:26→13:30)
--- NOTE | 2018-08-04 11:59 | CP.PCM.PN ---
Subjective - Date & Time of Evaluation Date of Evaluation: 08/04/18 Time of Evaluation: 11:59 - Subjective Subjective: STILL DYSPNEIC ON MILD EXERTION CASE DISCUSSED WITH THORACIC SURGEON--HE WANTS BRONCHOSCOPIC EVALUATION OF AIRWAYS BEFORE VATS PROCEDURE Objective - Vital Signs/Intake and Output Vital Signs (last 24 hours): Temp Pulse Resp BP Pulse Ox 97.6 F 92 H 20 124/89 100 08/04/18 07:57 08/04/18 11:30 08/04/18 07:57 08/04/18 08:56 08/04/18 07:57 - Medications Medications: Current Medications Acetaminophen (Tylenol 325mg Tab) 650 mg PO Q4 PRN PRN Reason: Pain, moderate (4-7) Acetaminophen (Tylenol 325mg Tab) 650 mg PO Q6 PRN PRN Reason: Fever >100.4 F Last Admin: 08/04/18 02:08 Dose: 650 mg Albuterol/Ipratropium (Duoneb 3 Mg/0.5 Mg (3 Ml) Ud) 3 ml INH RQ4 PRN PRN Reason: Shortness of Breath Last Admin: 08/04/18 09:26 Dose: 3 ml Amlodipine Besylate (Norvasc) 10 mg PO DAILY [facility] Last Admin: 08/04/18 08:56 Dose: 10 mg Aspirin (Ecotrin) 81 mg PO DAILY [facility] Last Admin: 08/04/18 09:12 Dose: Not Given Furosemide (Lasix) 20 mg PO DAILY [facility] Last Admin: 08/04/18 08:55 Dose: 20 mg Vancomycin HCl 1 gm/ Sodium (Chloride) 250 mls @ 166.667 mls/hr IVPB Q12 [facility] Last Admin: 08/04/18 09:05 Dose: 166.667 mls/hr Losartan Potassium (Cozaar) 100 mg PO DAILY [facility] Last Admin: 08/04/18 08:54 Dose: 100 mg Magnesium Hydroxide (Milk Of Magnesia) 30 ml PO Q72H PRN PRN Reason: Constipation Pantoprazole Sodium (Protonix Ec Tab) 40 mg PO DAILY [facility] Last Admin: 08/04/18 08:56 Dose: 40 mg - Labs Labs: 08/04/18 05:05 08/04/18 05:05 PT 16.9 Seconds (9.8-13.1) H 08/02/18 21:01 INR 1.5 08/02/18 21:01 APTT 40.0 Seconds (25.6-37.1) H 08/02/18 21:01 - Constitutional Appears: Chronically Ill - Head Exam Head Exam: ATRAUMATIC, NORMAL INSPECTION, NORMOCEPHALIC - Eye Exam Eye Exam: EOMI, Normal appearance, PERRL Pupil Exam: NORMAL ACCOMODATION, PERRL - ENT Exam ENT Exam: Mucous Membranes Moist, Normal Exam - Neck Exam Neck Exam: Full ROM, Normal Inspection. absent: Lymphadenopathy - Respiratory Exam Respiratory Exam: Decreased Breath Sounds, Prolonged Expiratory Phase, Rales Additional comments: ON BIPAP - Cardiovascular Exam Cardiovascular Exam: REGULAR RHYTHM, +S1, +S2. absent: Murmur - GI/Abdominal Exam GI & Abdominal Exam: Soft, Normal Bowel Sounds. absent: Tenderness - Rectal Exam Rectal Exam: NORMAL INSPECTION - Extremities Exam Extremities Exam: Full ROM, Normal Capillary Refill, Normal Inspection. absent: Joint Swelling, Pedal Edema - Back Exam Back Exam: NORMAL INSPECTION - Neurological Exam Neurological Exam: Alert, Awake, CN II-XII Intact, Normal Gait, Oriented x3 - Psychiatric Exam Psychiatric exam: Normal Affect, Normal Mood - Skin Skin Exam: Dry, Intact, Normal Color, Warm Assessment and Plan - Assessment and Plan (Free Text) Assessment: RECURRENT PLEURAL EFFUSION--R/O MALIGNANCY/INFECTION Plan: IR FOR THORACENTESES TODAY PLAN BRONCHOSCOPY NEXT WEEK
--- NOTE | 2018-08-04 12:08 | PN ---
DATE: 08/04/2018 SUBJECTIVE: The patient is sitting in chair, sleeping, easily arousable, on BiPAP as he feels more comfortable on this at this time. He is for thoracentesis today. Consults are reviewed. The patient is for VATS on Tuesday. CT chest yesterday demonstrated pleural effusions. The patient is in no distress. Labs are noted. REVIEW OF SYSTEMS: Shortness of breath, wheezing. PHYSICAL EXAMINATION: CONSTITUTIONAL: Awake, alert and oriented. HEENT: Normal. CARDIAC: S1 and S2. Regular rate and rhythm. No murmurs, rubs or gallops. LUNGS: Diminished in the bases; otherwise clear, on BiPAP. No respiratory distress is noted. ABDOMEN: Soft and nontender. Bowel sounds x4. EXTREMITIES: Distal pulses and motor sensation is intact. Cap refill is brisk. There is 2+ edema noted at this time. DIAGNOSIS AND PLAN: Pleural effusions, recurrent. Bilevel positive airway pressure for supportive care. Pulmonary and Cardiothoracic Surgery consult for thoracentesis today. Video-assisted thoracoscopic surgery procedure on Tuesday. Imaging is appreciated and we will continue to monitor inpatient. Sepsis, continue antibiotic. Continue Infectious Disease consult. Deep venous thrombosis prophylaxis, sequential compression devices, antiembolism hose. Hold anticoagulation at this time for surgical procedure. We will follow with this patient closely. RASHAD Nesbitt
--- NOTE | 2018-08-04 13:45 | CP.PCM.PN ---
Subjective - Date & Time of Evaluation Date of Evaluation: 08/04/18 Time of Evaluation: 09:00 - Subjective Subjective: events noted afebrile Labs cultures imaging and notes reviewed Objective - Vital Signs/Intake and Output Vital Signs (last 24 hours): Temp Pulse Resp BP Pulse Ox 97.9 F 123 H 22 130/88 97 08/04/18 12:39 08/04/18 12:39 08/04/18 12:39 08/04/18 12:39 08/04/18 12:39 - Medications Medications: Current Medications Acetaminophen (Tylenol 325mg Tab) 650 mg PO Q4 PRN PRN Reason: Pain, moderate (4-7) Acetaminophen (Tylenol 325mg Tab) 650 mg PO Q6 PRN PRN Reason: Fever >100.4 F Last Admin: 08/04/18 02:08 Dose: 650 mg Albuterol/Ipratropium (Duoneb 3 Mg/0.5 Mg (3 Ml) Ud) 3 ml INH RQ4 PRN PRN Reason: Shortness of Breath Last Admin: 08/04/18 13:30 Dose: 3 ml Amlodipine Besylate (Norvasc) 10 mg PO DAILY [facility] Last Admin: 08/04/18 08:56 Dose: 10 mg Aspirin (Ecotrin) 81 mg PO DAILY [facility] Last Admin: 08/04/18 09:12 Dose: Not Given Furosemide (Lasix) 20 mg PO DAILY [facility] Last Admin: 08/04/18 08:55 Dose: 20 mg Vancomycin HCl 1 gm/ Sodium (Chloride) 250 mls @ 166.667 mls/hr IVPB Q12 [facility] Last Admin: 08/04/18 09:05 Dose: 166.667 mls/hr Losartan Potassium (Cozaar) 100 mg PO DAILY [facility] Last Admin: 08/04/18 08:54 Dose: 100 mg Magnesium Hydroxide (Milk Of Magnesia) 30 ml PO Q72H PRN PRN Reason: Constipation Pantoprazole Sodium (Protonix Ec Tab) 40 mg PO DAILY [facility] Last Admin: 08/04/18 08:56 Dose: 40 mg - Labs Labs: 08/04/18 05:05 08/04/18 05:05 PT 16.9 Seconds (9.8-13.1) H 08/02/18 21:01 INR 1.5 08/02/18 21:01 APTT 40.0 Seconds (25.6-37.1) H 08/02/18 21:01 - Constitutional Appears: Non-toxic, Chronically Ill - Head Exam Head Exam: ATRAUMATIC, NORMAL INSPECTION, NORMOCEPHALIC - Eye Exam Eye Exam: EOMI, Normal appearance, PERRL Pupil Exam: NORMAL ACCOMODATION, PERRL - ENT Exam ENT Exam: Mucous Membranes Moist, Normal Exam - Neck Exam Neck Exam: Full ROM, Normal Inspection. absent: Lymphadenopathy - Respiratory Exam Respiratory Exam: Decreased Breath Sounds, Prolonged Expiratory Phase - Cardiovascular Exam Cardiovascular Exam: REGULAR RHYTHM, +S1, +S2. absent: Murmur - GI/Abdominal Exam GI & Abdominal Exam: Soft, Normal Bowel Sounds. absent: Tenderness - Rectal Exam Rectal Exam: Deferred - Exam Exam: NORMAL INSPECTION - Extremities Exam Extremities Exam: Full ROM, Normal Capillary Refill, Pedal Edema. absent: Joint Swelling, Normal Inspection - Back Exam Back Exam: NORMAL INSPECTION - Neurological Exam Neurological Exam: Alert, Awake, CN II-XII Intact, Normal Gait, Oriented x3 - Psychiatric Exam Psychiatric exam: Normal Affect, Normal Mood - Skin Skin Exam: Dry, Intact, Normal Color, Warm Assessment and Plan (1) Hyponatremia Status: Acute (2) Pleural effusion Status: Acute (3) Sepsis Status: Acute (4) Ascites Status: Acute (5) Chest pain Status: Acute (6) ETOH abuse Status: Acute (7) Leukocytosis Status: Acute (8) Pleural effusion associated with pulmonary infection Status: Acute - Assessment and Plan (Free Text) Assessment: s/p thoracentesis will obtain AFB smears quantiferon intermediate for FOB Tuesday CT surgery on board- possible VATS / lung bx / pleural bx if needed
[2018-08-04] MEDS ORDERED: Lidocaine Hydrochloride 1% 10 ML ONE (13:46)
--- NOTE | 2018-08-04 14:03 | PCM.SURG1 ---
Surgeon's Initial Post Op Note - Surgeon's Notes Surgeon: Harry Castañeda MD Payroll Technician: NONE Type of Anesthesia: Local Pre-Operative Diagnosis: Bilateral pleural effusion, dyspnea Operative Findings: US showed large left and right pleural effusions Post-Operative Diagnosis: Bilateral pleural effusion, dyspnea Operation Performed: US guided left and right thoracentesis Specimen/Specimens Removed: 2 liters straw colored fluid left, 1 liter jemal colored fluid right. Estimated Blood Loss: EBL {In ML}: 0 Blood Products Given: N/A Drains Used: No Drains Post-Op Condition: Fair Date of Surgery/Procedure: 08/04/18 Time of Surgery/Procedure: 14:00
[2018-08-04 14:12] LABS: BODY FLUID TYPE PLEURAL/THORACENTESI
--- NOTE | 2018-08-04 14:17 | RAD ---
Date of service: 08/04/2018 PROCEDURE: CHEST RADIOGRAPH, 1 VIEW HISTORY: Status post thoracentesis COMPARISON: None available. FINDINGS: LUNGS: Improved aeration of the right and left lungs following thoracentesis. PLEURA: There is no pneumothorax. Mild blunting of the right costophrenic margin left costophrenic margin consistent with residual small pleural effusion. CARDIOVASCULAR: No aortic atherosclerotic calcification present. Normal. OSSEOUS STRUCTURES: No significant abnormalities. VISUALIZED UPPER ABDOMEN: Normal. OTHER FINDINGS: None. IMPRESSION: Improved aeration of the right and left lung following thoracentesis. There is no pneumothorax.
--- NOTE | 2018-08-04 14:21 | US ---
Date of procedure: 08/04/2018 Procedure: 1. Ultrasound-guided left thoracentesis, 2. Ultrasound-guided right thoracentesis Medications: 6cc 1% Lidocaine HISTORY: Right and left pleural effusion, shortness of breath TECHNIQUE: Following informed consent, the patient's right and left chest were marked and prepped in the usual sterile fashion. Ultrasound showed a large left pleural effusion and a large right pleural effusion. After the left back was anesthetized with 1 percent lidocaine, a drainage catheter was advanced under ultrasound guidance into the left pleural space. Ultrasound-guided left thoracentesis was performed with removal 2 liters of clear yellow fluid. After the patient's right back was incised with 1 percent lidocaine, a drainage catheter was advanced into the right pleural space. 1 liter of jemal colored fluid was aspirated. The catheter was removed and a Xeroform dressing was applied. IMPRESSION: Ultrasound guided left thoracentesis with removal of 2 liters of fluid. Ultrasound-guided right thoracentesis with removal of 1 liter of fluid. There were no immediate complications.
[2018-08-04 14:35] LABS: TOTAL PROTEIN,BODY FLUID 3.6 g/dL (NONE ESTABLISHED)
[2018-08-04 14:41] LABS: AMYLASE,BODY FLUID < 30 mg/dL (NONE ESTABLISHED)
[2018-08-04 15:13] LABS: BF GROSS APPEARANCE SL CLOUDY (CLEAR)
[2018-08-04 15:29] LABS: BODY FLUID MONO/MACROPHAGE 12 % (0-0); BODY FLUID TOTAL COUNT 100 (0-0)
--- NOTE | 2018-08-05 07:41 | CP.PCM.PN ---
Subjective - Date & Time of Evaluation Date of Evaluation: 08/05/18 Time of Evaluation: 07:39 - Subjective Subjective: Thoracic Surgery Note for Dr. Escoto Patient seen and examined at bedside. Patient was using BiPAP overnight. Patient reports breathing has improved since thoracentesis. He denies wheezing, SOB, and cough. He is tolerating diet. Admits to flatus and BM. Also deneis fevers/chills. Objective - Vital Signs/Intake and Output Vital Signs (last 24 hours): Temp Pulse Resp BP Pulse Ox 97.9 F 93 H 18 109/76 100 08/05/18 05:22 08/05/18 07:29 08/05/18 05:22 08/05/18 05:22 08/05/18 05:22 - Medications Medications: Current Medications Acetaminophen (Tylenol 325mg Tab) 650 mg PO Q4 PRN PRN Reason: Pain, moderate (4-7) Acetaminophen (Tylenol 325mg Tab) 650 mg PO Q6 PRN PRN Reason: Fever >100.4 F Last Admin: 08/04/18 02:08 Dose: 650 mg Albuterol/Ipratropium (Duoneb 3 Mg/0.5 Mg (3 Ml) Ud) 3 ml INH RQ4 PRN PRN Reason: Shortness of Breath Last Admin: 08/04/18 13:30 Dose: 3 ml Amlodipine Besylate (Norvasc) 10 mg PO DAILY [facility] Last Admin: 08/04/18 08:56 Dose: 10 mg Aspirin (Ecotrin) 81 mg PO DAILY [facility] Last Admin: 08/04/18 09:12 Dose: Not Given Furosemide (Lasix) 20 mg PO DAILY [facility] Last Admin: 08/04/18 08:55 Dose: 20 mg Vancomycin HCl 1 gm/ Sodium (Chloride) 250 mls @ 166.667 mls/hr IVPB Q12 [facility] Last Admin: 08/04/18 21:19 Dose: 166.667 mls/hr Losartan Potassium (Cozaar) 100 mg PO DAILY [facility] Last Admin: 08/04/18 08:54 Dose: 100 mg Magnesium Hydroxide (Milk Of Magnesia) 30 ml PO Q72H PRN PRN Reason: Constipation Pantoprazole Sodium (Protonix Ec Tab) 40 mg PO DAILY [facility] Last Admin: 08/04/18 08:56 Dose: 40 mg - Labs Labs: 08/04/18 05:05 08/04/18 05:05 PT 16.9 Seconds (9.8-13.1) H 08/02/18 21:01 INR 1.5 08/02/18 21:01 APTT 40.0 Seconds (25.6-37.1) H 08/02/18 21:01 - Additional Findings Additional findings: - Constitutional Appears: Non-toxic, No Acute Distress - Head Exam Head Exam: ATRAUMATIC - Eye Exam Eye Exam: EOMI. absent: Scleral icterus - ENT Exam ENT Exam: Mucous Membranes Moist - Respiratory Exam Respiratory Exam: NORMAL BREATHING PATTERN No wheezing, cough, accesory muscle use or respiratory distress - Cardiovascular Exam Cardiovascular Exam: REGULAR RHYTHM. absent: Bradycardia, Tachycardia - GI/Abdominal Exam GI & Abdominal Exam: Soft. absent: Distended, Firm, Guarding, Rigid, Tenderness - Neurological Exam Neurological Exam: Alert, Awake, Oriented x3 - Skin Skin Exam: Intact, Warm Assessment and Plan - Assessment and Plan (Free Text) Assessment: 62M w/ Bilateral Pleural Effusions s/p IR thoracentesis POD#1 Plan: - f/u pleural cultures and cytology - maintain O2 Saturation > 88% - f/u Pulm recommendations - Continue Abx - Medical management as per primary team - further recs per Dr. Escoto Thoracic Surgery Attending Ronald Ruiz PGY2
--- NOTE | 2018-08-05 09:29 | CP.PCM.PN ---
Subjective - Date & Time of Evaluation Date of Evaluation: 08/05/18 Time of Evaluation: 09:29 - Subjective Subjective: S/P BILATERAL THORACENTESES SOB IMPROVED STILL ON BIPAP Objective - Vital Signs/Intake and Output Vital Signs (last 24 hours): Temp Pulse Resp BP Pulse Ox 98.2 F 97 H 20 114/80 100 08/05/18 08:31 08/05/18 08:31 08/05/18 08:31 08/05/18 08:31 08/05/18 08:31 - Medications Medications: Current Medications Acetaminophen (Tylenol 325mg Tab) 650 mg PO Q4 PRN PRN Reason: Pain, moderate (4-7) Acetaminophen (Tylenol 325mg Tab) 650 mg PO Q6 PRN PRN Reason: Fever >100.4 F Last Admin: 08/04/18 02:08 Dose: 650 mg Albuterol/Ipratropium (Duoneb 3 Mg/0.5 Mg (3 Ml) Ud) 3 ml INH RQ4 PRN PRN Reason: Shortness of Breath Last Admin: 08/04/18 13:30 Dose: 3 ml Amlodipine Besylate (Norvasc) 10 mg PO DAILY [facility] Last Admin: 08/04/18 08:56 Dose: 10 mg Aspirin (Ecotrin) 81 mg PO DAILY [facility] Last Admin: 08/04/18 09:12 Dose: Not Given Enoxaparin Sodium (Lovenox) 40 mg SC DAILY [facility]; Protocol Furosemide (Lasix) 20 mg PO DAILY [facility] Last Admin: 08/04/18 08:55 Dose: 20 mg Vancomycin HCl 1 gm/ Sodium (Chloride) 250 mls @ 166.667 mls/hr IVPB Q12 [facility] Last Admin: 08/04/18 21:19 Dose: 166.667 mls/hr Losartan Potassium (Cozaar) 100 mg PO DAILY [facility] Last Admin: 08/04/18 08:54 Dose: 100 mg Magnesium Hydroxide (Milk Of Magnesia) 30 ml PO Q72H PRN PRN Reason: Constipation Pantoprazole Sodium (Protonix Ec Tab) 40 mg PO DAILY [facility] Last Admin: 08/04/18 08:56 Dose: 40 mg - Labs Labs: 08/04/18 05:05 08/04/18 05:05 PT 16.9 Seconds (9.8-13.1) H 08/02/18 21:01 INR 1.5 08/02/18 21:01 APTT 40.0 Seconds (25.6-37.1) H 08/02/18 21:01 - Constitutional Appears: No Acute Distress - Head Exam Head Exam: ATRAUMATIC, NORMAL INSPECTION, NORMOCEPHALIC - Eye Exam Eye Exam: EOMI, Normal appearance, PERRL Pupil Exam: NORMAL ACCOMODATION, PERRL - ENT Exam ENT Exam: Mucous Membranes Moist, Normal Exam - Neck Exam Neck Exam: Full ROM, Normal Inspection. absent: Lymphadenopathy - Respiratory Exam Respiratory Exam: Decreased Breath Sounds, Rales, NORMAL BREATHING PATTERN - Cardiovascular Exam Cardiovascular Exam: REGULAR RHYTHM, +S1, +S2. absent: Murmur - GI/Abdominal Exam GI & Abdominal Exam: Soft, Normal Bowel Sounds. absent: Tenderness - Rectal Exam Rectal Exam: NORMAL INSPECTION - Extremities Exam Extremities Exam: Full ROM, Normal Capillary Refill, Normal Inspection. absent: Joint Swelling, Pedal Edema - Back Exam Back Exam: NORMAL INSPECTION - Neurological Exam Neurological Exam: Alert, Awake, CN II-XII Intact, Normal Gait, Oriented x3 - Psychiatric Exam Psychiatric exam: Normal Affect, Normal Mood - Skin Skin Exam: Dry, Intact, Normal Color, Warm Assessment and Plan - Assessment and Plan (Free Text) Assessment: BILATERAL PLEURAL EFFUSIONS-?ETIOLOGY R/O INFECTION/MALIGNANCY Plan: CONTINUE CURRENT RX BRONCHOSCOPIC EVAL OF AIRWAYS TO R/O ENDOBRONCHIAL LESION
[2018-08-05] MEDS: Enoxaparin 40 mg Syringe SC SCH (10:01)
[2018-08-05] MEDS: Pantoprazole 40 mg EC Tab PO SCH (10:02)
[2018-08-05 10:18] LABS: BASO # 0.2 K/uL (0.0-0.2); BASO % 1.1 % (0.0-2.0); EOS # 0.1 K/uL (0.0-0.7); EOS % 0.4 % (0.0-4.0); HEMOGLOBIN 9.3 g/dL (12.0-18.0); LYMPH # 1.9 K/uL (1.0-4.3); LYMPH % 12.1 % (20.0-40.0); MEAN CELL VOLUME 83.8 fl (80.0-94.0); MEAN CORPUSCULAR HEMOGLOBIN 27.1 pg (27.0-31.0); MEAN CORPUSCULAR HGB CONC 32.4 g/dL (33.0-37.0); MEAN PLATELET VOLUME 6.8 fl (7.2-11.7); MONO # 1.3 K/uL (0.0-0.8); MONO % 8.6 % (0.0-10.0); NEUT # 12.2 K/uL (1.8-7.0); NEUT % 77.8 % (50.0-75.0); RBC 3.43 Mil/uL (4.40-5.90); WHITE BLOOD COUNT 15.7 K/uL (4.8-10.8)
[2018-08-05 10:47] LABS: ALBUMIN 2.7 g/dL (3.5-5.0); ALT/SGPT 65 U/L (21-72); AST/SGOT 38 U/L (17-59); BLOOD UREA NITROGEN 26 mg/dl (9-20); GFR NON-AFRICAN AMERICAN > 60
--- NOTE | 2018-08-05 12:03 | CP.PCM.CON ---
History of Present Illness - History of Present Illness History of Present Illness: I was asked to evaluate patinet by Dr Rose and Nancy. Patient seen 08/05/18 1201 Patient is a 63 year old male with HTN who presents with recurrent pleural effusions. Previous cardiac workup included cardiac cath which was negative for CAD. LV function is normal. The patient has periodic accelerated junctional rhythm. He denies syncope or chest pain Review of Systems - Constitutional Constitutional: absent: As Per HPI, Anorexia, Chills, Daytime Sleepiness, Ex cessive Sweating, Fatigue, Fever, Frequent Falls, Headache, Increased Appetite, Lethargy, Malaise, Night Sweats, Snoring, Sleep Apnea, Weight Gain, Weight Loss, Weakness, Other - EENT Eyes: absent: As Per HPI, Blind Spots, Blurred Vision, Change in Vision, Decr eased Night Vision, Diplopia, Discharge, Dry Eye, Exophthalmos, Floaters, Irritation, Itchy Eyes, Loss of Peripheral Vision, Pain, Photophobia, Requires Corrective Lenses, Sees Flashes, Spots in Vision, Tunnel Vision, Other Visual Disturbances, Loss of Vision, Other Ears: absent: As Per HPI, Decreased Hearing, Ear Discharge, Ear Pain, Tinnitus, Abnormal Hearing, Disequilibrium, Dizziness, Other Nose/Mouth/Throat: absent: As Per HPI, Epistaxis, Nasal Congestion, Nasal Discharge, Nasal Obstruction, Nasal Trauma, Nose Pain, Post Nasal Drip, Sinus Pain, Sinus Pressure, Bleeding Gums, Change in Voice, Dental Pain, Dry Mouth, Dysphagia, Halitosis, Hoarsness, Lip Swelling, Mouth Lesions, Mouth Pain, Odynophagia, Sore Throat, Throat Swelling, Tongue Swelling, Facial Pain, Neck Pain, Neck Mass, Other - Cardiovascular Cardiovascular: absent: As Per HPI, Acrocyanosis, Chest Pain, Chest Pain at Rest, Chest Pain with Activity, Claudication, Diaphoresis, Dyspnea, Dyspnea on Exertion, Edema, Irregular Heart Rhythm, Pain Radiating to Arm/Neck/Jaw, Leg Edema, Leg Ulcers, Lightheadedness, Orthopnea, Palpitations, Paroxysmal Nocturnal Dyspnea, Pedal Edema, Radiating Pain, Rapid Heart Rate, Slow Heart Rate, Syncope, Other - Respiratory Respiratory: Dyspnea - Genitourinary Genitourinary: absent: As Per HPI, Change in Urinary Stream, Difficulty Urinating, Dysuria, Flank Pain, Hematuria, Pyuria, Nocturia, Urinary Incontinence, Urinary Frequency, Urinary Hesitance, Urinary Urgency, Voiding Freq/Small Amts, Freq UTI, Hx Renal/Bladder Calculi, Hx /Renal Surgery, Bladder Distension, Other - Musculoskeletal Musculoskeletal: absent: As Per HPI, Abnormal Gait, Arthralgias, Atrophy, Back Pain, Deformity, Joint Swelling, Limited Range of Motion, Loss of Height, Muscle Cramps, Muscle Weakness, Myalgias, Neck Pain, Numbness, Radiating Pain into Limb, Stiffness, Tingling, Other - Integumentary Integumentary: absent: As Per HPI, Acne, Alopecia, Bleeding Lesions, Change in Hair, Change in Nails, Change in Pigmentation, Changing Lesions, Dry Skin, Erythema, Furuncle, Hirsutism, Lesions, New Lesions, Non-Healing Lesions, Photosensitivity, Pruritus, Rash, Skin Pain, Skin Ulcer, Sores, Striae, Swelling, Unusual Bruising, Wounds, Jaundice, Other - Neurological Neurological: absent: As Per HPI, Abnormal Gait, Abnormal Hearing, Abnormal Movements, Abnormal Speech, Behavioral Changes, Burning Sensations, Confusion, Convulsions, Disequilibrium, Dizziness, Numbness, Focal Weakness, Frequent Falls, Headaches, Lack of Coordination, Loss of Vision, Memory Loss, Paresthesias, Radicular Pain, Restless Legs, Sensory Deficit, Syncope, Tingling, Tremor, Vertigo, Weakness, Other Visual Disturbances, Other - Psychiatric Psychiatric: absent: As Per HPI, Abnormal Sleep Pattern, Anhedonia, Anxiety, Auditory Hallucinations, Behavioral Changes, Change in Appetite, Change in Libido, Confusion, Depression, Difficulty Concentrating, Hallucinations, Homicidal Ideation, Hopelessness, Irritability, Memory Loss, Mood Swings, Panic Attacks, Paranoia, Suicidal Ideation, Visual Hallucinations, Tactile Hallucinations, Other - Endocrine Endocrine: absent: As Per HPI, Change in Body Appearance, Change in Libido, Cold Intolorance, Deepening of Voice, Excessive Sweating, Fatigue, Flushing, Heat Intolorance, Increase in Ring/Shoe/Hat Size, Palpitations, Polydipsia, Polyphagia, Polyuria, Other - Hematologic/Lymphatic Hematologic: absent: As Per HPI, Easy Bleeding, Easy Bruising, Lymphadenopathy, Other Past Patient History - Past Medical History & Family History Past Medical History?: Yes - Past Social History Smoking Status: Never Smoked - CARDIAC Hx Hypertension: Yes - PULMONARY Hx Respiratory Disorders: Yes - NEUROLOGICAL Hx Transient Ischemic Attacks (TIA): No - HEENT Hx HEENT Problems: No - RENAL Hx Chronic Kidney Disease: No - ENDOCRINE/METABOLIC Hx Endocrine Disorders: No - HEMATOLOGICAL/ONCOLOGICAL Hx Anemia: Yes Hx Human Immunodeficiency Virus (HIV): No - INTEGUMENTARY Hx Dermatological Problems: No - MUSCULOSKELETAL/RHEUMATOLOGICAL Hx Musculoskeletal Disorders: No Hx Falls: No - GASTROINTESTINAL Hx Gastrointestinal Disorders: Yes Hx Gastroesophageal Reflux: Yes Other/Comment: Hx Esophagitis. GIB - GENITOURINARY/GYNECOLOGICAL Hx Genitourinary Disorders: No - PSYCHIATRIC Hx Psychophysiologic Disorder: Yes (alcohol abuse) Hx Substance Use: No - SURGICAL HISTORY Hx Appendectomy: Yes - ANESTHESIA Hx Anesthesia: Yes Hx Anesthesia Reactions: No Hx Malignant Hyperthermia: No Meds Allergies/Adverse Reactions: Allergies Allergy/AdvReac Type Severity Reaction Status Date / Time No Known Allergies Allergy Verified 08/02/18 20:12 - Medications Medications: Current Medications Acetaminophen (Tylenol 325mg Tab) 650 mg PO Q4 PRN PRN Reason: Pain, moderate (4-7) Acetaminophen (Tylenol 325mg Tab) 650 mg PO Q6 PRN PRN Reason: Fever >100.4 F Last Admin: 08/04/18 02:08 Dose: 650 mg Albuterol/Ipratropium (Duoneb 3 Mg/0.5 Mg (3 Ml) Ud) 3 ml INH RQ4 PRN PRN Reason: Shortness of Breath Last Admin: 08/04/18 13:30 Dose: 3 ml Amlodipine Besylate (Norvasc) 10 mg PO DAILY [facility] Last Admin: 08/05/18 10:02 Dose: 10 mg Aspirin (Ecotrin) 81 mg PO DAILY [facility] Last Admin: 08/05/18 09:59 Dose: 81 mg Enoxaparin Sodium (Lovenox) 40 mg SC DAILY [facility]; Protocol Last Admin: 08/05/18 10:01 Dose: Not Given Furosemide (Lasix) 20 mg PO DAILY [facility] Last Admin: 08/05/18 09:59 Dose: 20 mg Vancomycin HCl 1 gm/ Sodium (Chloride) 250 mls @ 166.667 mls/hr IVPB Q12 [facility] Last Admin: 08/05/18 10:03 Dose: 166.667 mls/hr Losartan Potassium (Cozaar) 100 mg PO DAILY [facility] Last Admin: 08/05/18 09:59 Dose: 100 mg Magnesium Hydroxide (Milk Of Magnesia) 30 ml PO Q72H PRN PRN Reason: Constipation Pantoprazole Sodium (Protonix Ec Tab) 40 mg PO DAILY [facility] Last Admin: 08/05/18 10:02 Dose: 40 mg Physical Exam - Constitutional Appears: Non-toxic - Head Exam Head Exam: NORMAL INSPECTION - Eye Exam Eye Exam: Normal appearance - ENT Exam ENT Exam: Mucous Membranes Moist - Neck Exam Neck exam: Positive for: Full Rom - Respiratory Exam Respiratory Exam: Decreased Breath Sounds - Cardiovascular Exam Cardiovascular Exam: REGULAR RHYTHM - GI/Abdominal Exam GI & Abdominal Exam: Normal Bowel Sounds - Rectal Exam Rectal Exam: Deferred - Extremities Exam Extremities exam: Negative for: pedal edema - Back Exam Back exam: NORMAL INSPECTION - Neurological Exam Neurological exam: Alert, Oriented x3 - Psychiatric Exam Psychiatric exam: Normal Affect - Skin Skin Exam: Normal Color Results - Vital Signs Recent Vital Signs: Last Vital Signs Temp 98.2 F 08/05/18 08:31 Pulse 97 H 08/05/18 10:02 Resp 20 08/05/18 08:31 BP 114/80 08/05/18 10:02 Pulse Ox 100 08/05/18 08:31 - Labs Result Diagrams: 08/05/18 10:00 08/05/18 10:00 Labs: Laboratory Results - last 24 hr 08/04/18 08/04/18 08/04/18 14:00 14:00 14:00 WBC RBC Hgb Hct MCV MCH MCHC RDW Plt Count MPV Neut % (Auto) Lymph % (Auto) [place] % (Auto) Eos % (Auto) Baso % (Auto) Neut # (Auto) Lymph # (Auto) [place] # (Auto) Eos # (Auto) Baso # (Auto) Sodium Potassium Chloride Carbon Dioxide Anion Gap BUN Creatinine Est GFR ( Amer) Est GFR (Non-Af Amer) Random Glucose Calcium Phosphorus Magnesium Total Bilirubin AST ALT Alkaline Phosphatase Troponin I Total Protein Albumin Globulin Albumin/Globulin Ratio Fluid Source Pleural/thoracentesi Fluid Appearance Sl cloudy Fluid WBC 341.0 H Fluid RBC 1232.0 H Fluid Tot Cell Count 100 H Fluid Neutrophils 61.0 H Fluid Lymphocytes 27.0 H Fld Monocyte/Macrophag 12 H Fluid Glucose 103 Fluid Total Protein 3.6 Fluid LDH 289 Fluid Amylase < 30 Fluid Triglycerides 25 Fluid Comment Yellow Pleural Cholesterol Vancomycin Trough Ur L.pneumophila Ag 08/04/18 08/04/18 08/04/18 14:00 15:15 17:42 WBC RBC Hgb Hct MCV MCH MCHC RDW Plt Count MPV Neut % (Auto) Lymph % (Auto) [place] % (Auto) Eos % (Auto) Baso % (Auto) Neut # (Auto) Lymph # (Auto) [place] # (Auto) Eos # (Auto) Baso # (Auto) Sodium Potassium Chloride Carbon Dioxide Anion Gap BUN Creatinine Est GFR ( Amer) Est GFR (Non-Af Amer) Random Glucose Calcium Phosphorus Magnesium Total Bilirubin AST ALT Alkaline Phosphatase Troponin I < 0.0120 Total Protein Albumin Globulin Albumin/Globulin Ratio Fluid Source Fluid Appearance Fluid WBC Fluid RBC Fluid Tot Cell Count Fluid Neutrophils Fluid Lymphocytes Fld Monocyte/Macrophag Fluid Glucose Fluid Total Protein Fluid LDH Fluid Amylase Fluid Triglycerides Fluid Comment Pleural Cholesterol TNP Vancomycin Trough Ur L.pneumophila Ag Negative 08/05/18 08/05/18 08/05/18 04:35 10:00 10:00 WBC 15.7 H RBC 3.43 L Hgb 9.3 L Hct 28.7 L MCV 83.8 MCH 27.1 MCHC 32.4 L RDW 16.0 H Plt Count 616 H MPV 6.8 L Neut % (Auto) 77.8 H Lymph % (Auto) 12.1 L [place] % (Auto) 8.6 Eos % (Auto) 0.4 Baso % (Auto) 1.1 Neut # (Auto) 12.2 H Lymph # (Auto) 1.9 [place] # (Auto) 1.3 H Eos # (Auto) 0.1 Baso # (Auto) 0.2 Sodium 129 L Potassium 3.7 Chloride 95 L Carbon Dioxide 23 Anion Gap 15 BUN 26 H Creatinine 0.7 L Est GFR ( Amer) > 60 Est GFR (Non-Af Amer) > 60 Random Glucose 84 Calcium 8.0 L Phosphorus 3.1 Magnesium 2.2 Total Bilirubin 0.6 AST 38 ALT 65 Alkaline Phosphatase 188 H D Troponin I Total Protein 5.4 L Albumin 2.7 L Globulin 2.7 Albumin/Globulin Ratio 1.0 Fluid Source Fluid Appearance Fluid WBC Fluid RBC Fluid Tot Cell Count Fluid Neutrophils Fluid Lymphocytes Fld Monocyte/Macrophag Fluid Glucose Fluid Total Protein Fluid LDH Fluid Amylase Fluid Triglycerides Fluid Comment Pleural Cholesterol Vancomycin Trough 10.0 Ur L.pneumophila Ag - EKG Data EKG Interpreted by: Myself EKG shows normal: Sinus rhythm Assessment & Plan (1) Accelerated junctional rhythm Assessment and Plan: likley due to udnerlying pulmoanry process. no indication for PPM. He is stable hemodynamically. Status: Acute (2) Pleural effusion Assessment and Plan: requires surgery on Tuesday. He is medically optimized. There is no cardiovascular contraindication. Status: Acute
[2018-08-05] MEDS ORDERED: Iohexol 300 100 ML IJ ONE (14:29)
[2018-08-05] MEDS ORDERED: Sodium Chloride 0.9% 50 ML IV ONE (14:30)
--- NOTE | 2018-08-05 17:17 | CT ---
Date of service: 08/05/2018 PROCEDURE: CT Chest with contrast HISTORY: Recurrent effusions, evaluate lung parenchyma COMPARISON: Comparison made with CT chest dated 08/03/2018. TECHNIQUE: Contiguous axial images were obtained through the chest with intravenous contrast enhancement. Sagittal and coronal reconstructions were performed. IV contrast: 95 cc Omnipaque 300 contrast material. Radiation dose: Total exam DLP = 483.56 mGy-cm. This CT exam was performed using one or more of the following dose reduction techniques: Automated exposure control, adjustment of the mA and/or kV according to patient size, and/or use of iterative reconstruction technique. FINDINGS: LUNGS: There is a moderate to large size right-sided effusion with mild right basilar atelectasis. Atelectatic and or infiltrate changes are also seen in the middle lobe and right anterior lung base. There are patchy infiltrates seen in the left lower and to a lesser degree left upper lobes including the lingular region. Small to medium-sized left effusion. MEDIASTINUM: Heart is enlarged. There appears to be a [id number] pericardial effusion.. Ascending thoracic aorta measures approximately 3.5 cm and descending thoracic aorta measures approximately 2.5 cm. Pulmonary trunk measures approximately 3.25 cm.. Multiple small to mildly enlarged nonspecific mediastinal lymph nodes are present. No aortic atherosclerotic calcification or mural plaque present. PLEURA: As above. No evidence of pneumothorax BONES: Mild multilevel degenerative spondylosis of the thoracic spine UPPER ABDOMEN: Grossly unremarkable. OTHER FINDINGS: Small hiatal hernia. IMPRESSION: Moderate to large size right-sided effusion and mild right basilar atelectasis. Atelectatic and or infiltrate changes seen in the right middle lobe and right anterior lung base. Patchy infiltrates left lower and to a lesser degree upper lobes. Small to medium size left-sided effusion. Cardiomegaly with small to medium-sized pericardial effusion
--- NOTE | 2018-08-05 18:38 | CP.PCM.PN ---
Subjective - Date & Time of Evaluation Date of Evaluation: 08/05/18 Time of Evaluation: 18:37 - Subjective Subjective: pt more comfortable after thoracentesis, for VATS tuesday. no f/c, n/v/d. less dyspnea. bw noted. consults appriciated. Objective - Vital Signs/Intake and Output Vital Signs (last 24 hours): Temp Pulse Resp BP Pulse Ox 98.9 F 99 H 20 99/63 L 99 08/05/18 16:47 08/05/18 16:47 08/05/18 16:47 08/05/18 16:47 08/05/18 16:47 - Medications Medications: Current Medications Acetaminophen (Tylenol 325mg Tab) 650 mg PO Q4 PRN PRN Reason: Pain, moderate (4-7) Acetaminophen (Tylenol 325mg Tab) 650 mg PO Q6 PRN PRN Reason: Fever >100.4 F Last Admin: 08/04/18 02:08 Dose: 650 mg Albuterol/Ipratropium (Duoneb 3 Mg/0.5 Mg (3 Ml) Ud) 3 ml INH RQ4 PRN PRN Reason: Shortness of Breath Last Admin: 08/04/18 13:30 Dose: 3 ml Amlodipine Besylate (Norvasc) 10 mg PO DAILY [facility] Last Admin: 08/05/18 10:02 Dose: 10 mg Aspirin (Ecotrin) 81 mg PO DAILY [facility] Last Admin: 08/05/18 09:59 Dose: 81 mg Enoxaparin Sodium (Lovenox) 40 mg SC DAILY [facility]; Protocol Last Admin: 08/05/18 10:01 Dose: Not Given Furosemide (Lasix) 20 mg PO DAILY [facility] Last Admin: 08/05/18 09:59 Dose: 20 mg Vancomycin HCl 1 gm/ Sodium (Chloride) 250 mls @ 166.667 mls/hr IVPB Q12 [facility] Last Admin: 08/05/18 10:03 Dose: 166.667 mls/hr Losartan Potassium (Cozaar) 100 mg PO DAILY [facility] Last Admin: 08/05/18 09:59 Dose: 100 mg Magnesium Hydroxide (Milk Of Magnesia) 30 ml PO Q72H PRN PRN Reason: Constipation Pantoprazole Sodium (Protonix Ec Tab) 40 mg PO DAILY [facility] Last Admin: 08/05/18 10:02 Dose: 40 mg - Labs Labs: 08/05/18 10:00 08/05/18 10:00 PT 16.9 Seconds (9.8-13.1) H 08/02/18 21:01 INR 1.5 08/02/18 21:01 APTT 40.0 Seconds (25.6-37.1) H 08/02/18 21:01 - Constitutional Appears: Well, Non-toxic, No Acute Distress - Head Exam Head Exam: ATRAUMATIC, NORMAL INSPECTION, NORMOCEPHALIC - Eye Exam Eye Exam: EOMI, Normal appearance, PERRL Pupil Exam: NORMAL ACCOMODATION, PERRL - ENT Exam ENT Exam: Mucous Membranes Moist, Normal Exam - Neck Exam Neck Exam: Full ROM, Normal Inspection. absent: Lymphadenopathy - Respiratory Exam Respiratory Exam: Clear to Ausculation Bilateral, NORMAL BREATHING PATTERN - Cardiovascular Exam Cardiovascular Exam: REGULAR RHYTHM, RRR, +S1, +S2. absent: Murmur - GI/Abdominal Exam GI & Abdominal Exam: Soft, Normal Bowel Sounds. absent: Tenderness - Extremities Exam Extremities Exam: Full ROM, Normal Capillary Refill, Normal Inspection. absent: Joint Swelling, Pedal Edema - Back Exam Back Exam: NORMAL INSPECTION - Neurological Exam Neurological Exam: Alert, Awake, CN II-XII Intact, Normal Gait, Oriented x3 - Psychiatric Exam Psychiatric exam: Normal Affect, Normal Mood - Skin Skin Exam: Dry, Intact, Normal Color, Warm Assessment and Plan (1) Hyponatremia Assessment & Plan: cont to monitor ivf reconsult nephro prn Status: Acute (2) Pleural effusion Assessment & Plan: s/p thoracentesis vats tuesday pulm, cardio, ct surgery o2 prn, bipap prn monitor bw Status: Acute (3) Sepsis Assessment & Plan: cont anbx, id Status: Acute (4) DVT prophylaxis Assessment & Plan: scd nad ae hose heparin postop ambulation Status: Acute
[2018-08-06 06:29] LABS: INR 1.4
[2018-08-06 06:31] LABS: BASO # 0.2 K/uL (0.0-0.2); EOS # 0.3 K/uL (0.0-0.7); EOS % 1.8 % (0.0-4.0); HEMOGLOBIN 9.1 g/dL (12.0-18.0); LYMPH # 1.6 K/uL (1.0-4.3); LYMPH % 10.4 % (20.0-40.0); MEAN CORPUSCULAR HEMOGLOBIN 27.4 pg (27.0-31.0); MEAN CORPUSCULAR HGB CONC 32.6 g/dL (33.0-37.0); MEAN PLATELET VOLUME 6.3 fl (7.2-11.7); MONO # 1.4 K/uL (0.0-0.8); MONO % 8.6 % (0.0-10.0); NEUT # 12.4 K/uL (1.8-7.0); NEUT % 78.2 % (50.0-75.0); PARTIAL THROMBOPLASTIN TIME 34.2 Seconds (25.6-37.1); RBC 3.32 Mil/uL (4.40-5.90); RED CELL DISTRIBUTION WIDTH 15.8 % (11.5-14.5); WHITE BLOOD COUNT 15.8 K/uL (4.8-10.8)
[2018-08-06 06:50] LABS: ALBUMIN 2.8 g/dL (3.5-5.0); ALT/SGPT 86 U/L (21-72); AST/SGOT 56 U/L (17-59); BLOOD UREA NITROGEN 20 mg/dl (9-20); CALCIUM 8.1 mg/dL (8.4-10.2); GFR NON-AFRICAN AMERICAN > 60
--- NOTE | 2018-08-06 07:30 | CP.PCM.PN ---
Subjective - Date & Time of Evaluation Date of Evaluation: 08/06/18 Time of Evaluation: 07:27 - Subjective Subjective: Thoracic Surgery Note for Dr. Escoto Patient seen and examined at bedside. Patient using BiPAP overnight. He denies wheezing, SOB, and cough. Patient has no complaints. He is tolerating diet and admits to flatus/BM. CT chest with IV contrast was done yesterday. Objective - Vital Signs/Intake and Output Vital Signs (last 24 hours): Temp Pulse Resp BP Pulse Ox 98.4 F 99 H 18 124/84 99 08/06/18 05:05 08/06/18 05:05 08/06/18 05:05 08/06/18 05:05 08/06/18 05:05 - Medications Medications: Current Medications Acetaminophen (Tylenol 325mg Tab) 650 mg PO Q4 PRN PRN Reason: Pain, moderate (4-7) Acetaminophen (Tylenol 325mg Tab) 650 mg PO Q6 PRN PRN Reason: Fever >100.4 F Last Admin: 08/04/18 02:08 Dose: 650 mg Albuterol/Ipratropium (Duoneb 3 Mg/0.5 Mg (3 Ml) Ud) 3 ml INH RQ4 PRN PRN Reason: Shortness of Breath Last Admin: 08/04/18 13:30 Dose: 3 ml Amlodipine Besylate (Norvasc) 10 mg PO DAILY [facility] Last Admin: 08/05/18 10:02 Dose: 10 mg Aspirin (Ecotrin) 81 mg PO DAILY [facility] Last Admin: 08/05/18 09:59 Dose: 81 mg Enoxaparin Sodium (Lovenox) 40 mg SC DAILY [facility]; Protocol Last Admin: 08/05/18 10:01 Dose: Not Given Furosemide (Lasix) 20 mg PO DAILY [facility] Last Admin: 08/05/18 09:59 Dose: 20 mg Vancomycin HCl 1 gm/ Sodium (Chloride) 250 mls @ 166.667 mls/hr IVPB Q12 [facility] Last Admin: 08/05/18 21:53 Dose: 166.667 mls/hr Losartan Potassium (Cozaar) 100 mg PO DAILY [facility] Last Admin: 08/05/18 09:59 Dose: 100 mg Magnesium Hydroxide (Milk Of Magnesia) 30 ml PO Q72H PRN PRN Reason: Constipation Pantoprazole Sodium (Protonix Ec Tab) 40 mg PO DAILY [facility] Last Admin: 08/05/18 10:02 Dose: 40 mg - Labs Labs: 08/06/18 04:30 08/06/18 04:30 PT 16.0 Seconds (9.8-13.1) H 08/06/18 04:30 INR 1.4 08/06/18 04:30 APTT 34.2 Seconds (25.6-37.1) 08/06/18 04:30 - Additional Findings Additional findings: - Constitutional Appears: Non-toxic, No Acute Distress - Head Exam Head Exam: ATRAUMATIC - Eye Exam Eye Exam: EOMI. absent: Scleral icterus - ENT Exam ENT Exam: Mucous Membranes Moist - Respiratory Exam Respiratory Exam: NORMAL BREATHING PATTERN Using BiPAP, No wheezing, cough, accessory muscle use or respiratory distress - Cardiovascular Exam Cardiovascular Exam: REGULAR RHYTHM. absent: Bradycardia, Tachycardia - GI/Abdominal Exam GI & Abdominal Exam: Soft. absent: Distended, Firm, Guarding, Rigid, Tenderness - Neurological Exam Neurological Exam: Alert, Awake, Oriented x3 - Skin Skin Exam: Intact, Warm Assessment and Plan - Assessment and Plan (Free Text) Assessment: 62M w/ Bilateral Pleural Effusions s/p IR thoracentesis POD#2 CT chest: Moderate to large size right-sided effusion and mild right basilar atelectasis. Atelectatic and or infiltrate changes seen in the right middle lobe and right anterior lung base. Patchy infiltrates left lower and to a lesser degree upper lobes. small to medium size left-sided effusion. Plan: - f/u pleural cultures and cytology final reports - f/u Pulm for possible bronchoscopy - Continue Abx - Medical management as per primary team - further recommendations per Dr. Jevon Ruiz PGY2
[2018-08-06] MEDS: Pantoprazole 40 mg EC Tab PO SCH (08:45)
[2018-08-06] MEDS: Enoxaparin 40 mg Syringe SC SCH (08:45)
--- NOTE | 2018-08-06 11:05 | CP.PCM.PN ---
Subjective - Date & Time of Evaluation Date of Evaluation: 08/06/18 Time of Evaluation: 11:05 - Subjective Subjective: OOB TO CHAIR CLINICALLY IMPROVED SOB LESS Objective - Vital Signs/Intake and Output Vital Signs (last 24 hours): Temp Pulse Resp BP Pulse Ox 98.4 F 97 H 20 113/75 100 08/06/18 08:16 08/06/18 08:45 08/06/18 08:16 08/06/18 08:45 08/06/18 08:16 - Medications Medications: Current Medications Acetaminophen (Tylenol 325mg Tab) 650 mg PO Q4 PRN PRN Reason: Pain, moderate (4-7) Acetaminophen (Tylenol 325mg Tab) 650 mg PO Q6 PRN PRN Reason: Fever >100.4 F Last Admin: 08/04/18 02:08 Dose: 650 mg Albuterol/Ipratropium (Duoneb 3 Mg/0.5 Mg (3 Ml) Ud) 3 ml INH RQ4 PRN PRN Reason: Shortness of Breath Last Admin: 08/04/18 13:30 Dose: 3 ml Amlodipine Besylate (Norvasc) 10 mg PO DAILY [facility] Last Admin: 08/06/18 08:43 Dose: 10 mg Aspirin (Ecotrin) 81 mg PO DAILY [facility] Last Admin: 08/06/18 08:45 Dose: 81 mg Enoxaparin Sodium (Lovenox) 40 mg SC DAILY [facility]; Protocol Last Admin: 08/06/18 08:45 Dose: 40 mg Furosemide (Lasix) 20 mg PO DAILY [facility] Last Admin: 08/06/18 08:45 Dose: 20 mg Vancomycin HCl 1 gm/ Sodium (Chloride) 250 mls @ 166.667 mls/hr IVPB Q12 [facility] Last Admin: 08/06/18 08:48 Dose: 166.667 mls/hr Losartan Potassium (Cozaar) 100 mg PO DAILY [facility] Last Admin: 08/06/18 08:45 Dose: 100 mg Magnesium Hydroxide (Milk Of Magnesia) 30 ml PO Q72H PRN PRN Reason: Constipation Pantoprazole Sodium (Protonix Ec Tab) 40 mg PO DAILY [facility] Last Admin: 08/06/18 08:45 Dose: 40 mg - Labs Labs: 08/06/18 04:30 08/06/18 04:30 PT 16.0 Seconds (9.8-13.1) H 08/06/18 04:30 INR 1.4 08/06/18 04:30 APTT 34.2 Seconds (25.6-37.1) 08/06/18 04:30 - Constitutional Appears: No Acute Distress - Head Exam Head Exam: ATRAUMATIC, NORMAL INSPECTION, NORMOCEPHALIC - Eye Exam Eye Exam: EOMI, Normal appearance, PERRL Pupil Exam: NORMAL ACCOMODATION, PERRL - ENT Exam ENT Exam: Mucous Membranes Moist, Normal Exam - Neck Exam Neck Exam: Full ROM, Normal Inspection. absent: Lymphadenopathy - Respiratory Exam Respiratory Exam: Decreased Breath Sounds, Prolonged Expiratory Phase, Rales, NORMAL BREATHING PATTERN - Cardiovascular Exam Cardiovascular Exam: REGULAR RHYTHM, +S1, +S2. absent: Murmur - GI/Abdominal Exam GI & Abdominal Exam: Soft, Normal Bowel Sounds. absent: Tenderness - Rectal Exam Rectal Exam: NORMAL INSPECTION - Extremities Exam Extremities Exam: Full ROM, Normal Capillary Refill, Pedal Edema. absent: Joint Swelling - Back Exam Back Exam: NORMAL INSPECTION - Neurological Exam Neurological Exam: Alert, Awake, CN II-XII Intact, Normal Gait, Oriented x3 - Psychiatric Exam Psychiatric exam: Normal Affect, Normal Mood - Skin Skin Exam: Dry, Intact, Normal Color, Warm Assessment and Plan - Assessment and Plan (Free Text) Assessment: PLEURAL EFFUSIONS?ETIOLOGY Plan: CASE DISCUSSED WITH PT AND HIS SISTER--WILL PERFORM BRONCXHOSCOPIC EVALUATION OF AIRWAYS IN AM TO R/O ENDOBRONCHIAL LESION COMPLICATIONS AND REASON FOR PROCEDURE EXPLAINED TO PT AND HIOS SISTER AND THEY UNDERSTAND.
--- NOTE | 2018-08-06 14:24 | CP.PCM.PN ---
Subjective - Date & Time of Evaluation Date of Evaluation: 08/06/18 Time of Evaluation: 07:00 - Subjective Subjective: OOB less cough no fever AFB neg x 1 Objective - Vital Signs/Intake and Output Vital Signs (last 24 hours): Temp Pulse Resp BP Pulse Ox 98.1 F 94 H 20 105/69 97 08/06/18 12:23 08/06/18 12:23 08/06/18 12:23 08/06/18 12:23 08/06/18 12:23 - Medications Medications: Current Medications Acetaminophen (Tylenol 325mg Tab) 650 mg PO Q4 PRN PRN Reason: Pain, moderate (4-7) Acetaminophen (Tylenol 325mg Tab) 650 mg PO Q6 PRN PRN Reason: Fever >100.4 F Last Admin: 08/04/18 02:08 Dose: 650 mg Albuterol/Ipratropium (Duoneb 3 Mg/0.5 Mg (3 Ml) Ud) 3 ml INH RQ4 PRN PRN Reason: Shortness of Breath Last Admin: 08/04/18 13:30 Dose: 3 ml Amlodipine Besylate (Norvasc) 10 mg PO DAILY [facility] Last Admin: 08/06/18 08:43 Dose: 10 mg Aspirin (Ecotrin) 81 mg PO DAILY [facility] Last Admin: 08/06/18 08:45 Dose: 81 mg Enoxaparin Sodium (Lovenox) 40 mg SC DAILY [facility]; Protocol Last Admin: 08/06/18 08:45 Dose: 40 mg Furosemide (Lasix) 20 mg PO DAILY [facility] Last Admin: 08/06/18 08:45 Dose: 20 mg Vancomycin HCl 1 gm/ Sodium (Chloride) 250 mls @ 166.667 mls/hr IVPB Q12 [facility] Last Admin: 08/06/18 08:48 Dose: 166.667 mls/hr Losartan Potassium (Cozaar) 100 mg PO DAILY [facility] Last Admin: 08/06/18 08:45 Dose: 100 mg Magnesium Hydroxide (Milk Of Magnesia) 30 ml PO Q72H PRN PRN Reason: Constipation Pantoprazole Sodium (Protonix Ec Tab) 40 mg PO DAILY [facility] Last Admin: 08/06/18 08:45 Dose: 40 mg - Labs Labs: 08/06/18 04:30 08/06/18 04:30 PT 16.0 Seconds (9.8-13.1) H 08/06/18 04:30 INR 1.4 08/06/18 04:30 APTT 34.2 Seconds (25.6-37.1) 08/06/18 04:30 - Constitutional Appears: Non-toxic, No Acute Distress, Chronically Ill - Head Exam Head Exam: ATRAUMATIC, NORMAL INSPECTION, NORMOCEPHALIC - Eye Exam Eye Exam: EOMI, Normal appearance, PERRL Pupil Exam: NORMAL ACCOMODATION, PERRL - ENT Exam ENT Exam: Mucous Membranes Moist, Normal Exam - Neck Exam Neck Exam: Full ROM, Normal Inspection. absent: Lymphadenopathy - Respiratory Exam Respiratory Exam: Decreased Breath Sounds, Clear to Ausculation Bilateral, Prolonged Expiratory Phase - Cardiovascular Exam Cardiovascular Exam: REGULAR RHYTHM, +S1, +S2. absent: Murmur - GI/Abdominal Exam GI & Abdominal Exam: Soft, Normal Bowel Sounds. absent: Tenderness - Rectal Exam Rectal Exam: Deferred - Exam Exam: NORMAL INSPECTION - Extremities Exam Extremities Exam: Full ROM, Normal Capillary Refill, Normal Inspection. absent: Joint Swelling, Pedal Edema - Back Exam Back Exam: NORMAL INSPECTION - Neurological Exam Neurological Exam: Alert, Awake, CN II-XII Intact, Normal Gait, Oriented x3 - Psychiatric Exam Psychiatric exam: Normal Affect, Normal Mood - Skin Skin Exam: Dry, Intact, Normal Color, Warm Assessment and Plan (1) Hyponatremia Status: Acute (2) Pleural effusion Status: Acute (3) Sepsis Status: Acute (4) Ascites Status: Acute (5) Chest pain Status: Acute (6) ETOH abuse Status: Acute (7) Leukocytosis Status: Acute (8) Pleural effusion associated with pulmonary infection Status: Acute - Assessment and Plan (Free Text) Assessment: 63 year old male with Hx of HTN is admitted to [facility] with increased SOB He was recently treated at where he had cardiac cath done for possible ACS and had thoracentesis for pleural effusion He is a non smoker Grew up in [place] Spent 6 years [place] the [place] during [place]'s Possible 12/13 exposure at ground [place] ( [employer] ) He was later admitted to [facility] with similar presentation Septic work up negative and after improvement on IV antibiotics patient sent to SNF on IV antibiotics However pleural effusion recurred and concern for malignancy persists He will undergo bronchoscopy CT surgery following and may need VATS/ Biopsy lung / pleura r/o mesothelioma
--- NOTE | 2018-08-06 15:03 | CP.PCM.PN ---
Subjective - Date & Time of Evaluation Date of Evaluation: 08/06/18 Time of Evaluation: 15:02 - Subjective Subjective: pt doing well. tolpo, less sob. no f/,c n/v/d. consults appriciated Objective - Vital Signs/Intake and Output Vital Signs (last 24 hours): Temp Pulse Resp BP Pulse Ox 98.1 F 94 H 20 105/69 97 08/06/18 12:23 08/06/18 12:23 08/06/18 12:23 08/06/18 12:23 08/06/18 12:23 - Medications Medications: Current Medications Acetaminophen (Tylenol 325mg Tab) 650 mg PO Q4 PRN PRN Reason: Pain, moderate (4-7) Acetaminophen (Tylenol 325mg Tab) 650 mg PO Q6 PRN PRN Reason: Fever >100.4 F Last Admin: 08/04/18 02:08 Dose: 650 mg Albuterol/Ipratropium (Duoneb 3 Mg/0.5 Mg (3 Ml) Ud) 3 ml INH RQ4 PRN PRN Reason: Shortness of Breath Last Admin: 08/04/18 13:30 Dose: 3 ml Amlodipine Besylate (Norvasc) 10 mg PO DAILY [facility] Last Admin: 08/06/18 08:43 Dose: 10 mg Aspirin (Ecotrin) 81 mg PO DAILY [facility] Last Admin: 08/06/18 08:45 Dose: 81 mg Enoxaparin Sodium (Lovenox) 40 mg SC DAILY [facility]; Protocol Last Admin: 08/06/18 08:45 Dose: 40 mg Furosemide (Lasix) 20 mg PO DAILY [facility] Last Admin: 08/06/18 08:45 Dose: 20 mg Vancomycin HCl 1 gm/ Sodium (Chloride) 250 mls @ 166.667 mls/hr IVPB Q12 [facility] Last Admin: 08/06/18 08:48 Dose: 166.667 mls/hr Losartan Potassium (Cozaar) 100 mg PO DAILY [facility] Last Admin: 08/06/18 08:45 Dose: 100 mg Magnesium Hydroxide (Milk Of Magnesia) 30 ml PO Q72H PRN PRN Reason: Constipation Pantoprazole Sodium (Protonix Ec Tab) 40 mg PO DAILY [facility] Last Admin: 08/06/18 08:45 Dose: 40 mg - Labs Labs: 08/06/18 04:30 08/06/18 04:30 PT 16.0 Seconds (9.8-13.1) H 08/06/18 04:30 INR 1.4 08/06/18 04:30 APTT 34.2 Seconds (25.6-37.1) 08/06/18 04:30 - Constitutional Appears: Well, Non-toxic, No Acute Distress - Head Exam Head Exam: ATRAUMATIC, NORMAL INSPECTION, NORMOCEPHALIC - Eye Exam Eye Exam: EOMI, Normal appearance, PERRL Pupil Exam: NORMAL ACCOMODATION, PERRL - ENT Exam ENT Exam: Mucous Membranes Moist, Normal Exam - Neck Exam Neck Exam: Full ROM, Normal Inspection. absent: Lymphadenopathy - Respiratory Exam Respiratory Exam: Clear to Ausculation Bilateral, NORMAL BREATHING PATTERN - Cardiovascular Exam Cardiovascular Exam: REGULAR RHYTHM, RRR, +S1, +S2. absent: Murmur - GI/Abdominal Exam GI & Abdominal Exam: Soft, Normal Bowel Sounds. absent: Tenderness - Extremities Exam Extremities Exam: Full ROM, Normal Capillary Refill, Normal Inspection. absent: Joint Swelling, Pedal Edema - Back Exam Back Exam: NORMAL INSPECTION - Neurological Exam Neurological Exam: Alert, Awake, CN II-XII Intact, Normal Gait, Oriented x3 - Psychiatric Exam Psychiatric exam: Normal Affect, Normal Mood - Skin Skin Exam: Dry, Intact, Normal Color, Warm Assessment and Plan (1) Hyponatremia Assessment & Plan: monitor stable nephro prn hydration Status: Acute (2) Pleural effusion Assessment & Plan: ct surg and pulm consults supportive care Status: Acute (3) Sepsis Assessment & Plan: id vanco Status: Acute (4) DVT prophylaxis Assessment & Plan: scd nad aehose ambulation hold anticoag until surgery r/o Status: Acute
[2018-08-07 06:12] LABS: BASO # 0.1 K/uL (0.0-0.2); BASO % 1.2 % (0.0-2.0); EOS # 0.8 K/uL (0.0-0.7); EOS % 7.6 % (0.0-4.0); HEMOGLOBIN 8.7 g/dL (12.0-18.0); LYMPH # 1.5 K/uL (1.0-4.3); MEAN CELL VOLUME 82.7 fl (80.0-94.0); MEAN CORPUSCULAR HEMOGLOBIN 28.2 pg (27.0-31.0); MEAN CORPUSCULAR HGB CONC 34.1 g/dL (33.0-37.0); MEAN PLATELET VOLUME 6.2 fl (7.2-11.7); MONO # 0.9 K/uL (0.0-0.8); MONO % 8.2 % (0.0-10.0); NEUT # 7.4 K/uL (1.8-7.0); NRBC % 0.2 % (0.0-0.0); RBC 3.08 Mil/uL (4.40-5.90); RED CELL DISTRIBUTION WIDTH 16.2 % (11.5-14.5); WHITE BLOOD COUNT 10.8 K/uL (4.8-10.8)
[2018-08-07 06:35] LABS: ALBUMIN 2.5 g/dL (3.5-5.0); ALT/SGPT 118 U/L (21-72); AST/SGOT 72 U/L (17-59); BLOOD UREA NITROGEN 16 mg/dl (9-20); GFR NON-AFRICAN AMERICAN > 60
--- NOTE | 2018-08-07 07:46 | CP.PCM.PN ---
Subjective - Date & Time of Evaluation Date of Evaluation: 08/07/18 Time of Evaluation: 07:45 - Subjective Subjective: CT Surgery Note for Dr. Les Smith, PGY-2 Pt seen/examined at bedside Patient continues to use BiPAP overnight. Denies wheezing, SOB, CP, N & V, F & C, and cough. Tolerating diet. For bronch today. Objective - Vital Signs/Intake and Output Vital Signs (last 24 hours): Temp Pulse Resp BP Pulse Ox 98.4 F 74 18 116/72 97 08/07/18 04:24 08/07/18 04:24 08/07/18 04:24 08/07/18 04:24 08/07/18 04:24 - Medications Medications: Current Medications Acetaminophen (Tylenol 325mg Tab) 650 mg PO Q4 PRN PRN Reason: Pain, moderate (4-7) Acetaminophen (Tylenol 325mg Tab) 650 mg PO Q6 PRN PRN Reason: Fever >100.4 F Last Admin: 08/04/18 02:08 Dose: 650 mg Albuterol/Ipratropium (Duoneb 3 Mg/0.5 Mg (3 Ml) Ud) 3 ml INH RQ4 PRN PRN Reason: Shortness of Breath Last Admin: 08/04/18 13:30 Dose: 3 ml Amlodipine Besylate (Norvasc) 10 mg PO DAILY [facility] Last Admin: 08/06/18 08:43 Dose: 10 mg Aspirin (Ecotrin) 81 mg PO DAILY [facility] Last Admin: 08/06/18 08:45 Dose: 81 mg Enoxaparin Sodium (Lovenox) 40 mg SC DAILY [facility]; Protocol Last Admin: 08/06/18 08:45 Dose: 40 mg Furosemide (Lasix) 20 mg PO DAILY [facility] Last Admin: 08/06/18 08:45 Dose: 20 mg Vancomycin HCl 1 gm/ Sodium (Chloride) 250 mls @ 166.667 mls/hr IVPB Q12 [facility] Last Admin: 08/06/18 21:50 Dose: 166.667 mls/hr Losartan Potassium (Cozaar) 100 mg PO DAILY [facility] Last Admin: 08/06/18 08:45 Dose: 100 mg Magnesium Hydroxide (Milk Of Magnesia) 30 ml PO Q72H PRN PRN Reason: Constipation Pantoprazole Sodium (Protonix Ec Tab) 40 mg PO DAILY [facility] Last Admin: 08/06/18 08:45 Dose: 40 mg - Labs Labs: 08/07/18 04:25 08/07/18 04:25 PT 16.0 Seconds (9.8-13.1) H 08/06/18 04:30 INR 1.4 08/06/18 04:30 APTT 34.2 Seconds (25.6-37.1) 08/06/18 04:30 - Constitutional Appears: Non-toxic, No Acute Distress - Head Exam Head Exam: ATRAUMATIC, NORMAL INSPECTION, NORMOCEPHALIC - Eye Exam Eye Exam: EOMI, Normal appearance - ENT Exam ENT Exam: Mucous Membranes Moist, Normal Exam - Respiratory Exam Respiratory Exam: Clear to Ausculation Bilateral, NORMAL BREATHING PATTERN (currently on bipap). absent: Rales, Rhonchi, Wheezes, Respiratory Distress - Cardiovascular Exam Cardiovascular Exam: REGULAR RHYTHM, +S1, +S2 - GI/Abdominal Exam GI & Abdominal Exam: Soft. absent: Tenderness - Extremities Exam Extremities Exam: Normal Inspection - Neurological Exam Neurological Exam: Alert, Awake, CN II-XII Intact, Oriented x3 - Psychiatric Exam Psychiatric exam: Normal Affect, Normal Mood - Skin Skin Exam: Dry, Intact, Normal Color, Warm Assessment and Plan - Assessment and Plan (Free Text) Assessment: 62M w/ Bilateral Pleural Effusions s/p IR thoracentesis POD#3 Plan: FU cytology final reports FU pleural cx FU bronch results Cont Abx further care as per primary team Further recs pending attending evaluation Will DW Dr. Jevon Smith, PGY-2
[2018-08-07] MEDS: Pantoprazole 40 mg EC Tab PO SCH (08:06)
[2018-08-07] MEDS: Enoxaparin 40 mg Syringe SC SCH ×2 (08:07→09:00)
--- NOTE | 2018-08-07 09:16 | CARD ---
APPROVED REPORT Date of service: 08/04/2018 EKG Measurement Heart [id number] <Conclusion> Accelerated Junctional rhythm Poor R wave progression in Precordial leads T wave abnormality, consider lateral ischemia Abnormal ECG
--- NOTE | 2018-08-07 12:04 | PN ---
DATE: 08/07/2018 SUBJECTIVE: The patient is seen in bed sleeping, easily arousable. No distress. On BiPAP. The patient is only using BiPAP at night. He is scheduled for bronchoscopy today. 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 Labs and imaging have been reviewed. AFBs have been completed, and pending results, cont precautions until then. REVIEW OF SYSTEMS: Today is negative at this time. No shortness of breath. PHYSICAL EXAMINATION: CONSTITUTIONAL: Awake, alert, and oriented. HEENT: Normal. CARDIAC: Regular rate and rhythm. No murmurs, rubs or gallops. S1, S2. LUNGS: Clear in all rodas bilaterally. ABDOMEN: Soft and nontender. Bowel sounds x4. EXTREMITIES: Distal pulses and motor sensation is intact. Cap refill is brisk. DIAGNOSES AND PLAN: Pleural effusions. Continue antibiotics. Continue bw each day. All consults have been reviewed. Case discussed with surgical team bipap qhs, nasal cannula during the day. Deep venous thrombosis prophylaxis, sequential compression devices, A-hose, ambulation. Hold anti-coagulation until surgical options are considered. Encouraged ambulation. Continue all home medications for chronic conditions. We will follow the patient closely. RASHAD Nesbitt DAVID
--- NOTE | 2018-08-07 12:12 | CP.PCM.PN ---
Subjective - Date & Time of Evaluation Date of Evaluation: 08/07/18 Time of Evaluation: 12:02 - Subjective Subjective: Pt s/e. c/o sob. Afebrlile. wbc-10k. Pleural fluid microbiology: has not been ordered. I ordered micro study this am. ct after thoracentesis: Bilateral lower lobe infiltrates+atelesctasis. Pleural effusion(residual) R>L. Pleruaral effusion(interim report) : exudative effusions with + wbc and +PMN.- consistent with probable parapneumonic effusion. Bronchoscopy today by Dr. Riddle. a/p: 1. Probable parapneumonic effusion. 2. Continue antibiotics. 3. Tube thoracostomy if the flluid reaccumulates. 4. Bronchoscopy today. 5. will repeat ct chest on Tuesday. 6. I have been following the pt daily with surgical residelnts. Objective - Vital Signs/Intake and Output Vital Signs (last 24 hours): Temp Pulse Resp BP Pulse Ox 98.1 F 85 20 123/76 99 08/07/18 08:16 08/07/18 09:00 08/07/18 08:16 08/07/18 08:16 08/07/18 08:16 - Medications Medications: Current Medications Acetaminophen (Tylenol 325mg Tab) 650 mg PO Q4 PRN PRN Reason: Pain, moderate (4-7) Acetaminophen (Tylenol 325mg Tab) 650 mg PO Q6 PRN PRN Reason: Fever >100.4 F Last Admin: 08/04/18 02:08 Dose: 650 mg Albuterol/Ipratropium (Duoneb 3 Mg/0.5 Mg (3 Ml) Ud) 3 ml INH RQ4 PRN PRN Reason: Shortness of Breath Last Admin: 08/04/18 13:30 Dose: 3 ml Amlodipine Besylate (Norvasc) 10 mg PO DAILY [facility] Last Admin: 08/07/18 08:06 Dose: 10 mg Aspirin (Ecotrin) 81 mg PO DAILY [facility] Last Admin: 08/07/18 08:06 Dose: 81 mg Enoxaparin Sodium (Lovenox) 40 mg SC DAILY [facility]; Protocol Last Admin: 08/07/18 08:07 Dose: 40 mg Furosemide (Lasix) 20 mg PO DAILY [facility] Last Admin: 08/07/18 08:06 Dose: 20 mg Vancomycin HCl 1 gm/ Sodium (Chloride) 250 mls @ 166.667 mls/hr IVPB Q12 [facility] Last Admin: 08/07/18 08:07 Dose: 166.667 mls/hr Losartan Potassium (Cozaar) 100 mg PO DAILY [facility] Last Admin: 08/07/18 08:05 Dose: 100 mg Magnesium Hydroxide (Milk Of Magnesia) 30 ml PO Q72H PRN PRN Reason: Constipation Pantoprazole Sodium (Protonix Ec Tab) 40 mg PO DAILY [facility] Last Admin: 08/07/18 08:06 Dose: 40 mg - Labs Labs: 08/07/18 04:25 08/07/18 04:25 PT 16.0 Seconds (9.8-13.1) H 08/06/18 04:30 INR 1.4 08/06/18 04:30 APTT 34.2 Seconds (25.6-37.1) 08/06/18 04:30
[2018-08-07] MEDS ORDERED: EPINEPHrine 1 mg/ml (1:1000) Inj ONE (14:00)
[2018-08-07] MEDS ORDERED: Sodium Chloride 0.9% 0 ML IV ONE (14:01)
[2018-08-07] MEDS ORDERED: Lidocaine 1% Inj (20ml) ONE (14:01)
[2018-08-07] MEDS ORDERED: Lidocaine 2% Jelly (5 ml) TOP ONE (14:01)
[2018-08-07] MEDS ORDERED: Etomidate 20 mg/10ml Inj IV ONE (15:50)
[2018-08-07] MEDS ORDERED: Propofol 10 mg/ml Inj (20 ML) ONE (15:51)
[2018-08-07] MEDS ORDERED: Midazolam 2 MG/2 ML VIAL ONE (15:51)
[2018-08-07] MEDS ORDERED: Lactated Ringer's 500 ML IV ONE (16:10)
[2018-08-07] MEDS: Lactated Ringer's 500 ML IV SCH (17:55)
--- NOTE | 2018-08-07 21:38 | CP.PCM.PN ---
Subjective - Date & Time of Evaluation Date of Evaluation: 08/07/18 Time of Evaluation: 08:00 - Subjective Subjective: afeb on vanco all cultures neg including pleural fluid for third time CT noted for folllow up CT scan as per CT surgery Objective - Vital Signs/Intake and Output Vital Signs (last 24 hours): Temp Pulse Resp BP Pulse Ox 97.5 F L 89 20 108/72 100 08/07/18 20:16 08/07/18 20:16 08/07/18 20:16 08/07/18 20:16 08/07/18 20:16 Intake and Output: 08/07/18 08/08/18 18:59 06:59 Intake Total 100 Balance 100 - Medications Medications: Current Medications Acetaminophen (Tylenol 325mg Tab) 650 mg PO Q4 PRN PRN Reason: Pain, moderate (4-7) Acetaminophen (Tylenol 325mg Tab) 650 mg PO Q6 PRN PRN Reason: Fever >100.4 F Last Admin: 08/04/18 02:08 Dose: 650 mg Albuterol/Ipratropium (Duoneb 3 Mg/0.5 Mg (3 Ml) Ud) 3 ml INH RQ4 PRN PRN Reason: Shortness of Breath Last Admin: 08/04/18 13:30 Dose: 3 ml Amlodipine Besylate (Norvasc) 10 mg PO DAILY [facility] Last Admin: 08/07/18 08:06 Dose: 10 mg Aspirin (Ecotrin) 81 mg PO DAILY [facility] Last Admin: 08/07/18 08:06 Dose: 81 mg Enoxaparin Sodium (Lovenox) 40 mg SC DAILY [facility]; Protocol Last Admin: 08/07/18 09:00 Dose: Not Given Furosemide (Lasix) 20 mg PO DAILY [facility] Last Admin: 08/07/18 08:06 Dose: 20 mg Vancomycin HCl 1 gm/ Sodium (Chloride) 250 mls @ 166.667 mls/hr IVPB Q12 [facility] Last Admin: 08/07/18 08:07 Dose: 166.667 mls/hr Lactated Ringer's (Lactated Ringer's) 500 mls @ 50 mls/hr IV .Q10H [facility] Last Admin: 08/07/18 17:55 Dose: 50 mls/hr Losartan Potassium (Cozaar) 100 mg PO DAILY [facility] Last Admin: 08/07/18 08:05 Dose: 100 mg Magnesium Hydroxide (Milk Of Magnesia) 30 ml PO Q72H PRN PRN Reason: Constipation Pantoprazole Sodium (Protonix Ec Tab) 40 mg PO DAILY [facility] Last Admin: 08/07/18 08:06 Dose: 40 mg - Labs Labs: 08/07/18 04:25 08/07/18 04:25 PT 16.0 Seconds (9.8-13.1) H 08/06/18 04:30 INR 1.4 08/06/18 04:30 APTT 34.2 Seconds (25.6-37.1) 08/06/18 04:30 - Constitutional Appears: No Acute Distress, Chronically Ill - Head Exam Head Exam: ATRAUMATIC, NORMAL INSPECTION, NORMOCEPHALIC - Eye Exam Eye Exam: EOMI, Normal appearance, PERRL Pupil Exam: NORMAL ACCOMODATION, PERRL - ENT Exam ENT Exam: Mucous Membranes Moist, Normal Exam - Neck Exam Neck Exam: Full ROM, Normal Inspection. absent: Lymphadenopathy - Respiratory Exam Respiratory Exam: Decreased Breath Sounds, Clear to Ausculation Bilateral, Prolonged Expiratory Phase - Cardiovascular Exam Cardiovascular Exam: REGULAR RHYTHM, +S1, +S2. absent: Murmur - GI/Abdominal Exam GI & Abdominal Exam: Soft, Normal Bowel Sounds. absent: Tenderness - Rectal Exam Rectal Exam: Deferred - Extremities Exam Extremities Exam: Full ROM, Normal Capillary Refill, Normal Inspection. absent: Joint Swelling, Pedal Edema - Back Exam Back Exam: NORMAL INSPECTION - Neurological Exam Neurological Exam: Alert, Awake, CN II-XII Intact, Normal Gait, Oriented x3 - Psychiatric Exam Psychiatric exam: Normal Affect, Normal Mood - Skin Skin Exam: Dry, Intact, Normal Color, Warm Assessment and Plan (1) Hyponatremia Status: Acute (2) Pleural effusion Status: Acute (3) Sepsis Status: Acute (4) Ascites Status: Acute (5) Chest pain Status: Acute (6) ETOH abuse Status: Acute (7) Leukocytosis Status: Acute (8) Pleural effusion associated with pulmonary infection Status: Acute - Assessment and Plan (Free Text) Assessment: cultures and AFB negative thus far Improving on [facility] CT surgery on board Rx as per Dr Riddle
[2018-08-08 05:53] LABS: BASO # 0.1 K/uL (0.0-0.2); BASO % 1.2 % (0.0-2.0); EOS # 1.1 K/uL (0.0-0.7); EOS % 11.7 % (0.0-4.0); HEMOGLOBIN 8.8 g/dL (12.0-18.0); LYMPH # 1.3 K/uL (1.0-4.3); LYMPH % 13.9 % (20.0-40.0); MEAN CELL VOLUME 83.1 fl (80.0-94.0); MEAN CORPUSCULAR HEMOGLOBIN 27.9 pg (27.0-31.0); MEAN CORPUSCULAR HGB CONC 33.6 g/dL (33.0-37.0); MEAN PLATELET VOLUME 6.1 fl (7.2-11.7); MONO # 0.9 K/uL (0.0-0.8); MONO % 9.8 % (0.0-10.0); NEUT # 6.1 K/uL (1.8-7.0); NEUT % 63.4 % (50.0-75.0); RBC 3.14 Mil/uL (4.40-5.90); WHITE BLOOD COUNT 9.6 K/uL (4.8-10.8)
[2018-08-08 06:11] LABS: ALBUMIN 2.6 g/dL (3.5-5.0); ALT/SGPT 92 U/L (21-72); AST/SGOT 44 U/L (17-59); BLOOD UREA NITROGEN 13 mg/dl (9-20); CALCIUM 8.2 mg/dL (8.4-10.2); GFR NON-AFRICAN AMERICAN > 60
--- NOTE | 2018-08-08 08:00 | CP.PCM.PN ---
Subjective - Date & Time of Evaluation Date of Evaluation: 08/08/18 Time of Evaluation: 07:15 - Subjective Subjective: CT Surgery Note for Dr. Les Smith, PGY-2 Pt seen/examined at bedside Patient with BiPAP overnight. Denies wheezing, SOB, CP, N & V, F & C, and cough. Tolerating diet. Voiding. Had bronchoscopy done yesterday. Objective - Vital Signs/Intake and Output Vital Signs (last 24 hours): Temp Pulse Resp BP Pulse Ox 97.8 F 81 18 115/79 99 08/08/18 05:07 08/08/18 05:08 08/08/18 05:07 08/08/18 05:07 08/08/18 05:07 - Medications Medications: Current Medications Acetaminophen (Tylenol 325mg Tab) 650 mg PO Q4 PRN PRN Reason: Pain, moderate (4-7) Acetaminophen (Tylenol 325mg Tab) 650 mg PO Q6 PRN PRN Reason: Fever >100.4 F Last Admin: 08/04/18 02:08 Dose: 650 mg Albuterol/Ipratropium (Duoneb 3 Mg/0.5 Mg (3 Ml) Ud) 3 ml INH RQ4 PRN PRN Reason: Shortness of Breath Last Admin: 08/04/18 13:30 Dose: 3 ml Amlodipine Besylate (Norvasc) 10 mg PO DAILY [facility] Last Admin: 08/07/18 08:06 Dose: 10 mg Aspirin (Ecotrin) 81 mg PO DAILY [facility] Last Admin: 08/07/18 08:06 Dose: 81 mg Enoxaparin Sodium (Lovenox) 40 mg SC DAILY [facility]; Protocol Last Admin: 08/07/18 09:00 Dose: Not Given Furosemide (Lasix) 20 mg PO DAILY [facility] Last Admin: 08/07/18 08:06 Dose: 20 mg Vancomycin HCl 1 gm/ Sodium (Chloride) 250 mls @ 166.667 mls/hr IVPB Q12 [facility] Last Admin: 08/07/18 21:34 Dose: 166.667 mls/hr Lactated Ringer's (Lactated Ringer's) 500 mls @ 50 mls/hr IV .Q10H [facility] Last Admin: 08/07/18 17:55 Dose: 50 mls/hr Losartan Potassium (Cozaar) 100 mg PO DAILY [facility] Last Admin: 08/07/18 08:05 Dose: 100 mg Magnesium Hydroxide (Milk Of Magnesia) 30 ml PO Q72H PRN PRN Reason: Constipation Pantoprazole Sodium (Protonix Ec Tab) 40 mg PO DAILY [facility] Last Admin: 08/07/18 08:06 Dose: 40 mg - Labs Labs: 08/08/18 05:35 08/08/18 05:35 PT 16.0 Seconds (9.8-13.1) H 08/06/18 04:30 INR 1.4 08/06/18 04:30 APTT 34.2 Seconds (25.6-37.1) 08/06/18 04:30 - Constitutional Appears: Non-toxic, No Acute Distress - Head Exam Head Exam: ATRAUMATIC, NORMAL INSPECTION, NORMOCEPHALIC - Eye Exam Eye Exam: EOMI, Normal appearance - ENT Exam ENT Exam: Mucous Membranes Moist, Normal Exam - Neck Exam Neck Exam: Full ROM, Normal Inspection - Respiratory Exam Respiratory Exam: NORMAL BREATHING PATTERN (on bipap). absent: Rales, Rhonchi, Respiratory Distress - Cardiovascular Exam Cardiovascular Exam: REGULAR RHYTHM - GI/Abdominal Exam GI & Abdominal Exam: Soft. absent: Distended, Tenderness - Extremities Exam Extremities Exam: Normal Inspection - Neurological Exam Neurological Exam: Alert, Awake, CN II-XII Intact, Oriented x3 - Psychiatric Exam Psychiatric exam: Normal Affect, Normal Mood - Skin Skin Exam: Dry, Intact, Normal Color, Warm Assessment and Plan - Assessment and Plan (Free Text) Assessment: 62M w/ Bilateral Pleural Effusions s/p IR thoracentesis POD#4 Plan: FU cytology final reports FU pleural cx FU bronch brushings/washings Cont Abx further care as per primary team FU CT chest 08/[address] chest imaging results DW Dr. Jevon Smith, PGY-2
[2018-08-08] MEDS: Pantoprazole 40 mg EC Tab PO SCH (09:08)
[2018-08-08] MEDS: Enoxaparin 40 mg Syringe SC SCH (09:09)
--- NOTE | 2018-08-08 09:15 | CP.PCM.PN ---
Subjective - Date & Time of Evaluation Date of Evaluation: 08/08/18 Time of Evaluation: 09:15 - Subjective Subjective: FEELS WELL S/P UNREMARKABLE BRONCHOSCOPY Objective - Vital Signs/Intake and Output Vital Signs (last 24 hours): Temp Pulse Resp BP Pulse Ox 97.1 F L 89 20 109/74 100 08/08/18 08:09 08/08/18 09:08 08/08/18 08:09 08/08/18 09:08 08/08/18 08:09 - Medications Medications: Current Medications Acetaminophen (Tylenol 325mg Tab) 650 mg PO Q4 PRN PRN Reason: Pain, moderate (4-7) Acetaminophen (Tylenol 325mg Tab) 650 mg PO Q6 PRN PRN Reason: Fever >100.4 F Last Admin: 08/04/18 02:08 Dose: 650 mg Albuterol/Ipratropium (Duoneb 3 Mg/0.5 Mg (3 Ml) Ud) 3 ml INH RQ4 PRN PRN Reason: Shortness of Breath Last Admin: 08/04/18 13:30 Dose: 3 ml Amlodipine Besylate (Norvasc) 10 mg PO DAILY [facility] Last Admin: 08/08/18 09:08 Dose: 10 mg Aspirin (Ecotrin) 81 mg PO DAILY [facility] Last Admin: 08/08/18 09:08 Dose: 81 mg Furosemide (Lasix) 20 mg PO DAILY [facility] Last Admin: 08/08/18 09:08 Dose: 20 mg Lactated Ringer's (Lactated Ringer's) 500 mls @ 50 mls/hr IV .Q10H [facility] Last Admin: 08/07/18 17:55 Dose: 50 mls/hr Losartan Potassium (Cozaar) 100 mg PO DAILY [facility] Last Admin: 08/08/18 09:08 Dose: 100 mg Magnesium Hydroxide (Milk Of Magnesia) 30 ml PO Q72H PRN PRN Reason: Constipation Pantoprazole Sodium (Protonix Ec Tab) 40 mg PO DAILY [facility] Last Admin: 08/08/18 09:08 Dose: 40 mg - Labs Labs: 08/08/18 05:35 08/08/18 05:35 PT 16.0 Seconds (9.8-13.1) H 08/06/18 04:30 INR 1.4 08/06/18 04:30 APTT 34.2 Seconds (25.6-37.1) 08/06/18 04:30 - Constitutional Appears: No Acute Distress - Head Exam Head Exam: ATRAUMATIC, NORMAL INSPECTION, NORMOCEPHALIC - Eye Exam Eye Exam: EOMI, Normal appearance, PERRL Pupil Exam: NORMAL ACCOMODATION, PERRL - ENT Exam ENT Exam: Mucous Membranes Moist, Normal Exam - Neck Exam Neck Exam: Full ROM, Normal Inspection. absent: Lymphadenopathy - Respiratory Exam Respiratory Exam: Rales, NORMAL BREATHING PATTERN - Cardiovascular Exam Cardiovascular Exam: REGULAR RHYTHM, +S1, +S2. absent: Murmur - GI/Abdominal Exam GI & Abdominal Exam: Soft, Normal Bowel Sounds. absent: Tenderness - Rectal Exam Rectal Exam: NORMAL INSPECTION - Extremities Exam Extremities Exam: Full ROM, Normal Capillary Refill, Normal Inspection. absent: Joint Swelling, Pedal Edema - Back Exam Back Exam: NORMAL INSPECTION - Neurological Exam Neurological Exam: Alert, Awake, CN II-XII Intact, Normal Gait, Oriented x3 - Psychiatric Exam Psychiatric exam: Normal Affect, Normal Mood - Skin Skin Exam: Dry, Intact, Normal Color, Warm Assessment and Plan - Assessment and Plan (Free Text) Assessment: RECURRENT PLEURAL EFFUSIONS--?PARAPNEUMONIC Plan: CONTINUE CURRENT RX VATS IF EFFUSION RECURS AWAIT PATH REPORT FROM [facility]
[2018-08-08] MEDS: Lactated Ringer's 500 ML IV SCH ×3 (12:16→22:20)
--- NOTE | 2018-08-08 14:24 | PN ---
DATE: 08/08/2018 SUBJECTIVE: The patient is seen in bed, doing well. Still on BiPAP for sleep, does not need it during the daytime. Bronchoscopy with Dr. Riddle, was discussed with Dr. Riddle and was found to be normal. Pathology is pending. Per CT surgery, repeat CT scan is scheduled for tomorrow, Tuesday08/09/2018. The patient is without chest pain, shortness or breath. No fevers. Blood work is noted. WBC appeared to be improving. Sodium, platelets, all appear to be stable. REVIEW OF SYSTEMS: No shortness of breath or cough. PHYSICAL EXAMINATION: CONSTITUTIONAL: Awake, alert and oriented. HEENT: Normal. CARDIAC: S1 and S2. Regular rate and rhythm. No murmurs, rubs, or gallops. LUNGS: Clear to auscultation bilaterally. ABDOMEN: Soft, nontender. Bowel sounds x4. EXTREMITIES: Distal pulses and motor sensation is intact. Capillary refill is brisk. There is 1+ edema to the bilateral lower extremities. DIAGNOSIS AND PLAN: Pleural effusion, sepsis. Continue antibiotics. Continue all consults. Case was discussed with all consultants. CT scan should be completed tomorrow. Continue to follow with specialists, continue to follow up labs. Deep venous thrombosis prophylaxis, sequential compression devices, A-hose. We will initiate heparin as surgical option appears to be less likely at this time. . RASHAD Nesbitt DAVID
[2018-08-09 05:49] LABS: BASO % 0.4 % (0.0-2.0); EOS # 1.3 K/uL (0.0-0.7); EOS % 11.7 % (0.0-4.0); LYMPH # 1.3 K/uL (1.0-4.3); LYMPH % 12.1 % (20.0-40.0); MEAN CELL VOLUME 82.7 fl (80.0-94.0); MEAN CORPUSCULAR HEMOGLOBIN 27.4 pg (27.0-31.0); MEAN CORPUSCULAR HGB CONC 33.1 g/dL (33.0-37.0); MEAN PLATELET VOLUME 6.3 fl (7.2-11.7); MONO # 0.9 K/uL (0.0-0.8); NEUT # 7.6 K/uL (1.8-7.0); NEUT % 67.8 % (50.0-75.0); NRBC % 0.1 % (0.0-0.0); RBC 3.3 Mil/uL (4.40-5.90); RED CELL DISTRIBUTION WIDTH 16.4 % (11.5-14.5); WHITE BLOOD COUNT 11.1 K/uL (4.8-10.8)
[2018-08-09 06:09] LABS: ALBUMIN 2.7 g/dL (3.5-5.0); ALT/SGPT 84 U/L (21-72); AST/SGOT 40 U/L (17-59); BLOOD UREA NITROGEN 10 mg/dl (9-20); CALCIUM 8.2 mg/dL (8.4-10.2); GFR NON-AFRICAN AMERICAN > 60
[2018-08-09] MEDS: Pantoprazole 40 mg EC Tab PO SCH (09:38)
--- NOTE | 2018-08-09 11:08 | CP.PCM.PN ---
Subjective - Date & Time of Evaluation Date of Evaluation: 08/09/18 Time of Evaluation: 11:06 - Subjective Subjective: Surgery Note for Dr. Escoto Pt seen/examined at bedside Patient with bilateral pleural effusions s/p IR thorcentesis POD#5. Denies whee zing, SOB, CP, N & V, F & C, and cough. Tolerating diet. Voiding. States he has been walking without being short of breath. Chest CT pending. Objective - Vital Signs/Intake and Output Vital Signs (last 24 hours): Temp Pulse Resp BP Pulse Ox 97.8 F 83 18 113/70 100 08/09/18 07:51 08/09/18 09:38 08/09/18 07:51 08/09/18 09:38 08/09/18 07:51 - Medications Medications: Current Medications Acetaminophen (Tylenol 325mg Tab) 650 mg PO Q4 PRN PRN Reason: Pain, moderate (4-7) Acetaminophen (Tylenol 325mg Tab) 650 mg PO Q6 PRN PRN Reason: Fever >100.4 F Last Admin: 08/04/18 02:08 Dose: 650 mg Albuterol/Ipratropium (Duoneb 3 Mg/0.5 Mg (3 Ml) Ud) 3 ml INH RQ4 PRN PRN Reason: Shortness of Breath Last Admin: 08/04/18 13:30 Dose: 3 ml Amlodipine Besylate (Norvasc) 10 mg PO DAILY [facility] Last Admin: 08/09/18 09:38 Dose: 10 mg Aspirin (Ecotrin) 81 mg PO DAILY [facility] Last Admin: 08/09/18 09:36 Dose: 81 mg Furosemide (Lasix) 20 mg PO DAILY [facility] Last Admin: 08/09/18 09:38 Dose: 20 mg Heparin Sodium (Porcine) (Heparin) 5,000 units SC Q12 [facility]; Protocol Last Admin: 08/09/18 09:37 Dose: 5,000 units Lactated Ringer's (Lactated Ringer's) 500 mls @ 50 mls/hr IV .Q10H [facility] Last Admin: 08/08/18 22:20 Dose: 50 mls/hr Losartan Potassium (Cozaar) 100 mg PO DAILY [facility] Last Admin: 08/09/18 09:36 Dose: 100 mg Magnesium Hydroxide (Milk Of Magnesia) 30 ml PO Q72H PRN PRN Reason: Constipation Pantoprazole Sodium (Protonix Ec Tab) 40 mg PO DAILY [facility] Last Admin: 08/09/18 09:38 Dose: 40 mg - Labs Labs: 08/09/18 05:30 08/09/18 05:30 PT 16.0 Seconds (9.8-13.1) H 08/06/18 04:30 INR 1.4 08/06/18 04:30 APTT 39.9 Seconds (25.6-37.1) H 08/09/18 05:30 - Constitutional Appears: Well, Non-toxic, No Acute Distress - Head Exam Head Exam: ATRAUMATIC, NORMOCEPHALIC - Eye Exam Eye Exam: Normal appearance - ENT Exam ENT Exam: Mucous Membranes Moist - Respiratory Exam Respiratory Exam: Clear to Ausculation Bilateral, NORMAL BREATHING PATTERN. absent: Rhonchi, Wheezes, Respiratory Distress, Stridor - Cardiovascular Exam Cardiovascular Exam: REGULAR RHYTHM - Neurological Exam Neurological Exam: Alert, Awake, Oriented x3 - Psychiatric Exam Psychiatric exam: Normal Affect Assessment and Plan - Assessment and Plan (Free Text) Assessment: 62M w/ Bilateral Pleural Effusions s/p IR thoracentesis POD#5 Plan: FU cytology; negative for malignant cells, reactive mesothelial cells. FU pleural cx bronch brushings/washings: normal saprophytic gregorio Cont Abx further care as per primary team FU CT chest 08/09- pending. Further recs pending CT chest imaging results ZARI Escoto
--- NOTE | 2018-08-09 11:33 | CP.PCM.PN ---
Subjective - Date & Time of Evaluation Date of Evaluation: 08/09/18 Time of Evaluation: 11:28 - Subjective Subjective: Pt s/e. No sob. afebrile. wbc:11k Bronch-No unusual findings. Pleural fluids- Gram stain negative, and c and s negative/ Awaiting ct of chest today. a/p: Doing well. Awaiting ct of chest. Objective - Vital Signs/Intake and Output Vital Signs (last 24 hours): Temp Pulse Resp BP Pulse Ox 97.8 F 83 18 113/70 100 08/09/18 07:51 08/09/18 09:38 08/09/18 07:51 08/09/18 09:38 08/09/18 07:51 - Medications Medications: Current Medications Acetaminophen (Tylenol 325mg Tab) 650 mg PO Q4 PRN PRN Reason: Pain, moderate (4-7) Acetaminophen (Tylenol 325mg Tab) 650 mg PO Q6 PRN PRN Reason: Fever >100.4 F Last Admin: 08/04/18 02:08 Dose: 650 mg Albuterol/Ipratropium (Duoneb 3 Mg/0.5 Mg (3 Ml) Ud) 3 ml INH RQ4 PRN PRN Reason: Shortness of Breath Last Admin: 08/04/18 13:30 Dose: 3 ml Amlodipine Besylate (Norvasc) 10 mg PO DAILY [facility] Last Admin: 08/09/18 09:38 Dose: 10 mg Aspirin (Ecotrin) 81 mg PO DAILY [facility] Last Admin: 08/09/18 09:36 Dose: 81 mg Furosemide (Lasix) 20 mg PO DAILY [facility] Last Admin: 08/09/18 09:38 Dose: 20 mg Heparin Sodium (Porcine) (Heparin) 5,000 units SC Q12 [facility]; Protocol Last Admin: 08/09/18 09:37 Dose: 5,000 units Lactated Ringer's (Lactated Ringer's) 500 mls @ 50 mls/hr IV .Q10H [facility] Last Admin: 08/08/18 22:20 Dose: 50 mls/hr Losartan Potassium (Cozaar) 100 mg PO DAILY [facility] Last Admin: 08/09/18 09:36 Dose: 100 mg Magnesium Hydroxide (Milk Of Magnesia) 30 ml PO Q72H PRN PRN Reason: Constipation Pantoprazole Sodium (Protonix Ec Tab) 40 mg PO DAILY [facility] Last Admin: 08/09/18 09:38 Dose: 40 mg - Labs Labs: 08/09/18 05:30 08/09/18 05:30 PT 16.0 Seconds (9.8-13.1) H 08/06/18 04:30 INR 1.4 08/06/18 04:30 APTT 39.9 Seconds (25.6-37.1) H 08/09/18 05:30
[2018-08-09] MEDS: Lactated Ringer's 500 ML IV SCH (16:14)
--- NOTE | 2018-08-09 17:42 | CP.PCM.PN ---
Subjective - Date & Time of Evaluation Date of Evaluation: 08/09/18 Time of Evaluation: 08:00 - Subjective Subjective: cultures better no fever less sob await CT chest Objective - Vital Signs/Intake and Output Vital Signs (last 24 hours): Temp Pulse Resp BP Pulse Ox 98.6 F 83 20 108/69 99 08/09/18 15:59 08/09/18 15:59 08/09/18 15:59 08/09/18 15:59 08/09/18 15:59 - Medications Medications: Current Medications Acetaminophen (Tylenol 325mg Tab) 650 mg PO Q4 PRN PRN Reason: Pain, moderate (4-7) Acetaminophen (Tylenol 325mg Tab) 650 mg PO Q6 PRN PRN Reason: Fever >100.4 F Last Admin: 08/04/18 02:08 Dose: 650 mg Albuterol/Ipratropium (Duoneb 3 Mg/0.5 Mg (3 Ml) Ud) 3 ml INH RQ4 PRN PRN Reason: Shortness of Breath Last Admin: 08/04/18 13:30 Dose: 3 ml Amlodipine Besylate (Norvasc) 10 mg PO DAILY [facility] Last Admin: 08/09/18 09:38 Dose: 10 mg Aspirin (Ecotrin) 81 mg PO DAILY [facility] Last Admin: 08/09/18 09:36 Dose: 81 mg Furosemide (Lasix) 20 mg PO DAILY [facility] Last Admin: 08/09/18 09:38 Dose: 20 mg Heparin Sodium (Porcine) (Heparin) 5,000 units SC Q12 [facility]; Protocol Last Admin: 08/09/18 09:37 Dose: 5,000 units Lactated Ringer's (Lactated Ringer's) 500 mls @ 50 mls/hr IV .Q10H [facility] Last Admin: 08/09/18 16:14 Dose: 50 mls/hr Losartan Potassium (Cozaar) 100 mg PO DAILY [facility] Last Admin: 08/09/18 09:36 Dose: 100 mg Magnesium Hydroxide (Milk Of Magnesia) 30 ml PO Q72H PRN PRN Reason: Constipation Pantoprazole Sodium (Protonix Ec Tab) 40 mg PO DAILY [facility] Last Admin: 08/09/18 09:38 Dose: 40 mg - Labs Labs: 08/09/18 05:30 08/09/18 05:30 PT 16.0 Seconds (9.8-13.1) H 08/06/18 04:30 INR 1.4 08/06/18 04:30 APTT 39.9 Seconds (25.6-37.1) H 08/09/18 05:30 - Constitutional Appears: Non-toxic, No Acute Distress, Chronically Ill - Head Exam Head Exam: ATRAUMATIC, NORMAL INSPECTION, NORMOCEPHALIC - Eye Exam Eye Exam: EOMI, Normal appearance, PERRL Pupil Exam: NORMAL ACCOMODATION, PERRL - ENT Exam ENT Exam: Mucous Membranes Moist, Normal Exam - Neck Exam Neck Exam: Full ROM, Normal Inspection. absent: Lymphadenopathy - Respiratory Exam Respiratory Exam: Decreased Breath Sounds, Clear to Ausculation Bilateral, Prolonged Expiratory Phase - Cardiovascular Exam Cardiovascular Exam: REGULAR RHYTHM, +S1, +S2. absent: Murmur - GI/Abdominal Exam GI & Abdominal Exam: Soft, Normal Bowel Sounds. absent: Tenderness - Rectal Exam Rectal Exam: Deferred - Exam Exam: NORMAL INSPECTION - Extremities Exam Extremities Exam: Full ROM, Normal Capillary Refill, Pedal Edema. absent: Joint Swelling - Back Exam Back Exam: NORMAL INSPECTION - Neurological Exam Neurological Exam: Alert, Awake, CN II-XII Intact, Normal Gait, Oriented x3 - Psychiatric Exam Psychiatric exam: Normal Affect, Normal Mood - Skin Skin Exam: Dry, Intact, Normal Color, Warm Assessment and Plan (1) Hyponatremia Status: Acute (2) Pleural effusion Status: Acute (3) Sepsis Status: Acute (4) Ascites Status: Acute (5) Chest pain Status: Acute (6) ETOH abuse Status: Acute (7) Leukocytosis Status: Acute (8) Pleural effusion associated with pulmonary infection Status: Acute - Assessment and Plan (Free Text) Assessment: await repeat CT cont IV rx rx as per Dr Riddle
[2018-08-10 05:58] LABS: BASO % 1.9 % (0.0-2.0); EOS % 14.9 % (0.0-4.0); HEMOGLOBIN 8.9 g/dL (12.0-18.0); LYMPH # 1.3 K/uL (1.0-4.3); LYMPH % 17.3 % (20.0-40.0); MEAN CELL VOLUME 82.2 fl (80.0-94.0); MEAN CORPUSCULAR HEMOGLOBIN 27.6 pg (27.0-31.0); MEAN CORPUSCULAR HGB CONC 33.5 g/dL (33.0-37.0); MEAN PLATELET VOLUME 6.1 fl (7.2-11.7); MONO # 0.6 K/uL (0.0-0.8); NEUT # 4.5 K/uL (1.8-7.0); NEUT % 57.9 % (50.0-75.0); RBC 3.22 Mil/uL (4.40-5.90); RED CELL DISTRIBUTION WIDTH 16.3 % (11.5-14.5); WHITE BLOOD COUNT 7.8 K/uL (4.8-10.8)
[2018-08-10 05:59] LABS: BASO # 0.1 K/uL (0.0-0.2); EOS # 1.2 K/uL (0.0-0.7)
[2018-08-10 06:22] LABS: ALBUMIN 2.7 g/dL (3.5-5.0); ALT/SGPT 85 U/L (21-72); AST/SGOT 62 U/L (17-59); BLOOD UREA NITROGEN 8 mg/dl (9-20); CALCIUM 8.2 mg/dL (8.4-10.2); GFR NON-AFRICAN AMERICAN > 60
--- NOTE | 2018-08-10 08:33 | PN ---
DATE: 08/09/2018 SUBJECTIVE: The patient is doing well. Off BiPAP. Using nasal cannula only. No chest pain or shortness of breath. Pending CT chest. consult notes reviewed. Blood work is noted and reviewed. REVIEW OF SYSTEMS: Negative. PHYSICAL EXAMINATION CONSTITUTIONAL: Awake, alert, and oriented. No distress. HEENT: Normal. CARDIAC: Regular rate rhythm. No murmur, rubs, or gallops. LUNGS: Clear to auscultation bilaterally. ABDOMEN: Soft and nontender. Bowel sounds x4. EXTREMITIES: Distal pulses and motor sensation intact. Capillary refill is brisk and on external exam, there is 2+ swelling noted. DIAGNOSIS AND PLAN: Pleural effusion with infection. Continue all consults. Continue antibiotics. For discharged back to subacute rehab as this patient as he has been in a hospital for almost a month and requires significant re-conditioning especially given his history and his diagnosis. Pt will also require 1 more week IV vanco. Deep venous thrombosis prophylaxis, A-hose, heparin, follow with the patient, and special CT image. RASHAD Nesbitt DAVID
--- NOTE | 2018-08-10 09:21 | CP.PCM.PN ---
Subjective - Date & Time of Evaluation Date of Evaluation: 08/10/18 Time of Evaluation: 09:21 - Subjective Subjective: NO SOB OOB TO CHAIR NO CHEST PAINS PATH REPORT FROM BRONCHOSCOPY PENDING NO FURTHER PULMONARY INTERVENTION FOR NOW OK TO D/C TO SUBACUTE CARE REVIEW PATH REPORTS OUT PT Objective - Vital Signs/Intake and Output Vital Signs (last 24 hours): Temp Pulse Resp BP Pulse Ox 97.5 F L 77 18 107/68 100 08/10/18 08:00 08/10/18 08:00 08/10/18 08:00 08/10/18 08:00 08/10/18 08:00 - Medications Medications: Current Medications Acetaminophen (Tylenol 325mg Tab) 650 mg PO Q4 PRN PRN Reason: Pain, moderate (4-7) Acetaminophen (Tylenol 325mg Tab) 650 mg PO Q6 PRN PRN Reason: Fever >100.4 F Last Admin: 08/04/18 02:08 Dose: 650 mg Albuterol/Ipratropium (Duoneb 3 Mg/0.5 Mg (3 Ml) Ud) 3 ml INH RQ4 PRN PRN Reason: Shortness of Breath Last Admin: 08/04/18 13:30 Dose: 3 ml Amlodipine Besylate (Norvasc) 10 mg PO DAILY [facility] Last Admin: 08/09/18 09:38 Dose: 10 mg Aspirin (Ecotrin) 81 mg PO DAILY [facility] Last Admin: 08/09/18 09:36 Dose: 81 mg Furosemide (Lasix) 20 mg PO DAILY [facility] Last Admin: 08/09/18 09:38 Dose: 20 mg Heparin Sodium (Porcine) (Heparin) 5,000 units SC Q12 [facility]; Protocol Last Admin: 08/09/18 22:06 Dose: 5,000 units Lactated Ringer's (Lactated Ringer's) 500 mls @ 50 mls/hr IV .Q10H [facility] Last Admin: 08/09/18 16:14 Dose: 50 mls/hr Vancomycin HCl 1 gm/ Sodium (Chloride) 250 mls @ 166.667 mls/hr IVPB Q12H [facility]; Protocol Last Admin: 08/09/18 23:04 Dose: 166.667 mls/hr Losartan Potassium (Cozaar) 100 mg PO DAILY [facility] Last Admin: 08/09/18 09:36 Dose: 100 mg Magnesium Hydroxide (Milk Of Magnesia) 30 ml PO Q72H PRN PRN Reason: Constipation Pantoprazole Sodium (Protonix Ec Tab) 40 mg PO DAILY [facility] Last Admin: 08/09/18 09:38 Dose: 40 mg - Labs Labs: 08/10/18 05:30 08/10/18 05:30 PT 16.0 Seconds (9.8-13.1) H 08/06/18 04:30 INR 1.4 08/06/18 04:30 APTT 39.9 Seconds (25.6-37.1) H 08/09/18 05:30
[2018-08-10] MEDS: Pantoprazole 40 mg EC Tab PO SCH (10:03)
--- NOTE | 2018-08-10 10:54 | PN ---
DATE: 08/10/2018 SUBJECTIVE: The patient is seen in bed, sleeping, easily arousable, on BiPAP, requesting to come off BiPAP. He has been very comfortable during the day on nasal cannula. No headache, chest pain, shortness breath. No cough. Blood work is stable, chest is pending. REVIEW OF SYSTEMS: Negative. PHYSICAL EXAMINATION: CONSTITUTIONAL: Awake, alert, and oriented. HEENT: Normal. LUNGS: Clear to auscultation bilaterally. ABDOMEN: Soft and nontender. Bowel sounds x4. CARDIAC: S1, S2. Regular rate and rhythm. No murmur, rubs, or gallops. EXTREMITIES: Distal PMS is intact. Cap refill is brisk. 1 to 2+ edema to the bilateral ankles. DIAGNOSIS AND PLAN: Pulmonary effusion cont anbx, plan to get back to subacute for further treatment as indicated. Deep venous thrombosis prophylaxis, sequential compression devices, A-hose, heparin. RASHAD Nesbitt MTDAliyah
--- NOTE | 2018-08-10 11:38 | CP.PCM.PCO ---
Assessment and Plan - Assessment and Plan (Free Text) Assessment: Patient seen and examined OOB to chair with no respiratory distress. Spoke to Dr Escoto, ct scan chest cancelled. Patient can follow up outpatient. Discussed with Dr Riddle, patient cleared for discharge to half-way for continuation of iv antibiotics. 1 more week of vancomycin as per ID recommendations. All discussed with Delfin [employer] AIDE, return to [facility].
[2018-08-11] MEDS: Pantoprazole 40 mg EC Tab PO SCH (09:04)
--- NOTE | 2018-08-11 13:33 | CP.PCM.PN ---
Subjective - Date & Time of Evaluation Date of Evaluation: 08/11/18 Time of Evaluation: 09:00 - Subjective Subjective: repeat CT chest cancelled no fever chest pain cough or SOB Objective - Vital Signs/Intake and Output Vital Signs (last 24 hours): Temp Pulse Resp BP Pulse Ox 98 F 85 20 117/60 99 08/11/18 12:40 08/11/18 12:40 08/11/18 12:40 08/11/18 12:40 08/11/18 12:40 - Medications Medications: Current Medications Acetaminophen (Tylenol 325mg Tab) 650 mg PO Q4 PRN PRN Reason: Pain, moderate (4-7) Acetaminophen (Tylenol 325mg Tab) 650 mg PO Q6 PRN PRN Reason: Fever >100.4 F Last Admin: 08/04/18 02:08 Dose: 650 mg Albuterol/Ipratropium (Duoneb 3 Mg/0.5 Mg (3 Ml) Ud) 3 ml INH RQ4 PRN PRN Reason: Shortness of Breath Last Admin: 08/04/18 13:30 Dose: 3 ml Amlodipine Besylate (Norvasc) 10 mg PO DAILY [facility] Last Admin: 08/11/18 09:06 Dose: 10 mg Aspirin (Ecotrin) 81 mg PO DAILY [facility] Last Admin: 08/11/18 09:07 Dose: 81 mg Furosemide (Lasix) 20 mg PO DAILY [facility] Last Admin: 08/11/18 09:07 Dose: 20 mg Heparin Sodium (Porcine) (Heparin) 5,000 units SC Q12 [facility]; Protocol Last Admin: 08/11/18 09:07 Dose: 5,000 units Vancomycin HCl 1 gm/ Sodium (Chloride) 250 mls @ 166.667 mls/hr IVPB Q12H [facility]; Protocol Last Admin: 08/11/18 09:08 Dose: 166.667 mls/hr Losartan Potassium (Cozaar) 100 mg PO DAILY [facility] Last Admin: 08/11/18 09:06 Dose: 100 mg Magnesium Hydroxide (Milk Of Magnesia) 30 ml PO Q72H PRN PRN Reason: Constipation Pantoprazole Sodium (Protonix Ec Tab) 40 mg PO DAILY [facility] Last Admin: 08/11/18 09:04 Dose: 40 mg - Labs Labs: 08/10/18 05:30 08/10/18 05:30 PT 16.0 Seconds (9.8-13.1) H 08/06/18 04:30 INR 1.4 08/06/18 04:30 APTT 39.9 Seconds (25.6-37.1) H 08/09/18 05:30 - Constitutional Appears: Non-toxic, No Acute Distress, Chronically Ill - Head Exam Head Exam: ATRAUMATIC, NORMAL INSPECTION, NORMOCEPHALIC - Eye Exam Eye Exam: EOMI, Normal appearance, PERRL Pupil Exam: NORMAL ACCOMODATION, PERRL - ENT Exam ENT Exam: Mucous Membranes Moist, Normal Exam - Neck Exam Neck Exam: Full ROM, Normal Inspection. absent: Lymphadenopathy - Respiratory Exam Respiratory Exam: Clear to Ausculation Bilateral, NORMAL BREATHING PATTERN - Cardiovascular Exam Cardiovascular Exam: REGULAR RHYTHM, +S1, +S2. absent: Murmur - GI/Abdominal Exam GI & Abdominal Exam: Soft, Normal Bowel Sounds. absent: Tenderness - Rectal Exam Rectal Exam: Deferred - Exam Exam: NORMAL INSPECTION - Extremities Exam Extremities Exam: Full ROM, Normal Capillary Refill, Normal Inspection. absent: Joint Swelling, Pedal Edema - Back Exam Back Exam: NORMAL INSPECTION - Neurological Exam Neurological Exam: Alert, Awake, CN II-XII Intact, Normal Gait, Oriented x3 - Psychiatric Exam Psychiatric exam: Normal Affect, Normal Mood - Skin Skin Exam: Dry, Intact, Normal Color, Warm Assessment and Plan (1) Hyponatremia Status: Acute (2) Pleural effusion Status: Acute (3) Sepsis Status: Acute (4) Ascites Status: Acute (5) Chest pain Status: Acute (6) ETOH abuse Status: Acute (7) Leukocytosis Status: Acute (8) Pleural effusion associated with pulmonary infection Status: Acute - Assessment and Plan (Free Text) Assessment: s/p sepsis/ pneumonia/ pleurisy suspected MRSA all cultures neg responded to Vanco cont rx min 7 days with close clinical follow up
--- NOTE | 2018-08-12 08:11 | PN ---
DATE: 08/12/2018 SUBJECTIVE: The patient is seen on bedside, was sleeping, doing well. No complaints. No distress. A.m. labs are noted. REVIEW OF SYSTEMS: Negative. PHYSICAL EXAMINATION: CONSTITUTIONAL: Awake, alert, and oriented. HEENT: Normal. CARDIAC: S1, S2 regular rate and rhythm. No murmurs, rubs, or gallops. LUNGS: Clear in all rodas bilaterally. ABDOMEN: Soft and nontender. Bowel sounds x4. EXTREMITIES: Distal PMS intact. 2+ edema noted to the lower extremities. DIAGNOSIS AND PLAN: Pleural effusion with infection. Continue antibiotics. Continue supportive care. Continue to work with Social Work from Tuesday for readmission to subacute. Deep vein thrombosis prophylaxis, sequential compression devices with A-hose , heparin, ambulation. Continue to monitor all chronic conditions. RASHAD Nesbitt
[2018-08-12] MEDS: Pantoprazole 40 mg EC Tab PO SCH (09:38)
[2018-08-13] MEDS: Pantoprazole 40 mg EC Tab PO SCH (10:13)
[2018-08-13 10:33] LABS: HEMOGLOBIN 10.5 g/dL (12.0-18.0); MEAN CELL VOLUME 82.3 fl (80.0-94.0); MEAN CORPUSCULAR HEMOGLOBIN 27.8 pg (27.0-31.0); MEAN CORPUSCULAR HGB CONC 33.7 g/dL (33.0-37.0); RBC 3.78 Mil/uL (4.40-5.90); RED CELL DISTRIBUTION WIDTH 16.5 % (11.5-14.5); WHITE BLOOD COUNT 9.6 K/uL (4.8-10.8)
[2018-08-13 10:46] LABS: IRON 50 ug/dL (49-181)
[2018-08-13 10:49] LABS: BLOOD UREA NITROGEN 11 mg/dl (9-20); CALCIUM 9.2 mg/dL (8.4-10.2); GFR NON-AFRICAN AMERICAN > 60
[2018-08-13 10:56] LABS: % IRON SATURATION 18 % (20-55); TOTAL IRON BINDING CAPACITY 274 ug/dL (250-450)
--- NOTE | 2018-08-13 12:42 | CP.PCM.PN ---
Subjective - Date & Time of Evaluation Date of Evaluation: 08/13/18 Time of Evaluation: 09:00 - Subjective Subjective: seen on rounds patient examined chart reviewed orders signed Objective - Vital Signs/Intake and Output Vital Signs (last 24 hours): Temp Pulse Resp BP Pulse Ox 98.3 F 74 20 117/74 97 08/13/18 08:54 08/13/18 08:54 08/13/18 08:54 08/13/18 10:13 08/13/18 08:54 - Medications Medications: Current Medications Acetaminophen (Tylenol 325mg Tab) 650 mg PO Q4 PRN PRN Reason: Pain, moderate (4-7) Acetaminophen (Tylenol 325mg Tab) 650 mg PO Q6 PRN PRN Reason: Fever >100.4 F Last Admin: 08/04/18 02:08 Dose: 650 mg Albuterol/Ipratropium (Duoneb 3 Mg/0.5 Mg (3 Ml) Ud) 3 ml INH RQ4 PRN PRN Reason: Shortness of Breath Last Admin: 08/04/18 13:30 Dose: 3 ml Amlodipine Besylate (Norvasc) 10 mg PO DAILY [facility] Last Admin: 08/13/18 10:14 Dose: 10 mg Aspirin (Ecotrin) 81 mg PO DAILY [facility] Last Admin: 08/13/18 10:13 Dose: 81 mg Furosemide (Lasix) 20 mg PO DAILY [facility] Last Admin: 08/13/18 10:13 Dose: 20 mg Heparin Sodium (Porcine) (Heparin) 5,000 units SC Q12 [facility]; Protocol Last Admin: 08/13/18 10:16 Dose: Not Given Vancomycin HCl 1 gm/ Sodium (Chloride) 250 mls @ 166.667 mls/hr IVPB Q12H [facility]; Protocol Last Admin: 08/13/18 10:12 Dose: 166.667 mls/hr Lactobacillus Acidophilus (Bacid Acidophilus) 1 cap PO BID [facility] Losartan Potassium (Cozaar) 100 mg PO DAILY [facility] Last Admin: 08/13/18 10:14 Dose: 100 mg Magnesium Hydroxide (Milk Of Magnesia) 30 ml PO Q72H PRN PRN Reason: Constipation Pantoprazole Sodium (Protonix Ec Tab) 40 mg PO DAILY [facility] Last Admin: 08/13/18 10:13 Dose: 40 mg - Labs Labs: 08/13/18 09:05 08/13/18 09:05 PT 16.0 Seconds (9.8-13.1) H 08/06/18 04:30 INR 1.4 08/06/18 04:30 APTT 39.9 Seconds (25.6-37.1) H 08/09/18 05:30 - Constitutional Appears: Non-toxic, No Acute Distress, Chronically Ill - Head Exam Head Exam: ATRAUMATIC, NORMAL INSPECTION, NORMOCEPHALIC - Eye Exam Eye Exam: EOMI, Normal appearance, PERRL Pupil Exam: NORMAL ACCOMODATION, PERRL - ENT Exam ENT Exam: Mucous Membranes Moist, Normal Exam - Neck Exam Neck Exam: Full ROM, Normal Inspection. absent: Lymphadenopathy - Respiratory Exam Respiratory Exam: Clear to Ausculation Bilateral, NORMAL BREATHING PATTERN - Cardiovascular Exam Cardiovascular Exam: REGULAR RHYTHM, +S1, +S2. absent: Murmur - GI/Abdominal Exam GI & Abdominal Exam: Soft, Normal Bowel Sounds. absent: Tenderness - Rectal Exam Rectal Exam: Deferred - Exam Exam: NORMAL INSPECTION - Extremities Exam Extremities Exam: Full ROM, Normal Capillary Refill, Normal Inspection. absent: Joint Swelling, Pedal Edema - Back Exam Back Exam: NORMAL INSPECTION - Neurological Exam Neurological Exam: Alert, Awake, CN II-XII Intact, Normal Gait, Oriented x3 - Psychiatric Exam Psychiatric exam: Normal Affect, Normal Mood - Skin Skin Exam: Dry, Intact, Normal Color, Warm Assessment and Plan (1) Hyponatremia Status: Acute (2) Pleural effusion Status: Acute (3) Sepsis Status: Acute (4) Ascites Status: Acute (5) Chest pain Status: Acute (6) ETOH abuse Status: Acute (7) Leukocytosis Status: Acute (8) Pleural effusion associated with pulmonary infection Status: Acute - Assessment and Plan (Free Text) Assessment: cont IV Vanco levels OK follow up CXR PT/OT
[2018-08-13] MEDS: Lactobacillus Acidophilus 500 MU Cap PO SCH (17:09)
--- NOTE | 2018-08-14 08:24 | PN ---
DATE: 08/11/2018 SUBJECTIVE: The patient is sitting in chair, doing well. No complaints. No shortness of breath or chest pain. Labs are noted. Consult is appreciated. Pendinginsurance auth back to subacute. REVIEW OF SYSTEMS: Negative. PHYSICAL EXAMINATION: CONSTITUTIONAL: Awake, alert, and oriented. HEENT: Normal. CARDIAC: S1 and S2. Regular rate and rhythm. No murmurs, rubs, or gallops. LUNGS: Clear in all rodas bilaterally. ABDOMEN: Soft and nontender. Bowel sounds x4. EXTREMITIES: Distal extremity pulses intact. No swelling is noted. DIAGNOSES AND PLAN: Pleural effusion with infection. Continue antibiotics. Follow up in seven days with ID this coming as per Dr. Mcgee. Continue Subacute rehab on Tuesday_. Deep venous thrombosis prophylaxis, sequential compression devices, A-hose, heparin, ambulation, and follow up w/ pt and consultants. RASHAD Nesbitt [email or web address]
[2018-08-14] MEDS: Pantoprazole 40 mg EC Tab PO SCH (09:06)
[2018-08-14] MEDS: Lactobacillus Acidophilus 500 MU Cap PO SCH ×2 (09:12→16:42)
--- NOTE | 2018-08-14 11:31 | CP.PCM.PN ---
Subjective - Date & Time of Evaluation Date of Evaluation: 08/13/18 Time of Evaluation: 20:00 - Subjective Subjective: pt seen and doing well. no f/c, n/v/d. no sob, cp. pending anu Objective - Vital Signs/Intake and Output Vital Signs (last 24 hours): Temp Pulse Resp BP Pulse Ox 98.1 F 76 18 117/74 96 08/14/18 08:06 08/14/18 09:06 08/14/18 08:06 08/14/18 09:06 08/14/18 08:06 - Medications Medications: Current Medications Acetaminophen (Tylenol 325mg Tab) 650 mg PO Q4 PRN PRN Reason: Pain, moderate (4-7) Acetaminophen (Tylenol 325mg Tab) 650 mg PO Q6 PRN PRN Reason: Fever >100.4 F Last Admin: 08/04/18 02:08 Dose: 650 mg Albuterol/Ipratropium (Duoneb 3 Mg/0.5 Mg (3 Ml) Ud) 3 ml INH RQ4 PRN PRN Reason: Shortness of Breath Last Admin: 08/04/18 13:30 Dose: 3 ml Amlodipine Besylate (Norvasc) 10 mg PO DAILY [facility] Last Admin: 08/14/18 09:06 Dose: 10 mg Aspirin (Ecotrin) 81 mg PO DAILY [facility] Last Admin: 08/14/18 09:04 Dose: 81 mg Furosemide (Lasix) 20 mg PO DAILY [facility] Last Admin: 08/14/18 09:05 Dose: 20 mg Heparin Sodium (Porcine) (Heparin) 5,000 units SC Q12 [facility]; Protocol Last Admin: 08/14/18 09:04 Dose: 5,000 units Vancomycin HCl 1 gm/ Sodium (Chloride) 250 mls @ 166.667 mls/hr IVPB Q12H [facility]; Protocol Last Admin: 08/14/18 09:06 Dose: 166.667 mls/hr Lactobacillus Acidophilus (Bacid Acidophilus) 1 cap PO BID [facility] Last Admin: 08/14/18 09:12 Dose: 1 cap Losartan Potassium (Cozaar) 100 mg PO DAILY [facility] Last Admin: 08/14/18 09:04 Dose: 100 mg Magnesium Hydroxide (Milk Of Magnesia) 30 ml PO Q72H PRN PRN Reason: Constipation Pantoprazole Sodium (Protonix Ec Tab) 40 mg PO DAILY [facility] Last Admin: 08/14/18 09:06 Dose: 40 mg - Labs Labs: 08/13/18 09:05 08/13/18 09:05 PT 16.0 Seconds (9.8-13.1) H 08/06/18 04:30 INR 1.4 08/06/18 04:30 APTT 39.9 Seconds (25.6-37.1) H 08/09/18 05:30 - Constitutional Appears: Well, Non-toxic, No Acute Distress - Head Exam Head Exam: ATRAUMATIC, NORMAL INSPECTION, NORMOCEPHALIC - Eye Exam Eye Exam: EOMI, Normal appearance, PERRL Pupil Exam: NORMAL ACCOMODATION, PERRL - ENT Exam ENT Exam: Mucous Membranes Moist, Normal Exam - Neck Exam Neck Exam: Full ROM, Normal Inspection. absent: Lymphadenopathy - Respiratory Exam Respiratory Exam: Clear to Ausculation Bilateral, NORMAL BREATHING PATTERN - Cardiovascular Exam Cardiovascular Exam: REGULAR RHYTHM, RRR, +S1, +S2. absent: Murmur - GI/Abdominal Exam GI & Abdominal Exam: Soft, Normal Bowel Sounds. absent: Tenderness - Extremities Exam Extremities Exam: Full ROM, Normal Capillary Refill, Normal Inspection. absent: Joint Swelling, Pedal Edema - Back Exam Back Exam: NORMAL INSPECTION - Neurological Exam Neurological Exam: Alert, Awake, CN II-XII Intact, Normal Gait, Oriented x3 - Psychiatric Exam Psychiatric exam: Normal Affect, Normal Mood - Skin Skin Exam: Dry, Intact, Normal Color, Warm Assessment and Plan (1) Hyponatremia Assessment & Plan: stable, monitor Status: Acute (2) Pleural effusion Assessment & Plan: cont anbx, cont f/u anu cont bipap at night Status: Acute (3) Sepsis Assessment & Plan: infectious disease consult cont anbx Status: Acute (4) DVT prophylaxis Assessment & Plan: scd and ae hose heparin ambulation Status: Acute
--- NOTE | 2018-08-14 12:23 | CP.PCM.PN ---
Subjective - Date & Time of Evaluation Date of Evaluation: 08/14/18 Time of Evaluation: 12:22 - Subjective Subjective: pt doign well. no f/c, n/v/d. did not need bipap overnight. consults appriciated. for anu. Objective - Vital Signs/Intake and Output Vital Signs (last 24 hours): Temp Pulse Resp BP Pulse Ox 98.1 F 76 18 117/74 96 08/14/18 08:06 08/14/18 09:06 08/14/18 08:06 08/14/18 09:06 08/14/18 08:06 - Medications Medications: Current Medications Acetaminophen (Tylenol 325mg Tab) 650 mg PO Q4 PRN PRN Reason: Pain, moderate (4-7) Acetaminophen (Tylenol 325mg Tab) 650 mg PO Q6 PRN PRN Reason: Fever >100.4 F Last Admin: 08/04/18 02:08 Dose: 650 mg Albuterol/Ipratropium (Duoneb 3 Mg/0.5 Mg (3 Ml) Ud) 3 ml INH RQ4 PRN PRN Reason: Shortness of Breath Last Admin: 08/04/18 13:30 Dose: 3 ml Amlodipine Besylate (Norvasc) 10 mg PO DAILY [facility] Last Admin: 08/14/18 09:06 Dose: 10 mg Aspirin (Ecotrin) 81 mg PO DAILY [facility] Last Admin: 08/14/18 09:04 Dose: 81 mg Furosemide (Lasix) 20 mg PO DAILY [facility] Last Admin: 08/14/18 09:05 Dose: 20 mg Heparin Sodium (Porcine) (Heparin) 5,000 units SC Q12 [facility]; Protocol Last Admin: 08/14/18 09:04 Dose: 5,000 units Vancomycin HCl 1 gm/ Sodium (Chloride) 250 mls @ 166.667 mls/hr IVPB Q12H [facility]; Protocol Last Admin: 08/14/18 09:06 Dose: 166.667 mls/hr Lactobacillus Acidophilus (Bacid Acidophilus) 1 cap PO BID [facility] Last Admin: 08/14/18 09:12 Dose: 1 cap Losartan Potassium (Cozaar) 100 mg PO DAILY [facility] Last Admin: 08/14/18 09:04 Dose: 100 mg Magnesium Hydroxide (Milk Of Magnesia) 30 ml PO Q72H PRN PRN Reason: Constipation Pantoprazole Sodium (Protonix Ec Tab) 40 mg PO DAILY [facility] Last Admin: 08/14/18 09:06 Dose: 40 mg - Labs Labs: 08/13/18 09:05 08/13/18 09:05 PT 16.0 Seconds (9.8-13.1) H 08/06/18 04:30 INR 1.4 08/06/18 04:30 APTT 39.9 Seconds (25.6-37.1) H 08/09/18 05:30 - Constitutional Appears: Well, Non-toxic, No Acute Distress - Head Exam Head Exam: ATRAUMATIC, NORMAL INSPECTION, NORMOCEPHALIC - Eye Exam Eye Exam: EOMI, Normal appearance, PERRL Pupil Exam: NORMAL ACCOMODATION, PERRL - ENT Exam ENT Exam: Mucous Membranes Moist, Normal Exam - Neck Exam Neck Exam: Full ROM, Normal Inspection. absent: Lymphadenopathy - Respiratory Exam Respiratory Exam: Clear to Ausculation Bilateral, NORMAL BREATHING PATTERN - Cardiovascular Exam Cardiovascular Exam: REGULAR RHYTHM, RRR, +S1, +S2. absent: Murmur - GI/Abdominal Exam GI & Abdominal Exam: Soft, Normal Bowel Sounds. absent: Tenderness - Extremities Exam Extremities Exam: Full ROM, Normal Capillary Refill, Normal Inspection. absent: Joint Swelling, Pedal Edema - Back Exam Back Exam: NORMAL INSPECTION - Neurological Exam Neurological Exam: Alert, Awake, CN II-XII Intact, Normal Gait, Oriented x3 - Psychiatric Exam Psychiatric exam: Normal Affect, Normal Mood - Skin Skin Exam: Dry, Intact, Normal Color, Warm Assessment and Plan (1) Hyponatremia Assessment & Plan: normalized monitor Status: Acute (2) Pleural effusion Assessment & Plan: cont anbx until . anu cont consults Status: Acute (3) Sepsis Assessment & Plan: id anbx Status: Acute (4) DVT prophylaxis Assessment & Plan: scd nad ae hse heparin ambulation Status: Acute
[2018-08-15 05:51] VITALS: RESP 18
[2018-08-15 06:07] LABS: BASO # 0.1 K/uL (0.0-0.2); BASO % 1.4 % (0.0-2.0); EOS # 1.1 K/uL (0.0-0.7); EOS % 12.5 % (0.0-4.0); HEMOGLOBIN 9.9 g/dL (12.0-18.0); LYMPH # 1.5 K/uL (1.0-4.3); LYMPH % 17.2 % (20.0-40.0); MEAN CELL VOLUME 83.1 fl (80.0-94.0); MEAN CORPUSCULAR HEMOGLOBIN 27.9 pg (27.0-31.0); MEAN CORPUSCULAR HGB CONC 33.6 g/dL (33.0-37.0); MEAN PLATELET VOLUME 5.8 fl (7.2-11.7); MONO # 0.8 K/uL (0.0-0.8); MONO % 8.6 % (0.0-10.0); NEUT # 5.4 K/uL (1.8-7.0); NEUT % 60.3 % (50.0-75.0); NRBC % 0.1 % (0.0-0.0); RBC 3.54 Mil/uL (4.40-5.90); RED CELL DISTRIBUTION WIDTH 16.8 % (11.5-14.5); WHITE BLOOD COUNT 8.9 K/uL (4.8-10.8)
[2018-08-15 06:29] LABS: ALB/GLOB RATIO 1.1 (1.0-2.1); ALBUMIN 3.2 g/dL (3.5-5.0); ALT/SGPT 87 U/L (21-72); AST/SGOT 48 U/L (17-59); BLOOD UREA NITROGEN 17 mg/dl (9-20); CALCIUM 8.7 mg/dL (8.4-10.2); GFR NON-AFRICAN AMERICAN > 60
[2018-08-15] MEDS: Lactobacillus Acidophilus 500 MU Cap PO SCH (10:07)
[2018-08-15] MEDS: Pantoprazole 40 mg EC Tab PO SCH (10:08)
--- NOTE | 2018-08-15 10:32 | CP.PCM.PN ---
Subjective - Date & Time of Evaluation Date of Evaluation: 08/15/18 Time of Evaluation: 10:31 - Subjective Subjective: pt doing well. no f/c, n/v/d. no dyspnea. off bipap. bw noted. consults appriciated. for dc to anu Objective - Vital Signs/Intake and Output Vital Signs (last 24 hours): Temp Pulse Resp BP Pulse Ox 98.1 F 75 18 134/82 97 08/15/18 08:08 08/15/18 10:09 08/15/18 08:08 08/15/18 10:09 08/15/18 08:08 - Medications Medications: Current Medications Acetaminophen (Tylenol 325mg Tab) 650 mg PO Q4 PRN PRN Reason: Pain, moderate (4-7) Acetaminophen (Tylenol 325mg Tab) 650 mg PO Q6 PRN PRN Reason: Fever >100.4 F Last Admin: 08/04/18 02:08 Dose: 650 mg Albuterol/Ipratropium (Duoneb 3 Mg/0.5 Mg (3 Ml) Ud) 3 ml INH RQ4 PRN PRN Reason: Shortness of Breath Last Admin: 08/04/18 13:30 Dose: 3 ml Amlodipine Besylate (Norvasc) 10 mg PO DAILY [facility] Last Admin: 08/15/18 10:09 Dose: 10 mg Aspirin (Ecotrin) 81 mg PO DAILY [facility] Last Admin: 08/15/18 10:09 Dose: 81 mg Furosemide (Lasix) 20 mg PO DAILY [facility] Last Admin: 08/15/18 10:09 Dose: 20 mg Heparin Sodium (Porcine) (Heparin) 5,000 units SC Q12 [facility]; Protocol Last Admin: 08/15/18 10:09 Dose: 5,000 units Vancomycin HCl 1 gm/ Sodium (Chloride) 250 mls @ 166.667 mls/hr IVPB Q12H [facility]; Protocol Last Admin: 08/15/18 10:10 Dose: 166.667 mls/hr Lactobacillus Acidophilus (Bacid Acidophilus) 1 cap PO BID [facility] Last Admin: 08/15/18 10:07 Dose: 1 cap Losartan Potassium (Cozaar) 100 mg PO DAILY [facility] Last Admin: 08/15/18 10:08 Dose: 100 mg Magnesium Hydroxide (Milk Of Magnesia) 30 ml PO Q72H PRN PRN Reason: Constipation Pantoprazole Sodium (Protonix Ec Tab) 40 mg PO DAILY [facility] Last Admin: 08/15/18 10:08 Dose: 40 mg - Labs Labs: 08/15/18 05:25 08/15/18 05:25 PT 16.0 Seconds (9.8-13.1) H 08/06/18 04:30 INR 1.4 08/06/18 04:30 APTT 39.9 Seconds (25.6-37.1) H 08/09/18 05:30 - Constitutional Appears: Well, Non-toxic, No Acute Distress - Head Exam Head Exam: ATRAUMATIC, NORMAL INSPECTION, NORMOCEPHALIC - Eye Exam Eye Exam: EOMI, Normal appearance, PERRL Pupil Exam: NORMAL ACCOMODATION, PERRL - ENT Exam ENT Exam: Mucous Membranes Moist, Normal Exam - Neck Exam Neck Exam: Full ROM, Normal Inspection. absent: Lymphadenopathy - Respiratory Exam Respiratory Exam: Clear to Ausculation Bilateral, NORMAL BREATHING PATTERN - Cardiovascular Exam Cardiovascular Exam: REGULAR RHYTHM, RRR, +S1, +S2. absent: Murmur - GI/Abdominal Exam GI & Abdominal Exam: Soft, Normal Bowel Sounds. absent: Tenderness - Extremities Exam Extremities Exam: Full ROM, Normal Capillary Refill, Normal Inspection. absent: Joint Swelling, Pedal Edema - Back Exam Back Exam: NORMAL INSPECTION - Neurological Exam Neurological Exam: Alert, Awake, CN II-XII Intact, Normal Gait, Oriented x3 - Psychiatric Exam Psychiatric exam: Normal Affect, Normal Mood - Skin Skin Exam: Dry, Intact, Normal Color, Warm Assessment and Plan (1) Hyponatremia Status: Acute (2) Pleural effusion Status: Acute (3) Sepsis Status: Acute (4) DVT prophylaxis Status: Acute - Assessment and Plan (Free Text) Assessment: (1) Hyponatremia Assessment & Plan: normalized monitor Status: Acute (2) Pleural effusion Assessment & Plan: cont anbx until thurs. anu cont consults Status: Acute (3) Sepsis Assessment & Plan: id anbx Status: Acute (4) DVT prophylaxis Assessment & Plan: scd nad ae hse heparin ambulation Status: Acute
--- NOTE | 2018-08-15 11:20 | CP.PCM.PN ---
Subjective - Date & Time of Evaluation Date of Evaluation: 08/15/18 Time of Evaluation: 07:00 - Subjective Subjective: feels better afebrile Objective - Vital Signs/Intake and Output Vital Signs (last 24 hours): Temp Pulse Resp BP Pulse Ox 98.1 F 75 18 134/82 97 08/15/18 08:08 08/15/18 10:09 08/15/18 08:08 08/15/18 10:09 08/15/18 08:08 - Medications Medications: Current Medications Acetaminophen (Tylenol 325mg Tab) 650 mg PO Q4 PRN PRN Reason: Pain, moderate (4-7) Acetaminophen (Tylenol 325mg Tab) 650 mg PO Q6 PRN PRN Reason: Fever >100.4 F Last Admin: 08/04/18 02:08 Dose: 650 mg Albuterol/Ipratropium (Duoneb 3 Mg/0.5 Mg (3 Ml) Ud) 3 ml INH RQ4 PRN PRN Reason: Shortness of Breath Last Admin: 08/04/18 13:30 Dose: 3 ml Amlodipine Besylate (Norvasc) 10 mg PO DAILY [facility] Last Admin: 08/15/18 10:09 Dose: 10 mg Aspirin (Ecotrin) 81 mg PO DAILY [facility] Last Admin: 08/15/18 10:09 Dose: 81 mg Furosemide (Lasix) 20 mg PO DAILY [facility] Last Admin: 08/15/18 10:09 Dose: 20 mg Heparin Sodium (Porcine) (Heparin) 5,000 units SC Q12 [facility]; Protocol Last Admin: 08/15/18 10:09 Dose: 5,000 units Vancomycin HCl 1 gm/ Sodium (Chloride) 250 mls @ 166.667 mls/hr IVPB Q12H [facility]; Protocol Last Admin: 08/15/18 10:10 Dose: 166.667 mls/hr Lactobacillus Acidophilus (Bacid Acidophilus) 1 cap PO BID [facility] Last Admin: 08/15/18 10:07 Dose: 1 cap Losartan Potassium (Cozaar) 100 mg PO DAILY [facility] Last Admin: 08/15/18 10:08 Dose: 100 mg Magnesium Hydroxide (Milk Of Magnesia) 30 ml PO Q72H PRN PRN Reason: Constipation Pantoprazole Sodium (Protonix Ec Tab) 40 mg PO DAILY [facility] Last Admin: 08/15/18 10:08 Dose: 40 mg - Labs Labs: 08/15/18 05:25 08/15/18 05:25 PT 16.0 Seconds (9.8-13.1) H 08/06/18 04:30 INR 1.4 08/06/18 04:30 APTT 39.9 Seconds (25.6-37.1) H 08/09/18 05:30 - Constitutional Appears: Non-toxic, No Acute Distress, Chronically Ill - Head Exam Head Exam: ATRAUMATIC, NORMAL INSPECTION, NORMOCEPHALIC - Eye Exam Eye Exam: EOMI, Normal appearance, PERRL Pupil Exam: NORMAL ACCOMODATION, PERRL - ENT Exam ENT Exam: Mucous Membranes Moist, Normal Exam - Neck Exam Neck Exam: Full ROM, Normal Inspection. absent: Lymphadenopathy - Respiratory Exam Respiratory Exam: Clear to Ausculation Bilateral, NORMAL BREATHING PATTERN - Cardiovascular Exam Cardiovascular Exam: REGULAR RHYTHM, +S1, +S2. absent: Murmur - GI/Abdominal Exam GI & Abdominal Exam: Soft, Normal Bowel Sounds. absent: Tenderness - Rectal Exam Rectal Exam: Deferred - Exam Exam: NORMAL INSPECTION - Extremities Exam Extremities Exam: Full ROM, Normal Capillary Refill, Normal Inspection. absent: Joint Swelling, Pedal Edema - Back Exam Back Exam: NORMAL INSPECTION - Neurological Exam Neurological Exam: Alert, Awake, CN II-XII Intact, Normal Gait, Oriented x3 - Psychiatric Exam Psychiatric exam: Normal Affect, Normal Mood - Skin Skin Exam: Dry, Intact, Normal Color, Warm Assessment and Plan (1) Hyponatremia Status: Acute (2) Pleural effusion Status: Acute (3) Sepsis Status: Acute (4) Ascites Status: Acute (5) Chest pain Status: Acute (6) ETOH abuse Status: Acute (7) Leukocytosis Status: Acute (8) Pleural effusion associated with pulmonary infection Status: Acute - Assessment and Plan (Free Text) Assessment: cont IV Vanco for min 7 more days repeat CXR
[2018-08-15 12:02] VITALS: BP 124/65; PULSE 79; TEMP 98; O2SAT 100
== END 2018-08-15 15:35 | DRG 871 ==
LOC: H.ER 20:01 → H.ERHOLD 21:19 → H.TEL 23:12
PROVIDERS: ADMIT Family Medicine; ATTEND Family Medicine
PROC: 5A09457 Assistance with Respiratory Ventilation, 24-96 Consecutive Hours, Continuous Positive Airway Pressure (ICD-10-PCS; 2018-08-02)
PROC: 0W9B30Z Drainage of Left Pleural Cavity with Drainage Device, Percutaneous Approach (ICD-10-PCS; 2018-08-04)
PROC: 0W9930Z Drainage of Right Pleural Cavity with Drainage Device, Percutaneous Approach (ICD-10-PCS; 2018-08-04)
PROC: 0BDB8ZX Extraction of Left Lower Lobe Bronchus, Via Natural or Artificial Opening Endoscopic, Diagnostic (ICD-10-PCS; principal; 2018-08-07 16:00)
DX: A41.9 Sepsis, unspecified organism (principal); J18.9 Pneumonia, unspecified organism; J91.8 Pleural effusion in other conditions classified elsewhere; J98.11 Atelectasis; E87.1 Hypo-osmolality and hyponatremia; R18.8 Other ascites; F10.20 Alcohol dependence, uncomplicated; R09.1 Pleurisy; I10 Essential (primary) hypertension; K21.9 Gastro-esophageal reflux disease without esophagitis; Z79.82 Long term (current) use of aspirin